=== PATIENT | female | born 1940 | race African-American/Black ===

== ENCOUNTER 2016-06-05 11:20 | Inpatient (IN) | payer OTHER, MEDICARE ==
[2016-06-05 11:35] VITALS: BMI 31.8
[2016-06-05] MEDS ORDERED: ALBUTEROL SO4 2.5/IPRATROPIUM 0.5 INH SOL 3 ML VIAL.NEB. NEB ONE (11:44)
[2016-06-05] MEDS ORDERED: methylPREDNISolone NA SUCC 125 MG/2 ML VIAL IVPB ONE (11:47)
[2016-06-05] MEDS: ALBUTEROL SO4 2.5/IPRATROPIUM 0.5 INH SOL 3 ML VIAL.NEB. NEB SCH ×5 (11:50→23:16)
[2016-06-05] MEDS ORDERED: methylPREDNISolone NA SUCC 125 MG/2 ML VIAL ONE (11:51)
[2016-06-05 12:29] LABS: INR 1.19 (0.82-1.09); PROTHROMBIN TIME (PATIENT) 13.1 SEC (9.98-11.88)
[2016-06-05 12:38] LABS: BASOPHIL 0.4 % (0-2.0); EOSINOPHIL 2.5 % (0-4.5); MCH 24.6 pg (25.7-33.7); MCHC 31.1 g/dl (32.0-36.0); MEAN PLT VOLUME 12.5 fl (7.5-11.1); RDW 17.9 % (11.6-15.6); WHITE BLOOD COUNT 7.5 K/mm3 (4.0-10.0)
[2016-06-05 13:30] LABS: ALBUMIN 2.3 g/dl (3.4-5.0); BILIRUBIN,TOTAL 0.4 mg/dL (0.2-1.0); CREATININE 3.5 mg/dL (0.55-1.02); TOT PROT 8.9 g/dl (6.4-8.2)
[2016-06-05 13:33] LABS: TROPONIN I 0.06 ng/ml (0.00-0.05)
[2016-06-05] MEDS ORDERED: LEVOFLOXACIN 500 MG IVPB 100 ML IVPB ONE (14:04)
[2016-06-05 14:30] LABS: PLATELET COMMENT2 NO CLOTTING DETECTED; PLATELET COMMENT3 FEW LARGE PLTS; PLATELET COUNT 79 K/MM3 (134-434); PLATELET ESTIMATE SLT DECREASED (NORMAL)
--- NOTE | 2016-06-05 14:31 | PDOC ---
History of Present Illness - General Chief Complaint: Shortness of Breath Stated Complaint: ASTHMA Time Seen by Provider: 06/05/16 11:34 History Source: Patient Exam Limitations: No Limitations - History of Present Illness Initial Comments: 06/05/16 12:32 75-year-old female presents with wheezing, cough and shortness of breath worsening since awakening this morning. Patient states had used her nebulizer machine with no improvement so decided come to the ER with her granddaughter. Patient denies chest pain, fever, chills, palpitations, weakness, nausea, recent change in medications, or recent illness. Timing/Duration: reports: constant, getting worse Severity: reports: moderate Possible Cause: Yes: occasional episodes Modifying Factors: improves with: coughing Associated Symptoms: reports: cough, shortness of breath, wheezing Past History - Past Medical History Allergies/Adverse Reactions: Allergies Allergy/AdvReac Type Severity Reaction Status Date / Time egg Allergy Severe LIP Verified 06/05/16 11:28 SWELLING Penicillins Allergy Severe Rash Verified 06/05/16 11:28 FLU SHOT Allergy Uncoded 06/05/16 11:28 Home Medications: Ambulatory Orders Clonidine HCl 0.1 mg PO BID 06/05/16 Meclizine HCl 25 mg PO BID 06/05/16 Nifedipine [Nifedipine ER] 30 mg PO DAILY 06/05/16 Anemia: No Asthma: Yes Cancer: No Cardiac Disorders: Yes (? 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 [place] SAYS NO EVID) CVA: No COPD: No CHF: Yes (ENCE AFTER STUDIES.) Dementia: No Diabetes: No GI Disorders: No Disorders: No HTN: Yes Hypercholesterolemia: No Liver Disease: No Seizures: No Thyroid Disease: No - Surgical History Abdominal Surgery: No Appendectomy: No Cardiac Surgery: No Cholecystectomy: No Lung Surgery: No Neurologic Surgery: No Orthopedic Surgery: No - Psycho/Social/Smoking Cessation Hx Suicidal Ideation: No Smoking History: Former smoker Have you smoked in the past 12 months: No If you are a former smoker, when did you quit?: 35 YEARS AGO Information on smoking cessation initiated: No Hx Alcohol Use: No Drug/Substance Use Hx: No Substance Use Type: None Hx Substance Use Treatment: No Patient Lives Alone: No Respiratory Specific PMHX - Complaint Specific PMHX Bronchitis: Yes Review of Systems - Review of Systems Able to Perform ROS?: Yes Constitutional: No: Symptoms Reported HEENTM: No: Symptoms Reported Respiratory: Yes: Cough, Shortness of Breath, Wheezing Cardiac (ROS): No: Symptoms Reported ABD/GI: No: Symptoms Reported : No: Symptoms Reported Musculoskeletal: No: Symptoms Reported Integumentary: No: Symptoms Reported Neurological: No: Symptoms reported Hematologic/Lymphatic: No: Symptoms Reported *Physical Exam - Vital Signs Last Vital Signs Temp Pulse Resp BP Pulse Ox 98 F 100 H 24 188/82 100 06/05/16 11:28 06/05/16 13:29 06/05/16 13:29 06/05/16 13:29 06/05/16 13:29 - Physical Exam General Appearance: Yes: Nourished, Appropriately Dressed, Mild Distress HEENT: positive: TMs Normal, Pharynx Normal. negative: Pale Conjunctivae Neck: positive: Supple Respiratory/Chest: positive: Respiratory Distress, Accessory Muscle Use ( intercostal), Crackles (inspiratory crackles bilateral). negative: Rapid RR, Decreased Breath Sounds Cardiovascular: positive: Regular Rhythm, Tachycardia. negative: Murmur Gastrointestinal/Abdominal: positive: Soft. negative: Tenderness Extremity: positive: Normal Capillary Refill, Pedal Edema (2+ nonpitting) Integumentary: positive: Normal Color, Dry, Warm Neurologic: positive: Normal Mood/Affect, Motor Strength 5/5 (amvbulatory with assistance) Heart Score/ECG Review - History History: Slightly suspicious - Electrocardiogram EKG: Normal - Age Age: >/= 65 - Risk Factors Risk Factors Heart Score: Yes Hx Hypercholesterolemia, Yes Hx Hypertension Based on the list above the patient has:: 1-2 risk factors - Troponin Troponin: </= normal limit - Score Heart Score - Total: 3 - ECG Intrepretation Rhythm: Regular Rhythm (Rate 98. Normal sinus rhythm. No acute findings.) ED Treatment Course - LABORATORY CBC & Chemistry Diagram: 06/06/16 05:55 06/06/16 05:55 - ADDITIONAL ORDERS Additional order review: Laboratory Results 06/05/16 06/05/16 06/05/16 13:40 12:30 11:40 INR 1.19 H Sodium 143 Potassium 4.9 Chloride 113 H Carbon Dioxide 21 Anion Gap 9 BUN 43 H Creatinine 3.5 H D Creat Clearance w eGFR 12.80 Random Glucose 112 H D Lactic Acid 1.853 Calcium 8.0 L Total Bilirubin 0.4 AST 22 D ALT 11 L Alkaline Phosphatase 62 D Creatine Kinase 185 CK-MB (CK-2) 3.619 H Troponin I 0.06 H B-Natriuretic Peptide 9420.37 H Total Protein 8.9 H D Albumin 2.3 L D 06/05/16 12:30 RBC 4.60 MCV 79.0 L MCHC 31.1 L RDW 17.9 H MPV 12.5 H Neutrophils % 64.0 Lymphocytes % 25.9 Monocytes % 7.2 Eosinophils % 2.5 Basophils % 0.4 - RADIOLOGY Radiology Studies Ordered: Category Date Time Status CHEST X-RAY PORTABLE* [RAD] Stat Radiology 06/05/16 11:47 Completed - Medications Given in the ED: ED Medications Discontinued Medications Generic Name Dose Route Start Last Admin Trade Name Freq PRN Reason Stop Dose Admin Albuterol/Ipratropium 1 amp 06/05/16 12:00 06/05/16 12:35 Duoneb - NEB 06/05/16 12:46 1 amp Q15M JOANNE Administration Levofloxacin 500 mg/ 100 mls @ 100 mls/hr 06/05/16 13:25 06/05/16 14:21 Miscellaneous IVPB 06/05/16 14:24 100 mls/hr ONCE ONE Administration Protocol Methylprednisolone Sodium Succinate 125 mg 06/05/16 11:47 06/05/16 12:00 Solu-Medrol - IVPB 06/05/16 11:48 125 mg ONCE ONE Administration Medical Decision Making - Critical Care Time Total Critical Care Time (minutes): 35 Critical Care Statement: The care of this patient involved high complexity decision making to prevent further life threatening deterioration of the patient 's condition and/or to evalute & treat vital organ system(s) failure or risk of failure. - Medical Decision Making 06/05/16 12:35 Patient history of asthma AR and cardiac history presents with wheezing cough and shortness of breath since this morning. Patient arrives initially hypoxic at 88 with a heart rate of 120 from triage. Patient was placed on monitor in the room and was noted to be satting in the high 80s with a heart rate in the low 100s. Given [id number] DuoNeb while IV access was established. EKG ordered stat. Additional labs include BNP, chest x-ray, cardiac profile, and Solu-Medrol 06/05/16 14:37 Laboratory Tests 06/05/16 06/05/16 06/05/16 11:40 12:30 12:30 WBC 7.5 Hgb 11.3 Hct 36.4 Neutrophils % 64.0 INR 1.19 H Sodium 143 Potassium 4.9 Chloride 113 H Carbon Dioxide 21 Anion Gap 9 BUN 43 H Creatinine 3.5 H D Creat Clearance w eGFR 12.80 Random Glucose 112 H D Lactic Acid Calcium 8.0 L Total Bilirubin 0.4 AST 22 D ALT 11 L Alkaline Phosphatase 62 D Creatine Kinase 185 CK-MB (CK-2) 3.619 H Troponin I 0.06 H B-Natriuretic Peptide 9420.37 H Total Protein 8.9 H D Albumin 2.3 L D 06/05/16 13:40 WBC Hgb Hct Neutrophils % INR Sodium Potassium Chloride Carbon Dioxide Anion Gap BUN Creatinine Creat Clearance w eGFR Random Glucose Lactic Acid 1.853 Calcium Total Bilirubin AST ALT Alkaline Phosphatase Creatine Kinase CK-MB (CK-2) Troponin I B-Natriuretic Peptide Total Protein Albumin 06/05/16 14:00 Chest x-ray shows patchy infiltrates versus atelectasis. Patient concerning for pneumonia versus CHF. Patient ordered for 40 mg of Lasix and Levaquin IV. Will contact patient's PCP Dr. Walters for admission. Selected Entries 06/05/16 13:29 Pulse Rate [ 100 H Right Radial] Respiratory 24 Rate Blood Pressure 188/82 [Left Arm] O2 Sat by Pulse 100 Oximetry (%) Oxygen Flow 2 Rate 06/05/16 16:[address] Walters. Patient will be admitted to the hospitalist under telemetry consultation. cardiology chronic manager will consult since patient does not have a landscape drafter. Patient is currently afebrile asymptomatic and comfortable. Selected Entries 06/05/16 15:30 Pulse Rate [ 99 H Right Radial] Blood Pressure 182/72 [Left Arm] O2 Sat by Pulse 98 Oximetry (%) *DC/Admit/Observation/Transfer Diagnosis at time of Disposition: CHF (congestive heart failure), Pneumonia, Elevated troponin - Discharge Dispostion Admit: Yes
[2016-06-05] MEDS ORDERED: FUROSEMIDE 40 MG/4 ML INJECTABLE VIAL IVPUSH ONE (14:37)
[2016-06-05] MEDS ORDERED: FUROSEMIDE 40 MG/4 ML INJECTABLE VIAL ONE (15:30)
--- NOTE | 2016-06-05 16:09 | HP ---
CHIEF COMPLAINT: chest discomfort, shortness of breath PCP: Romeo HISTORY OF PRESENT ILLNESS: This is a 75 year old female with a past medical history of HTN, ?KS, HLD, asthma who presented to the ED with a 2 day history of chest discomfort associated with SOB. Pt reports cough is minimal and nonproductive. Denies any palpitations. Denies abdominal pain, N/V/D. Pt used her nebulizer today without relief of symptoms. ER course was notable for: (1) given solumedrol 125, duoneb, lasix (2) trop 0.06 (3) BNP 9420.37 (4) BUN/Cr 43/3.5 Recent Travel: pt denies PAST MEDICAL HISTORY: HTN ?KS-pt reports she was told she had an KS in 2012 in [place], but never had any follow up and when she came to [place], her doctor told her she didn't have one HLD asthma PAST SURGICAL HISTORY: bilateral cataracts Social History: Smoking: quit 40 years, 20 pack year history Alcohol: occ Drugs: pt denies Allergies egg Allergy (Severe, Verified 06/05/16 11:28) LIP SWELLING Penicillins Allergy (Severe, Verified 06/05/16 11:28) Rash FLU SHOT Allergy (Uncoded 06/05/16 11:28) HOME MEDICATIONS: 3 Medication Instructions Recorded Clonidine HCl 0.1 mg PO BID 06/05/16 Meclizine HCl 25 mg PO BID 06/05/16 Nifedipine [Nifedipine ER] 30 mg PO DAILY 06/05/16 REVIEW OF SYSTEMS CONSTITUTIONAL: Absent: fever, chills, diaphoresis, generalized weakness, malaise, loss of appetite, weight change HEENT: Absent: rhinorrhea, nasal congestion, throat pain, throat swelling, difficulty swallowing, mouth swelling, ear pain, eye pain, visual changes CARDIOVASCULAR: chest discomfort Absent: syncope, palpitations, irregular heart rate, lightheadedness, peripheral edema RESPIRATORY: cough, shortness of breath Absent: dyspnea with exertion, orthopnea, wheezing, stridor, hemoptysis GASTROINTESTINAL: Absent: abdominal pain, abdominal distension, nausea, vomiting, diarrhea, constipation, melena, hematochezia GENITOURINARY: Absent: dysuria, frequency, urgency, hesitancy, hematuria, flank pain, genital pain MUSCULOSKELETAL: Absent: myalgia, arthralgia, joint swelling, back pain, neck pain SKIN: Absent: rash, itching, pallor HEMATOLOGIC/IMMUNOLOGIC: Absent: easy bleeding, easy bruising, lymphadenopathy, frequent infections ENDOCRINE: Absent: unexplained weight gain, unexplained weight loss, heat intolerance, cold intolerance NEUROLOGIC: Absent: headache, focal weakness or paresthesias, dizziness, unsteady gait, seizure, mental status changes, bladder or bowel incontinence PSYCHIATRIC: Absent: anxiety, depression, suicidal or homicidal ideation, hallucinations. PHYSICAL EXAMINATION Vital Signs - 24 hr 3 06/05/16 06/05/16 06/05/16 11:28 11:40 12:20 Temperature 98 F Pulse Rate 93 H Pulse Rate [ 98 H Right Radial] Respiratory 22 16 Rate Blood Pressure 201/88 Blood Pressure 177/107 [Left Arm] O2 Sat by Pulse 88 L 96 100 Oximetry (%) 3 06/05/16 06/05/16 13:29 15:30 Temperature Pulse Rate Pulse Rate [ 100 H 99 H Right Radial] Respiratory 24 26 H Rate Blood Pressure Blood Pressure 188/82 182/72 [Left Arm] O2 Sat by Pulse 100 98 Oximetry (%) GENERAL: Awake, alert, and fully oriented, in no acute distress. HEAD: Normal with no signs of trauma. EYES: Pupils equal, round and reactive to light, extraocular movements intact, sclera anicteric, conjunctiva clear. No lid lag. EARS, NOSE, THROAT: Ears normal, nares patent, oropharynx clear without exudates. Moist mucous membranes. NECK: Normal range of motion, supple without lymphadenopathy, JVD, or masses. LUNGS: No wheezes, no rhonchi. + crackles, 1/3-1/2 way up. No accessory muscle use. HEART: Regular rate and rhythm, normal S1 and S2 without murmur, rub or gallop. ABDOMEN: Soft, nontender, not distended, normoactive bowel sounds, no guarding, no rebound, no masses. No hepatomegaly or splenomegaly. MUSCULOSKELETAL: Normal range of motion at all joints. No bony deformities or tenderness. No CVA tenderness. UPPER EXTREMITIES: 2+ pulses, warm, well-perfused. No cyanosis. No clubbing. Cap refill <2 seconds. No peripheral edema. LOWER EXTREMITIES: 2+ pulses, warm, well-perfused. No calf tenderness. No peripheral edema. NEUROLOGICAL: Cranial nerves II-XII intact. Normal speech. Normal gait. PSYCHIATRIC: Cooperative. Good eye contact. Appropriate mood and affect. SKIN: Warm, dry, normal turgor, no rashes or lesions noted. Laboratory Results - last 24 hr 3 06/05/16 06/05/16 06/05/16 06/05/16 11:40 12:30 12:30 13:40 WBC 7.5 RBC 4.60 Hgb 11.3 Hct 36.4 MCV 79.0 L MCHC 31.1 L RDW 17.9 H Plt Count 79 L MPV 12.5 H Neutrophils % 64.0 Lymphocytes % 25.9 Monocytes % 7.2 Eosinophils % 2.5 Basophils % 0.4 Differential Comment Slide scanned Platelet Estimate Slt decreased Platelet Comment No clotting detected INR 1.19 H Sodium 143 Potassium 4.9 Chloride 113 H Carbon Dioxide 21 Anion Gap 9 BUN 43 H Creatinine 3.5 H D Creat Clearance w eGFR 12.80 Random Glucose 112 H D Lactic Acid 1.853 Calcium 8.0 L Total Bilirubin 0.4 AST 22 D ALT 11 L Alkaline Phosphatase 62 D Creatine Kinase 185 CK-MB (CK-2) 3.619 H Troponin I 0.06 H B-Natriuretic Peptide 9420.37 H Total Protein 8.9 H D Albumin 2.3 L D ECG: NSR, rate 98, QTC 444, STand T abnormality, (flipped T leads 3, aVF, V4-V6) Chest xray: Impression: Diffuse bilateral airspace changes compatible with infiltrate and congestion. Large heart. Sclerotic knob ASSESSMENT/PLAN: 75yF with PMH HTN, HLD, ?KS, asthma presented with chest discomfort and SOB. She is being admitted for CHF exacerbation and pneumonia. Pneumonia, Community acquired / Asthma - cont levaquin, will renal dose for CrCl 15, 500mg QOD - duoneb QID - oxygen 2L PRN. - solumedrol 40mg Q6H, taper as tolerated CHF - received lasix IVP in ED, but pt in acute renal failure, will hold off on further diuresis - echocardiogram ordered - cardiology consult. Elevated troponin - trend x 2 more - cardiology consult - defer beta mu due to active wheezing on arrival - will give ASA 324mg and start daily Acute kidney injury with chronic CKD - baseline creatinine 2.4-2.8, now 3.5 - hold further IV lasix - renal consult - monitor BMP HTN - cont home meds, titrate up if BP consistently elevated DVT PPX - heparin 5000u SC TID FEN - defer IVF for now, tolerating po - repeat labs in AM - low sodium diet Dispo: pt currently requires inpatient care for management of her emergent conditions. Visit type - Emergency Visit Emergency Visit: Yes ED Registration Date: 06/05/16 Care time: The patient presented to the Emergency Department on the above date and was hospitalized for further evaluation of their emergent condition. - New Patient This patient is new to me today: Yes Date on this admission: 06/05/16 - Critical Care Critical Care patient: No
[2016-06-05] MEDS ORDERED: ASPIRIN 81 MG CHEWABLE TABLETS PO ONE (18:36)
--- NOTE | 2016-06-05 19:14 | CON.CARD ---
Consult Consult Specialty:: Cardiology for Osmin - History of Present Illness History of Present Illness: 75-year-old female presents with wheezing, cough and shortness of breath worsening since awakening this morning. Patient states had used her nebulizer machine with no improvement so decided come to the ER with her granddaughter. Patient denies chest pain, fever, chills, palpitations, weakness, nausea, recent change in medications, or recent illness. Timing/Duration: reports: constant, getting worse - History Source History Provided By: Patient, Medical Record - Past Medical History Cardio/Vascular: Yes: HTN Pulmonary: Yes: COPD ...: No - Alcohol/Substance Use Hx Alcohol Use: No - Smoking History Smoking history: Former smoker Have you smoked in the past 12 months: No If you are a former smoker, when did you quit?: 35 YEARS AGO Home Medications - Allergies Allergies/Adverse Reactions: Allergies Allergy/AdvReac Type Severity Reaction Status Date / Time egg Allergy Severe LIP Verified 06/05/16 11:28 SWELLING Penicillins Allergy Severe Rash Verified 06/05/16 11:28 FLU SHOT Allergy Uncoded 06/05/16 11:28 - Home Medications Home Medications: Ambulatory Orders Clonidine HCl 0.1 mg PO BID 06/05/16 Meclizine HCl 25 mg PO BID 06/05/16 Nifedipine [Nifedipine ER] 30 mg PO DAILY 06/05/16 Review of Systems - Review of Systems Constitutional: reports: No Symptoms Eyes: reports: No Symptoms HENT: reports: No Symptoms Neck: reports: No Symptoms Cardiovascular: reports: No Symptoms Respiratory: reports: SOB, SOB on Exertion Gastrointestinal: reports: No Symptoms Genitourinary: reports: No Symptoms Breasts: reports: No Symptoms Reported Musculoskeletal: reports: No Symptoms Integumentary: reports: No Symptoms Neurological: reports: No Symptoms Endocrine: reports: No Symptoms Hematology/Lymphatic: reports: No Symptoms Psychiatric: reports: No Symptoms Vital Signs: Vital Signs Temperature 98.1 F 06/05/16 18:29 Pulse Rate 100 H 06/05/16 18:29 Respiratory Rate 18 06/05/16 18:29 Blood Pressure 160/78 06/05/16 18:29 O2 Sat by Pulse Oximetry (%) 95 06/05/16 18:29 Constitutional: Yes: Well Nourished, No Distress, Calm Eyes: Yes: WNL, Conjunctiva Clear, EOM Intact HENT: Yes: WNL, Atraumatic, Normocephalic Neck: Yes: WNL, Supple, Trachea Midline Respiratory: Yes: WNL, Regular, CTA Bilaterally Gastrointestinal: Yes: WNL, Normal Bowel Sounds Renal/: Yes: WNL Cardiovascular: Yes: WNL, Regular Rate and Rhythm Musculoskeletal: Yes: WNL Extremities: Yes: WNL Integumentary: Yes: WNL Neurological: Yes: WNL, Alert, Oriented ...Motor Strength: WNL Psychiatric: Yes: WNL, Alert, Oriented - Other Data Labs, Other Data: INR, PTT INR 1.19 (0.82-1.09) H 06/05/16 11:40 Laboratory Tests 06/05/16 06/05/16 06/05/16 11:40 12:30 12:30 WBC 7.5 RBC 4.60 Hgb 11.3 Hct 36.4 MCV 79.0 L MCHC 31.1 L RDW 17.9 H Plt Count 79 L MPV 12.5 H Neutrophils % 64.0 Lymphocytes % 25.9 Monocytes % 7.2 Eosinophils % 2.5 Basophils % 0.4 Differential Comment Slide scanned Platelet Estimate Slt decreased Platelet Comment No clotting detected INR 1.19 H Sodium 143 Potassium 4.9 Chloride 113 H Carbon Dioxide 21 Anion Gap 9 BUN 43 H Creatinine 3.5 H D Creat Clearance w eGFR 12.80 Random Glucose 112 H D Lactic Acid Calcium 8.0 L Total Bilirubin 0.4 AST 22 D ALT 11 L Alkaline Phosphatase 62 D Creatine Kinase 185 CK-MB (CK-2) 3.619 H Troponin I 0.06 H B-Natriuretic Peptide 9420.37 H Total Protein 8.9 H D Albumin 2.3 L D 06/05/16 13:40 WBC RBC Hgb Hct MCV MCHC RDW Plt Count MPV Neutrophils % Lymphocytes % Monocytes % Eosinophils % Basophils % Differential Comment Platelet Estimate Platelet Comment INR Sodium Potassium Chloride Carbon Dioxide Anion Gap BUN Creatinine Creat Clearance w eGFR Random Glucose Lactic Acid 1.853 Calcium Total Bilirubin AST ALT Alkaline Phosphatase Creatine Kinase CK-MB (CK-2) Troponin I B-Natriuretic Peptide Total Protein Albumin Imaging - Results Chest X-ray: Image Reviewed (chf) EKG: Image Reviewed (sr rep abn) Problem List - Problems (1) CHF (congestive heart failure) Code(s): I50.9 - HEART FAILURE, UNSPECIFIED (2) Elevated troponin Code(s): R79.89 - OTHER SPECIFIED ABNORMAL FINDINGS OF BLOOD CHEMISTRY (3) Pneumonia Code(s): J18.9 - PNEUMONIA, UNSPECIFIED ORGANISM Assessment/Plan copd chf cri plan echo iv lasix asa keep ldl below [address] when stable
[2016-06-05 19:43] LABS: TROPONIN I 0.07 ng/ml (0.00-0.05)
--- NOTE | 2016-06-05 21:36 | CONSULT ---
Consult - text type - Consultation Consultation Note: Renal Consult for SHAYY on CKD This is a 75 year old woman with PMhx of CKD Stage 4, Hypertension (>40 years), Asthma, Osteoarthritis, Former Smoker who presented with 2 day history of chest discomfort and SOB and admitted with PNA vs. CHF with BUN/Cr of 43/3.5. Pt states that her sob had been progressively worsening over the past few days. Feels better now after admission. S/p IV steroids and Lasix on admission. No fever or chills. No ABd pain/N/V/D. No flank pain. No dysuria or dark urine. No hematuria. No NSIAD use. No recent contrast exposure. PMhx: as above Allergies: PCN Social Hx: Former smoker ROS: as per HPI Home Meds: Home Medications Medication Instructions Recorded Clonidine HCl 0.1 mg PO BID 06/05/16 Meclizine HCl 25 mg PO BID 06/05/16 Nifedipine [Nifedipine ER] 30 mg PO DAILY 06/05/16 Atenolol 50mg BID. Vital Signs Temperature 98.1 F 06/05/16 18:29 Pulse Rate 100 H 06/05/16 18:29 Respiratory Rate 18 06/05/16 18:29 Blood Pressure 160/78 06/05/16 18:29 O2 Sat by Pulse Oximetry (%) 95 06/05/16 18:29 Intake & Output 06/02/16 06/03/16 06/04/16 06/05/16 23:59 23:59 23:59 23:59 Weight 180 lb Gen: NAD, awake and alert HEENT: NC/AT, MMM, No JVD, Neck Supple CVS: RRR, No M/R Lungs : + rales at b/l lung bases Abd: soft NT/ND Ext: 1+ edema in B/L LE, no cyanosis or clubbing Neuro: No focal defects CBC, BMP 06/05/16 12:30 06/05/16 12:30 Laboratory Tests 06/05/16 12:30 Calcium 8.0 L Creatine Kinase 185 CK-MB (CK-2) 3.619 H B-Natriuretic Peptide 9420.37 H Total Protein 8.9 H D Albumin 2.3 L D Current Medications Albuterol/Ipratropium (Duoneb -) 1 amp NEB QIDR JOANNE Aspirin (Asa -) 81 mg PO DAILY JOANNE Atenolol (Tenormin -) 50 mg PO DAILY JOANNE Clonidine (Catapres -) 0.1 mg PO BID JOANNE Furosemide (Lasix Injection -) 40 mg IVPUSH BID@0600,1400 JOANNE Heparin Sodium (Porcine) (Heparin -) 5,000 unit SQ TID JOANNE Levofloxacin (Levaquin 500 Mg Premixed Ivpb -) 100 mls @ 100 mls/hr IVPB Q2D JOANNE Methylprednisolone Sodium Succinate (Solu-Medrol -) 40 mg IVPB Q6H-IV JOANNE Nifedipine (Procardia Xl -) 30 mg PO DAILY JOANNE A/P 75 year old woman with PMhx of CKD Stage 4, Hypertension (>40 years), Asthma, Osteoarthritis, Former Smoker who presented with 2 day history of chest discomfort and SOB and admitted with PNA vs. CHF with BUN/Cr of 43/3.5. #SHAYY on CKD vs. Progressive CKD Cr was 2.8 last year, no other labs since that time Given possible CHF and volume overload it is possible she can have Cardio-renal syndrome Check FeNa, FeUrea, UPCR, Renal US Continue IV lasix 80mg IV BID Trend BUN/Cr, daily weights Dose all meds for Cr Cl less then 15 No hyperkalmiea, uremia, metabolic acidosis to warrant HD at this time #CHF vs. PNA vs. COPD/SOB Continue IV lasix BID Continue IV steroids Abx as needed as per primary (no WBC, Fever) Check blood and urine cultures (legionella) Cardiology Eval check ECHO Trend daily weights #Hypertension Continue Clondine, Procardia, Atenolol (can hold BB if pt has overt wheezing) Goal BP < 140/90 #Thrombocytopenia ? etiology Check LDH/Haptologin Trend plts not at risk for spontaneous bleeding consider heme eval if it persists
[2016-06-05] MEDS: cloNIDine HCL 0.1 MG TABLET PO SCH (21:56)
[2016-06-05] MEDS: methylPREDNISolone NA SUCC 40 MG/1 ML VIAL IVPB SCH (21:56)
[2016-06-05] MEDS: HEPARIN NA (PORCINE) 5,000 UNITS/ML 1ML VIAL SQ SCH (21:56)
[2016-06-06 02:25] LABS: TROPONIN I 0.07 ng/ml (0.00-0.05)
[2016-06-06] MEDS: methylPREDNISolone NA SUCC 40 MG/1 ML VIAL IVPB SCH ×4 (03:35→22:26)
[2016-06-06] MEDS: FUROSEMIDE 40 MG/4 ML INJECTABLE VIAL IVPUSH SCH ×2 (06:26→14:16)
[2016-06-06] MEDS: HEPARIN NA (PORCINE) 5,000 UNITS/ML 1ML VIAL SQ SCH (06:26)
[2016-06-06] MEDS: ALBUTEROL SO4 2.5/IPRATROPIUM 0.5 INH SOL 3 ML VIAL.NEB. NEB SCH ×4 (06:36→23:53)
[2016-06-06 06:59] LABS: BASOPHIL 0.1 % (0-2.0); MCH 24.8 pg (25.7-33.7); MCHC 31.4 g/dl (32.0-36.0); MEAN CELL VOLUME 78.9 fl (80-96); MEAN PLT VOLUME 15.1 fl (7.5-11.1); NEUTROPHILS 89.4 % (42.8-82.8); PLATELET COUNT 89 K/MM3 (134-434); RDW 17.8 % (11.6-15.6); WHITE BLOOD COUNT 8.3 K/mm3 (4.0-10.0)
[2016-06-06 07:23] LABS: CALCIUM 7.9 mg/dL (8.5-10.1); CREATININE 3.9 mg/dL (0.55-1.02); MAGNESIUM 1.9 mg/dL (1.8-2.4); TOT PROT 7.6 g/dl (6.4-8.2)
[2016-06-06 07:25] LABS: BILIRUBIN,TOTAL 0.3 mg/dL (0.2-1.0); PHOSPHOROUS 4.3 mg/dL (2.5-4.9)
[2016-06-06] MEDS ORDERED: PT OWN MED DRAWER 7, Y5N ONE (08:29)
--- NOTE | 2016-06-06 09:10 | PN ---
Progress Note, Physician History of Present Illness: 75-year-old female presents with wheezing, cough and shortness of breath worsening since awakening this morning. Patient states had used her nebulizer machine with no improvement so decided come to the ER with her granddaughter. Patient denies chest pain, fever, chills, palpitations, weakness, nausea, recent change in medications, or recent illness. Timing/Duration: reports: constant, getting worse - Current Medication List Current Medications: Active Medications Albuterol/Ipratropium (Duoneb -) 1 amp NEB QIDR [facility] Last Admin: 06/06/16 06:36 Dose: Not Given Aspirin (Asa -) 81 mg PO DAILY [facility] Atenolol (Tenormin -) 50 mg PO DAILY [facility] Clonidine (Catapres -) 0.1 mg PO BID [facility] Last Admin: 06/05/16 21:56 Dose: 0.1 mg Furosemide (Lasix Injection -) 40 mg IVPUSH BID@0600,1400 [facility] Last Admin: 06/06/16 06:26 Dose: 40 mg Heparin Sodium (Porcine) (Heparin -) 5,000 unit SQ TID [facility] Last Admin: 06/06/16 06:26 Dose: 5,000 unit Levofloxacin (Levaquin 500 Mg Premixed Ivpb -) 100 mls @ 100 mls/hr IVPB Q2D [facility] Insulin Aspart (Novolog Vial Sliding Scale -) 1 vial SQ ACHS [facility] PRN Reason: Protocol Methylprednisolone Sodium Succinate (Solu-Medrol -) 40 mg IVPB Q6H-IV [facility] Last Admin: 06/06/16 03:35 Dose: 40 mg Nifedipine (Procardia Xl -) 30 mg PO DAILY [facility] - Objective Vital Signs: Vital Signs Temperature 98.1 F 06/06/16 06:00 Pulse Rate 83 06/06/16 06:00 Respiratory Rate 18 06/06/16 06:00 Blood Pressure 160/70 06/06/16 06:00 O2 Sat by Pulse Oximetry (%) 91 L 06/05/16 22:00 Eyes: Yes: WNL, Conjunctiva Clear, EOM Intact HENT: Yes: WNL, Atraumatic, Normocephalic Neck: Yes: WNL, Supple, Trachea Midline Cardiovascular: Yes: WNL, Regular Rate and Rhythm Respiratory: Yes: Wheezes Gastrointestinal: Yes: WNL, Normal Bowel Sounds Genitourinary: Yes: WNL Musculoskeletal: Yes: WNL Extremities: Yes: WNL Edema: No Integumentary: Yes: WNL Neurological: Yes: WNL, Alert, Oriented ...Motor Strength: WNL Psychiatric: Yes: WNL Labs: CBC, BMP 06/06/16 05:55 06/06/16 05:55 INR, PTT INR 1.19 (0.82-1.09) H 06/05/16 11:40 Problem List - Problems (1) CHF (congestive heart failure) Code(s): I50.9 - HEART FAILURE, UNSPECIFIED (2) Elevated troponin Code(s): R79.89 - OTHER SPECIFIED ABNORMAL FINDINGS OF BLOOD CHEMISTRY (3) Pneumonia Code(s): J18.9 - PNEUMONIA, UNSPECIFIED ORGANISM Assessment/Plan copd chf cri plan echo iv lasix asa keep ldl below [address] when stable
[2016-06-06] MEDS: cloNIDine HCL 0.1 MG TABLET PO SCH ×2 (09:24→22:26)
[2016-06-06] MEDS: ASPIRIN 81 MG CHEWABLE TABLETS PO SCH (09:25)
[2016-06-06] MEDS: ATENOLOL 50 MG TABLET (FP) PO SCH (09:25)
--- NOTE | 2016-06-06 09:38 | PN ---
Physical Exam: SUBJECTIVE: Patient seen and examined. She denies any chest pain or shortness of breath. Denies any recent hospitalization. Was last here at [facility] 1 year ago, but not been admitted to another facility since. She states her breathing has improved on the 2 liters of continuous nasal cannula. OBJECTIVE: Vital Signs Period Temp Pulse Resp BP Sys/Hill Pulse Ox Last 24 Hr 98.1 F-98.3 F 79-101 18-18 160-172/70-90 91-98 GENERAL: Awake, alert, and fully oriented, in no acute distress. HEAD: Normal with no signs of trauma. EYES: Pupils equal, round and reactive to light, extraocular movements intact, sclera anicteric, conjunctiva clear. No lid lag. EARS, NOSE, THROAT: Ears normal, nares patent, oropharynx clear without exudates. Moist mucous membranes. NECK: Normal range of motion, supple without lymphadenopathy, JVD, or masses. LUNGS: No wheezes, no rhonchi. diminished breath sounds bilaterally HEART: Regular rate and rhythm, normal S1 and S2 without murmur, rub or gallop. ABDOMEN: Soft, nontender, not distended, normoactive bowel sounds, no guarding, no rebound, no masses. No hepatomegaly or splenomegaly. MUSCULOSKELETAL: Normal range of motion at all joints. No bony deformities or tenderness. No CVA tenderness. UPPER EXTREMITIES: 2+ pulses, warm, well-perfused. No cyanosis. No clubbing. Cap refill <2 seconds. No peripheral edema. LOWER EXTREMITIES: 2+ pulses, warm, well-perfused. No calf tenderness. No peripheral edema. NEUROLOGICAL: Normal speech. Normal gait. PSYCHIATRIC: Appropriate mood and affect. SKIN: Warm, dry, normal turgor, no rashes or lesions noted. Laboratory Results - last 24 hr 06/05/16 06/06/16 06/06/16 18:45 00:10 05:55 WBC 8.3 RBC 3.93 Hgb 9.7 L D Hct 31.0 L MCV 78.9 L MCHC 31.4 L RDW 17.8 H Plt Count 89 L MPV 15.1 H Neutrophils % 89.4 H D Lymphocytes % 8.5 D Monocytes % 2.0 L Eosinophils % 0.0 D Basophils % 0.1 Sodium Potassium Chloride Carbon Dioxide Anion Gap BUN Creatinine Creat Clearance w eGFR Random Glucose Uric Acid Calcium Phosphorus Magnesium Total Bilirubin AST ALT Alkaline Phosphatase LD Total Creatine Kinase 162 145 Troponin I 0.07 H 0.07 H Total Protein Albumin 06/06/16 05:55 WBC RBC Hgb Hct MCV MCHC RDW Plt Count MPV Neutrophils % Lymphocytes % Monocytes % Eosinophils % Basophils % Sodium 141 Potassium 5.7 H Chloride 111 H Carbon Dioxide 22 Anion Gap 8 BUN 57 H D Creatinine 3.9 H Creat Clearance w eGFR 11.30 Random Glucose 162 H D Uric Acid 9.0 H Calcium 7.9 L Phosphorus 4.3 Magnesium 1.9 Total Bilirubin 0.3 D AST 13 L D ALT 9 L Alkaline Phosphatase 51 LD Total 224 Creatine Kinase Troponin I Total Protein 7.6 Albumin 2.0 L Active Medications Generic Name Dose Route Start Last Admin Trade Name Patriceq PRN Reason Stop Dose Admin Albuterol/Ipratropium 1 amp 06/05/16 18:00 06/06/16 06:36 Duoneb - NEB Not Given QIDR JOANNE Aspirin 81 mg 06/06/16 10:00 06/06/16 09:25 Asa - PO 81 mg DAILY [facility] Administration Atenolol 50 mg 06/06/16 10:00 06/06/16 09:25 Tenormin - PO 50 mg DAILY [facility] Administration Clonidine 0.1 mg 06/05/16 22:00 06/06/16 09:24 Catapres - PO 0.1 mg BID [facility] Administration Furosemide 40 mg 06/06/16 06:00 06/06/16 06:26 Lasix Injection - IVPUSH 40 mg BID@0600,1400 [facility] Administration Heparin Sodium (Porcine) 5,000 unit 06/05/16 22:00 06/06/16 06:26 Heparin - SQ 5,000 unit TID [facility] Administration Levofloxacin 100 mls @ 100 mls/hr 06/07/16 10:00 Levaquin 500 Mg Premixed Ivpb - IVPB Q2D [facility] Insulin Aspart 1 vial 06/06/16 11:00 Novolog Vial Sliding Scale - SQ ACHS [facility] Protocol Methylprednisolone Sodium Succinate 40 mg 06/05/16 21:00 06/06/16 09:26 Solu-Medrol - IVPB 40 mg Q6H-IV [facility] Administration Nifedipine 30 mg 06/06/16 10:00 06/06/16 09:25 Procardia Xl - PO 30 mg DAILY [facility] Administration ASSESSMENT/PLAN: Patient is a 75 year old female with a significant past medical history of hypertension, possible RI in the past, hyperlipidemia and asthma. She presented to the ED on 06/05/2016 with chest discomfort and shortness of breath x 2 days. In ER, she was given Solumedrol 125mg, duonebs and Lasix. Her troponin on admission was 0.06, BNP 9420 and BUN/Creatinine 43/3.5 Imaging: Chest Xray 06/05/2016 - diffuse bilateral airspace changes compatible with infiltrates and congestion, large heart, sclerotic knob. air sampling and monitoring shows NSR [address] wave abnormality Renal ultrasound 06/06/2016 - both kidneys are small/atrophic & ecogenic consistent with chronic medical renal disease. EKG 06/06/[address] & T wave abnormality, consider inferior/anterolateral ischemia Cardiology: Chest Pain associated with shortness of breath/CHF Assessment/Plan: On Lasix 40mg BID Echo ordered Cardiology following Troponins > 0.06, 0.07, 0.07 On 2 liters of Nasal cannula continuous Started on ASA 81mg Hypertension - chronic/remains elevated Assessment/Plan: Hypertensive with some improvement but still elevated On Clondine 0.1mg BID, Procardia 30mg BID, Atenolol 50mg daily Monitor BPs, titrate cardiac meds Pulmonary: Pneumonia/Asthma/?COPD Assessment/Plan: Chest Xray 06/05/2016 - diffuse bilateral airspace changes compatible with infiltrates and congestion, large heart, sclerotic knob. On renal dosing of Levaquin 500mg IV qod, On duonebs, 2 liters of nasal cannula (does not have home 02) On Solumedrol 40mg q6 - will taper as tolerated Endocrine: Assessment/Plan: Monitor for hyperglycemia while on steroids, added sliding scale Hematology: Thrombocytopenia Assessment/Plan: Platelets 89, on last admission platelets 140s-150s Patient on meclizine BID home dose which may cause thrombocytopenia hold med, trend platelets If worsening thrombocytopenia, will consult hematology : Acute on chronic CKD Assessment/Plan: On IV lasix, renal following Ultrasound of Kidneys Renal ultrasound 06/06/2016 - both kidneys are small/atrophic & ecogenic consistent with chronic medical renal disease. F.E.N. Fluids: deferred, tolerating PO Electrolytes: hyperkalemia: given kayexalate by renal x 1 dose Nutrition: low sodium Prophylaxis: GI: Protonix 40mg daily DVT: SCDs, no AC secondary to thrombocytopenia Disposition: Requires inpatient hospitalization. Full Code. Visit type - Emergency Visit Emergency Visit: Yes ED Registration Date: 06/05/16 Care time: The patient presented to the Emergency Department on the above date and was hospitalized for further evaluation of their emergent condition. - New Patient This patient is new to me today: Yes Date on this admission: 06/06/16 - Critical Care Critical Care patient: No - Discharge Referral Referred to [facility] Med P.C.: No
[2016-06-06] MEDS ORDERED: SODIUM POLYSTYRENE SULFONATE 15 GM/60 ML BOTTLE PO ONE (10:00)
[2016-06-06] MEDS ORDERED: NIFEdipine E.R. 30 MG TABLET (FP) PO SCH (10:00)
[2016-06-06] MEDS ORDERED: NIFEDIPINE 30 MG PO SCH (10:00)
[2016-06-06] MEDS: INSULIN SLIDING SCALE (NOVOLOG) 1 VIAL SQ SCH ×3 (11:46→22:32)
--- NOTE | 2016-06-06 16:28 | PN ---
Progress Note (short form) - Note Progress Note: Renal Follow up for SHAYY vs. Progressive CKD Pt seen and examined at the bedside reports sob is improved good urine output no chest pain, fever or chills No N/V Vital Signs Temperature 97.9 F 06/06/16 13:46 Pulse Rate 83 06/06/16 13:46 Respiratory Rate 22 06/06/16 13:46 Blood Pressure 174/76 06/06/16 13:46 O2 Sat by Pulse Oximetry (%) 98 06/06/16 09:41 Intake & Output 06/03/16 06/04/16 06/05/16 06/06/16 23:59 23:59 23:59 23:59 Intake Total 60 680 Balance 60 680 Weight 180 lb Gen: NAD, awake and alert HEENT: NC/AT, MMM, No JVD, Neck Supple CVS: RRR, No M/R Lungs : + rales Abd: soft NT/ND Ext: 1+ edema in B/L LE, no cyanosis or clubbing Neuro: No focal defects \ CBC, BMP 06/06/16 05:55 06/06/16 05:55 Current Medications Albuterol/Ipratropium (Duoneb -) 1 amp NEB QIDR [facility] Last Admin: 06/06/16 11:40 Dose: Not Given Aspirin (Asa -) 81 mg PO DAILY [facility] Last Admin: 06/06/16 09:25 Dose: 81 mg Atenolol (Tenormin -) 50 mg PO DAILY [facility] Last Admin: 06/06/16 09:25 Dose: 50 mg Clonidine (Catapres -) 0.1 mg PO BID [facility] Last Admin: 06/06/16 09:24 Dose: 0.1 mg Furosemide (Lasix Injection -) 40 mg IVPUSH BID@0600,1400 [facility] Last Admin: 06/06/16 14:16 Dose: 40 mg Levofloxacin (Levaquin 500 Mg Premixed Ivpb -) 100 mls @ 100 mls/hr IVPB Q2D [facility] Insulin Aspart (Novolog Vial Sliding Scale -) 1 vial SQ ACHS [facility] PRN Reason: Protocol Last Admin: 06/06/16 11:46 Dose: Not Given Methylprednisolone Sodium Succinate (Solu-Medrol -) 40 mg IVPB Q6H-IV [facility] Last Admin: 06/06/16 14:16 Dose: 40 mg Nifedipine (Procardia Xl -) 30 mg PO DAILY [facility] Last Admin: 06/06/16 09:25 Dose: 30 mg A/P 75 year old woman with PMhx of CKD Stage 4, Hypertension (>40 years), Asthma, Osteoarthritis, Former Smoker who presented with 2 day history of chest discomfort and SOB and admitted with PNA vs. CHF with BUN/Cr of 43/3.5. #SHAYY on CKD vs. Progressive CKD BUN/Cr up trending Continue IV lasix for now as pt continues to have chest congestion, however if renal function worse tomorrow would hold Lasix Urine studies pending Renal US showed small kidneys consistent with CKD no acute indication for [employer] at this time Dose all meds for Cr cl less then 15 #Hyperkalemia Gave kayexalate 15g PO this morning diet changed to renal diet #CHF vs. PNA vs. COPD/SOB Continue IV lasix BID Continue IV steroids Check blood and urine cultures (legionella) Cardiology Eval check ECHO Trend daily weights #Hypertension Continue Clondine, Procardia, Atenolol (can hold BB if pt has overt wheezing) Increase Procardia XL To BID Goal BP < 140/90 #Thrombocytopenia ? etiology LDH/Haptologin - normal Trend plts not at risk for spontaneous bleeding consider heme eval if it persists Thank you Will follow Raymundo Snyder DO
[2016-06-06] MEDS: PANTOPRAZOLE 40 MG TABLET (FP) PO SCH (18:39)
--- NOTE | 2016-06-06 19:27 | EKG ---
Test Reason : Blood Pressure : / mmHG Vent. Rate : 098 BPM Atrial Rate : 098 BPM P-R Int : 134 ms QRS Dur : 088 ms QT Int : 348 ms P-R-T Axes : 000 184 -24 degrees QTc Int : 444 ms POOR DATA QUALITY, INTERPRETATION MAY BE ADVERSELY AFFECTED NORMAL SINUS RHYTHM LIMB LEAD REVERSAL SUSPECT ARM LEAD REVERSAL, INTERPRETATION ASSUMES NO REVERSAL ABNORMAL ECG NO PREVIOUS ECGS AVAILABLE Confirmed by CARLOS STILL, ЕЛЕНА (2016) on 06/06/2016 7:26:52 PM Referred By: Confirmed By:ЕЛЕНА GONZALEZ MD
[2016-06-06] MEDS: NIFEdipine E.R. 30 MG TABLET (FP) PO SCH (22:26)
[2016-06-06] MEDS ORDERED: INSULIN (NOVOLOG) ASPART 100 UNITS/ML 10ML VIAL ONE (22:35)
[2016-06-07] MEDS: methylPREDNISolone NA SUCC 40 MG/1 ML VIAL IVPB SCH ×4 (02:26→21:02)
[2016-06-07] MEDS: ALBUTEROL SO4 2.5/IPRATROPIUM 0.5 INH SOL 3 ML VIAL.NEB. NEB SCH ×3 (06:05→18:09)
[2016-06-07] MEDS: INSULIN SLIDING SCALE (NOVOLOG) 1 VIAL SQ SCH ×4 (06:53→21:03)
[2016-06-07 07:54] LABS: BASOPHIL 0.3 % (0-2.0); MCHC 31.7 g/dl (32.0-36.0); MEAN CELL VOLUME 78.9 fl (80-96); MEAN PLT VOLUME 13.3 fl (7.5-11.1); NEUTROPHILS 88.5 % (42.8-82.8); PLATELET COUNT 105 K/MM3 (134-434); RDW 17.6 % (11.6-15.6); WHITE BLOOD COUNT 10.1 K/mm3 (4.0-10.0)
[2016-06-07 08:17] LABS: ALBUMIN 1.9 g/dl (3.4-5.0); CALCIUM 7.7 mg/dL (8.5-10.1)
[2016-06-07 08:19] LABS: BILIRUBIN,TOTAL 0.2 mg/dL (0.2-1.0); TOT PROT 7.2 g/dl (6.4-8.2)
[2016-06-07] MEDS: ASPIRIN 81 MG CHEWABLE TABLETS PO SCH (09:54)
[2016-06-07] MEDS: ATENOLOL 50 MG TABLET (FP) PO SCH (09:54)
[2016-06-07] MEDS: LEVOFLOXACIN 500 MG IVPB 100 ML IVPB SCH (09:54)
[2016-06-07] MEDS: cloNIDine HCL 0.1 MG TABLET PO SCH ×2 (09:54→21:02)
[2016-06-07] MEDS: PANTOPRAZOLE 40 MG TABLET (FP) PO SCH (09:54)
[2016-06-07] MEDS: NIFEdipine E.R. 30 MG TABLET (FP) PO SCH ×2 (09:54→21:03)
--- NOTE | 2016-06-07 10:15 | PN ---
Progress Note, Physician History of Present Illness: 75-year-old female presents with wheezing, cough and shortness of breath worsening since awakening this morning. Patient states had used her nebulizer machine with no improvement so decided come to the ER with her granddaughter. Patient denies chest pain, fever, chills, palpitations, weakness, nausea, recent change in medications, or recent illness. Timing/Duration: reports: constant, getting worse - Current Medication List Current Medications: Active Medications Albuterol/Ipratropium (Duoneb -) 1 amp NEB QIDR [facility] Last Admin: 06/07/16 06:05 Dose: 1 amp Aspirin (Asa -) 81 mg PO DAILY [facility] Last Admin: 06/07/16 09:54 Dose: 81 mg Atenolol (Tenormin -) 50 mg PO DAILY [facility] Last Admin: 06/07/16 09:54 Dose: 50 mg Clonidine (Catapres -) 0.1 mg PO BID [facility] Last Admin: 06/07/16 09:54 Dose: 0.1 mg Furosemide (Lasix Injection -) 40 mg IVPUSH BID@0600,1400 [facility] Last Admin: 06/06/16 14:16 Dose: 40 mg Levofloxacin (Levaquin 500 Mg Premixed Ivpb -) 100 mls @ 100 mls/hr IVPB Q2D [facility] Last Admin: 06/07/16 09:54 Dose: 100 mls/hr Insulin Aspart (Novolog Vial Sliding Scale -) 1 vial SQ ACHS [facility] PRN Reason: Protocol Last Admin: 06/07/16 06:53 Dose: 2 units Methylprednisolone Sodium Succinate (Solu-Medrol -) 40 mg IVPB Q6H-IV [facility] Last Admin: 06/07/16 09:54 Dose: 40 mg Nifedipine (Procardia Xl -) 30 mg PO BID [facility] Last Admin: 06/07/16 09:54 Dose: 30 mg Pantoprazole Sodium (Protonix -) 40 mg PO DAILY [facility] Last Admin: 06/07/16 09:54 Dose: 40 mg - Objective Vital Signs: Vital Signs Temperature 97.3 F L 06/07/16 06:00 Pulse Rate 74 06/07/16 06:00 Respiratory Rate 22 06/07/16 06:00 Blood Pressure 141/65 06/07/16 06:00 O2 Sat by Pulse Oximetry (%) 98 03/05/17 22:00 Eyes: Yes: WNL, Conjunctiva Clear, EOM Intact HENT: Yes: WNL, Atraumatic, Normocephalic Neck: Yes: WNL, Supple, Trachea Midline Cardiovascular: Yes: WNL, Regular Rate and Rhythm Respiratory: Yes: WNL, Regular, CTA Bilaterally Gastrointestinal: Yes: WNL, Normal Bowel Sounds Genitourinary: Yes: WNL Musculoskeletal: Yes: WNL Extremities: Yes: WNL Edema: No Integumentary: Yes: WNL Neurological: Yes: WNL, Alert, Oriented ...Motor Strength: WNL Psychiatric: Yes: WNL Labs: CBC, BMP 06/07/16 05:42 06/07/16 05:42 INR, PTT INR 1.19 (0.82-1.09) H 06/05/16 11:40 Problem List - Problems (1) CHF (congestive heart failure) Code(s): I50.9 - HEART FAILURE, UNSPECIFIED (2) Elevated troponin Code(s): R79.89 - OTHER SPECIFIED ABNORMAL FINDINGS OF BLOOD CHEMISTRY (3) Pneumonia Code(s): J18.9 - PNEUMONIA, UNSPECIFIED ORGANISM Assessment/Plan copd chf cri plan echo iv lasix asa keep ldl below [address] when stable
[2016-06-07] MEDS ORDERED: INSULIN (NOVOLOG) ASPART 100 UNITS/ML 10ML VIAL ONE ×2 (12:28→21:38)
--- NOTE | 2016-06-07 14:55 | PN ---
Progress Note (short form) - Note Progress Note: Renal Follow up for SHAYY vs. Progressive CKD Pt seen and examined at the bedside reports that sob is improved but not at baseline + cough no chest pain good urine output with lasix (not quantified because pt is incontinent) did not get AM lasix today Vital Signs Temperature 98.2 F 06/07/16 10:00 Pulse Rate 76 06/07/16 10:00 Respiratory Rate 22 06/07/16 10:00 Blood Pressure 137/75 06/07/16 10:00 O2 Sat by Pulse Oximetry (%) 98 06/06/16 22:00 Intake & Output 06/04/16 06/05/16 06/06/16 06/07/16 23:59 23:59 23:59 23:59 Intake Total 60 890 Balance 60 890 Weight 180 lb Gen: NAD, awake and alert HEENT: NC/AT, MMM, No JVD, Neck Supple CVS: RRR, No M/R Lungs : + rales Abd: soft NT/ND Ext: 1+ edema in B/L LE, no cyanosis or clubbing Neuro: No focal defects CBC, BMP 06/07/16 05:42 06/07/16 05:42 Current Medications Albuterol/Ipratropium (Duoneb -) 1 amp NEB QIDR [facility] Last Admin: 06/07/16 11:15 Dose: Not Given Aspirin (Asa -) 81 mg PO DAILY [facility] Last Admin: 06/07/16 09:54 Dose: 81 mg Atenolol (Tenormin -) 50 mg PO DAILY [facility] Last Admin: 06/07/16 09:54 Dose: 50 mg Clonidine (Catapres -) 0.1 mg PO BID [facility] Last Admin: 06/07/16 09:54 Dose: 0.1 mg Furosemide (Lasix Injection -) 40 mg IVPUSH BID@0600,1400 [facility] Levofloxacin (Levaquin 500 Mg Premixed Ivpb -) 100 mls @ 100 mls/hr IVPB Q2D [facility] Last Admin: 06/07/16 09:54 Dose: 100 mls/hr Insulin Aspart (Novolog Vial Sliding Scale -) 1 vial SQ ACHS [facility] PRN Reason: Protocol Last Admin: 06/07/16 12:12 Dose: 2 units Methylprednisolone Sodium Succinate (Solu-Medrol -) 40 mg IVPB Q6H-IV [facility] Last Admin: 06/07/16 09:54 Dose: 40 mg Nifedipine (Procardia Xl -) 30 mg PO BID [facility] Last Admin: 06/07/16 09:54 Dose: 30 mg Pantoprazole Sodium (Protonix -) 40 mg PO DAILY [facility] Last Admin: 06/07/16 09:54 Dose: 40 mg A/P 75 year old woman with PMhx of CKD Stage 4, Hypertension (>40 years), Asthma, Osteoarthritis, Former Smoker who presented with 2 day history of chest discomfort and SOB and admitted with PNA vs. CHF with BUN/Cr of 43/3.5. #SHAYY on CKD vs. Progressive CKD Renal function worsening since admission but without significant change in the last 24 hours pt is non-oliguric by history Urine studies are still pending, for straight cath today Continue IV lasix despite high BUN Cr as pt continues to have rales spoke to pt about possibility of dialysis given worsening renal function pt understands but would like to avoid if possible #Hyperkalemia K is 5.3 Low k diet on IV lasix #CHF vs. PNA vs. COPD/SOB Continue IV lasix BID Continue IV steroids Check blood and urine cultures (legionella) Cardiology Eval Check CT of the Chest w/o contrast to better evaulate if fluid vs infiltrate #Hypertension Continue Clondine, Procardia, Atenolol ( Increased Procardia XL To BID Goal BP < 140/90 #Thrombocytopenia ? etiology LDH/Haptologin - normal Trend plts #Anemia Hgb downtrending Check Stool occult blood Check iron studies may need CRUZ if iron stores are replete Raymundo Snyder DO
[2016-06-07 15:40] LABS: URINE APPEARANCE SLCLOUDY; URINE BILIRUBIN NEGATIVE (NEGATIVE); URINE BLOOD NEGATIVE (NEGATIVE); URINE COLOR YELLOW; URINE GLUCOSE (UA) NEGATIVE (NEGATIVE); URINE KETONE NEGATIVE (NEGATIVE); URINE LEUK ESTERASE NEGATIVE (NEGATIVE); URINE NITRITE NEGATIVE (NEGATIVE); URINE PROTEIN 2+ (NEGATIVE); URINE UROBILINOGEN NEGATIVE E.U./dl (0.2-1.0)
[2016-06-07 15:52] LABS: URINE HYALINE CAST 2 /lpf; URINE RBC <1 /hpf (0-3); URINE WBC 3 /hpf (3-5)
[2016-06-07] MEDS: FUROSEMIDE 40 MG/4 ML INJECTABLE VIAL IVPUSH SCH (15:54)
[2016-06-07 15:57] LABS: URINE TRICHOMONAS SEEN
--- NOTE | 2016-06-07 16:58 | PN ---
Physical Exam: SUBJECTIVE: Patient seen and examined. She reports improvement on her shortness of breath. States she feels better compared to yesterday. Willing to participate in physical therapy and use incentive spirometer. OBJECTIVE: Vital Signs Period Temp Pulse Resp BP Sys/Hill Pulse Ox Last 24 Hr 97.3 F-98.2 F 63-92 18-22 137-176/65-79 92-98 GENERAL: Awake, alert, and fully oriented, in no acute distress. HEAD: Normal with no signs of trauma. EYES: Pupils equal, round and reactive to light, extraocular movements intact, sclera anicteric, conjunctiva clear. No lid lag. EARS, NOSE, THROAT: Ears normal, nares patent, oropharynx clear without exudates. Moist mucous membranes. NECK: Normal range of motion, supple without lymphadenopathy, JVD, or masses. LUNGS: No wheezes, no rhonchi. diminished breath sounds bilaterally - on 2 liters NC HEART: Regular rate and rhythm, normal S1 and S2 without murmur, rub or gallop. ABDOMEN: Soft, nontender, not distended, normoactive bowel sounds, no guarding, no rebound, no masses. No hepatomegaly or splenomegaly. MUSCULOSKELETAL: Normal range of motion at all joints. No bony deformities or tenderness. No CVA tenderness. UPPER EXTREMITIES: 2+ pulses, warm, well-perfused. No cyanosis. No clubbing. Cap refill <2 seconds. No peripheral edema. LOWER EXTREMITIES: 2+ pulses, warm, well-perfused. No calf tenderness. No peripheral edema. NEUROLOGICAL: Normal speech. Normal gait. PSYCHIATRIC: Appropriate mood and affect. SKIN: Warm, dry, normal turgor, no rashes or lesions noted. Laboratory Results - last 24 hr 06/06/16 06/06/16 06/07/16 17:04 22:31 05:33 WBC RBC Hgb Hct MCV MCHC RDW Plt Count MPV Neutrophils % Lymphocytes % Monocytes % Eosinophils % Basophils % Sodium Potassium Chloride Carbon Dioxide Anion Gap BUN Creatinine Creat Clearance w eGFR POC Glucometer 197 171 152 Random Glucose Calcium Phosphorus Magnesium Total Bilirubin AST ALT Alkaline Phosphatase Total Protein Albumin Urine Color Urine Appearance Urine pH Ur Specific [place] Urine Protein Urine Glucose (UA) Urine Ketones Urine Blood Urine Nitrite Urine Bilirubin Urine Urobilinogen Ur Leukocyte Esterase Urine RBC Urine WBC Amorphous Urates Hyaline Casts Urine Trichomonas U Random Total Protein Urine Creatinine 06/07/16 06/07/16 06/07/16 05:42 05:42 12:11 WBC 10.1 H RBC 3.80 Hgb 9.5 L Hct 30.0 L MCV 78.9 L MCHC 31.7 L RDW 17.6 H Plt Count 105 L MPV 13.3 H D Neutrophils % 88.5 H Lymphocytes % 8.5 Monocytes % 2.7 L Eosinophils % 0.0 Basophils % 0.3 Sodium 141 Potassium 5.3 H Chloride 108 H Carbon Dioxide 24 Anion Gap 9 BUN 65 H Creatinine 4.0 H Creat Clearance w eGFR 10.98 POC Glucometer 160 Random Glucose 141 H Calcium 7.7 L Phosphorus 5.0 H Magnesium 2.0 Total Bilirubin 0.2 D AST 10 L D ALT 7 L D Alkaline Phosphatase 44 L Total Protein 7.2 Albumin 1.9 L Urine Color Urine Appearance Urine pH Ur Specific [place] Urine Protein Urine Glucose (UA) Urine Ketones Urine Blood Urine Nitrite Urine Bilirubin Urine Urobilinogen Ur Leukocyte Esterase Urine RBC Urine WBC Amorphous Urates Hyaline Casts Urine Trichomonas U Random Total Protein Urine Creatinine 06/07/16 06/07/16 06/07/16 14:45 14:45 14:45 WBC RBC Hgb Hct MCV MCHC RDW Plt Count MPV Neutrophils % Lymphocytes % Monocytes % Eosinophils % Basophils % Sodium Potassium Chloride Carbon Dioxide Anion Gap BUN Creatinine Creat Clearance w eGFR POC Glucometer Random Glucose Calcium Phosphorus Magnesium Total Bilirubin AST ALT Alkaline Phosphatase Total Protein Albumin Urine Color Yellow Urine Appearance Slcloudy Urine pH 5.0 Ur Specific [place] 1.016 Urine Protein 2+ H Urine Glucose (UA) Negative Urine Ketones Negative Urine Blood Negative Urine Nitrite Negative Urine Bilirubin Negative Urine Urobilinogen Negative Ur Leukocyte Esterase Negative Urine RBC <1 Urine WBC 3 Amorphous Urates Few Hyaline Casts 2 Urine Trichomonas Seen U Random Total Protein 249 H Urine Creatinine Cancelled 94.0 Active Medications Generic Name Dose Route Start Last Admin Trade Name Freq PRN Reason Stop Dose Admin Albuterol/Ipratropium 1 amp 06/05/16 18:00 06/07/16 11:15 Duoneb - NEB Not Given QIDR JOANNE Aspirin 81 mg 06/06/16 10:00 06/07/16 09:54 Asa - PO 81 mg DAILY JOANNE Administration Atenolol 50 mg 06/06/16 10:00 06/07/16 09:54 Tenormin - PO 50 mg DAILY JOANNE Administration Clonidine 0.1 mg 06/05/16 22:00 06/07/16 09:54 Catapres - PO 0.1 mg BID JOANNE Administration Furosemide 40 mg 06/07/16 16:00 06/07/16 15:54 Lasix Injection - IVPUSH 40 mg BID@0600,1400 JOANNE Administration Levofloxacin 100 mls @ 100 mls/hr 06/07/16 10:00 06/07/16 09:54 Levaquin 500 Mg Premixed Ivpb - IVPB 100 mls/hr Q2D JOANNE Administration Insulin Aspart 1 vial 06/06/16 11:00 06/07/16 12:12 Novolog Vial Sliding Scale - SQ 2 units ACHS JOANNE Administration Protocol Methylprednisolone Sodium Succinate 40 mg 06/05/16 21:00 06/07/16 15:54 Solu-Medrol - IVPB 40 mg Q6H-IV JOANNE Administration Nifedipine 30 mg 06/06/16 22:00 06/07/16 09:54 Procardia Xl - PO 30 mg BID JOANNE Administration Pantoprazole Sodium 40 mg 06/06/16 18:15 06/07/16 09:54 Protonix - PO 40 mg DAILY JOANNE Administration ASSESSMENT/PLAN: Patient is a 75 year old female with a significant past medical history of hypertension, possible IA in the past, hyperlipidemia and asthma. She presented to the ED on 06/05/2016 with chest discomfort and shortness of breath x 2 days. In ER, she was given Solumedrol 125mg, duonebs and Lasix. Her troponin on admission was 0.06, BNP 9420 and BUN/Creatinine 43/3.5 Imaging: Chest Xray 06/05/2016 - diffuse bilateral airspace changes compatible with infiltrates and congestion, large heart, sclerotic knob. residential monitor shows NSR [address] wave abnormality Renal ultrasound 06/06/2016 - both kidneys are small/atrophic & ecogenic consistent with chronic medical renal disease. EKG 06/06/[address] & T wave abnormality, consider inferior/anterolateral ischemia Cardiology: Chest Pain associated with shortness of breath/CHF Assessment/Plan: On Lasix 40mg BID Echo 06/07/2016 shows midl conc left vent hypertrophy, trace aortic regurg, trace MR, LA: mod dilated, trace tricuspid regurg. Cardiology following Troponins > 0.06, 0.07, 0.07 - likely due to demand ischemia? On 2 liters of Nasal cannula continuous - will obtain a pre and post/pt not oxygen dependent at home Started on ASA 81mg Hypertension - chronic/improving BP with up titration of meds Assessment/Plan: Hypertensive with some improvement. On Procardia XL 30mg BID, Atenolol 50mg daily, Clonidine 0.1mg BID Monitor BPs Pulmonary: Pneumonia/Asthma/?COPD Assessment/Plan: Chest Xray 06/05/2016 - diffuse bilateral airspace changes compatible with infiltrates and congestion, large heart, sclerotic knob. On renal dosing of Levaquin 500mg IV qod, On duonebs, 2 liters of nasal cannula (does not have home 02) On Solumedrol 40mg q6 - will taper as tolerated CT/Chest ordered to r/o infiltrates v. CHF Endocrine: Assessment/Plan: Monitor for hyperglycemia while on steroids, added sliding scale Hematology: Thrombocytopenia Assessment/Plan: Platelets 79> 105, on last admission platelets 140s-150s Patient on meclizine BID home dose which may cause thrombocytopenia hold med, trend platelets If worsening thrombocytopenia, will consult hematology Anemia - acute Assessment/Plan: Hmg/Hct down trending Stool occult ordered CBC in a.m. : Acute on chronic CKD Assessment/Plan: On IV lasix, renal following Renal ultrasound 06/06/2016 - both kidneys are small/atrophic & ecogenic consistent with chronic medical renal disease. Possibility of dialysis given worsening renal function as per renal. F.E.N. Fluids: deferred, tolerating PO Electrolytes: hyperkalemia: given kayexalate by renal, yesterday with slight improvement, no ECG changes, monitor Nutrition: low sodium Prophylaxis: GI: Protonix 40mg daily DVT: SCDs, no AC secondary to thrombocytopenia Disposition: Requires inpatient hospitalization. Full Code. Visit type - Emergency Visit Emergency Visit: Yes ED Registration Date: 06/05/16 Care time: The patient presented to the Emergency Department on the above date and was hospitalized for further evaluation of their emergent condition. - New Patient This patient is new to me today: No - Critical Care Critical Care patient: No - Discharge Referral Referred to [facility] Med P.C.: No
[2016-06-08] MEDS: methylPREDNISolone NA SUCC 40 MG/1 ML VIAL IVPB SCH ×4 (02:15→22:01)
[2016-06-08] MEDS: FUROSEMIDE 40 MG/4 ML INJECTABLE VIAL IVPUSH SCH (05:47)
[2016-06-08] MEDS: INSULIN SLIDING SCALE (NOVOLOG) 1 VIAL SQ SCH ×4 (06:02→22:10)
[2016-06-08] MEDS: ALBUTEROL SO4 2.5/IPRATROPIUM 0.5 INH SOL 3 ML VIAL.NEB. NEB SCH ×4 (06:08→17:30)
[2016-06-08 07:40] LABS: BASOPHIL 0.1 % (0-2.0); MCH 24.9 pg (25.7-33.7); MCHC 31.5 g/dl (32.0-36.0); MEAN CELL VOLUME 78.8 fl (80-96); MEAN PLT VOLUME 11.9 fl (7.5-11.1); NEUTROPHILS 88.1 % (42.8-82.8); PLATELET COUNT 120 K/MM3 (134-434); RDW 18.3 % (11.6-15.6); WHITE BLOOD COUNT 8.1 K/mm3 (4.0-10.0)
[2016-06-08 08:23] LABS: CALCIUM 7.7 mg/dL (8.5-10.1); CREATININE 4.6 mg/dL (0.55-1.02); FERRITIN 113.249 ng/ml (6.9-282.5); PHOSPHOROUS 5.3 mg/dL (2.5-4.9)
--- NOTE | 2016-06-08 08:41 | PN ---
Physical Exam: SUBJECTIVE: Patient seen and examined. She says she feels better, tolerating room air. Denies chest pain, shortness of breath. Denies any other discomfort. OBJECTIVE: Vital Signs Period Temp Pulse Resp BP Sys/Hill Pulse Ox Last 24 Hr 97.7 F-98.3 F 63-82 18-22 137-168/64-82 92-97 GENERAL: The patient is awake, alert, and fully oriented, in no acute distress. HEAD: Normal with no signs of trauma. EYES: PERRL, extraocular movements intact, sclera anicteric, conjunctiva clear. No ptosis. ENT: moist mucous membranes. NECK: Trachea midline, full range of motion, supple. LUNGS: anterior lungs clear/posterior lungs diminished/no wheezing, no accessory muscle use. HEART: medical i d sales: NSR ABDOMEN: Soft, nontender, nondistended, normoactive bowel sounds, no guarding, no rebound, no hepatosplenomegaly, no masses. EXTREMITIES: no edema. NEUROLOGICAL: Normal speech PSYCH: Normal mood, normal affect. SKIN: Warm, dry, normal turgor, no rashes or lesions noted Laboratory Results - last 24 hr 06/07/16 06/07/16 06/07/16 12:11 14:45 14:45 WBC RBC Hgb Hct MCV MCHC RDW Plt Count MPV Neutrophils % Lymphocytes % Monocytes % Eosinophils % Basophils % Sodium Potassium Chloride Carbon Dioxide Anion Gap BUN Creatinine POC Glucometer 160 Random Glucose Calcium Phosphorus Magnesium Ferritin Urine Color Yellow Urine Appearance Slcloudy Urine pH 5.0 Ur Specific [place] 1.016 Urine Protein 2+ H Urine Glucose (UA) Negative Urine Ketones Negative Urine Blood Negative Urine Nitrite Negative Urine Bilirubin Negative Urine Urobilinogen Negative Ur Leukocyte Esterase Negative Urine RBC <1 Urine WBC 3 Amorphous Urates Few Hyaline Casts 2 Urine Trichomonas Seen U Random Total Protein Urine Creatinine Cancelled 06/07/16 06/07/16 06/07/16 14:45 17:10 21:02 WBC RBC Hgb Hct MCV MCHC RDW Plt Count MPV Neutrophils % Lymphocytes % Monocytes % Eosinophils % Basophils % Sodium Potassium Chloride Carbon Dioxide Anion Gap BUN Creatinine POC Glucometer 222 187 Random Glucose Calcium Phosphorus Magnesium Ferritin Urine Color Urine Appearance Urine pH Ur Specific [place] Urine Protein Urine Glucose (UA) Urine Ketones Urine Blood Urine Nitrite Urine Bilirubin Urine Urobilinogen Ur Leukocyte Esterase Urine RBC Urine WBC Amorphous Urates Hyaline Casts Urine Trichomonas U Random Total Protein 249 H Urine Creatinine 94.0 06/08/16 06/08/16 06/08/16 04:58 05:35 05:35 WBC 8.1 RBC 3.94 Hgb 9.8 L Hct 31.1 L MCV 78.8 L MCHC 31.5 L RDW 18.3 H Plt Count 120 L MPV 11.9 H D Neutrophils % 88.1 H Lymphocytes % 9.7 Monocytes % 2.1 L Eosinophils % 0.0 Basophils % 0.1 Sodium 142 Potassium 5.2 H Chloride 110 H Carbon Dioxide 23 Anion Gap 9 BUN 82 H D Creatinine 4.6 H POC Glucometer 147 Random Glucose 147 H Calcium 7.7 L Phosphorus 5.3 H Magnesium 2.0 Ferritin 113.249 Urine Color Urine Appearance Urine pH Ur Specific [place] Urine Protein Urine Glucose (UA) Urine Ketones Urine Blood Urine Nitrite Urine Bilirubin Urine Urobilinogen Ur Leukocyte Esterase Urine RBC Urine WBC Amorphous Urates Hyaline Casts Urine Trichomonas U Random Total Protein Urine Creatinine Active Medications Generic Name Dose Route Start Last Admin Trade Name Patriceq PRN Reason Stop Dose Admin Albuterol/Ipratropium 1 amp 06/05/16 18:00 06/08/16 06:08 Duoneb - NEB 1 amp QIDR JOANNE Administration Aspirin 81 mg 06/06/16 10:00 06/07/16 09:54 Asa - PO 81 mg DAILY JOANNE Administration Atenolol 50 mg 06/06/16 10:00 06/07/16 09:54 Tenormin - PO 50 mg DAILY JOANNE Administration Clonidine 0.1 mg 06/05/16 22:00 06/07/16 21:02 Catapres - PO 0.1 mg BID JOANNE Administration Furosemide 40 mg 06/07/16 16:00 06/08/16 05:47 Lasix Injection - IVPUSH 40 mg BID@0600,1400 JOANNE Administration Levofloxacin 100 mls @ 100 mls/hr 06/07/16 10:00 06/07/16 09:54 Levaquin 500 Mg Premixed Ivpb - IVPB 100 mls/hr Q2D JOANNE Administration Insulin Aspart 1 vial 06/06/16 11:00 06/08/16 06:02 Novolog Vial Sliding Scale - SQ Not Given ACHS [facility] Protocol Methylprednisolone Sodium Succinate 40 mg 06/05/16 21:00 06/08/16 02:15 Solu-Medrol - IVPB 40 mg Q6H-IV JOANNE Administration Nifedipine 30 mg 06/06/16 22:00 06/07/16 21:03 Procardia Xl - PO 30 mg BID JOANNE Administration Pantoprazole Sodium 40 mg 06/06/16 18:15 06/07/16 09:54 Protonix - PO 40 mg DAILY JOANNE Administration ASSESSMENT/PLAN: Patient is a 75 year old female with a significant past medical history of hypertension, possible VT in the past, hyperlipidemia and asthma. She presented to the ED on 06/05/2016 with chest discomfort and shortness of breath x 2 days. In ER, she was given Solumedrol 125mg, duonebs and Lasix. Her troponin on admission was 0.06, BNP 9420 and BUN/Creatinine 43/3.5 Imaging: Chest Xray 06/05/2016 - diffuse bilateral airspace changes compatible with infiltrates and congestion, large heart, sclerotic knob. medical i d sales shows NSR [address] wave abnormality Renal ultrasound 06/06/2016 - both kidneys are small/atrophic & ecogenic consistent with chronic medical renal disease. EKG 06/06/[address] & T wave abnormality, consider inferior/anterolateral ischemia Echo 06/07/2016 shows midl conc left vent hypertrophy, trace aortic regurg, trace MR, LA: mod dilated, trace tricuspid regurg. Chest CT 06/08/2016 - Bilateral interstitial and airspace opacities consistent with PNA - cannot rule out mild vs venous congestion Cardiology: Chest Pain - resolved Assessment/Plan: Troponins > 0.06, 0.07, 0.07 - likely due to demand ischemia Started on ASA 81mg Chest Pain has resolved, shortness of breath improving with Lasix Tolerating room air today CHF Assessment/Plan: On Lasix dosing as per renal oxygen as needed Echo reviewed Hypertension - chronic/improving BP improving with up titration of meds Assessment/Plan: On Procardia XL 30mg BID, Atenolol 50mg daily, Clonidine 0.1mg BID Monitor BPs Pulmonary: Pneumonia/Asthma/COPD Assessment/Plan: Chest Xray 06/05/2016 - diffuse bilateral airspace changes compatible with infiltrates and congestion, large heart, sclerotic knob. On renal dosing of Levaquin 500mg IV qod, On duonebs, 2 liters of nasal cannula (does not have home 02) On Solumedrol 40mg q6 - will taper as tolerated CT/Chest ordered to r/o infiltrates v. CHF - CT 06/08/16 consistent with PNA Endocrine: Assessment/Plan: Monitor for hyperglycemia while on steroids, added sliding scale monitor BGMs Hematology: Thrombocytopenia - improving Assessment/Plan: Platelets 79> 120, on last admission platelets 140s-150s Patient on meclizine BID home dose which may cause thrombocytopenia hold med, trend platelets Anemia - acute Assessment/Plan: Hmg/Hct down trending Stool occult ordered CBC in a.m. : Acute on chronic CKD Assessment/Plan: Lasix on hold, BUN/Creat worsening Renal ultrasound 06/06/2016 - both kidneys are small/atrophic & ecogenic consistent with chronic medical renal disease. Possibility of dialysis given worsening renal function as per renal. F.E.N. Fluids: deferred, tolerating PO Electrolytes: hyperkalemia: monitor Nutrition: low sodium Prophylaxis: GI: Protonix 40mg daily DVT: SCDs, no AC secondary to thrombocytopenia Disposition: Requires inpatient hospitalization. Full Code. Visit type - Emergency Visit Emergency Visit: Yes ED Registration Date: 06/05/16 Care time: The patient presented to the Emergency Department on the above date and was hospitalized for further evaluation of their emergent condition. - New Patient This patient is new to me today: No - Critical Care Critical Care patient: No - Discharge Referral Referred to [facility] Med P.C.: No
[2016-06-08] MEDS: ASPIRIN 81 MG CHEWABLE TABLETS PO SCH (09:10)
[2016-06-08] MEDS: ATENOLOL 50 MG TABLET (FP) PO SCH (09:10)
[2016-06-08] MEDS: PANTOPRAZOLE 40 MG TABLET (FP) PO SCH (09:10)
[2016-06-08] MEDS: cloNIDine HCL 0.1 MG TABLET PO SCH ×2 (09:11→22:01)
[2016-06-08] MEDS: NIFEdipine E.R. 30 MG TABLET (FP) PO SCH ×2 (09:11→22:01)
--- NOTE | 2016-06-08 09:57 | PN ---
Progress Note, Physician Chief Complaint: comfortable TELE: NSR, 7 beats NSVT - Current Medication List Current Medications: Active Medications Albuterol/Ipratropium (Duoneb -) 1 amp NEB QIDR [facility] Last Admin: 06/08/16 06:08 Dose: 1 amp Aspirin (Asa -) 81 mg PO DAILY [facility] Last Admin: 06/08/16 09:10 Dose: 81 mg Atenolol (Tenormin -) 50 mg PO DAILY [facility] Last Admin: 06/08/16 09:10 Dose: 50 mg Clonidine (Catapres -) 0.1 mg PO BID [facility] Last Admin: 06/08/16 09:11 Dose: 0.1 mg Furosemide (Lasix Injection -) 40 mg IVPUSH BID@0600,1400 [facility] Last Admin: 06/08/16 05:47 Dose: 40 mg Levofloxacin (Levaquin 500 Mg Premixed Ivpb -) 100 mls @ 100 mls/hr IVPB Q2D [facility] Last Admin: 06/07/16 09:54 Dose: 100 mls/hr Insulin Aspart (Novolog Vial Sliding Scale -) 1 vial SQ ACHS [facility] PRN Reason: Protocol Last Admin: 06/08/16 06:02 Dose: Not Given Methylprednisolone Sodium Succinate (Solu-Medrol -) 40 mg IVPB Q6H-IV [facility] Last Admin: 06/08/16 09:11 Dose: 40 mg Nifedipine (Procardia Xl -) 30 mg PO BID [facility] Last Admin: 06/08/16 09:11 Dose: 30 mg Pantoprazole Sodium (Protonix -) 40 mg PO DAILY [facility] Last Admin: 06/08/16 09:10 Dose: 40 mg - Objective Vital Signs: Vital Signs Temperature 98.3 F 06/08/16 06:00 Pulse Rate 77 06/08/16 06:00 Respiratory Rate 18 06/08/16 06:00 Blood Pressure 151/82 06/08/16 06:00 O2 Sat by Pulse Oximetry (%) 97 06/07/16 22:00 Constitutional: Yes: No Distress, Calm Eyes: Yes: Conjunctiva Clear Cardiovascular: Yes: Regular Rate and Rhythm Respiratory: Yes: Other (rales right base) Gastrointestinal: Yes: Soft Edema: No Neurological: Yes: Alert, Oriented Labs: CBC, BMP 06/08/16 05:35 06/08/16 05:35 INR, PTT INR 1.19 (0.82-1.09) H 06/05/16 11:40 Laboratory Tests 06/05/16 06/08/16 06/08/16 12:30 05:35 05:35 WBC 8.1 Hgb 9.8 L Hct 31.1 L Plt Count 120 L Potassium 5.2 H BUN 82 H D Creatinine 3.5 H D 4.6 H Magnesium 2.0 - ....Imaging EKG: Image Reviewed Assessment/Plan IMP: Bilateral PNA CKD Chronic diastolic CHF REC: Continue Abx as per PMD Maintain K+ >4, Mg2+>2 Would taper Lasix to daily dosing. Stress MIBI prior to discharge.
[2016-06-08] MEDS ORDERED: FUROSEMIDE 40 MG/4 ML INJECTABLE VIAL IVPB SCH (10:15)
--- NOTE | 2016-06-08 17:39 | PN ---
Progress Note (short form) - Note Progress Note: Renal Follow up for SHAYY vs. Progressive CKD Pt seen and examined at the bedside sob is much improved no chest pain no fever or chills good urine output Vital Signs Temperature 97.2 F L 06/08/16 14:58 Pulse Rate 75 06/08/16 14:58 Respiratory Rate 24 06/08/16 14:58 Blood Pressure 136/61 06/08/16 14:58 O2 Sat by Pulse Oximetry (%) 96 06/08/16 11:00 Intake & Output 06/05/16 06/06/16 06/07/16 06/08/16 23:59 23:59 23:59 23:59 Intake Total 60 890 140 790 Balance 60 890 140 790 Weight 180 lb Gen: NAD, awake and alert HEENT: NC/AT, MMM, No JVD, Neck Supple CVS: RRR, No M/R Lungs : + rales Abd: soft NT/ND Ext: 1+ edema in B/L LE, no cyanosis or clubbing Neuro: No focal defects CBC, BMP 06/08/16 05:35 06/08/16 05:35 Current Medications Albuterol/Ipratropium (Duoneb -) 1 amp NEB QIDR [facility] Last Admin: 06/08/16 11:15 Dose: 1 amp Aspirin (Asa -) 81 mg PO DAILY [facility] Last Admin: 06/08/16 09:10 Dose: 81 mg Atenolol (Tenormin -) 50 mg PO DAILY [facility] Last Admin: 06/08/16 09:10 Dose: 50 mg Clonidine (Catapres -) 0.1 mg PO BID [facility] Last Admin: 06/08/16 09:11 Dose: 0.1 mg Levofloxacin (Levaquin 500 Mg Premixed Ivpb -) 100 mls @ 100 mls/hr IVPB Q2D [facility] Last Admin: 06/07/16 09:54 Dose: 100 mls/hr Insulin Aspart (Novolog Vial Sliding Scale -) 1 vial SQ ACHS [facility] PRN Reason: Protocol Last Admin: 06/08/16 17:18 Dose: 2 units Methylprednisolone Sodium Succinate (Solu-Medrol -) 40 mg IVPB Q6H-IV [facility] Last Admin: 06/08/16 14:04 Dose: 40 mg Nifedipine (Procardia Xl -) 30 mg PO BID [facility] Last Admin: 06/08/16 09:11 Dose: 30 mg Pantoprazole Sodium (Protonix -) 40 mg PO DAILY [facility] Last Admin: 06/08/16 09:10 Dose: 40 mg A/P 75 year old woman with PMhx of CKD Stage 4, Hypertension (>40 years), Asthma, Osteoarthritis, Former Smoker who presented with 2 day history of chest discomfort and SOB and admitted with PNA vs. CHF with BUN/Cr of 43/3.5. #SHAYY on CKD vs. Progressive CKD Renal function worsening in setting of IV diuresis CT of chest is more consistent with PNA hold further diuretics if BUN/Cr still up trending will benifit from IVF hydration #Hyperkalemia K is stable Low k diet #CHF vs. PNA vs. COPD/SOB holding diuretics Continue IV steroids Check blood and urine cultures (legionella) continue abx as per primary #Hypertension Continue Clondine, Procardia, Atenolol Increased Procardia XL To BID Goal BP < 140/90 Raymundo Snyder DO
[2016-06-09] MEDS: methylPREDNISolone NA SUCC 40 MG/1 ML VIAL IVPB SCH ×4 (02:27→21:07)
[2016-06-09] MEDS: ALBUTEROL SO4 2.5/IPRATROPIUM 0.5 INH SOL 3 ML VIAL.NEB. NEB SCH ×4 (06:35→17:41)
[2016-06-09] MEDS: INSULIN SLIDING SCALE (NOVOLOG) 1 VIAL SQ SCH ×4 (08:00→21:08)
--- NOTE | 2016-06-09 08:05 | PN ---
Physical Exam: SUBJECTIVE: Patient seen and examined OBJECTIVE: Vital Signs Period Temp Pulse Resp BP Sys/Hill Pulse Ox Last 24 Hr 97.2 F-97.9 F 62-79 18-24 136-155/61-77 95-96 GENERAL: The patient is awake, alert, and fully oriented, in no acute distress. HEAD: Normal with no signs of trauma. LUNGS: Bibasilar crackles 1/[address] up HEART: Regular rate and rhythm, S1, S2 without murmur, rub or gallop. ABDOMEN: Soft, nontender, nondistended, normoactive bowel sounds, no guarding, no rebound EXTREMITIES: 2+ pulses, warm, well-perfused, no edema. NEUROLOGICAL: Cranial nerves II through XII grossly intact. Normal speech, gait not observed. Laboratory Results - last 24 hr 06/06/16 06/08/16 06/08/16 05:55 05:35 12:06 Haptoglobin 233 H Sodium 142 Potassium 5.2 H Chloride 110 H Carbon Dioxide 23 Anion Gap 9 BUN 82 H D Creatinine 4.6 H POC Glucometer 166 Random Glucose 147 H Calcium 7.7 L Phosphorus 5.3 H Magnesium 2.0 Ferritin 113.249 06/08/16 06/08/16 16:52 22:07 Haptoglobin Sodium Potassium Chloride Carbon Dioxide Anion Gap BUN Creatinine POC Glucometer 194 271 Random Glucose Calcium Phosphorus Magnesium Ferritin Active Medications Generic Name Dose Route Start Last Admin Trade Name Freq PRN Reason Stop Dose Admin Albuterol/Ipratropium 1 amp 06/05/16 18:00 06/09/16 06:35 Duoneb - NEB 1 amp QIDR JOANNE Administration Aspirin 81 mg 06/06/16 10:00 06/08/16 09:10 Asa - PO 81 mg DAILY JOANNE Administration Atenolol 50 mg 06/06/16 10:00 06/08/16 09:10 Tenormin - PO 50 mg DAILY JOANNE Administration Clonidine 0.1 mg 06/05/16 22:00 06/08/16 22:01 Catapres - PO 0.1 mg BID JOANNE Administration Levofloxacin 100 mls @ 100 mls/hr 06/07/16 10:00 06/07/16 09:54 Levaquin 500 Mg Premixed Ivpb - IVPB 100 mls/hr Q2D JOANNE Administration Insulin Aspart 1 vial 06/06/16 11:00 06/08/16 22:10 Novolog Vial Sliding Scale - SQ 6 units ACHS JOANNE Administration Protocol Methylprednisolone Sodium Succinate 40 mg 06/05/16 21:00 06/09/16 02:27 Solu-Medrol - IVPB 40 mg Q6H-IV JOANNE Administration Nifedipine 30 mg 06/06/16 22:00 06/08/16 22:01 Procardia Xl - PO 30 mg BID JOANNE Administration Pantoprazole Sodium 40 mg 06/06/16 18:15 06/08/16 09:10 Protonix - PO 40 mg DAILY JOANNE Administration Imaging 06/05 CXR: infiltrate and congestion 06/06 renal: chronic medical disease 06/07 CT chest: pneumonia; mild pulmonary venous congestion 06/07 Echo: mild concentric LVH, LV normal; RV normal; BLAE; trace MR, TR, AI ASSESSMENT/PLAN 75 year-old woman with PMH of HTN, HLD, CAD s/p RI (2012), diastolic heart failure, asthma/COPD, and CKD Stage IV. Admitted for CAP, asthma/COPD exacerbation, diastolic heart failure exacerbation, and SHAYY. Hospital course complicated by worsening renal function. Community acquired pneumonia --06/07 CT chest showed pneumonia --afebrile, no leukocytosis --continue levofloxacin QOD (dose #2 today) COPD/asthma exacerbation --start taper solu medrol --duonebs SHAYY on CKD --diuretics d/c'd --Cr continues to rise, 3.5 on admission-->4.7 today --started IV fluids CAD s/p RI --continue atenolol, ASA --stress MIBI prior to discharge Acute on chronic diastolic heart failure --CXR and CT chest both consistent with signs of pulmonary congestion --has been diuresed, hold lasix Hypertension --continue atenolol, clonidine, nifedipine Hyperlipidemia --on no meds Hyperphosphatemia F/E/N Fluids: NS @ 100mL/hr Electrolytes: replete as indicated Nutrition: renal diet DVT prophylaxis: restart lovenox, oob, ambulation Dispo: continues to require inpatient care. Visit type - Emergency Visit Emergency Visit: Yes ED Registration Date: 06/05/16 Care time: The patient presented to the Emergency Department on the above date and was hospitalized for further evaluation of their emergent condition. - New Patient This patient is new to me today: Yes Date on this admission: 06/09/16 - Critical Care Critical Care patient: No
[2016-06-09] MEDS ORDERED: SODIUM CHLORIDE 1,000 ML IV SCH ×2 (08:30→10:45)
--- NOTE | 2016-06-09 08:53 | PN ---
Progress Note, Physician Chief Complaint: feeling better TELE: NSR , NSST NSVT on 06/08 self limited - Current Medication List Current Medications: Active Medications Albuterol/Ipratropium (Duoneb -) 1 amp NEB QIDR [facility] Last Admin: 06/09/16 06:35 Dose: 1 amp Aspirin (Asa -) 81 mg PO DAILY [facility] Last Admin: 06/08/16 09:10 Dose: 81 mg Atenolol (Tenormin -) 50 mg PO DAILY [facility] Last Admin: 06/08/16 09:10 Dose: 50 mg Clonidine (Catapres -) 0.1 mg PO BID [facility] Last Admin: 06/08/16 22:01 Dose: 0.1 mg Levofloxacin (Levaquin 500 Mg Premixed Ivpb -) 100 mls @ 100 mls/hr IVPB Q2D [facility] Last Admin: 06/07/16 09:54 Dose: 100 mls/hr Sodium Chloride (Normal Saline -) 1,000 mls @ 50 mls/hr IV ASDIR [facility] Stop: 06/10/16 08:27 Insulin Aspart (Novolog Vial Sliding Scale -) 1 vial SQ ACHS [facility] PRN Reason: Protocol Last Admin: 06/08/16 22:10 Dose: 6 units Methylprednisolone Sodium Succinate (Solu-Medrol -) 40 mg IVPB Q6H-IV [facility] Last Admin: 06/09/16 02:27 Dose: 40 mg Nifedipine (Procardia Xl -) 30 mg PO BID [facility] Last Admin: 06/08/16 22:01 Dose: 30 mg Pantoprazole Sodium (Protonix -) 40 mg PO DAILY [facility] Last Admin: 06/08/16 09:10 Dose: 40 mg - Objective Vital Signs: Vital Signs Temperature 97.9 F 06/09/16 06:00 Pulse Rate 62 06/09/16 06:00 Respiratory Rate 18 06/09/16 06:00 Blood Pressure 144/69 06/09/16 06:00 O2 Sat by Pulse Oximetry (%) 95 06/08/16 21:00 Constitutional: Yes: Calm Respiratory: Yes: Other (decreased breath sounds at bases, otherwise clear. No wheezing) Edema: No Neurological: Yes: Alert Labs: INR, PTT INR 1.19 (0.82-1.09) H 06/05/16 11:40 Laboratory Tests 06/09/16 06/09/16 05:35 05:35 WBC Pending Hgb Pending Hct Pending BUN Pending Creatinine Pending - ....Imaging EKG: Image Reviewed Assessment/Plan IMP: Bilateral PNA CKD Chronic diastolic CHF NSVT REC: Continue Abx as per PMD Maintain K+ >4, Mg2+>2 Off Lasix (increased BUN, creat) For stress MIBI in AM
[2016-06-09] MEDS: ASPIRIN 81 MG CHEWABLE TABLETS PO SCH (09:04)
[2016-06-09] MEDS: cloNIDine HCL 0.1 MG TABLET PO SCH ×2 (09:04→21:07)
[2016-06-09] MEDS: ATENOLOL 50 MG TABLET (FP) PO SCH (09:04)
[2016-06-09] MEDS: NIFEdipine E.R. 30 MG TABLET (FP) PO SCH ×2 (09:05→21:10)
[2016-06-09] MEDS: PANTOPRAZOLE 40 MG TABLET (FP) PO SCH (09:05)
[2016-06-09] MEDS: LEVOFLOXACIN 500 MG IVPB 100 ML IVPB SCH (09:05)
[2016-06-09 09:10] LABS: BASOPHIL 0.1 % (0-2.0); MCH 24.6 pg (25.7-33.7); MCHC 31.1 g/dl (32.0-36.0); MEAN CELL VOLUME 79.1 fl (80-96); MEAN PLT VOLUME 11.8 fl (7.5-11.1); NEUTROPHILS 88.1 % (42.8-82.8); PLATELET COUNT 148 K/MM3 (134-434); RDW 17.9 % (11.6-15.6); WHITE BLOOD COUNT 7.9 K/mm3 (4.0-10.0)
[2016-06-09 09:37] LABS: ALBUMIN 1.8 g/dl (3.4-5.0); BILIRUBIN,TOTAL 0.2 mg/dL (0.2-1.0); CALCIUM 7.8 mg/dL (8.5-10.1); CREATININE 4.7 mg/dL (0.55-1.02); MAGNESIUM 2.1 mg/dL (1.8-2.4); PHOSPHOROUS 5.7 mg/dL (2.5-4.9); TOT PROT 6.8 g/dl (6.4-8.2)
--- NOTE | 2016-06-09 14:12 | PN ---
Progress Note (short form) - Note Progress Note: Renal Follow up for SHAYY vs. Progressive CKD Pt seen and examined at the bedside feels well sob improved no chest pain, abd pain, N/V/D Vital Signs Temperature 97.4 F L 06/09/16 10:00 Pulse Rate 72 06/09/16 10:00 Respiratory Rate 18 06/09/16 10:00 Blood Pressure 141/67 06/09/16 10:00 O2 Sat by Pulse Oximetry (%) 93 L 06/09/16 09:25 Gen: NAD, awake and alert HEENT: NC/AT, MMM, No JVD, Neck Supple CVS: RRR, No M/R Lungs : + rales Abd: soft NT/ND Ext: 1+ edema in B/L LE, no cyanosis or clubbing Neuro: No focal defects CBC, BMP 06/09/16 05:35 06/09/16 05:35 Current Medications Albuterol/Ipratropium (Duoneb -) 1 amp NEB QIDR [facility] Last Admin: 06/09/16 11:04 Dose: 1 amp Aspirin (Asa -) 81 mg PO DAILY [facility] Last Admin: 06/09/16 09:04 Dose: 81 mg Atenolol (Tenormin -) 50 mg PO DAILY [facility] Last Admin: 06/09/16 09:04 Dose: 50 mg Clonidine (Catapres -) 0.1 mg PO BID [facility] Last Admin: 06/09/16 09:04 Dose: 0.1 mg Levofloxacin (Levaquin 500 Mg Premixed Ivpb -) 100 mls @ 100 mls/hr IVPB Q2D [facility] Last Admin: 06/09/16 09:05 Dose: 100 mls/hr Sodium Chloride (Normal Saline -) 1,000 mls @ 50 mls/hr IV ASDIR [facility] Stop: 06/10/16 08:27 Last Admin: 06/09/16 08:40 Dose: Not Given Sodium Chloride (Normal Saline -) 1,000 mls @ 100 mls/hr IV ASDIR [facility] Stop: 06/10/16 10:44 Last Admin: 06/09/16 10:50 Dose: 100 mls/hr Insulin Aspart (Novolog Vial Sliding Scale -) 1 vial SQ ACHS [facility] PRN Reason: Protocol Last Admin: 06/09/16 12:40 Dose: 6 units Methylprednisolone Sodium Succinate (Solu-Medrol -) 40 mg IVPB Q6H-IV [facility] Last Admin: 06/09/16 09:06 Dose: 40 mg Nifedipine (Procardia Xl -) 30 mg PO BID [facility] Last Admin: 06/09/16 09:05 Dose: 30 mg Pantoprazole Sodium (Protonix -) 40 mg PO DAILY [facility] Last Admin: 06/09/16 09:05 Dose: 40 mg A/P 75 year old woman with PMhx of CKD Stage 4, Hypertension (>40 years), Asthma, Osteoarthritis, Former Smoker who presented with 2 day history of chest discomfort and SOB and admitted with PNA vs. CHF with BUN/Cr of 43/3.5. #SHAYY on CKD vs. Progressive CKD BUN/cr up trending secondary to over diuresis will start isotonic saline at 100cc per hour for 24 hours and monitor kidney function no indication for [employer] at this time #CHF vs. PNA vs. COPD/SOB holding diuretics Continue IV steroids and Abx follow up cultures urine legionella negative continue abx as per primary #Hypertension Continue Clondine, Procardia, Atenolol Increased Procardia XL To BID Goal BP < 140/90 no ARA or ARB at this time Raymundo Snyder DO
[2016-06-09] MEDS ORDERED: ENOXAPARIN NA (PORCINE) 40 MG/0.4 ML DISP.SYRIN SQ SCH (14:30)
[2016-06-09] MEDS ORDERED: INSULIN (NOVOLOG) ASPART 100 UNITS/ML 10ML VIAL ONE (21:05)
[2016-06-09] MEDS: HEPARIN NA (PORCINE) 5,000 UNITS/ML 1ML VIAL SQ SCH (21:07)
[2016-06-10] MEDS: methylPREDNISolone NA SUCC 40 MG/1 ML VIAL IVPB SCH ×3 (03:26→15:44)
[2016-06-10] MEDS: ALBUTEROL SO4 2.5/IPRATROPIUM 0.5 INH SOL 3 ML VIAL.NEB. NEB SCH ×4 (06:01→19:39)
[2016-06-10] MEDS: INSULIN SLIDING SCALE (NOVOLOG) 1 VIAL SQ SCH ×4 (06:12→21:14)
[2016-06-10 07:38] LABS: MCH 24.7 pg (25.7-33.7); MCHC 31.4 g/dl (32.0-36.0); MEAN CELL VOLUME 78.7 fl (80-96); MEAN PLT VOLUME 11.4 fl (7.5-11.1); PLATELET COUNT 184 K/MM3 (134-434); RDW 17.9 % (11.6-15.6); WHITE BLOOD COUNT 7.6 K/mm3 (4.0-10.0)
[2016-06-10 08:06] LABS: SERUM IRON 30 ug/dL (27-139); TOTAL IRON BINDING CAPACITY 163 ug/dL (250-450); UIBC 133 ug/dL (118-369)
[2016-06-10 08:07] LABS: CALCIUM 7.6 mg/dL (8.5-10.1)
[2016-06-10 08:11] LABS: CREATININE 4.5 mg/dL (0.55-1.02); MAGNESIUM 1.9 mg/dL (1.8-2.4); PHOSPHOROUS 4.6 mg/dL (2.5-4.9)
--- NOTE | 2016-06-10 09:31 | PN ---
Progress Note (short form) - Note Progress Note: Seen and examined. Feeling better. TELE: No further V-ectopy Chest: no active wheezing K: 5.7 today REC: Resting stress images today. Correct K+ prior to stress portion which we will plan for tomorrow if lytes normalized.
[2016-06-10] MEDS ORDERED: SODIUM POLYSTYRENE SULFONATE 15 GM/60 ML BOTTLE PO ONE ×2 (10:00)
[2016-06-10] MEDS ORDERED: DIPYRIDAMOLE STRESS TEST 46.6 MG in DEXTROSE 5%-WATER - 37.28 ML IVPB ONE (10:00)
[2016-06-10] MEDS: NIFEdipine E.R. 30 MG TABLET (FP) PO SCH ×2 (11:07→21:13)
[2016-06-10] MEDS: HEPARIN NA (PORCINE) 5,000 UNITS/ML 1ML VIAL SQ SCH ×2 (11:07→21:13)
[2016-06-10] MEDS: ATENOLOL 50 MG TABLET (FP) PO SCH (11:07)
[2016-06-10] MEDS: PANTOPRAZOLE 40 MG TABLET (FP) PO SCH (11:07)
[2016-06-10 11:08] LABS: PLATELET ESTIMATE ADEQUATE (NORMAL)
[2016-06-10] MEDS: ASPIRIN 81 MG CHEWABLE TABLETS PO SCH (11:08)
[2016-06-10] MEDS: cloNIDine HCL 0.1 MG TABLET PO SCH ×2 (11:19→21:13)
[2016-06-10] MEDS ORDERED: INSULIN (NOVOLOG) ASPART 100 UNITS/ML 10ML VIAL ONE ×2 (11:36→21:03)
--- NOTE | 2016-06-10 11:41 | PN ---
Progress Note (short form) - Note Progress Note: Renal Follow up for SHAYY vs. Progressive CKD Pt seen and examined at the bedside awake and alert sitting in chair stress canceled because of high K no sob or chest pain no swelling on IVF Vital Signs Temperature 97.5 F L 06/10/16 11:14 Pulse Rate 57 L 06/10/16 11:14 Respiratory Rate 19 06/10/16 11:14 Blood Pressure 133/65 06/10/16 11:14 O2 Sat by Pulse Oximetry (%) 95 06/09/16 21:00 Intake & Output 06/07/16 06/08/16 06/09/16 06/10/16 23:59 23:59 23:59 23:59 Intake Total 140 1040 2030 1120 Balance 140 1040 2030 1120 Gen: NAD, awake and alert HEENT: NC/AT, MMM, No JVD, Neck Supple CVS: RRR, No M/R Lungs : + rales Abd: soft NT/ND Ext: 1+ edema in B/L LE, no cyanosis or clubbing Neuro: No focal defects CBC, BMP 06/10/16 06:40 06/10/16 06:40 Laboratory Tests 06/10/16 06:40 Calcium 7.6 L Phosphorus 4.6 Magnesium 1.9 Current Medications Albuterol/Ipratropium (Duoneb -) 1 amp NEB QIDR [facility] Last Admin: 06/10/16 06:01 Dose: Not Given Aspirin (Asa -) 81 mg PO DAILY [facility] Last Admin: 06/10/16 11:08 Dose: 81 mg Atenolol (Tenormin -) 50 mg PO DAILY [facility] Last Admin: 06/10/16 11:07 Dose: 50 mg Clonidine (Catapres -) 0.1 mg PO BID [facility] Last Admin: 06/10/16 11:19 Dose: 0.1 mg Heparin Sodium (Porcine) (Heparin -) 5,000 unit SQ BID [facility] Last Admin: 06/10/16 11:07 Dose: 5,000 unit Levofloxacin (Levaquin 500 Mg Premixed Ivpb -) 100 mls @ 100 mls/hr IVPB Q2D [facility] Last Admin: 06/09/16 09:05 Dose: 100 mls/hr Insulin Aspart (Novolog Vial Sliding Scale -) 1 vial SQ ACHS [facility] PRN Reason: Protocol Last Admin: 06/10/16 11:36 Dose: 2 units Methylprednisolone Sodium Succinate (Solu-Medrol -) 40 mg IVPB Q6H-IV [facility]AN[facility] Last Admin: 06/10/16 11:03 Dose: 40 mg Nifedipine (Procardia Xl -) 30 mg PO BID [facility] Last Admin: 06/10/16 11:07 Dose: 30 mg Pantoprazole Sodium (Protonix -) 40 mg PO DAILY [facility] Last Admin: 06/10/16 11:07 Dose: 40 mg A/P 75 year old woman with PMhx of CKD Stage 4, Hypertension (>40 years), Asthma, Osteoarthritis, Former Smoker who presented with 2 day history of chest discomfort and SOB and admitted with PNA vs. CHF with BUN/Cr of 43/3.5. #SHAYY on CKD vs. Progressive CKD Cr improved slightly with IVF BUN remains elevated most likely as a result of steroids continue IVF for now #Hyperkalemia from SHAYY on CKD and decreased K excretion Kayexlalate 30g PO x 1 today Repeat K this evening #CHF vs. PNA vs. COPD/SOB Continue IV levaquin as per primary on IV steroids, taper as per pulmonary #Hypertension Continue Clondine, Procardia, Atenolol Increased Procardia XL To BID Goal BP < 140/90 no ARA or ARB at this time Raymundo Snyder DO
--- NOTE | 2016-06-10 17:54 | PN ---
Physical Exam: SUBJECTIVE: Patient seen and examined. OBJECTIVE: Vital Signs Period Temp Pulse Resp BP Sys/Hill Pulse Ox Last 24 Hr 97.2 F-98.0 F 57-77 18-20 133-167/65-82 94-95 GENERAL: The patient is awake, alert, and fully oriented, in no acute distress. HEAD: Normal with no signs of trauma. LUNGS: Bibasilar crackles 1/[address] HEART: Regular rate and rhythm, S1, S2 without murmur, rub or gallop. ABDOMEN: Soft, nontender, nondistended, normoactive bowel sounds, no guarding, no rebound EXTREMITIES: 2+ pulses, warm, well-perfused, no edema. NEUROLOGICAL: Cranial nerves II through XII grossly intact. Normal speech, gait not observed. Laboratory Results - last 24 hr 06/08/16 06/09/16 06/09/16 05:35 10:55 16:54 WBC RBC Hgb Hct MCV MCHC RDW Plt Count MPV Neutrophils % Lymphocytes % Monocytes % Nucleated RBCs Differential Comment Platelet Estimate Sodium Potassium Chloride Carbon Dioxide Anion Gap BUN Creatinine POC Glucometer 268 165 Random Glucose Calcium Phosphorus Magnesium Iron 30 TIBC 163 L Iron Saturation 18 06/09/16 06/10/16 06/10/16 20:23 05:20 06:40 WBC 7.6 RBC 4.27 Hgb 10.6 L Hct 33.6 MCV 78.7 L MCHC 31.4 L RDW 17.9 H Plt Count 184 D MPV 11.4 H Neutrophils % 76.0 Lymphocytes % 22.0 D Monocytes % 2.0 L Nucleated RBCs 2 H Differential Comment Manual diff done Platelet Estimate Adequate Sodium Potassium Chloride Carbon Dioxide Anion Gap BUN Creatinine POC Glucometer 179 137 Random Glucose Calcium Phosphorus Magnesium Iron TIBC Iron Saturation 06/10/16 06/10/16 06/10/16 06:40 11:26 16:42 WBC RBC Hgb Hct MCV MCHC RDW Plt Count MPV Neutrophils % Lymphocytes % Monocytes % Nucleated RBCs Differential Comment Platelet Estimate Sodium 141 Potassium 5.7 H Chloride 108 H Carbon Dioxide 21 Anion Gap 12 BUN 104 H Creatinine 4.5 H POC Glucometer 170 274 Random Glucose 152 H Calcium 7.6 L Phosphorus 4.6 Magnesium 1.9 Iron TIBC Iron Saturation Active Medications Generic Name Dose Route Start Last Admin Trade Name Freq PRN Reason Stop Dose Admin Albuterol/Ipratropium 1 amp 06/05/16 18:00 06/10/16 11:25 Duoneb - NEB 1 amp QIDR JOANNE Administration Aspirin 81 mg 06/06/16 10:00 06/10/16 11:08 Asa - PO 81 mg DAILY JOANNE Administration Atenolol 50 mg 06/06/16 10:00 06/10/16 11:07 Tenormin - PO 50 mg DAILY JOANNE Administration Clonidine 0.1 mg 06/05/16 22:00 06/10/16 11:19 Catapres - PO 0.1 mg BID JOANNE Administration Heparin Sodium (Porcine) 5,000 unit 06/09/16 22:00 06/10/16 11:07 Heparin - SQ 5,000 unit BID JOANNE Administration Levofloxacin 100 mls @ 100 mls/hr 06/07/16 10:00 06/09/16 09:05 Levaquin 500 Mg Premixed Ivpb - IVPB 100 mls/hr Q2D JOANNE Administration Insulin Aspart 1 vial 06/06/16 11:00 06/10/16 16:44 Novolog Vial Sliding Scale - SQ 6 units ACHS JOANNE Administration Protocol Methylprednisolone Sodium Succinate 40 mg 06/05/16 21:00 06/10/16 15:44 Solu-Medrol - IVPB 40 mg Q6H-IV JOANNE Administration Nifedipine 30 mg 06/06/16 22:00 06/10/16 11:07 Procardia Xl - PO 30 mg BID JOANNE Administration Pantoprazole Sodium 40 mg 06/06/16 18:15 06/10/16 11:07 Protonix - PO 40 mg DAILY JOANNE Administration ASSESSMENT/PLAN: Imaging 06/05 CXR: infiltrate and congestion 06/06 renal: chronic medical disease 06/07 CT chest: pneumonia; mild pulmonary venous congestion 06/07 Echo: mild concentric LVH, LV normal; RV normal; BLAE; trace MR, TR, AI ASSESSMENT/PLAN 75 year-old woman with PMH of HTN, HLD, CAD s/p [place] (2012), diastolic heart failure, asthma/COPD, and CKD Stage IV. Admitted for CAP, asthma/COPD exacerbation, diastolic heart failure exacerbation, and SHAYY. Hospital course complicated by worsening renal function. Community acquired pneumonia --06/07 CT chest showed pneumonia --afebrile, no leukocytosis --continue levofloxacin QOD (dose #2 yesterday) COPD/asthma exacerbation --taper solu medrol --duonebs SHAYY on CKD --diuretics d/c'd --Cr 3.5 on admission-->peak 4.7 on 06/09-->4.5 today --continue IV fluids CAD s/p [place] --continue atenolol, ASA --stress MIBI postponed today due to high K, reschedule tomorrow Acute on chronic diastolic heart failure --CXR and CT chest both consistent with signs of pulmonary congestion --has been diuresed, hold lasix Hypertension --continue atenolol, clonidine, nifedipine Hyperlipidemia --on no meds Hyperphosphatemia F/E/N Fluids: NS @ 100mL/hr Electrolytes: replete as indicated Nutrition: renal diet DVT prophylaxis: subq heparin, oob, ambulation Dispo: continues to require inpatient care. Visit type - Emergency Visit Emergency Visit: Yes ED Registration Date: 06/05/16 Care time: The patient presented to the Emergency Department on the above date and was hospitalized for further evaluation of their emergent condition. - New Patient This patient is new to me today: No - Critical Care Critical Care patient: No
[2016-06-10 18:29] LABS: CALCIUM 7.7 mg/dL (8.5-10.1); CREATININE 4.5 mg/dL (0.55-1.02)
[2016-06-10] MEDS ORDERED: IPRATROPIUM BR 0.02% 0.5 MG/2.5 ML VIAL.NEB. NEB ONE (18:31)
[2016-06-10] MEDS ORDERED: ALBUTEROL SO4 0.083% IH SOL 2.5 MG/3 ML VIAL.NEB. NEB ONE (18:32)
[2016-06-10] MEDS: SODIUM CHLORIDE 1,000 ML IV SCH (21:25)
[2016-06-10] MEDS ORDERED: ALBUTEROL SO4 2.5/IPRATROPIUM 0.5 INH SOL 3 ML VIAL.NEB. NEB ONE (22:04)
[2016-06-11] MEDS: methylPREDNISolone NA SUCC 40 MG/1 ML VIAL IVPB SCH ×3 (03:23→18:09)
[2016-06-11] MEDS: INSULIN SLIDING SCALE (NOVOLOG) 1 VIAL SQ SCH ×5 (06:12→22:25)
[2016-06-11 08:32] LABS: EOSINOPHIL 0.1 % (0-4.5); MCH 24.7 pg (25.7-33.7); MCHC 31.5 g/dl (32.0-36.0); MEAN CELL VOLUME 78.3 fl (80-96); MEAN PLT VOLUME 11.1 fl (7.5-11.1); NEUTROPHILS 87.3 % (42.8-82.8); PLATELET COUNT 212 K/MM3 (134-434); RDW 17.8 % (11.6-15.6); WHITE BLOOD COUNT 8.4 K/mm3 (4.0-10.0)
--- NOTE | 2016-06-11 08:52 | PN ---
Progress Note, Physician Chief Complaint: K+ improved - Current Medication List Current Medications: Active Medications Aspirin (Asa -) 81 mg PO DAILY [facility] Last Admin: 06/10/16 11:08 Dose: 81 mg Atenolol (Tenormin -) 50 mg PO DAILY [facility] Last Admin: 06/10/16 11:07 Dose: 50 mg Clonidine (Catapres -) 0.1 mg PO BID [facility] Last Admin: 06/10/16 21:13 Dose: 0.1 mg Heparin Sodium (Porcine) (Heparin -) 5,000 unit SQ BID [facility] Last Admin: 06/10/16 21:13 Dose: 5,000 unit Levofloxacin (Levaquin 500 Mg Premixed Ivpb -) 100 mls @ 100 mls/hr IVPB Q2D [facility] Last Admin: 06/09/16 09:05 Dose: 100 mls/hr Sodium Chloride (Normal Saline -) 1,000 mls @ 83 mls/hr IV ASDIR [facility] Last Admin: 06/10/16 21:25 Dose: 83 mls/hr Insulin Aspart (Novolog Vial Sliding Scale -) 1 vial SQ ACHS [facility] PRN Reason: Protocol Last Admin: 06/11/16 07:11 Dose: Not Given Methylprednisolone Sodium Succinate (Solu-Medrol -) 40 mg IVPB Q8H-IV [facility] Last Admin: 06/11/16 03:23 Dose: 40 mg Nifedipine (Procardia Xl -) 30 mg PO BID [facility] Last Admin: 06/10/16 21:13 Dose: 30 mg Pantoprazole Sodium (Protonix -) 40 mg PO DAILY [facility] Last Admin: 06/10/16 11:07 Dose: 40 mg - Objective Vital Signs: Vital Signs Temperature 97.7 F 06/11/16 06:00 Pulse Rate 72 06/11/16 06:00 Respiratory Rate 20 06/11/16 06:00 Blood Pressure 133/82 06/11/16 06:00 O2 Sat by Pulse Oximetry (%) 95 06/10/16 20:23 Constitutional: Yes: No Distress Cardiovascular: Yes: Regular Rate and Rhythm Respiratory: Yes: Wheezes Gastrointestinal: Yes: Soft Edema: No Neurological: Yes: Alert, Oriented Labs: CBC, BMP 06/11/16 06:20 INR, PTT INR 1.19 (0.82-1.09) H 06/05/16 11:40 - ....Imaging EKG: Image Reviewed (TELE: NSR, NSST changes, no further NSVT) Assessment/Plan PNA Acute on chronic diastolic CHF, resolved CKD Hyperkalemia REC: Was to have Part 2 of stress MIBI but now wheezing on exam, contraindication to persantine. Would continue to optimize pulmonary status and complete stress when wheezing completely resolved. Will review resting perfusion.
[2016-06-11 09:08] LABS: CALCIUM 7.6 mg/dL (8.5-10.1)
[2016-06-11 09:14] LABS: ALBUMIN 1.6 g/dl (3.4-5.0); BILIRUBIN,TOTAL 0.3 mg/dL (0.2-1.0); CREATININE 4.2 mg/dL (0.55-1.02); MAGNESIUM 1.9 mg/dL (1.8-2.4); PHOSPHOROUS 5.1 mg/dL (2.5-4.9)
[2016-06-11] MEDS: LEVOFLOXACIN 500 MG IVPB 100 ML IVPB SCH (10:22)
[2016-06-11] MEDS: HEPARIN NA (PORCINE) 5,000 UNITS/ML 1ML VIAL SQ SCH ×2 (10:23→22:23)
[2016-06-11] MEDS: NIFEdipine E.R. 30 MG TABLET (FP) PO SCH ×2 (10:24→22:23)
[2016-06-11] MEDS: ASPIRIN 81 MG CHEWABLE TABLETS PO SCH (10:24)
[2016-06-11] MEDS: ATENOLOL 50 MG TABLET (FP) PO SCH (10:24)
[2016-06-11] MEDS: PANTOPRAZOLE 40 MG TABLET (FP) PO SCH (10:24)
[2016-06-11] MEDS: cloNIDine HCL 0.1 MG TABLET PO SCH ×2 (10:24→22:23)
[2016-06-11] MEDS ORDERED: INSULIN (NOVOLOG) ASPART 100 UNITS/ML 10ML VIAL ONE (12:29)
--- NOTE | 2016-06-11 14:15 | PN ---
Progress Note (short form) - Note Progress Note: Renal Follow up for SHAYY vs. Progressive CKD Pt seen and examined at the bedside no acute complaints denies any sob, cough, chest pain, fever, chills, N/V/D 2nd part of stress test held because of wheeze Vital Signs Temperature 97.7 F 06/11/16 10:00 Pulse Rate 73 06/11/16 10:00 Respiratory Rate 20 06/11/16 10:00 Blood Pressure 159/91 06/11/16 10:00 O2 Sat by Pulse Oximetry (%) 95 06/11/16 09:00 Intake & Output 06/08/16 06/09/16 06/10/16 06/11/16 23:59 23:59 23:59 23:59 Intake Total 1040 2029 1850 1283 Balance 1040 2029 1850 1283 Weight 212 lb 4 oz Gen: NAD, awake and alert HEENT: NC/AT, MMM, No JVD, Neck Supple CVS: RRR, No M/R Lungs : + rales Abd: soft NT/ND Ext: no edema in LE Neuro: No focal defects CBC, BMP 06/11/16 06:20 06/11/16 06:20 Current Medications Aspirin (Asa -) 81 mg PO DAILY [facility] Last Admin: 06/11/16 10:24 Dose: 81 mg Atenolol (Tenormin -) 50 mg PO DAILY [facility] Last Admin: 06/11/16 10:24 Dose: 50 mg Clonidine (Catapres -) 0.1 mg PO BID [facility] Last Admin: 06/11/16 10:24 Dose: 0.1 mg Heparin Sodium (Porcine) (Heparin -) 5,000 unit SQ BID [facility] Last Admin: 06/11/16 10:23 Dose: 5,000 unit Levofloxacin (Levaquin 500 Mg Premixed Ivpb -) 100 mls @ 100 mls/hr IVPB Q2D [facility] Last Admin: 06/11/16 10:22 Dose: 100 mls/hr Sodium Chloride (Normal Saline -) 1,000 mls @ 83 mls/hr IV ASDIR [facility] Last Admin: 06/10/16 21:25 Dose: 83 mls/hr Insulin Aspart (Novolog Vial Sliding Scale -) 1 vial SQ ACHS [facility] PRN Reason: Protocol Last Admin: 06/11/16 12:54 Dose: 4 units Methylprednisolone Sodium Succinate (Solu-Medrol -) 40 mg IVPB Q8H-IV [facility] Last Admin: 06/11/16 10:16 Dose: 40 mg Nifedipine (Procardia Xl -) 30 mg PO BID [facility] Last Admin: 06/11/16 10:24 Dose: 30 mg Pantoprazole Sodium (Protonix -) 40 mg PO DAILY [facility] Last Admin: 06/11/16 10:24 Dose: 40 mg A/P 75 year old woman with PMhx of CKD Stage 4, Hypertension (>40 years), Asthma, Osteoarthritis, Former Smoker who presented with 2 day history of chest discomfort and SOB and admitted with PNA vs. CHF with BUN/Cr of 43/3.5. #SHAYY on CKD vs. Progressive CKD renal function with worsening as inpatient related to over diuresis Cr improving with IVF (no signs of volume overload) -> continue current fluids for now BUN elevated secondary to steroids, no evidence of uremia Despite acute worsening of renal function and now mild improvement pt does have significant CKD and may need dialysis in the near future dose all med for Cr Cl less hen 15 #Hyperkalemia imporved today s/p kayexalate #CHF vs. PNA vs. COPD/SOB holding diuretics (no cliical signs fo volume overload) Continue IV levaquin as per primary on IV steroids, taper as per pulmonary #Hypertension Continue Clondine, Procardia, Atenolol Increased Procardia XL To BID Goal BP < 140/90 no ARA or ARB at this time Raymundo Snyder DO
--- NOTE | 2016-06-11 19:34 | PN ---
Physical Exam: SUBJECTIVE: Patient seen and examined OBJECTIVE: Vital Signs Period Temp Pulse Resp BP Sys/Hill Pulse Ox Last 24 Hr 97.3 F-97.8 F 60-85 16-20 108-172/55-91 95-95 GENERAL: The patient is awake, alert, and fully oriented, in no acute distress. HEAD: Normal with no signs of trauma. LUNGS: Bibasilar crackles 1/[address] up HEART: Regular rate and rhythm, S1, S2 without murmur, rub or gallop. ABDOMEN: Soft, nontender, nondistended, normoactive bowel sounds, no guarding, no rebound EXTREMITIES: 2+ pulses, warm, well-perfused, no edema. NEUROLOGICAL: Cranial nerves II through XII grossly intact. Normal speech, gait not observed. Laboratory Results - last 24 hr 06/10/16 06/11/16 06/11/16 21:09 05:38 06:20 WBC 8.4 RBC 4.46 Hgb 11.0 Hct 35.0 MCV 78.3 L MCHC 31.5 L RDW 17.8 H Plt Count 212 MPV 11.1 Neutrophils % 87.3 H Lymphocytes % 8.1 D Monocytes % 4.5 D Eosinophils % 0.1 D Basophils % 0.0 Sodium Potassium Chloride Carbon Dioxide Anion Gap BUN Creatinine Creat Clearance w eGFR POC Glucometer 218 158 Random Glucose Calcium Phosphorus Magnesium Total Bilirubin AST ALT Alkaline Phosphatase Total Protein Albumin 06/11/16 06/11/16 06/11/16 06:20 12:10 17:09 WBC RBC Hgb Hct MCV MCHC RDW Plt Count MPV Neutrophils % Lymphocytes % Monocytes % Eosinophils % Basophils % Sodium 143 Potassium 4.3 Chloride 110 H Carbon Dioxide 21 Anion Gap 12 BUN 105 H* Creatinine 4.2 H Creat Clearance w eGFR 10.37 POC Glucometer 205 158 Random Glucose 178 H Calcium 7.6 L Phosphorus 5.1 H Magnesium 1.9 Total Bilirubin 0.3 D AST 13 L ALT 19 D Alkaline Phosphatase 36 L Total Protein 6.0 L Albumin 1.6 L Active Medications Generic Name Dose Route Start Last Admin Trade Name Freq PRN Reason Stop Dose Admin Aspirin 81 mg 06/06/16 10:00 06/11/16 10:24 Asa - PO 81 mg DAILY JOANNE Administration Atenolol 50 mg 06/06/16 10:00 06/11/16 10:24 Tenormin - PO 50 mg DAILY JOANNE Administration Clonidine 0.1 mg 06/05/16 22:00 06/11/16 10:24 Catapres - PO 0.1 mg BID JOANNE Administration Heparin Sodium (Porcine) 5,000 unit 06/09/16 22:00 06/11/16 10:23 Heparin - SQ 5,000 unit BID JOANNE Administration Sodium Chloride 1,000 mls @ 83 mls/hr 06/10/16 20:30 06/10/16 21:25 Normal Saline - IV 83 mls/hr ASDIR JOANNE Administration Insulin Aspart 1 vial 06/06/16 11:00 06/11/16 18:04 Novolog Vial Sliding Scale - SQ 2 units ACHS JOANNE Administration Protocol Levofloxacin 500 mg 06/13/16 06:00 Levaquin - PO Q2D@0600 JOANNE Methylprednisolone Sodium Succinate 40 mg 06/11/16 02:00 06/11/16 18:09 Solu-Medrol - IVPB 40 mg Q8H-IV JOANNE Administration Nifedipine 30 mg 06/06/16 22:00 06/11/16 10:24 Procardia Xl - PO 30 mg BID JOANNE Administration Pantoprazole Sodium 40 mg 06/06/16 18:15 06/11/16 10:24 Protonix - PO 40 mg DAILY JOANNE Administration Imaging 06/05 CXR: infiltrate and congestion 06/06 renal: chronic medical disease 06/07 CT chest: pneumonia; mild pulmonary venous congestion 06/07 Echo: mild concentric LVH, LV normal; RV normal; BLAE; trace MR, TR, AI ASSESSMENT/PLAN 75 year-old woman with PMH of HTN, HLD, CAD s/p CT (2012), diastolic heart failure, asthma/COPD, and CKD Stage IV. Admitted for CAP, asthma/COPD exacerbation, diastolic heart failure exacerbation, and SHAYY. Hospital course complicated by worsening renal function. Community acquired pneumonia --afebrile, no leukocytosis --switch to PO levofloxacin QOD (dose #3 today) COPD/asthma exacerbation --tapering solu medrol --duonebs SHAYY on CKD --Cr 3.5 on admission-->peak 4.7 on 06/09-->4.2 today --Cr is improving with IV fluids but CXR shows continued congestive changes and wheezing/rales on exam today Acute on chronic diastolic heart failure --diuresis on hold due to SHAYY but wheezing on exam and CXR shows persistent congestive changes --will discuss HD with renal CAD s/p CT --continue atenolol, ASA --stress MIBI postponed today due to respiratory status Hypertension --continue atenolol, clonidine, nifedipine Hyperlipidemia --on no meds Hyperphosphatemia Hyperkalemia --resolved after kayexelate F/E/N Fluids: NS @ 83mL/hr Electrolytes: replete as indicated Nutrition: renal diet DVT prophylaxis: subq heparin, oob, ambulation Dispo: continues to require inpatient care. Visit type - Emergency Visit Emergency Visit: Yes ED Registration Date: 06/05/16 Care time: The patient presented to the Emergency Department on the above date and was hospitalized for further evaluation of their emergent condition. - New Patient This patient is new to me today: No - Critical Care Critical Care patient: No
[2016-06-11] MEDS: SODIUM CHLORIDE 1,000 ML IV SCH (22:32)
[2016-06-12] MEDS: methylPREDNISolone NA SUCC 40 MG/1 ML VIAL IVPB SCH ×3 (01:32→17:09)
[2016-06-12] MEDS: INSULIN SLIDING SCALE (NOVOLOG) 1 VIAL SQ SCH ×4 (06:54→21:42)
[2016-06-12 09:08] LABS: MCH 24.4 pg (25.7-33.7); MEAN CELL VOLUME 78.9 fl (80-96); MEAN PLT VOLUME 10.7 fl (7.5-11.1); PLATELET COUNT 260 K/MM3 (134-434)
--- NOTE | 2016-06-12 09:33 | PN ---
Progress Note, Physician Chief Complaint: seems comfortable TELE: NSR. Rare PVCs. Short self limited run Paroxysmal atach - Current Medication List Current Medications: Active Medications Aspirin (Asa -) 81 mg PO DAILY [facility] Last Admin: 06/11/16 10:24 Dose: 81 mg Atenolol (Tenormin -) 50 mg PO DAILY [facility] Last Admin: 06/11/16 10:24 Dose: 50 mg Clonidine (Catapres -) 0.1 mg PO BID [facility] Last Admin: 06/11/16 22:23 Dose: 0.1 mg Heparin Sodium (Porcine) (Heparin -) 5,000 unit SQ BID [facility] Last Admin: 06/11/16 22:23 Dose: 5,000 unit Sodium Chloride (Normal Saline -) 1,000 mls @ 83 mls/hr IV ASDIR [facility] Last Admin: 06/11/16 22:32 Dose: Not Given Insulin Aspart (Novolog Vial Sliding Scale -) 1 vial SQ ACHS [facility] PRN Reason: Protocol Last Admin: 06/12/16 06:54 Dose: 2 units Levofloxacin (Levaquin -) 500 mg PO Q2D@0600 [facility] Methylprednisolone Sodium Succinate (Solu-Medrol -) 40 mg IVPB Q8H-IV [facility] Last Admin: 06/12/16 01:32 Dose: 40 mg Nifedipine (Procardia Xl -) 30 mg PO BID [facility] Last Admin: 06/11/16 22:23 Dose: 30 mg Pantoprazole Sodium (Protonix -) 40 mg PO DAILY [facility] Last Admin: 06/11/16 10:24 Dose: 40 mg - Objective Vital Signs: Vital Signs Temperature 98.0 F 06/12/16 06:00 Pulse Rate 57 L 06/12/16 06:00 Respiratory Rate 18 06/12/16 06:00 Blood Pressure 150/65 06/12/16 06:00 O2 Sat by Pulse Oximetry (%) 95 06/11/16 22:00 Constitutional: Yes: No Distress Cardiovascular: Yes: Regular Rate and Rhythm Respiratory: Yes: Other (less wheezy today) Gastrointestinal: Yes: Soft Edema: No Neurological: Yes: Alert, Oriented Labs: INR, PTT INR 1.19 (0.82-1.09) H 06/05/16 11:40 Laboratory Tests 06/12/16 06/12/16 06:00 06:00 WBC Pending RBC Pending Hgb Pending Plt Count Pending Sodium Pending Potassium Pending Creatinine Pending - ....Imaging EKG: Image Reviewed Assessment/Plan PNA Chronic diastolic CHF NSVT CKD REC: To complete Part 2 of Persantine MIBI when no longer wheezing. Stress portion has been held for hyperkalemia and Tuesday due to increased wheezing. Can hopefully complete test Tuesday. Continue Atenolol. Lasix stopped due to worsened renal fxn.
[2016-06-12] MEDS: ASPIRIN 81 MG CHEWABLE TABLETS PO SCH (09:34)
[2016-06-12] MEDS: cloNIDine HCL 0.1 MG TABLET PO SCH ×2 (09:34→21:43)
[2016-06-12] MEDS: PANTOPRAZOLE 40 MG TABLET (FP) PO SCH (09:34)
[2016-06-12] MEDS: NIFEdipine E.R. 30 MG TABLET (FP) PO SCH ×2 (09:34→21:43)
[2016-06-12] MEDS: ATENOLOL 50 MG TABLET (FP) PO SCH (09:34)
[2016-06-12] MEDS: HEPARIN NA (PORCINE) 5,000 UNITS/ML 1ML VIAL SQ SCH ×2 (09:35→21:43)
[2016-06-12 09:39] LABS: ALBUMIN 1.7 g/dl (3.4-5.0); BILIRUBIN,TOTAL 0.2 mg/dL (0.2-1.0); CALCIUM 7.7 mg/dL (8.5-10.1); CREATININE 3.8 mg/dL (0.55-1.02); MAGNESIUM 1.9 mg/dL (1.8-2.4); PHOSPHOROUS 4.9 mg/dL (2.5-4.9); TOT PROT 6.2 g/dl (6.4-8.2)
[2016-06-12 13:11] LABS: ANISOCYTOSIS 1+; HYPOCHROMIA 1+; PLATELET COMMENT2 NO CLOTTING DETECTED; PLATELET COMMENT3 FEW LARGE PLTS; PLATELET ESTIMATE ADEQUATE (NORMAL)
--- NOTE | 2016-06-12 13:18 | PN ---
Progress Note, Physician Chief Complaint: Patient is a 75 y/o female with advanced Chronic Kidney disease, with superimposed MARIFER, hemodynamic In bed. seems to be feeling well. No chest pain/ No SOB, No urinary complaints Has h/o HTN, O/A, CHF, COPD. On Steroids. Maintains good urine output. - Current Medication List Current Medications: Active Medications Aspirin (Asa -) 81 mg PO DAILY [facility] Last Admin: 06/12/16 09:34 Dose: 81 mg Atenolol (Tenormin -) 50 mg PO DAILY [facility] Last Admin: 06/12/16 09:34 Dose: 50 mg Clonidine (Catapres -) 0.1 mg PO BID [facility] Last Admin: 06/12/16 09:34 Dose: 0.1 mg Heparin Sodium (Porcine) (Heparin -) 5,000 unit SQ BID [facility] Last Admin: 06/12/16 09:35 Dose: 5,000 unit Sodium Chloride (Normal Saline -) 1,000 mls @ 83 mls/hr IV ASDIR [facility] Last Admin: 06/11/16 22:32 Dose: Not Given Insulin Aspart (Novolog Vial Sliding Scale -) 1 vial SQ ACHS [facility] PRN Reason: Protocol Last Admin: 06/12/16 13:04 Dose: 6 units Levofloxacin (Levaquin -) 500 mg PO Q2D@0600 [facility] Methylprednisolone Sodium Succinate (Solu-Medrol -) 40 mg IVPB Q8H-IV [facility] Last Admin: 06/12/16 09:35 Dose: 40 mg Nifedipine (Procardia Xl -) 30 mg PO BID [facility] Last Admin: 06/12/16 09:34 Dose: 30 mg Pantoprazole Sodium (Protonix -) 40 mg PO DAILY [facility] Last Admin: 06/12/16 09:34 Dose: 40 mg - Objective Vital Signs: Vital Signs Temperature 98.1 F 06/12/16 10:00 Pulse Rate 57 L 06/12/16 10:00 Respiratory Rate 18 06/12/16 10:00 Blood Pressure 124/57 06/12/16 10:00 O2 Sat by Pulse Oximetry (%) 95 06/12/16 09:00 Constitutional: Yes: No Distress, Calm Eyes: Yes: Other (Reduced visusal acuity) HENT: Yes: Normocephalic Neck: Yes: Trachea Midline Cardiovascular: Yes: Regular Rate and Rhythm, S1, S2 Respiratory: Yes: Diminished, Poor Air Entry Gastrointestinal: Yes: Normal Bowel Sounds, Soft, Abdomen, Obese Edema: Yes Edema: LLE: Trace, RLE: Trace Neurological: Yes: Alert, Oriented Psychiatric: Yes: Alert, Oriented Labs: CBC, BMP 06/12/16 06:00 06/12/16 06:00 INR, PTT INR 1.19 (0.82-1.09) H 06/05/16 11:40 Problem List - Problems (1) CHF (congestive heart failure) Code(s): I50.9 - HEART FAILURE, UNSPECIFIED (2) CKD stage 4 secondary to hypertension Code(s): I12.9 - HYPERTENSIVE CHRONIC KIDNEY DISEASE W STG 1-4/UNSP CHR KDNY N18.4 - CHRONIC KIDNEY DISEASE, STAGE 4 (SEVERE) (3) SHAYY (acute kidney injury) Code(s): N17.9 - ACUTE KIDNEY FAILURE, UNSPECIFIED Assessment/Plan 75 y/o female with SHAYY, superimposed on Stage 4 CKD. Maintains good urine output. The SHAYY seems to be multifactorial, but a significant component of Steroid dependent azotemia is likely. No specific intervention at this point, but the patient will most likely be in need of KEY RINGER in the future. Thank you. Paula Muñoz MD
--- NOTE | 2016-06-12 18:19 | PN ---
Physical Exam: SUBJECTIVE: Patient seen and examined at bedside. Ate rice at dinner and "it went down the wrong way." She coughed up the rice and felt better after receiving a duoneb treatment. Now wheezing. OBJECTIVE: Vital Signs Period Temp Pulse Resp BP Sys/Hill Pulse Ox Last 24 Hr 97.6 F-98.8 F 53-66 18-20 124-172/57-80 95-95 GENERAL: The patient is awake, alert, and fully oriented, in no acute distress. HEAD: Normal with no signs of trauma. LUNGS: Wheezing in all lung silverman. No accessory muscle use. Speaking in complete sentences. HEART: Regular rate and rhythm, S1, S2 without murmur, rub or gallop. ABDOMEN: Soft, nontender, nondistended, normoactive bowel sounds, no guarding, no rebound EXTREMITIES: 2+ pulses, warm, well-perfused, no edema. NEUROLOGICAL: Cranial nerves II through XII grossly intact. Normal speech, gait not observed. Laboratory Results - last 24 hr 06/11/16 06/12/16 06/12/16 22:24 06:00 06:00 WBC 9.0 RBC 4.80 Hgb 11.7 Hct 37.9 MCV 78.9 L MCHC 31.0 L RDW 18.0 H Plt Count 260 D MPV 10.7 Neutrophils % 90.0 H Lymphocytes % 6.0 L D Monocytes % 2.0 L Reactive Lymphocytes 2 Platelet Estimate Adequate Platelet Comment No clotting detected Hypochromic-Microcytic 1+ Anisocytosis 1+ Sodium 144 Potassium 4.4 Chloride 112 H Carbon Dioxide 21 Anion Gap 11 BUN 105 H* Creatinine 3.8 H Creat Clearance w eGFR 11.64 POC Glucometer 212 Random Glucose 150 H Calcium 7.7 L Phosphorus 4.9 Magnesium 1.9 Total Bilirubin 0.2 D AST 7 L D ALT 18 Alkaline Phosphatase 38 L Total Protein 6.2 L Albumin 1.7 L 06/12/16 06/12/16 06/12/16 06:37 11:50 16:44 WBC RBC Hgb Hct MCV MCHC RDW Plt Count MPV Neutrophils % Lymphocytes % Monocytes % Reactive Lymphocytes Platelet Estimate Platelet Comment Hypochromic-Microcytic Anisocytosis Sodium Potassium Chloride Carbon Dioxide Anion Gap BUN Creatinine Creat Clearance w eGFR POC Glucometer 161 237 257 Random Glucose Calcium Phosphorus Magnesium Total Bilirubin AST ALT Alkaline Phosphatase Total Protein Albumin Active Medications Generic Name Dose Route Start Last Admin Trade Name Patriceq PRN Reason Stop Dose Admin Aspirin 81 mg 06/06/16 10:00 06/12/16 09:34 Asa - PO 81 mg DAILY JOANNE Administration Atenolol 50 mg 06/06/16 10:00 06/12/16 09:34 Tenormin - PO 50 mg DAILY JOANNE Administration Clonidine 0.1 mg 06/05/16 22:00 06/12/16 09:34 Catapres - PO 0.1 mg BID JOANNE Administration Heparin Sodium (Porcine) 5,000 unit 06/09/16 22:00 06/12/16 09:35 Heparin - SQ 5,000 unit BID JOANNE Administration Sodium Chloride 1,000 mls @ 83 mls/hr 06/10/16 20:30 06/11/16 22:32 Normal Saline - IV Not Given ASDIR [facility] Insulin Aspart 1 vial 06/06/16 11:00 06/12/16 17:10 Novolog Vial Sliding Scale - SQ 6 units ACHS JOANNE Administration Protocol Levofloxacin 500 mg 06/13/16 06:00 Levaquin - PO Q2D@0600 [facility] Methylprednisolone Sodium Succinate 40 mg 06/11/16 02:00 06/12/16 17:09 Solu-Medrol - IVPB 40 mg Q8H-IV JOANNE Administration Nifedipine 30 mg 06/06/16 22:00 06/12/16 09:34 Procardia Xl - PO 30 mg BID JOANNE Administration Pantoprazole Sodium 40 mg 06/06/16 18:15 06/12/16 09:34 Protonix - PO 40 mg DAILY JOANNE Administration ASSESSMENT/PLAN: Imaging 06/05 CXR: infiltrate and congestion 06/06 renal: chronic medical disease 06/07 CT chest: pneumonia; mild pulmonary venous congestion 06/07 Echo: mild concentric LVH, LV normal; RV normal; BLAE; trace MR, TR, AI ASSESSMENT/PLAN 75 year-old woman with PMH of HTN, HLD, CAD s/p [place] (2012), diastolic heart failure, asthma/COPD, and CKD Stage IV. Admitted for CAP, asthma/COPD exacerbation, diastolic heart failure exacerbation, and SHAYY. Hospital course complicated by worsening renal function. Aspiration event --choked on rice at dinner; cleared the rice and felt better after duoneb --stat CXR Community acquired pneumonia --afebrile, no leukocytosis --switch to PO levofloxacin QOD (dose #3 yesterday) COPD/asthma exacerbation --tapering solu medrol --duonebs SHAYY on CKD --Cr 3.5 on admission-->peak 4.7 on 06/09-->3.8 today --continue gentle IV fluids Acute on chronic diastolic heart failure --diuresis on hold due to SHAYY CAD s/p [place] --continue atenolol, ASA --stress MIBI postponed due to respiratory status, hopefully Tuesday Hypertension --continue atenolol, clonidine, nifedipine Hyperlipidemia --on no meds F/E/N Fluids: NS @ 83mL/hr Electrolytes: replete as indicated Nutrition: renal diet DVT prophylaxis: subq heparin, oob, ambulation Dispo: continues to require inpatient care. Visit type - Emergency Visit Emergency Visit: Yes ED Registration Date: 06/05/16 Care time: The patient presented to the Emergency Department on the above date and was hospitalized for further evaluation of their emergent condition. - New Patient This patient is new to me today: No - Critical Care Critical Care patient: No
[2016-06-12] MEDS: ALBUTEROL SO4 2.5/IPRATROPIUM 0.5 INH SOL 3 ML VIAL.NEB. NEB PRN (18:35)
[2016-06-12] MEDS ORDERED: INSULIN (NOVOLOG) ASPART 100 UNITS/ML 10ML VIAL ONE (21:33)
[2016-06-12] MEDS: SODIUM CHLORIDE 1,000 ML IV SCH (21:45)
[2016-06-13] MEDS: LEVOFLOXACIN 250 MG TABLET (FP) PO SCH (05:49)
[2016-06-13] MEDS: methylPREDNISolone NA SUCC 40 MG/1 ML VIAL IVPB SCH ×2 (05:49→17:39)
[2016-06-13] MEDS ORDERED: INSULIN (NOVOLOG) ASPART 100 UNITS/ML 10ML VIAL ONE ×3 (06:13→21:54)
[2016-06-13] MEDS: INSULIN SLIDING SCALE (NOVOLOG) 1 VIAL SQ SCH ×4 (06:15→21:57)
[2016-06-13 07:52] LABS: MCH 24.6 pg (25.7-33.7); MCHC 31.1 g/dl (32.0-36.0); MEAN PLT VOLUME 10.6 fl (7.5-11.1); PLATELET COUNT 256 K/MM3 (134-434); RDW 18.2 % (11.6-15.6)
[2016-06-13 08:25] LABS: ALBUMIN 1.5 g/dl (3.4-5.0); CALCIUM 7.9 mg/dL (8.5-10.1)
[2016-06-13 08:29] LABS: BILIRUBIN,TOTAL 0.3 mg/dL (0.2-1.0); CREATININE 3.6 mg/dL (0.55-1.02); TOT PROT 5.3 g/dl (6.4-8.2)
--- NOTE | 2016-06-13 09:10 | PN ---
Physical Exam: SUBJECTIVE: Patient seen and examined OBJECTIVE: Vital Signs Period Temp Pulse Resp BP Sys/Hill Pulse Ox Last 24 Hr 97 F-98.8 F 57-73 18-20 124-175/57-82 95-95 GENERAL: The patient is awake, alert, and fully oriented, in no acute distress. HEAD: Normal with no signs of trauma. LUNGS: Expiratory wheezing. No accessory muscle use. Speaking in complete sentences. HEART: Regular rate and rhythm, S1, S2 without murmur, rub or gallop. ABDOMEN: Soft, nontender, nondistended, normoactive bowel sounds, no guarding, no rebound EXTREMITIES: 2+ pulses, warm, well-perfused, no edema. NEUROLOGICAL: Cranial nerves II through XII grossly intact. Normal speech, gait not observed. Laboratory Results - last 24 hr 06/12/16 06/12/16 06/12/16 06:00 06:00 11:50 WBC 9.0 RBC 4.80 Hgb 11.7 Hct 37.9 MCV 78.9 L MCHC 31.0 L RDW 18.0 H Plt Count 260 D MPV 10.7 Neutrophils % 90.0 H Lymphocytes % 6.0 L D Monocytes % 2.0 L Reactive Lymphocytes 2 Platelet Estimate Adequate Platelet Comment No clotting detected Hypochromic-Microcytic 1+ Anisocytosis 1+ Sodium 144 Potassium 4.4 Chloride 112 H Carbon Dioxide 21 Anion Gap 11 BUN 105 H* Creatinine 3.8 H Creat Clearance w eGFR 11.64 POC Glucometer 237 Random Glucose 150 H Calcium 7.7 L Phosphorus 4.9 Magnesium 1.9 Total Bilirubin 0.2 D AST 7 L D ALT 18 Alkaline Phosphatase 38 L Total Protein 6.2 L Albumin 1.7 L 06/12/16 06/12/16 06/13/16 16:44 21:20 05:48 WBC RBC Hgb Hct MCV MCHC RDW Plt Count MPV Neutrophils % Lymphocytes % Monocytes % Reactive Lymphocytes Platelet Estimate Platelet Comment Hypochromic-Microcytic Anisocytosis Sodium Potassium Chloride Carbon Dioxide Anion Gap BUN Creatinine Creat Clearance w eGFR POC Glucometer 257 171 160 Random Glucose Calcium Phosphorus Magnesium Total Bilirubin AST ALT Alkaline Phosphatase Total Protein Albumin 06/13/16 06/13/16 06:30 06:30 WBC 11.0 H RBC 4.57 Hgb 11.2 Hct 36.1 MCV 79.0 L MCHC 31.1 L RDW 18.2 H Plt Count 256 MPV 10.6 Neutrophils % Y Lymphocytes % Y Monocytes % Reactive Lymphocytes Platelet Estimate Platelet Comment Hypochromic-Microcytic Anisocytosis Sodium 145 Potassium 4.6 Chloride 114 H Carbon Dioxide 20 L Anion Gap 11 BUN 104 H Creatinine 3.6 H Creat Clearance w eGFR 12.39 POC Glucometer Random Glucose 154 H Calcium 7.9 L Phosphorus Magnesium Total Bilirubin 0.3 D AST 9 L D ALT 13 D Alkaline Phosphatase 35 L Total Protein 5.3 L Albumin 1.5 L Active Medications Generic Name Dose Route Start Last Admin Trade Name Freq PRN Reason Stop Dose Admin Albuterol/Ipratropium 1 amp 06/12/16 18:18 06/12/16 18:35 Duoneb - NEB 1 amp Q6H PRN Administration SHORTNESS OF BREATH Aspirin 81 mg 06/06/16 10:00 06/12/16 09:34 Asa - PO 81 mg DAILY JOANNE Administration Atenolol 50 mg 06/06/16 10:00 06/12/16 09:34 Tenormin - PO 50 mg DAILY JOANNE Administration Clonidine 0.1 mg 06/05/16 22:00 06/12/16 21:43 Catapres - PO 0.1 mg BID JOANNE Administration Heparin Sodium (Porcine) 5,000 unit 06/09/16 22:00 06/12/16 21:43 Heparin - SQ 5,000 unit BID JOANNE Administration Sodium Chloride 1,000 mls @ 83 mls/hr 06/10/16 20:30 06/12/16 21:45 Normal Saline - IV 83 mls/hr ASDIR JOANNE Administration Insulin Aspart 1 vial 06/06/16 11:00 06/13/16 06:15 Novolog Vial Sliding Scale - SQ 2 units ACHS JOANNE Administration Protocol Levofloxacin 500 mg 06/13/16 06:00 06/13/16 05:49 Levaquin - PO 500 mg Q2D@0600 JOANNE Administration Methylprednisolone Sodium Succinate 40 mg 06/13/16 06:00 06/13/16 05:49 Solu-Medrol - IVPB 40 mg Q12H JOANNE Administration Nifedipine 30 mg 06/06/16 22:00 06/12/16 21:43 Procardia Xl - PO 30 mg BID JOANNE Administration Pantoprazole Sodium 40 mg 06/06/16 18:15 06/12/16 09:34 Protonix - PO 40 mg DAILY JOANNE Administration ASSESSMENT/PLAN: Imaging 06/05 CXR: infiltrate and congestion 06/06 renal: chronic medical disease 06/07 CT chest: pneumonia; mild pulmonary venous congestion 06/07 Echo: mild concentric LVH, LV normal; RV normal; BLAE; trace MR, TR, AI ASSESSMENT/PLAN 75 year-old woman with PMH of HTN, HLD, CAD s/p [place] (2012), diastolic heart failure, asthma/COPD, and CKD Stage IV. Admitted for CAP, asthma/COPD exacerbation, diastolic heart failure exacerbation, and SHAYY. Hospital course complicated by worsening renal function. Aspiration event --choked on rice at dinner last night; mild bump in WBC; CXR without significant change --no antibiotics for now Community acquired pneumonia --afebrile, no leukocytosis --PO levofloxacin QOD (dose #3 today) COPD/asthma exacerbation --tapering solu medrol --duonebs SHAYY on CKD --Cr was 2.4 on 05/26/15 --Cr 3.5 on this admission, peaked on 06/09 @ 4.7 --today Cr 3.6 --continue gentle IV fluids New onset paroxysmal afib --started on heparin drip --rate well-controlled, continue atenolol Acute on chronic diastolic heart failure --hold diuresis CAD s/p [place] --continue atenolol, ASA --stress MIBI postponed several times (high K, wheezing, now new onset PAF) Hypertension --continue atenolol, clonidine, nifedipine Hyperlipidemia --on no meds Hyperphosphatemia Hyperkalemia --resolved after kayexelate F/E/N Fluids: NS @ 75mL/hr Electrolytes: replete as indicated Nutrition: renal diet DVT prophylaxis: on heparin drip; oob, ambulation Dispo: continues to require inpatient care. Visit type - Emergency Visit Emergency Visit: Yes ED Registration Date: 06/05/16 Care time: The patient presented to the Emergency Department on the above date and was hospitalized for further evaluation of their emergent condition. - New Patient This patient is new to me today: No - Critical Care Critical Care patient: No
--- NOTE | 2016-06-13 10:04 | PN ---
Progress Note, Physician Chief Complaint: no new complaints, appears comfortable History of Present Illness: TELE: Reviewed. NSR. Short self limited run PSVT. Short self limited run PAF. - Current Medication List Current Medications: Active Medications Albuterol/Ipratropium (Duoneb -) 1 amp NEB Q6H PRN PRN Reason: SHORTNESS OF BREATH Last Admin: 06/12/16 18:35 Dose: 1 amp Aspirin (Asa -) 81 mg PO DAILY [facility] Last Admin: 06/12/16 09:34 Dose: 81 mg Atenolol (Tenormin -) 50 mg PO DAILY [facility] Last Admin: 06/12/16 09:34 Dose: 50 mg Clonidine (Catapres -) 0.1 mg PO BID [facility] Last Admin: 06/12/16 21:43 Dose: 0.1 mg Heparin Sodium (Porcine) (Heparin -) 5,000 unit SQ BID [facility] Last Admin: 06/12/16 21:43 Dose: 5,000 unit Sodium Chloride (Normal Saline -) 1,000 mls @ 83 mls/hr IV ASDIR [facility] Last Admin: 06/12/16 21:45 Dose: 83 mls/hr Insulin Aspart (Novolog Vial Sliding Scale -) 1 vial SQ ACHS [facility] PRN Reason: Protocol Last Admin: 06/13/16 06:15 Dose: 2 units Levofloxacin (Levaquin -) 500 mg PO Q2D@0600 [facility] Last Admin: 06/13/16 05:49 Dose: 500 mg Methylprednisolone Sodium Succinate (Solu-Medrol -) 40 mg IVPB Q12H [facility] Last Admin: 06/13/16 05:49 Dose: 40 mg Nifedipine (Procardia Xl -) 30 mg PO BID [facility] Last Admin: 06/12/16 21:43 Dose: 30 mg Pantoprazole Sodium (Protonix -) 40 mg PO DAILY [facility] Last Admin: 06/12/16 09:34 Dose: 40 mg - Objective Vital Signs: Vital Signs Temperature 97 F L 06/13/16 06:00 Pulse Rate 61 06/13/16 06:00 Respiratory Rate 19 06/13/16 06:00 Blood Pressure 142/65 06/13/16 06:00 O2 Sat by Pulse Oximetry (%) 95 06/12/16 20:38 Constitutional: Yes: No Distress Eyes: Yes: Conjunctiva Clear Cardiovascular: Yes: Regular Rate and Rhythm Respiratory: Yes: Other (still with scattered expiratory wheezing.) Gastrointestinal: Yes: Soft Edema: Yes Edema: LLE: 1+, RLE: 1+ Neurological: Yes: Alert, Oriented Labs: CBC, BMP 06/13/16 06:30 06/13/16 06:30 INR, PTT INR 1.19 (0.82-1.09) H 06/05/16 11:40 - ....Imaging EKG: Image Reviewed Assessment/Plan Assessment/Plan PNA Chronic diastolic CHF NSVT PAF CKD REC: To complete Part 2 of Persantine MIBI. Stress portion has been held for hyperkalemia and Tuesday due to increased wheezing. Can hopefully complete test Tuesday, but continues to have mild expiratory wheezing. Lasix was stopped due to improved volume status and worsened renal fxn. Now with short run of self limited PAF. CHADS2 Vasc score indicates that full AC would be recommended if no contraindications.
[2016-06-13] MEDS: ASPIRIN 81 MG CHEWABLE TABLETS PO SCH (10:06)
[2016-06-13] MEDS: NIFEdipine E.R. 30 MG TABLET (FP) PO SCH ×2 (10:06→21:57)
[2016-06-13] MEDS: HEPARIN NA (PORCINE) 5,000 UNITS/ML 1ML VIAL SQ SCH (10:06)
[2016-06-13] MEDS: ATENOLOL 50 MG TABLET (FP) PO SCH (10:06)
[2016-06-13] MEDS: cloNIDine HCL 0.1 MG TABLET PO SCH ×2 (10:06→21:57)
[2016-06-13] MEDS: PANTOPRAZOLE 40 MG TABLET (FP) PO SCH (10:06)
[2016-06-13] MEDS ORDERED: HEPARIN NA (PORCINE) 5,000 UNITS/ML 1ML VIAL IVPUSH PRN ×2 (10:47)
--- NOTE | 2016-06-13 11:56 | PN ---
Progress Note, Physician Chief Complaint: Patient is a 75 y/o female with advanced Chronic Kidney disease, with superimposed SHAYY, hemodynamic In bed. seems to be feeling well. No chest pain/ No SOB, No urinary complaints Has h/o HTN, O/A, CHF, COPD. On Steroids. Maintains good urine output. - Current Medication List Current Medications: Active Medications Albuterol/Ipratropium (Duoneb -) 1 amp NEB Q6H PRN PRN Reason: SHORTNESS OF BREATH Last Admin: 06/12/16 18:35 Dose: 1 amp Atenolol (Tenormin -) 50 mg PO DAILY [facility] Last Admin: 06/13/16 10:06 Dose: 50 mg Clonidine (Catapres -) 0.1 mg PO BID [facility] Last Admin: 06/13/16 10:06 Dose: 0.1 mg Heparin Sodium (Porcine) (Heparin -) 1,000 unit IVPUSH PRN PRN PRN Reason: Heparin Heparin Sodium (Porcine) (Heparin -) 5,000 unit IVPUSH PRN PRN PRN Reason: Heparin Sodium Chloride (Normal Saline -) 1,000 mls @ 83 mls/hr IV ASDIR [facility] Last Admin: 06/12/16 21:45 Dose: 83 mls/hr Heparin Sodium (Porcine) 25, (000 unit/ Sodium Chloride) 500 mls @ 20 mls/hr IV TITR JOANNE; 1,000 UNIT/HR PRN Reason: Protocol Insulin Aspart (Novolog Vial Sliding Scale -) 1 vial SQ ACHS JOANNE PRN Reason: Protocol Last Admin: 06/13/16 06:15 Dose: 2 units Levofloxacin (Levaquin -) 500 mg PO Q2D@0600 [facility] Last Admin: 06/13/16 05:49 Dose: 500 mg Methylprednisolone Sodium Succinate (Solu-Medrol -) 40 mg IVPB Q12H [facility] Last Admin: 06/13/16 05:49 Dose: 40 mg Nifedipine (Procardia Xl -) 30 mg PO BID [facility] Last Admin: 06/13/16 10:06 Dose: 30 mg Pantoprazole Sodium (Protonix -) 40 mg PO DAILY [facility] Last Admin: 06/13/16 10:06 Dose: 40 mg - Objective Vital Signs: Vital Signs Temperature 98.1 F 06/13/16 10:00 Pulse Rate 55 L 06/13/16 10:00 Respiratory Rate 18 06/13/16 10:00 Blood Pressure 153/72 06/13/16 10:00 O2 Sat by Pulse Oximetry (%) 95 06/13/16 09:00 Constitutional: Yes: Well Nourished, No Distress, Calm Eyes: Yes: Conjunctiva Clear HENT: Yes: Normocephalic Neck: Yes: Supple, Trachea Midline Cardiovascular: Yes: S1, S2 Respiratory: Yes: CTA Bilaterally Gastrointestinal: Yes: Normal Bowel Sounds, Soft Labs: CBC, BMP 06/13/16 06:30 06/13/16 06:30 INR, PTT INR 1.19 (0.82-1.09) H 06/05/16 11:40 Problem List - Problems (1) CHF (congestive heart failure) Code(s): I50.9 - HEART FAILURE, UNSPECIFIED (2) CKD stage 4 secondary to hypertension Code(s): I12.9 - HYPERTENSIVE CHRONIC KIDNEY DISEASE W STG 1-4/UNSP CHR KDNY N18.4 - CHRONIC KIDNEY DISEASE, STAGE 4 (SEVERE) (3) SHAYY (acute kidney injury) Code(s): N17.9 - ACUTE KIDNEY FAILURE, UNSPECIFIED Assessment/Plan 75 y/o female with SHAYY, superimposed on Stage 4 CKD. Maintains good urine output. The SHAYY seems to be multifactorial, but a significant component of Steroid dependent azotemia is likely. The patient will most likely be in need of SUPERVISORY INVESTIGATIVE SPECIALIST in the future. Will monitor the patient with you. Thank you. Paula Muñoz MD
[2016-06-13] MEDS: HEPARIN - 25,000 UNIT in SODIUM CHLORIDE 495 ML IV SCH (12:10)
--- NOTE | 2016-06-13 15:02 | CONSULT ---
Consult Consult Specialty:: infectious diseases Reason for Consultation:: aspiration r/o asp pneumonia - History of Present Illness History of Present Illness: initial history on admission was as follows 75 year old female with a past medical history of HTN, ?NM, HLD, asthma who presented to the ED with history of chest discomfort associated with SOB. Pt reports cough is minimal and nonproductive. Denies any palpitations. Denies abdominal pain, N/V/D. Pt used her nebulizer today without relief of symptoms. patient was evaluated by cardiology and renal and has been being treated for the same yesterday patient mentioned to the team that while having food she probably aspirated,but questioning further she says that she really doesnt know she was coughing after that patient was evaluated and imaging studies were done currently patient feels alright - History Source History Provided By: Patient Limitations to Obtaining History: No Limitations - Past Medical History Cardio/Vascular: Yes: HTN Pulmonary: Yes: COPD ...: No - Alcohol/Substance Use Hx Alcohol Use: No - Smoking History Smoking history: Former smoker Have you smoked in the past 12 months: No If you are a former smoker, when did you quit?: 35 YEARS AGO Home Medications - Allergies Allergies/Adverse Reactions: Allergies Allergy/AdvReac Type Severity Reaction Status Date / Time egg Allergy Severe LIP Verified 06/05/16 11:28 SWELLING Penicillins Allergy Severe Rash Verified 06/05/16 11:28 FLU SHOT Allergy Uncoded 06/05/16 11:28 - Home Medications Home Medications: Ambulatory Orders Clonidine HCl 0.1 mg PO BID 06/05/16 Meclizine HCl 25 mg PO BID 06/05/16 Nifedipine [Nifedipine ER] 30 mg PO DAILY 06/05/16 Review of Systems - Review of Systems Constitutional: reports: No Symptoms Eyes: reports: No Symptoms HENT: reports: No Symptoms Neck: reports: No Symptoms Cardiovascular: reports: Shortness of Breath Respiratory: reports: SOB, SOB on Exertion Gastrointestinal: reports: No Symptoms Musculoskeletal: reports: No Symptoms Integumentary: reports: No Symptoms Neurological: reports: No Symptoms Endocrine: reports: No Symptoms Hematology/Lymphatic: reports: No Symptoms Psychiatric: reports: No Symptoms Physical Exam Vital Signs: Vital Signs Temperature 98.8 F 06/13/16 14:00 Pulse Rate 58 L 06/13/16 14:00 Respiratory Rate 18 06/13/16 14:00 Blood Pressure 141/60 03/12/17 14:00 O2 Sat by Pulse Oximetry (%) 95 06/13/16 09:00 Constitutional: Yes: No Distress, Obese Eyes: Yes: Conjunctiva Clear HENT: Yes: Atraumatic Neck: Yes: Supple Cardiovascular: Yes: Regular Rate and Rhythm Respiratory: Yes: Regular, On Nasal O2, Wheezes Gastrointestinal: Yes: Normal Bowel Sounds, Soft Musculoskeletal: Yes: WNL Extremities: Yes: WNL Labs: CBC, BMP 06/13/16 06:30 06/13/16 06:30 Imaging - Results Chest X-ray: Report Reviewed, Image Reviewed Assessment/Plan - Problems (1) CHF (congestive heart failure) Code(s): I50.9 - HEART FAILURE, UNSPECIFIED (2) CKD stage 4 secondary to hypertension Code(s): I12.9 - HYPERTENSIVE CHRONIC KIDNEY DISEASE W STG 1-4/UNSP CHR KDNY N18.4 - CHRONIC KIDNEY DISEASE, STAGE 4 (SEVERE) (3) SHAYY (acute kidney injury) Code(s): N17.9 - ACUTE KIDNEY FAILURE, UNSPECIFIED r/o asp pna plan i am going to wait will not start anything at this moment
[2016-06-13] MEDS: SODIUM CHLORIDE 1,000 ML IV SCH ×2 (17:38→18:46)
[2016-06-14] MEDS: HEPARIN - 25,000 UNIT in SODIUM CHLORIDE 495 ML IV SCH ×3 (01:20→21:15)
[2016-06-14] MEDS: SODIUM CHLORIDE 1,000 ML IV SCH (05:24)
[2016-06-14] MEDS: methylPREDNISolone NA SUCC 40 MG/1 ML VIAL IVPB SCH ×2 (05:24→17:45)
[2016-06-14] MEDS: INSULIN SLIDING SCALE (NOVOLOG) 1 VIAL SQ SCH ×4 (06:05→21:26)
[2016-06-14 09:08] LABS: MCH 24.5 pg (25.7-33.7); MCHC 30.8 g/dl (32.0-36.0); MEAN CELL VOLUME 79.6 fl (80-96); MEAN PLT VOLUME 11.4 fl (7.5-11.1); PLATELET COUNT 266 K/MM3 (134-434); RDW 18.4 % (11.6-15.6); WHITE BLOOD COUNT 11.4 K/mm3 (4.0-10.0)
[2016-06-14 09:16] LABS: ALBUMIN 1.6 g/dl (3.4-5.0); BILIRUBIN,TOTAL 0.2 mg/dL (0.2-1.0); CALCIUM 7.6 mg/dL (8.5-10.1); CREATININE 3.5 mg/dL (0.55-1.02); TOT PROT 5.5 g/dl (6.4-8.2)
[2016-06-14] MEDS: NIFEdipine E.R. 30 MG TABLET (FP) PO SCH ×2 (09:34→21:12)
[2016-06-14] MEDS: cloNIDine HCL 0.1 MG TABLET PO SCH ×2 (09:34→21:12)
[2016-06-14] MEDS: PANTOPRAZOLE 40 MG TABLET (FP) PO SCH (09:35)
[2016-06-14] MEDS: ATENOLOL 50 MG TABLET (FP) PO SCH (09:36)
[2016-06-14] MEDS ORDERED: DIPYRIDAMOLE 50 MG/10 ML VIAL IVPB ONE (11:00)
--- NOTE | 2016-06-14 11:02 | PN ---
Progress Note, Physician History of Present Illness: seen and examined today in nad. no overnight events. no new complaints. - Current Medication List Current Medications: Active Medications Albuterol/Ipratropium (Duoneb -) 1 amp NEB Q6H PRN PRN Reason: SHORTNESS OF BREATH Last Admin: 06/12/16 18:35 Dose: 1 amp Atenolol (Tenormin -) 50 mg PO DAILY [facility] Last Admin: 06/14/16 09:36 Dose: Not Given Clonidine (Catapres -) 0.1 mg PO BID [facility] Last Admin: 06/14/16 09:34 Dose: Not Given Heparin Sodium (Porcine) (Heparin -) 1,000 unit IVPUSH PRN PRN PRN Reason: Heparin Heparin Sodium (Porcine) (Heparin -) 5,000 unit IVPUSH PRN PRN PRN Reason: Heparin Heparin Sodium (Porcine) 25, (000 unit/ Sodium Chloride) 500 mls @ 20 mls/hr IV TITR JOANNE; 1,000 UNIT/HR PRN Reason: Protocol Last Admin: 06/14/16 09:35 Dose: 14 mls/hr Sodium Chloride (Normal Saline -) 1,000 mls @ 75 mls/hr IV ASDIR [facility] Last Admin: 06/14/16 05:24 Dose: 75 mls/hr Insulin Aspart (Novolog Vial Sliding Scale -) 1 vial SQ ACHS JOANNE PRN Reason: Protocol Last Admin: 06/14/16 06:05 Dose: Not Given Levofloxacin (Levaquin -) 500 mg PO Q2D@0600 [facility] Last Admin: 06/13/16 05:49 Dose: 500 mg Methylprednisolone Sodium Succinate (Solu-Medrol -) 40 mg IVPB Q12H [facility] Last Admin: 06/14/16 05:24 Dose: 40 mg Nifedipine (Procardia Xl -) 30 mg PO BID [facility] Last Admin: 06/14/16 09:34 Dose: Not Given Pantoprazole Sodium (Protonix -) 40 mg PO DAILY [facility] Last Admin: 06/14/16 09:35 Dose: Not Given - Objective Vital Signs: Vital Signs Temperature 97.6 F 06/14/16 09:02 Pulse Rate 55 L 06/14/16 09:02 Respiratory Rate 22 06/14/16 09:02 Blood Pressure 164/64 06/14/16 09:02 O2 Sat by Pulse Oximetry (%) 95 06/13/16 21:00 Constitutional: Yes: Well Nourished, No Distress, Calm Eyes: Yes: WNL, Conjunctiva Clear, EOM Intact, PERRL HENT: Yes: WNL, Atraumatic, Normocephalic Neck: Yes: WNL, Supple, Trachea Midline Cardiovascular: Yes: Regular Rate and Rhythm, S1, S2. No: Bradycardia, Tachycardia, Pulse Irregular, Bruit, JVD, Gallop, Murmur, Rub, S3, S4, Varicosities Respiratory: Yes: Regular, Wheezes. No: Rales, Rhonchi, SOB Gastrointestinal: Yes: WNL, Normal Bowel Sounds, Soft. No: Distention, Tenderness Musculoskeletal: Yes: WNL Extremities: Yes: WNL Edema: Yes Edema: LLE: Trace, RLE: Trace Peripheral Pulses WNL: Yes Peripheral Pulses: Left Doralis Pedis: 2+, Right Dorsalis Pedis: 2+ Integumentary: Yes: WNL Neurological: Yes: Alert, Oriented Psychiatric: Yes: Alert, Oriented Labs: CBC, BMP 06/14/16 07:30 06/14/16 07:30 INR, PTT INR 1.19 (0.82-1.09) H 06/05/16 11:40 - ....Imaging Chest X-ray: Report Reviewed, Image Reviewed EKG: Report Reviewed, Image Reviewed Other: Report Reviewed, Image Reviewed (tele-sinus bradycardia, pvcs) Assessment/Plan PNA Chronic diastolic CHF NSVT PAF CKD REC: Plan is to attempt to complete pharmacologic stress portion of nuclear stress test today pt is overall euvolemic and Lasix has been held due to developing intravascular depletion Pt was noted to have a short run of Pafib and thus full AC was recommended, she is currently on heparin gtt and will need to be transitioned to oral AC before discharge Cont current Atenolol dose, tolerating sinus bradycardia with no further episodes of pafib recorded
[2016-06-14] MEDS ORDERED: DIPYRIDAMOLE STRESS TEST 50 MG in DEXTROSE 5%-WATER - 40 ML IVPB ONE (12:35)
--- NOTE | 2016-06-14 13:39 | PN ---
Progress Note, Physician History of Present Illness: pateint doing well no complaints - Current Medication List Current Medications: Active Medications Albuterol/Ipratropium (Duoneb -) 1 amp NEB Q6H PRN PRN Reason: SHORTNESS OF BREATH Last Admin: 06/12/16 18:35 Dose: 1 amp Atenolol (Tenormin -) 50 mg PO DAILY [facility] Last Admin: 06/14/16 09:36 Dose: Not Given Clonidine (Catapres -) 0.1 mg PO BID [facility] Last Admin: 06/14/16 09:34 Dose: Not Given Heparin Sodium (Porcine) (Heparin -) 1,000 unit IVPUSH PRN PRN PRN Reason: Heparin Heparin Sodium (Porcine) (Heparin -) 5,000 unit IVPUSH PRN PRN PRN Reason: Heparin Heparin Sodium (Porcine) 25, (000 unit/ Sodium Chloride) 500 mls @ 20 mls/hr IV TITR JOANNE; 1,000 UNIT/HR PRN Reason: Protocol Last Admin: 06/14/16 09:35 Dose: 14 mls/hr Sodium Chloride (Normal Saline -) 1,000 mls @ 75 mls/hr IV ASDIR [facility] Last Admin: 06/14/16 05:24 Dose: 75 mls/hr Insulin Aspart (Novolog Vial Sliding Scale -) 1 vial SQ ACHS [facility] PRN Reason: Protocol Last Admin: 06/14/16 12:27 Dose: Not Given Levofloxacin (Levaquin -) 500 mg PO Q2D@0600 [facility] Last Admin: 06/13/16 05:49 Dose: 500 mg Methylprednisolone Sodium Succinate (Solu-Medrol -) 40 mg IVPB Q12H [facility] Last Admin: 06/14/16 05:24 Dose: 40 mg Nifedipine (Procardia Xl -) 30 mg PO BID [facility] Last Admin: 06/14/16 09:34 Dose: Not Given Pantoprazole Sodium (Protonix -) 40 mg PO DAILY [facility] Last Admin: 06/14/16 09:35 Dose: Not Given - Objective Vital Signs: Vital Signs Temperature 97.6 F 06/14/16 09:02 Pulse Rate 54 L 06/14/16 10:45 Respiratory Rate 22 06/14/16 09:02 Blood Pressure 164/64 06/14/16 09:02 O2 Sat by Pulse Oximetry (%) 90 L 06/14/16 10:45 Constitutional: Yes: No Distress, Calm Cardiovascular: Yes: Regular Rate and Rhythm Respiratory: Yes: Regular, Poor Air Entry Gastrointestinal: Yes: Normal Bowel Sounds, Soft Musculoskeletal: Yes: WNL Extremities: Yes: WNL Neurological: Yes: Alert, Oriented Psychiatric: Yes: Alert Labs: CBC, BMP 06/14/16 07:30 06/14/16 07:30 INR, PTT INR 1.19 (0.82-1.09) H 06/05/16 11:40 Assessment/Plan - Problems (1) CHF (congestive heart failure) Code(s): I50.9 - HEART FAILURE, UNSPECIFIED (2) CKD stage 4 secondary to hypertension Code(s): I12.9 - HYPERTENSIVE CHRONIC KIDNEY DISEASE W STG 1-4/UNSP CHR KDNY N18.4 - CHRONIC KIDNEY DISEASE, STAGE 4 (SEVERE) (3) SHAYY (acute kidney injury) Code(s): N17.9 - ACUTE KIDNEY FAILURE, UNSPECIFIED r/o asp pna plan continue current mgmt continue resp support
[2016-06-14] MEDS ORDERED: BISACODYL 10 MG SUPP.RECT RC ONE (13:43)
--- NOTE | 2016-06-14 15:32 | PN ---
Physical Exam: SUBJECTIVE: Patient seen and examined. Her granddaughter was at the bedside. patient states she feels well, denies shortness of breath. Denies chest pain. OBJECTIVE: Vital Signs Period Temp Pulse Resp BP Sys/Hill Pulse Ox Last 24 Hr 97.5 F-97.8 F 52-62 18-24 139-171/64-77 90-95 GENERAL: The patient is awake, alert, and fully oriented, in no acute distress. HEAD: Normal with no signs of trauma. EYES: PERRL, extraocular movements intact, sclera anicteric, conjunctiva clear. No ptosis. ENT: moist mucous membranes. NECK: Trachea midline, full range of motion, supple. LUNGS: anterior lungs and posterior lungs with wheezing, stopped IVF ABDOMEN: Soft, nontender, nondistended, normoactive bowel sounds, no guarding, no rebound, no hepatosplenomegaly, no masses. EXTREMITIES: bilateral lower ext with +1 pitting edema NEUROLOGICAL: Normal speech PSYCH: Normal mood, normal affect. SKIN: Warm, dry, normal turgor, no rashes or lesions noted Laboratory Results - last 24 hr 06/13/16 06/14/16 06/14/16 16:20 00:01 07:30 WBC RBC Hgb Hct MCV MCHC RDW Plt Count MPV Neutrophils % Lymphocytes % PTT (Actin FS) 89.1 H 89.5 H 88.0 H Sodium Potassium Chloride Carbon Dioxide Anion Gap BUN Creatinine Creat Clearance w eGFR Random Glucose Calcium Total Bilirubin AST ALT Alkaline Phosphatase Total Protein Albumin 06/14/16 06/14/16 07:30 07:30 WBC 11.4 H RBC 4.75 Hgb 11.6 Hct 37.8 MCV 79.6 L MCHC 30.8 L RDW 18.4 H Plt Count 266 MPV 11.4 H Neutrophils % Y Lymphocytes % Y PTT (Actin FS) Sodium 146 H Potassium 5.0 Chloride 117 H Carbon Dioxide 22 Anion Gap 7 L BUN 97 H Creatinine 3.5 H Creat Clearance w eGFR 12.80 Random Glucose 135 H Calcium 7.6 L Total Bilirubin 0.2 D AST 8 L ALT 16 D Alkaline Phosphatase 37 L Total Protein 5.5 L Albumin 1.6 L Active Medications Generic Name Dose Route Start Last Admin Trade Name Freq PRN Reason Stop Dose Admin Albuterol/Ipratropium 1 amp 06/12/16 18:18 06/12/16 18:35 Duoneb - NEB 1 amp Q6H PRN Administration SHORTNESS OF BREATH Atenolol 50 mg 06/06/16 10:00 06/14/16 09:36 Tenormin - PO Not Given DAILY JOANNE Clonidine 0.1 mg 06/05/16 22:00 06/14/16 09:34 Catapres - PO Not Given BID JOANNE Heparin Sodium (Porcine) 1,000 unit 06/13/16 10:47 Heparin - IVPUSH PRN PRN Heparin Heparin Sodium (Porcine) 5,000 unit 06/13/16 10:47 Heparin - IVPUSH PRN PRN Heparin Heparin Sodium (Porcine) 25, 500 mls @ 20 mls/hr 06/13/16 11:00 06/14/16 09:35 000 unit/ Sodium Chloride IV 14 mls/hr TITR JOANNE Administration Protocol 1,000 UNIT/HR Insulin Aspart 1 vial 06/06/16 11:00 06/14/16 12:27 Novolog Vial Sliding Scale - SQ Not Given ACHS [facility] Protocol Levofloxacin 500 mg 06/13/16 06:00 06/13/16 05:49 Levaquin - PO 500 mg Q2D@0600 JOANNE Administration Methylprednisolone Sodium Succinate 40 mg 06/13/16 06:00 06/14/16 05:24 Solu-Medrol - IVPB 40 mg Q12H JOANNE Administration Nifedipine 30 mg 06/06/16 22:00 06/14/16 09:34 Procardia Xl - PO Not Given BID JOANNE Pantoprazole Sodium 40 mg 06/06/16 18:15 06/14/16 09:35 Protonix - PO Not Given DAILY [facility] ASSESSMENT/PLAN: Patient is a 75 year old female with a significant past medical history of hypertension, possible GA in the past, hyperlipidemia and asthma. She presented to the ED on 06/05/2016 with chest discomfort and shortness of breath x 2 days. In ER, she was given Solumedrol 125mg, duonebs and Lasix. Her troponin on admission was 0.06, BNP 9420 and BUN/Creatinine 43/3.5 Imaging: Chest Xray 06/05/2016 - diffuse bilateral airspace changes compatible with infiltrates and congestion, large heart, sclerotic knob. front desk monitor shows NSR [address] wave abnormality Renal ultrasound 06/06/2016 - both kidneys are small/atrophic & ecogenic consistent with chronic medical renal disease. EKG 06/06/[address] & T wave abnormality, consider inferior/anterolateral ischemia Echo 06/07/2016 shows midl conc left vent hypertrophy, trace aortic regurg, trace MR, LA: mod dilated, trace tricuspid regurg. Chest CT 06/08/2016 - Bilateral interstitial and airspace opacities consistent with PNA - cannot rule out mild vs venous congestion Cardiology: Chest Pain - resolved Assessment/Plan: Troponins > 0.06, 0.07, 0.07 Started on ASA 81mg Chest Pain has resolved, shortness of breath improving CHF Assessment/Plan: On Lasix dosing as per renal oxygen as needed Echo reviewed Hypertension - chronic/improving BP improving with up titration of meds Assessment/Plan: On Procardia XL 30mg BID, Atenolol 50mg daily, Clonidine 0.1mg BID Monitor BPs New onset paroxysmal atrial fib. Assessment/Plan: On heparin drip rate well-controlled, continue atenolol Pulmonary: Pneumonia/Asthma/COPD Assessment/Plan: Chest Xray 06/05/2016 - diffuse bilateral airspace changes compatible with infiltrates and congestion, large heart, sclerotic knob. On renal dosing of Levaquin 500mg IV qod, On duonebs, 2 liters of nasal cannula (does not have home 02) On Solumedrol taper CT/Chest ordered to r/o infiltrates v. CHF - CT 06/08/16 consistent with PNA Endocrine: Assessment/Plan: Monitor for hyperglycemia while on steroids, added sliding scale monitor BGMs Hematology: Thrombocytopenia - resolved Assessment/Plan: Platelets 79> 266 Patient on meclizine BID home dose which may cause thrombocytopenia Anemia - resolved Assessment/Plan: CBC in a.m. : Acute on chronic CKD Assessment/Plan: Cr was 2.4 on 05/26/2015, Cr 3.5 on this admission, today creat is 3.5 Was on gentle hydration, but due to wheezing and bilateral LE +1 pitting edema, will hold IVF for now Renal ultrasound 06/06/2016 - both kidneys are small/atrophic & ecogenic consistent with chronic medical renal disease. Possibility of dialysis given worsening renal function as per renal. F.E.N. Fluids: tolerating PO Electrolytes:bmp in a.m. Nutrition: low sodium Prophylaxis: GI: Protonix 40mg daily DVT: SCDs heparin drip Visit type - Emergency Visit Emergency Visit: Yes ED Registration Date: 06/05/16 Care time: The patient presented to the Emergency Department on the above date and was hospitalized for further evaluation of their emergent condition. - New Patient This patient is new to me today: Yes Date on this admission: 07/23/16 - Critical Care Critical Care patient: No - Discharge Referral Referred to [facility] No
--- NOTE | 2016-06-14 15:55 | PN ---
Physical Exam: SUBJECTIVE: Patient seen and examined OBJECTIVE: Vital Signs Period Temp Pulse Resp BP Sys/Hill Pulse Ox Last 24 Hr 97.5 F-97.8 F 52-62 18-24 139-171/64-77 90-95 GENERAL: The patient is awake, alert, and fully oriented, in no acute distress. HEAD: Normal with no signs of trauma. EYES: PERRL, extraocular movements intact, sclera anicteric, conjunctiva clear. No ptosis. ENT: Ears normal, nares patent, oropharynx clear without exudates, moist mucous membranes. NECK: Trachea midline, full range of motion, supple. LUNGS: Breath sounds equal, clear to auscultation bilaterally, no wheezes, no crackles, no accessory muscle use. HEART: Regular rate and rhythm, S1, S2 without murmur, rub or gallop. ABDOMEN: Soft, nontender, nondistended, normoactive bowel sounds, no guarding, no rebound, no hepatosplenomegaly, no masses. EXTREMITIES: 2+ pulses, warm, well-perfused, no edema. NEUROLOGICAL: Cranial nerves II through XII grossly intact. Normal speech, gait not observed. PSYCH: Normal mood, normal affect. SKIN: Warm, dry, normal turgor, no rashes or lesions noted Laboratory Results - last 24 hr 06/13/16 06/14/16 06/14/16 16:20 00:01 07:30 WBC RBC Hgb Hct MCV MCHC RDW Plt Count MPV Neutrophils % Lymphocytes % PTT (Actin FS) 89.1 H 89.5 H 88.0 H Sodium Potassium Chloride Carbon Dioxide Anion Gap BUN Creatinine Creat Clearance w eGFR Random Glucose Calcium Total Bilirubin AST ALT Alkaline Phosphatase Total Protein Albumin 06/14/16 06/14/16 07:30 07:30 WBC 11.4 H RBC 4.75 Hgb 11.6 Hct 37.8 MCV 79.6 L MCHC 30.8 L RDW 18.4 H Plt Count 266 MPV 11.4 H Neutrophils % Y Lymphocytes % Y PTT (Actin FS) Sodium 146 H Potassium 5.0 Chloride 117 H Carbon Dioxide 22 Anion Gap 7 L BUN 97 H Creatinine 3.5 H Creat Clearance w eGFR 12.80 Random Glucose 135 H Calcium 7.6 L Total Bilirubin 0.2 D AST 8 L ALT 16 D Alkaline Phosphatase 37 L Total Protein 5.5 L Albumin 1.6 L Active Medications Generic Name Dose Route Start Last Admin Trade Name Patriceq PRN Reason Stop Dose Admin Albuterol/Ipratropium 1 amp 06/12/16 18:18 06/12/16 18:35 Duoneb - NEB 1 amp Q6H PRN Administration SHORTNESS OF BREATH Atenolol 50 mg 06/06/16 10:00 06/14/16 09:36 Tenormin - PO Not Given DAILY JOANNE Clonidine 0.1 mg 06/05/16 22:00 06/14/16 09:34 Catapres - PO Not Given BID JOANNE Heparin Sodium (Porcine) 1,000 unit 06/13/16 10:47 Heparin - IVPUSH PRN PRN Heparin Heparin Sodium (Porcine) 5,000 unit 06/13/16 10:47 Heparin - IVPUSH PRN PRN Heparin Heparin Sodium (Porcine) 25, 500 mls @ 20 mls/hr 06/13/16 11:00 06/14/16 09:35 000 unit/ Sodium Chloride IV 14 mls/hr TITR JOANNE Administration Protocol 1,000 UNIT/HR Insulin Aspart 1 vial 06/06/16 11:00 06/14/16 12:27 Novolog Vial Sliding Scale - SQ Not Given ACHS [facility] Protocol Levofloxacin 500 mg 06/13/16 06:00 06/13/16 05:49 Levaquin - PO 500 mg Q2D@0600 JOANNE Administration Methylprednisolone Sodium Succinate 40 mg 06/13/16 06:00 06/14/16 05:24 Solu-Medrol - IVPB 40 mg Q12H JOANNE Administration Nifedipine 30 mg 06/06/16 22:00 06/14/16 09:34 Procardia Xl - PO Not Given BID JOANNE Pantoprazole Sodium 40 mg 06/06/16 18:15 06/14/16 09:35 Protonix - PO Not Given DAILY [facility] ASSESSMENT/PLAN:
--- NOTE | 2016-06-14 16:50 | PN ---
Progress Note (short form) - Note Progress Note: Renal Follow up for SHAYY vs. Progressive CKD Pt seen and examined at the bedside s/p stress test has some mild sob at this time no abd pain,n/v/d Vital Signs Temperature 97.6 F 06/14/16 14:30 Pulse Rate 62 06/14/16 14:30 Respiratory Rate 24 06/14/16 14:30 Blood Pressure 171/71 06/14/16 14:30 O2 Sat by Pulse Oximetry (%) 90 L 06/14/16 10:45 Gen: NAD, awake and alert HEENT: NC/AT, MMM, No JVD, Neck Supple CVS: RRR, No M/R Lungs : + rales Abd: soft NT/ND Ext: no edema in LE Neuro: No focal defects Vital Signs Temperature 97.6 F 06/14/16 14:30 Pulse Rate 62 06/14/16 14:30 Respiratory Rate 24 06/14/16 14:30 Blood Pressure 171/71 06/14/16 14:30 O2 Sat by Pulse Oximetry (%) 90 L 06/14/16 10:45 Intake & Output 06/11/16 06/12/16 06/13/16 06/14/16 22:59 22:59 23:59 23:59 Intake Total 883 Balance 883 Weight 224 lb 2 oz Current Medications Albuterol/Ipratropium (Duoneb -) 1 amp NEB Q6H PRN PRN Reason: SHORTNESS OF BREATH Last Admin: 06/12/16 18:35 Dose: 1 amp Atenolol (Tenormin -) 50 mg PO DAILY [facility] Last Admin: 06/14/16 09:36 Dose: Not Given Clonidine (Catapres -) 0.1 mg PO BID [facility] Last Admin: 06/14/16 09:34 Dose: Not Given Heparin Sodium (Porcine) (Heparin -) 1,000 unit IVPUSH PRN PRN PRN Reason: Heparin Heparin Sodium (Porcine) (Heparin -) 5,000 unit IVPUSH PRN PRN PRN Reason: Heparin Heparin Sodium (Porcine) 25, (000 unit/ Sodium Chloride) 500 mls @ 20 mls/hr IV TITR JOANNE; 1,000 UNIT/HR PRN Reason: Protocol Last Admin: 06/14/16 09:35 Dose: 14 mls/hr Insulin Aspart (Novolog Vial Sliding Scale -) 1 vial SQ ACHS [facility] PRN Reason: Protocol Last Admin: 06/14/16 12:27 Dose: Not Given Levofloxacin (Levaquin -) 500 mg PO Q2D@0600 [facility] Last Admin: 06/13/16 05:49 Dose: 500 mg Methylprednisolone Sodium Succinate (Solu-Medrol -) 40 mg IVPB Q12H [facility] Last Admin: 06/14/16 05:24 Dose: 40 mg Nifedipine (Procardia Xl -) 30 mg PO BID [facility] Last Admin: 06/14/16 09:34 Dose: Not Given Pantoprazole Sodium (Protonix -) 40 mg PO DAILY [facility] Last Admin: 06/14/16 09:35 Dose: Not Given A/P 75 year old woman with PMhx of CKD Stage 4, Hypertension (>40 years), Asthma, Osteoarthritis, Former Smoker who presented with 2 day history of chest discomfort and SOB and admitted with PNA vs. CHF with BUN/Cr of 43/3.5. #SHAYY on CKD vs. Progressive CKD renal function improved pt appears evolemic at this time no further IVF #PNA on IV levaquin #New Afib on A/c with heparin cardiology following #Hypertension Continue Clondine, Procardia, Atenolol, procardia Goal BP < 140/90 no ARA or ARB at this time Raymundo Snyder DO
[2016-06-14] MEDS ORDERED: PT OWN MED DRAWER 7, Y5N ONE ×2 (17:47→21:14)
[2016-06-14 19:11] LABS: METAMYELOCYTE 1 % (0-2); PLATELET ESTIMATE ADEQUATE (NORMAL)
[2016-06-14] MEDS: ALBUTEROL SO4 2.5/IPRATROPIUM 0.5 INH SOL 3 ML VIAL.NEB. NEB PRN (21:43)
[2016-06-15] MEDS: methylPREDNISolone NA SUCC 40 MG/1 ML VIAL IVPB SCH ×2 (06:11→17:27)
[2016-06-15] MEDS: LEVOFLOXACIN 250 MG TABLET (FP) PO SCH (06:11)
[2016-06-15] MEDS: INSULIN SLIDING SCALE (NOVOLOG) 1 VIAL SQ SCH ×5 (06:18→23:46)
[2016-06-15 07:41] LABS: MCH 24.8 pg (25.7-33.7); MCHC 31.3 g/dl (32.0-36.0); MEAN CELL VOLUME 79.2 fl (80-96); MEAN PLT VOLUME 10.3 fl (7.5-11.1); PLATELET COUNT 228 K/MM3 (134-434); RDW 18.4 % (11.6-15.6); WHITE BLOOD COUNT 9.3 K/mm3 (4.0-10.0)
[2016-06-15 09:13] LABS: ALBUMIN 1.7 g/dl (3.4-5.0); BILIRUBIN,TOTAL 0.3 mg/dL (0.2-1.0); CALCIUM 7.8 mg/dL (8.5-10.1); CREATININE 3.5 mg/dL (0.55-1.02); TOT PROT 5.5 g/dl (6.4-8.2)
[2016-06-15] MEDS ORDERED: SODIUM POLYSTYRENE SULFONATE 15 GM/60 ML BOTTLE PO ONE (09:25)
[2016-06-15] MEDS: NIFEdipine E.R. 30 MG TABLET (FP) PO SCH ×2 (09:26→23:46)
[2016-06-15] MEDS: ATENOLOL 50 MG TABLET (FP) PO SCH (09:26)
[2016-06-15] MEDS: cloNIDine HCL 0.1 MG TABLET PO SCH ×2 (09:26→23:46)
[2016-06-15] MEDS: PANTOPRAZOLE 40 MG TABLET (FP) PO SCH (09:26)
--- NOTE | 2016-06-15 09:59 | PN ---
Progress Note (short form) - Note Progress Note: Renal Follow up for SHAYY vs. Progressive CKD Pt seen and examined at the bedside no acute complaints denies any acute sob no chest pain able to ambulate with walker tolerating diet Vital Signs Temperature 98 F 06/15/16 06:00 Pulse Rate 48 L 06/15/16 06:00 Respiratory Rate 18 06/15/16 06:00 Blood Pressure 160/84 06/15/16 06:00 O2 Sat by Pulse Oximetry (%) 93 L 06/14/16 22:00 Intake & Output 06/12/16 06/13/16 06/14/16 06/15/16 22:59 23:59 23:59 23:59 Intake Total 1703 204 Balance 1703 204 Weight 224 lb 2 oz 220 lb 6.4 oz Gen: NAD, awake and alert CVS: RRR, No M/R Lungs : + rales lower lung silverman Abd: soft NT/ND Ext: trace edema in LE Neuro: No focal defects CBC, BMP 06/15/16 06:50 06/15/16 06:50 Current Medications Albuterol/Ipratropium (Duoneb -) 1 amp NEB Q6H PRN PRN Reason: SHORTNESS OF BREATH Last Admin: 06/14/16 21:43 Dose: 1 amp Atenolol (Tenormin -) 50 mg PO DAILY [facility] Last Admin: 06/15/16 09:26 Dose: 50 mg Clonidine (Catapres -) 0.1 mg PO BID JOANNE Last Admin: 06/15/16 09:26 Dose: 0.1 mg Heparin Sodium (Porcine) (Heparin -) 1,000 unit IVPUSH PRN PRN PRN Reason: Heparin Heparin Sodium (Porcine) (Heparin -) 5,000 unit IVPUSH PRN PRN PRN Reason: Heparin Heparin Sodium (Porcine) 25, (000 unit/ Sodium Chloride) 500 mls @ 20 mls/hr IV TITR JOANNE; 1,000 UNIT/HR PRN Reason: Protocol Last Titration: 06/15/16 09:26 Dose: 650 unit/hr Insulin Aspart (Novolog Vial Sliding Scale -) 1 vial SQ ACHS JOANNE PRN Reason: Protocol Last Admin: 06/15/16 06:18 Dose: Not Given Levofloxacin (Levaquin -) 500 mg PO Q2D@0600 [facility] Last Admin: 06/15/16 06:11 Dose: 500 mg Methylprednisolone Sodium Succinate (Solu-Medrol -) 40 mg IVPB Q12H [facility] Last Admin: 06/15/16 06:11 Dose: 40 mg Nifedipine (Procardia Xl -) 30 mg PO BID [facility] Last Admin: 06/15/16 09:26 Dose: 30 mg Pantoprazole Sodium (Protonix -) 40 mg PO DAILY [facility] Last Admin: 06/15/16 09:26 Dose: 40 mg A/P 75 year old woman with PMhx of CKD Stage 4, Hypertension (>40 years), Asthma, Osteoarthritis, Former Smoker who presented with 2 day history of chest discomfort and SOB and admitted with PNA vs. CHF with BUN/Cr of 43/3.5. #SHAYY on CKD vs. Progressive CKD renal function improved to levels at presentation volume status acceptable #Metabolic Acodosis start sodium bicarb 650mg Daily #Hyperkalemia Renal diet Kayexalate PO #PNA on IV levaquin #New Afib on A/c with heparin cardiology following #Hypertension Continue Clondine, Procardia, Atenolol, procardia Goal BP < 140/90 no ARA or ARB at this time Raymundo Snyder DO
[2016-06-15] MEDS: SODIUM BICARBONATE 650 MG TABLET PO SCH (10:22)
--- NOTE | 2016-06-15 13:20 | PN ---
Physical Exam: SUBJECTIVE: Patient seen and examined. She is tolerating room air, states she feels well. Asking to go home as she feels strong enough. Agreeing to have PT evaluate her prior to d/c OBJECTIVE: Vital Signs Period Temp Pulse Resp BP Sys/Hill Pulse Ox Last 24 Hr 97.1 F-98 F 48-73 18-24 157-172/65-89 93-96 GENERAL: The patient is awake, alert, and fully oriented, in no acute distress. HEAD: Normal with no signs of trauma. EYES: PERRL, extraocular movements intact, sclera anicteric, conjunctiva clear. No ptosis. ENT: moist mucous membranes. NECK: Trachea midline, full range of motion, supple. LUNGS: anterior lungs and posterior lungs with less wheezing, tolerating room air. ABDOMEN: Soft, nontender, nondistended, normoactive bowel sounds, no guarding, no rebound, no hepatosplenomegaly, no masses. EXTREMITIES: bilateral lower ext with +1 pitting edema - improving from yesterday NEUROLOGICAL: Normal speech PSYCH: Normal mood, normal affect. SKIN: Warm, dry, normal turgor, no rashes or lesions noted Laboratory Results - last 24 hr 06/13/16 06/13/16 06/14/16 16:42 21:34 05:13 WBC RBC Hgb Hct MCV MCHC RDW Plt Count MPV Neutrophils % Lymphocytes % Monocytes % Band Neutrophils Metamyelocytes Reactive Lymphocytes Platelet Estimate RBC Morphology PTT (Actin FS) Sodium Potassium Chloride Carbon Dioxide Anion Gap BUN Creatinine Creat Clearance w eGFR POC Glucometer 328 179 128 Random Glucose Calcium Total Bilirubin AST ALT Alkaline Phosphatase Total Protein Albumin 06/14/16 06/14/16 06/14/16 07:30 12:26 15:00 WBC RBC Hgb Hct MCV MCHC RDW Plt Count MPV Neutrophils % 81.0 Lymphocytes % 6.0 L Monocytes % 6.0 D Band Neutrophils 5.0 D Metamyelocytes 1 Reactive Lymphocytes 1 Platelet Estimate Adequate RBC Morphology Appears normal PTT (Actin FS) 59.4 H D Sodium Potassium Chloride Carbon Dioxide Anion Gap BUN Creatinine Creat Clearance w eGFR POC Glucometer 118 Random Glucose Calcium Total Bilirubin AST ALT Alkaline Phosphatase Total Protein Albumin 06/14/16 06/14/16 06/15/16 17:42 21:25 06:17 WBC RBC Hgb Hct MCV MCHC RDW Plt Count MPV Neutrophils % Lymphocytes % Monocytes % Band Neutrophils Metamyelocytes Reactive Lymphocytes Platelet Estimate RBC Morphology PTT (Actin FS) Sodium Potassium Chloride Carbon Dioxide Anion Gap BUN Creatinine Creat Clearance w eGFR POC Glucometer 125 135 119 Random Glucose Calcium Total Bilirubin AST ALT Alkaline Phosphatase Total Protein Albumin 06/15/16 06/15/16 06/15/16 06:50 06:50 06:50 WBC 9.3 RBC 4.69 Hgb 11.6 Hct 37.2 MCV 79.2 L MCHC 31.3 L RDW 18.4 H Plt Count 228 MPV 10.3 Neutrophils % Y Lymphocytes % Y Monocytes % Band Neutrophils Metamyelocytes Reactive Lymphocytes Platelet Estimate RBC Morphology PTT (Actin FS) 84.2 H D Sodium 148 H Potassium 5.5 H Chloride 117 H Carbon Dioxide 20 L Anion Gap 11 BUN 90 H Creatinine 3.5 H Creat Clearance w eGFR 12.80 POC Glucometer Random Glucose 132 H Calcium 7.8 L Total Bilirubin 0.3 D AST 8 L ALT 14 Alkaline Phosphatase 32 L Total Protein 5.5 L Albumin 1.7 L 06/15/16 12:17 WBC RBC Hgb Hct MCV MCHC RDW Plt Count MPV Neutrophils % Lymphocytes % Monocytes % Band Neutrophils Metamyelocytes Reactive Lymphocytes Platelet Estimate RBC Morphology PTT (Actin FS) Sodium Potassium Chloride Carbon Dioxide Anion Gap BUN Creatinine Creat Clearance w eGFR POC Glucometer 176 Random Glucose Calcium Total Bilirubin AST ALT Alkaline Phosphatase Total Protein Albumin Active Medications Generic Name Dose Route Start Last Admin Trade Name Freq PRN Reason Stop Dose Admin Albuterol/Ipratropium 1 amp 06/12/16 18:18 06/14/16 21:43 Duoneb - NEB 1 amp Q6H PRN Administration SHORTNESS OF BREATH Atenolol 50 mg 06/06/16 10:00 06/15/16 09:26 Tenormin - PO 50 mg DAILY JOANNE Administration Clonidine 0.1 mg 06/05/16 22:00 06/15/16 09:26 Catapres - PO 0.1 mg BID JOANNE Administration Heparin Sodium (Porcine) 1,000 unit 06/13/16 10:47 Heparin - IVPUSH PRN PRN Heparin Heparin Sodium (Porcine) 5,000 unit 06/13/16 10:47 Heparin - IVPUSH PRN PRN Heparin Heparin Sodium (Porcine) 25, 500 mls @ 20 mls/hr 06/13/16 11:00 06/15/16 09:26 000 unit/ Sodium Chloride IV 650 unit/hr TITR JOANNE Titration Protocol 1,000 UNIT/HR Insulin Aspart 1 vial 06/06/16 11:00 06/15/16 12:17 Novolog Vial Sliding Scale - SQ 2 units ACHS JOANNE Administration Protocol Levofloxacin 500 mg 06/13/16 06:00 06/15/16 06:11 Levaquin - PO 500 mg Q2D@0600 JOANNE Administration Methylprednisolone Sodium Succinate 40 mg 06/13/16 06:00 06/15/16 06:11 Solu-Medrol - IVPB 40 mg Q12H JOANNE Administration Nifedipine 30 mg 06/06/16 22:00 06/15/16 09:26 Procardia Xl - PO 30 mg BID JOANNE Administration Pantoprazole Sodium 40 mg 06/06/16 18:15 06/15/16 09:26 Protonix - PO 40 mg DAILY JOANNE Administration Sodium Bicarbonate 650 mg 06/15/16 10:00 06/15/16 10:22 Sodium Bicarbonate - PO 650 mg DAILY JOANNE Administration ASSESSMENT/PLAN: Patient is a 75 year old female with a significant past medical history of hypertension, possible SD in the past, hyperlipidemia and asthma. She presented to the ED on 06/05/2016 with chest discomfort and shortness of breath x 2 days. In ER, she was given Solumedrol 125mg, duonebs and Lasix. Her troponin on admission was 0.06, BNP 9420 and BUN/Creatinine 43/3.5 Imaging: Chest Xray 06/05/2016 - diffuse bilateral airspace changes compatible with infiltrates and congestion, large heart, sclerotic knob. telemetry monitor shows NSR [address] wave abnormality Renal ultrasound 06/06/2016 - both kidneys are small/atrophic & ecogenic consistent with chronic medical renal disease. EKG 06/06/[address] & T wave abnormality, consider inferior/anterolateral ischemia Echo 06/07/2016 shows midl conc left vent hypertrophy, trace aortic regurg, trace MR, LA: mod dilated, trace tricuspid regurg. Chest CT 06/08/2016 - Bilateral interstitial and airspace opacities consistent with PNA - cannot rule out mild vs venous congestion Cardiology: Chest Pain - resolved chest Pain has resolved, shortness of breath improving CHF Assessment/Plan: On Lasix dosing as per renal tolerating room air Hypertension - chronic/improving BP improving with up titration of meds Assessment/Plan: On Procardia XL 30mg BID, Atenolol 50mg daily, Clonidine 0.1mg BID Monitor BPs New onset paroxysmal atrial fib. Assessment/Plan: On heparin drip - awaiting cardiology recommendations to start on oral AC prior to d/c Pulmonary: Pneumonia/Asthma/COPD Assessment/Plan: On duonebs, 2 liters of nasal cannula (does not have home 02) On Solumedrol taper - will convert to PO on discharge PO levofloxacin QOD (dose #4 today - will need 3 more doses) Endocrine: Assessment/Plan: Monitor for hyperglycemia while on steroids, added sliding scale monitor BGMs Hematology: Thrombocytopenia - resolved Patient on meclizine BID home dose which may cause thrombocytopenia - do not resume on d/c : Acute on chronic CKD Assessment/Plan: Cr was 2.4 on 05/26/2015, Cr 3.5 on this admission, today creat is 3.5 Renal ultrasound 06/06/2016 - both kidneys are small/atrophic & ecogenic consistent with chronic medical renal disease. Possibility of dialysis given worsening renal function as per renal - will need close outpatient follow up F.E.N. Fluids: tolerating PO Electrolytes: mild hyperkalemia @5.5, will give Kayexlate x 1 and monitor labs in a.m. Nutrition: low sodium Prophylaxis: GI: Protonix 40mg daily DVT: SCDs heparin drip disposition: Anticipate discharge tomorrow pending cardiology/renal clearance. Full code. Visit type - Emergency Visit Emergency Visit: Yes ED Registration Date: 06/05/16 Care time: The patient presented to the Emergency Department on the above date and was hospitalized for further evaluation of their emergent condition. - New Patient This patient is new to me today: No - Critical Care Critical Care patient: No - Discharge Referral Referred to [facility] Med P.C.: No
[2016-06-15 13:32] LABS: PLATELET ESTIMATE ADEQUATE (NORMAL)
[2016-06-15] MEDS: HEPARIN - 25,000 UNIT in SODIUM CHLORIDE 495 ML IV SCH (13:35)
[2016-06-16] MEDS ORDERED: cloNIDine HCL 0.1 MG TABLET PO ONE (03:57)
[2016-06-16] MEDS: methylPREDNISolone NA SUCC 40 MG/1 ML VIAL IVPB SCH (05:52)
[2016-06-16] MEDS ORDERED: INSULIN (NOVOLOG) ASPART 100 UNITS/ML 10ML VIAL ONE (06:21)
[2016-06-16] MEDS: INSULIN SLIDING SCALE (NOVOLOG) 1 VIAL SQ SCH ×2 (06:24→12:05)
[2016-06-16 07:55] LABS: MCH 24.7 pg (25.7-33.7); MCHC 31.3 g/dl (32.0-36.0); MEAN CELL VOLUME 79.1 fl (80-96); MEAN PLT VOLUME 11.5 fl (7.5-11.1); PLATELET COUNT 228 K/MM3 (134-434); RDW 18.3 % (11.6-15.6); WHITE BLOOD COUNT 10.6 K/mm3 (4.0-10.0)
[2016-06-16 08:24] LABS: ALBUMIN 1.6 g/dl (3.4-5.0); CALCIUM 7.9 mg/dL (8.5-10.1); MAGNESIUM 2.3 mg/dL (1.8-2.4)
[2016-06-16 08:28] LABS: BILIRUBIN,TOTAL 0.5 mg/dL (0.2-1.0); CREATININE 3.5 mg/dL (0.55-1.02); PHOSPHOROUS 5.7 mg/dL (2.5-4.9); TOT PROT 5.2 g/dl (6.4-8.2)
[2016-06-16] MEDS: cloNIDine HCL 0.1 MG TABLET PO SCH (09:18)
[2016-06-16] MEDS: PANTOPRAZOLE 40 MG TABLET (FP) PO SCH (09:19)
[2016-06-16] MEDS: SODIUM BICARBONATE 650 MG TABLET PO SCH (09:19)
[2016-06-16] MEDS: NIFEdipine E.R. 30 MG TABLET (FP) PO SCH (09:19)
[2016-06-16] MEDS: ATENOLOL 50 MG TABLET (FP) PO SCH (09:19)
--- NOTE | 2016-06-16 09:25 | PN ---
Progress Note, Physician Chief Complaint: stress MIBI w/ no ischemia Feels well, no new complaints TELE: Sinus magda w/ NSST changes and more irregular narrow complex tachycardia c/w PAF - Current Medication List Current Medications: Active Medications Albuterol/Ipratropium (Duoneb -) 1 amp NEB Q6H PRN PRN Reason: SHORTNESS OF BREATH Last Admin: 06/14/16 21:43 Dose: 1 amp Atenolol (Tenormin -) 50 mg PO DAILY [facility] Last Admin: 06/16/16 09:19 Dose: 50 mg Clonidine (Catapres -) 0.1 mg PO BID [facility] Last Admin: 06/16/16 09:18 Dose: Not Given Heparin Sodium (Porcine) (Heparin -) 1,000 unit IVPUSH PRN PRN PRN Reason: Heparin Heparin Sodium (Porcine) (Heparin -) 5,000 unit IVPUSH PRN PRN PRN Reason: Heparin Heparin Sodium (Porcine) 25, (000 unit/ Sodium Chloride) 500 mls @ 20 mls/hr IV TITR JOANNE; 1,000 UNIT/HR PRN Reason: Protocol Last Admin: 06/15/16 13:35 Dose: 13 mls/hr Insulin Aspart (Novolog Vial Sliding Scale -) 1 vial SQ ACHS [facility] PRN Reason: Protocol Last Admin: 06/16/16 06:24 Dose: Not Given Levofloxacin (Levaquin -) 500 mg PO Q2D@0600 [facility] Last Admin: 06/15/16 06:11 Dose: 500 mg Methylprednisolone Sodium Succinate (Solu-Medrol -) 40 mg IVPB Q12H [facility] Last Admin: 06/16/16 05:52 Dose: 40 mg Nifedipine (Procardia Xl -) 30 mg PO BID [facility] Last Admin: 06/16/16 09:19 Dose: 30 mg Pantoprazole Sodium (Protonix -) 40 mg PO DAILY [facility] Last Admin: 06/16/16 09:19 Dose: 40 mg Sodium Bicarbonate (Sodium Bicarbonate -) 650 mg PO DAILY [facility] Last Admin: 06/16/16 09:19 Dose: 650 mg - Objective Vital Signs: Vital Signs Temperature 97.6 F 06/16/16 05:52 Pulse Rate 64 06/16/16 05:52 Respiratory Rate 18 06/16/16 05:52 Blood Pressure 159/67 06/16/16 05:52 O2 Sat by Pulse Oximetry (%) 96 03/14/17 21:00 Constitutional: Yes: No Distress Cardiovascular: Yes: Regular Rate and Rhythm Respiratory: Yes: Other (scattered expirtory wheezing) Gastrointestinal: Yes: Soft Edema: Yes Edema: LLE: 1+, RLE: 1+ Neurological: Yes: Alert Labs: CBC, BMP 06/16/16 06:15 06/16/16 06:15 INR, PTT INR 1.19 (0.82-1.09) H 06/05/16 11:40 Laboratory Tests 06/15/16 06/16/16 06/16/16 15:44 06:15 06:15 WBC 10.6 H Hgb 11.2 Plt Count 228 PTT (Actin FS) 62.4 H Sodium Potassium BUN Creatinine Phosphorus Magnesium Stool Occult Blood Negative 06/16/16 06:15 WBC Hgb Plt Count PTT (Actin FS) Sodium 152 H Potassium 5.1 BUN 99 H Creatinine 3.5 H Phosphorus 5.7 H Magnesium 2.3 D Stool Occult Blood - ....Imaging EKG: Image Reviewed Assessment/Plan PNA Chronic diastolic CHF NSVT PAF CKD REC: Stress MIBI with no ischemia pt is overall euvolemic and Lasix has been held due to developing intravascular depletion Pt was noted to have a short run of Pafib and thus full AC was recommended, she is currently on heparin gtt and will need to be transitioned to oral AC before discharge: can start Eliquis Cont current Atenolol dose, tolerating sinus bradycardia with no further episodes of pafib recorded
[2016-06-16 09:36] LABS: PLATELET ESTIMATE ADEQUATE (NORMAL)
[2016-06-16] MEDS ORDERED: APIXABAN 5 MG TABLET PO SCH (10:00)
--- NOTE | 2016-06-16 12:07 | PN ---
Progress Note (short form) - Note Progress Note: Renal Follow up for SHAYY vs. Progressive CKD Pt seen and examined at the bedside no acute complaints denies any sob can ambulate short distances no chest pain, abd pain, N/V/D tolerating oral diet Vital Signs Temperature 98.1 F 06/16/16 10:00 Pulse Rate 57 L 06/16/16 10:00 Respiratory Rate 18 06/16/16 10:00 Blood Pressure 145/77 06/16/16 10:00 O2 Sat by Pulse Oximetry (%) 96 06/15/16 21:00 Gen: NAD, awake and alert CVS: RRR, No M/R Lungs : + rales lower lung silverman Abd: soft NT/ND Ext: trace edema in LE Neuro: No focal defects CBC, BMP 06/16/16 06:15 06/16/16 06:15 Current Medications Albuterol/Ipratropium (Duoneb -) 1 amp NEB Q6H PRN PRN Reason: SHORTNESS OF BREATH Last Admin: 06/14/16 21:43 Dose: 1 amp Apixaban (Eliquis -) 5 mg PO BID [facility] Last Admin: 06/16/16 10:51 Dose: 5 mg Atenolol (Tenormin -) 50 mg PO DAILY [facility] Last Admin: 06/16/16 09:19 Dose: 50 mg Clonidine (Catapres -) 0.1 mg PO BID [facility] Last Admin: 06/16/16 09:18 Dose: Not Given Insulin Aspart (Novolog Vial Sliding Scale -) 1 vial SQ ACHS JOANNE PRN Reason: Protocol Last Admin: 06/16/16 06:24 Dose: Not Given Levofloxacin (Levaquin -) 500 mg PO Q2D@0600 [facility] Last Admin: 06/15/16 06:11 Dose: 500 mg Methylprednisolone Sodium Succinate (Solu-Medrol -) 40 mg IVPB Q12H [facility] Last Admin: 06/16/16 05:52 Dose: 40 mg Nifedipine (Procardia Xl -) 30 mg PO BID [facility] Last Admin: 06/16/16 09:19 Dose: 30 mg Pantoprazole Sodium (Protonix -) 40 mg PO DAILY [facility] Last Admin: 06/16/16 09:19 Dose: 40 mg Sodium Bicarbonate (Sodium Bicarbonate -) 650 mg PO DAILY [facility] Last Admin: 06/16/16 09:19 Dose: 650 mg A/P 75 year old woman with PMhx of CKD Stage 4, Hypertension (>40 years), Asthma, Osteoarthritis, Former Smoker who presented with 2 day history of chest discomfort and SOB and admitted with PNA vs. CHF with BUN/Cr of 43/3.5. #SHAYY on CKD vs. Progressive CKD renal function improved and stable s/p IVF off diuretics at the present time and would not start as pt is hypernatremic will likely need to be on some form of maintenance diuretics but can be started as outpatient Dose all meds for Cr Cl less then 20 will need dialysis planning for the further although she does not need dialysis at this time #Metabolic Acodosis Continue sodium bicarb 650mg Daily #Hyperkalemia Renal diet if K continues to run high may need potassium binding resin #PNA on PO Levaquin #New Afib to start oral A/C as per cardiology #Hypertension Continue Clondine, Procardia, Atenolol Goal BP < 140/90 no ARA or ARB at this time Raymundo Snyder DO
--- NOTE | 2016-06-16 12:33 | PN ---
Progress Note, Physician History of Present Illness: pateint doing well no complaints walking with walker - Current Medication List Current Medications: Active Medications Albuterol/Ipratropium (Duoneb -) 1 amp NEB Q6H PRN PRN Reason: SHORTNESS OF BREATH Last Admin: 06/14/16 21:43 Dose: 1 amp Apixaban (Eliquis -) 5 mg PO BID [facility] Last Admin: 06/16/16 10:51 Dose: 5 mg Atenolol (Tenormin -) 50 mg PO DAILY [facility] Last Admin: 06/16/16 09:19 Dose: 50 mg Clonidine (Catapres -) 0.1 mg PO BID [facility] Last Admin: 06/16/16 09:18 Dose: Not Given Insulin Aspart (Novolog Vial Sliding Scale -) 1 vial SQ ACHS [facility] PRN Reason: Protocol Last Admin: 06/16/16 12:05 Dose: 6 units Levofloxacin (Levaquin -) 500 mg PO Q2D@0600 [facility] Last Admin: 06/15/16 06:11 Dose: 500 mg Methylprednisolone Sodium Succinate (Solu-Medrol -) 40 mg IVPB Q12H [facility] Last Admin: 06/16/16 05:52 Dose: 40 mg Nifedipine (Procardia Xl -) 30 mg PO BID [facility] Last Admin: 06/16/16 09:19 Dose: 30 mg Pantoprazole Sodium (Protonix -) 40 mg PO DAILY [facility] Last Admin: 06/16/16 09:19 Dose: 40 mg Sodium Bicarbonate (Sodium Bicarbonate -) 650 mg PO DAILY [facility] Last Admin: 06/16/16 09:19 Dose: 650 mg - Objective Vital Signs: Vital Signs Temperature 98.1 F 06/16/16 10:00 Pulse Rate 57 L 06/16/16 10:00 Respiratory Rate 18 06/16/16 10:00 Blood Pressure 145/77 06/16/16 10:00 O2 Sat by Pulse Oximetry (%) 96 06/15/16 21:00 Constitutional: Yes: No Distress, Calm Cardiovascular: Yes: Regular Rate and Rhythm Respiratory: Yes: Regular, Poor Air Entry Gastrointestinal: Yes: Normal Bowel Sounds, Soft Musculoskeletal: Yes: WNL Extremities: Yes: WNL Neurological: Yes: Alert, Oriented Psychiatric: Yes: Alert Labs: CBC, BMP 06/16/16 06:15 06/16/16 06:15 INR, PTT INR 1.19 (0.82-1.09) H 06/05/16 11:40 Assessment/Plan - Problems (1) CHF (congestive heart failure) Code(s): I50.9 - HEART FAILURE, UNSPECIFIED (2) CKD stage 4 secondary to hypertension Code(s): I12.9 - HYPERTENSIVE CHRONIC KIDNEY DISEASE W STG 1-4/UNSP CHR KDNY N18.4 - CHRONIC KIDNEY DISEASE, STAGE 4 (SEVERE) (3) SHAYY (acute kidney injury) Code(s): N17.9 - ACUTE KIDNEY FAILURE, UNSPECIFIED r/o asp pna plan continue current mgmt continue resp support
--- NOTE | 2016-06-16 13:47 | DS ---
Physical Exam: SUBJECTIVE: Patient seen and examined. States she feels better. Spoke to patient about short term rehab as she is weaker than when admitted. She is in agreement. Was hypertensive overnight. Spoke to her about increasing her fluid intake for dehydration. OBJECTIVE: GENERAL: The patient is awake, alert, and fully oriented, in no acute distress. HEAD: Normal with no signs of trauma. EYES: PERRL, extraocular movements intact, sclera anicteric, conjunctiva clear. No ptosis. ENT: moist mucous membranes. NECK: Trachea midline, full range of motion, supple. LUNGS: anterior lungs and posterior lungs with less wheezing, tolerating room air. ABDOMEN: Soft, nontender, nondistended, normoactive bowel sounds, no guarding, no rebound, no hepatosplenomegaly, no masses. EXTREMITIES: bilateral lower ext with +1 pitting edema NEUROLOGICAL: Normal speech PSYCH: Normal mood, normal affect. SKIN: Warm, dry, normal turgor, no rashes or lesions noted Vital Signs Period Temp Pulse Resp BP Sys/Hill Pulse Ox Last 24 Hr 97.6 F-98.4 F 52-80 18-18 145-188/67-94 87-96 PHYSICAL EXAM LABS Laboratory Results - last 24 hr 06/15/16 06/15/16 06/15/16 15:44 17:21 23:44 WBC RBC Hgb Hct MCV MCHC RDW Plt Count MPV Neutrophils % Lymphocytes % Monocytes % Differential Comment Platelet Estimate PTT (Actin FS) Sodium Potassium Chloride Carbon Dioxide Anion Gap BUN Creatinine Creat Clearance w eGFR POC Glucometer 156 209 Random Glucose Calcium Phosphorus Magnesium Total Bilirubin AST ALT Alkaline Phosphatase Total Protein Albumin Stool Occult Blood Negative 06/16/16 06/16/16 06/16/16 05:50 06:15 06:15 WBC 10.6 H RBC 4.53 Hgb 11.2 Hct 35.8 MCV 79.1 L MCHC 31.3 L RDW 18.3 H Plt Count 228 MPV 11.5 H D Neutrophils % 84.0 H Lymphocytes % 9.0 D Monocytes % 7.0 D Differential Comment Manual diff done Platelet Estimate Adequate PTT (Actin FS) 62.4 H Sodium Potassium Chloride Carbon Dioxide Anion Gap BUN Creatinine Creat Clearance w eGFR POC Glucometer 102 Random Glucose Calcium Phosphorus Magnesium Total Bilirubin AST ALT Alkaline Phosphatase Total Protein Albumin Stool Occult Blood 06/16/16 06/16/16 06/16/16 06:15 06:30 12:03 WBC RBC Hgb Hct MCV MCHC RDW Plt Count MPV Neutrophils % Lymphocytes % Monocytes % Differential Comment Platelet Estimate PTT (Actin FS) Sodium 152 H Potassium 5.1 Chloride 119 H Carbon Dioxide 23 Anion Gap 10 BUN 99 H Creatinine 3.5 H Creat Clearance w eGFR 12.80 POC Glucometer 279 Random Glucose 113 H Calcium 7.9 L Phosphorus 5.7 H Magnesium 2.3 D Total Bilirubin 0.5 D AST 11 L D ALT 13 Alkaline Phosphatase 31 L Total Protein 5.2 L Albumin 1.6 L Stool Occult Blood Negative HOSPITAL COURSE: Date of Admission:06/05/16 Date of Discharge: 06/16/16 Patient is a 75 year old female with a significant past medical history of hypertension, possible AL in the past, hyperlipidemia and asthma. She presented to the ED on 06/05/2016 with chest discomfort and shortness of breath x 2 days. In ER, she was given Solumedrol 125mg, duonebs and Lasix. Her troponin on admission was 0.06, BNP 9420 and BUN/Creatinine 43/3.5 Imaging: Chest Xray 06/05/2016 - diffuse bilateral airspace changes compatible with infiltrates and congestion, large heart, sclerotic knob. night monitor shows NSR [address] wave abnormality Renal ultrasound 06/06/2016 - both kidneys are small/atrophic & ecogenic consistent with chronic medical renal disease. EKG 06/06/[address] & T wave abnormality, consider inferior/anterolateral ischemia Echo 06/07/2016 shows midl conc left vent hypertrophy, trace aortic regurg, trace MR, LA: mod dilated, trace tricuspid regurg. Chest CT 06/08/2016 - Bilateral interstitial and airspace opacities consistent with PNA - cannot rule out mild vs venous congestion Cardiology: Chest Pain - resolved chest Pain has resolved, shortness of breath improving CHF Assessment/Plan: desats on room air while ambulating, discharge with oxygen therapy between 2-3 liters Hypertension - chronic BP improving with up titration of meds Assessment/Plan: On Procardia XL 30mg BID, Atenolol 50mg daily, Clonidine 0.1mg BID Hypertensive overnight, given one extra dose of Clonidine Cardiology following New onset paroxysmal atrial fib. Assessment/Plan: D/c on Eliquis 5mg Pulmonary: Pneumonia/Asthma/COPD Assessment/Plan: 2-3 liters of nasal cannula on discharge Levaquin 500mg started on 06/13/2016 every other day, continue until 7 doses complete Endocrine: Assessment/Plan: Monitor for hyperglycemia while on steroids, added sliding scale monitor BGMs Hematology: Thrombocytopenia - resolved : Acute on chronic CKD Assessment/Plan: Cr was 2.4 on 05/26/2015, Cr 3.5 on this admission, today creat is 3.5 Possibility of dialysis given worsening renal function as per renal - will need close outpatient follow up F.E.N. Fluids: tolerating PO Electrolytes: hyperna likely secondary to dehydration, increase PO intake Nutrition: low sodium disposition: Discharge to short term rehab. Full code. Minutes to complete discharge: 60 Discharge Summary Reason For Visit: PNEUMONIA ELEVATED TROPONIN CHF Current Active Problems SHAYY (acute kidney injury) (Acute) CHF (congestive heart failure) (Acute) CKD stage 4 secondary to hypertension (Acute) Elevated troponin (Acute) Pneumonia (Acute) Condition: Fair - Instructions Diet, Activity, Other Instructions: Please increase free fluid intake QID as tolerated to avoid dehydration. Take Prednisone taper as follows Prednisone 40mg tonight 06/16/2016 Prednisone 40mg BID ON 06/17/2016 Prednisone 30mg BID ON 06/18/2016 Prednisone 20mg BID ON 06/19/2016 Prednisone 10mg BID ON 06/20/2016 Prednisone 5 mg BID ON 06/21/2016 Prednisone 5 mg daily ON 06/22/2016 Then stop prednisone Levaquin 500mg every other day Started on 06/13/2016 Last dose given on 06/15/2016 Please follow BUN/Creatinine and recommend labs to monitor kidney function. She may need dialysis in the future. Disposition: [facility] - Home Medications Comprehensive Discharge Medication List: Ambulatory Orders Clonidine HCl 0.1 mg PO BID 06/05/16 Albuterol 2.5/Ipratropium 0.5 [Duoneb -] 1 amp NEB Q6H PRN #0 amp 06/16/16 Apixaban [Eliquis -] 5 mg PO BID tablet 06/16/16 Atenolol [Tenormin -] 50 mg PO DAILY tablet 06/16/16 Clonidine HCl [Catapres -] 0.1 mg PO BID tablet 06/16/16 Levofloxacin [Levaquin -] 500 mg PO Q2D@0600 tablet 06/16/16 Nifedipine ER [Procardia XL -] 30 mg PO BID 06/16/16 Pantoprazole Sodium [Protonix -] 40 mg PO DAILY 06/16/16 Prednisone See Taper PO DAILY #30 tablet 06/16/16 Sodium Bicarbonate - 650 mg PO DAILY tablet 06/16/16 This patient is new to me today: No Emergency Visit: Yes ED Registration Date: 06/05/16 Care time: The patient presented to the Emergency Department on the above date and was hospitalized for further evaluation of their emergent condition. Critical Care patient: No - Discharge Referral Referred to [facility] Med P.C.: No
[2016-06-16 15:23] VITALS: BP 150/96; PULSE 68; TEMP 97.4
== END 2016-06-16 15:34 | DRG 291 ==
LOC: JER 11:20 → JERBED 16:22 → UNDOADMIN 16:26 → JERBED 16:26 → J4S 18:29
PROVIDERS: ADMIT Internal Medicine; ATTEND Nurse Practitioner Family
PROC: 3E033GC Introduction of Other Therapeutic Substance into Peripheral Vein, Percutaneous Approach (ICD-10-PCS; principal; 2016-06-05)
DX: I13.0 Hypertensive heart and chronic kidney disease with heart failure and stage 1 through stage 4 chronic kidney disease, or unspecified chronic kidney disease (principal); J18.9 Pneumonia, unspecified organism; I50.33 Acute on chronic diastolic (congestive) heart failure; N18.4 Chronic kidney disease, stage 4 (severe); N17.9 Acute kidney failure, unspecified; I47.1 Supraventricular tachycardia; E87.2 Acidosis; Z87.891 Personal history of nicotine dependence; E78.5 Hyperlipidemia, unspecified; J44.9 Chronic obstructive pulmonary disease, unspecified; J45.909 Unspecified asthma, uncomplicated; D69.6 Thrombocytopenia, unspecified; M19.90 Unspecified osteoarthritis, unspecified site; D64.9 Anemia, unspecified; E87.5 Hyperkalemia; E83.39 Other disorders of phosphorus metabolism; I48.0 Paroxysmal atrial fibrillation; R73.9 Hyperglycemia, unspecified
CPT/HCPCS: 36415; 71010-TC; 71020-TC; 71250-TC; 76775-TC; 78452-TC; 80048; 80053; 81003; 81015; 82272; 82550; 82553; 82570; 82728; 83010; 83540; 83550; 83605; 83615; 83735; 83880; 84100; 84156; 84484; 84550; 85025; 85610; 85730; 87040; 87899; 93005; 93010; 93017; 93306-TC; 94010; 94640; 94761; 97116-GP; 97161-GP; 99285-25; A9502; J1245; J1644

== ENCOUNTER 2016-06-20 19:40 | Inpatient (IN) | payer OTHER, MEDICARE ==
[2016-06-20] MEDS ORDERED: MAGNESIUM SULF 50% (8.12 MEQ/2 ML-1 GM VIAL) ONE ×2 (19:52→20:04)
[2016-06-20] MEDS ORDERED: methylPREDNISolone NA SUCC 125 MG/2 ML VIAL ONE ×2 (19:53→20:03)
[2016-06-20] MEDS ORDERED: MAGNESIUM SULF 50% (8.12 MEQ/2 ML-1 GM VIAL) IVPB ONE (19:55)
[2016-06-20] MEDS ORDERED: methylPREDNISolone NA SUCC 125 MG/2 ML VIAL IVPB ONE (19:55)
[2016-06-20] MEDS ORDERED: ALBUTEROL SO4 2.5/IPRATROPIUM 0.5 INH SOL 3 ML VIAL.NEB. NEB ONE (19:55)
[2016-06-20] MEDS ORDERED: ASPIRIN 81 MG CHEWABLE TABLETS PO ONE (19:56)
[2016-06-20] MEDS ORDERED: ASPIRIN 325 MG TABLET ONE (19:57)
[2016-06-20] MEDS ORDERED: VANCOMYCIN 1,000 MG in DEXTROSE 5%-WATER - 250 ML IVPB ONE (19:58)
[2016-06-20] MEDS ORDERED: LEVOFLOXACIN 750 MG IVPB 150 ML IVPB ONE (19:58)
[2016-06-20] MEDS ORDERED: AZTREONAM 1 GM in DEXTROSE 5%-WATER - 50 ML IVPB ONE (20:04)
--- NOTE | 2016-06-20 20:06 | PDOC ---
History of Present Illness <Keegan Meek - Last Filed: 06/20/16 22:35> - History of Present Illness Initial Comments: 06/20/16 20:14 Patient is a 75 year old female HTN, HLD, asthma, COPD, recent admission for pneumonia (d/c 06/16) and admitted to [facility] [place] for short term rehab, who is presenting to the ED for shortness of breath, respiratory distress, and low O2Sat. According to EMS, the patients normal O2Sat is in the high 90s, but it has been fluctuating between 62-92% in the NH. She was given two combivents in the field. The patient was started on 500mg of levaquin on 06/13/2016, every other day for 7 doses. The patient has never been intubated. Denies fever, chills, or chest pain. <Miranda Mobley - Last Filed: 06/21/16 01:53> - General Chief Complaint: Shortness of Breath Stated Complaint: SOB Past History - Past Medical History Anemia: No Asthma: Yes Cancer: No Cardiac Disorders: Yes (? 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 [place] SAYS NO EVID) CVA: No COPD: No CHF: Yes (ENCE AFTER STUDIES.) Dementia: No Diabetes: No GI Disorders: No Disorders: No HTN: Yes Hypercholesterolemia: Yes Liver Disease: No Seizures: No Thyroid Disease: No - Surgical History Abdominal Surgery: No Appendectomy: No Cardiac Surgery: No Cholecystectomy: No Lung Surgery: No Neurologic Surgery: No Orthopedic Surgery: No - Psycho/Social/Smoking Cessation Hx Suicidal Ideation: No Smoking History: Former smoker Have you smoked in the past 12 months: No If you are a former smoker, when did you quit?: 35 YEARS AGO Hx Alcohol Use: No Drug/Substance Use Hx: No Substance Use Type: None Hx Substance Use Treatment: No <Keegan Meek - Last Filed: 06/20/16 22:35> <Miranda Mobley - Last Filed: 06/21/16 01:53> - Past Medical History Allergies/Adverse Reactions: Allergies Allergy/AdvReac Type Severity Reaction Status Date / Time egg Allergy Severe LIP Verified 06/20/16 19:49 SWELLING Penicillins Allergy Severe Rash Verified 06/20/16 19:49 FLU SHOT Allergy Uncoded 06/20/16 19:49 Home Medications: Ambulatory Orders Albuterol 2.5/Ipratropium 0.5 [Duoneb -] 1 amp NEB Q6H PRN #0 amp 06/16/16 Apixaban [Eliquis -] 5 mg PO BID tablet 06/16/16 Atenolol [Tenormin -] 50 mg PO DAILY tablet 06/16/16 Clonidine HCl [Catapres -] 0.1 mg PO BID tablet 06/16/16 Levofloxacin [Levaquin -] 500 mg PO Q2D@0600 tablet 06/16/16 Nifedipine ER [Procardia XL -] 30 mg PO BID 06/16/16 Prednisone See Taper PO DAILY #30 tablet 06/16/16 Sodium Bicarbonate - 650 mg PO DAILY tablet 06/16/16 Omeprazole 20 mg PO DAILY 06/20/16 Review of Systems - Review of Systems Comments:: 06/20/16 20:14 GENERAL/CONSTITUTIONAL: No fever or chills. No weakness. HEAD, EYES, EARS, NOSE AND THROAT: No change in vision. No ear pain or discharge. No sore throat. CARDIOVASCULAR: No chest pain. RESPIRATORY: Shortness of breath, respiratory distress. No cough, wheezing, or hemoptysis. GASTROINTESTINAL: No nausea, vomiting, diarrhea or constipation. GENITOURINARY: No dysuria, frequency, or change in urination. MUSCULOSKELETAL: No joint or muscle swelling or pain. No neck or back pain. SKIN: No rash NEUROLOGIC: No headache, vertigo, loss of consciousness, or change in strength/ sensation. <Miranda Mobley - Last Filed: 06/21/16 01:53> *Physical Exam - Vital Signs Last Vital Signs Temp Pulse Resp BP Pulse Ox 98.5 F 75 32 H 145/68 82 L 06/20/16 19:49 06/20/16 19:49 06/20/16 19:49 06/20/16 19:49 06/20/16 19:49 - Physical Exam Comments: 06/20/16 20:15 GENERAL: Anxious, uncomfortable, AAOx3, in moderate respiratory distress HEAD: No signs of trauma EYES: PERRLA, EOMI, sclera anicteric, conjunctiva clear ENT: Auricles normal inspection, hearing grossly normal, nares patent, oropharynx clear without exudates. Moist mucosa NECK: Normal ROM, supple, no lymphadenopathy, JVD, or masses LUNGS: Moving air but tight. Severe prolonged expiratory wheezing with mild rhonchi. Abdominal retractions and accessory muscle use. No rales. No fluid. HEART: Regular rate and rhythm, normal S1 and S2, no murmurs, rubs or gallops ABDOMEN: Soft, nontender, normoactive bowel sounds. No guarding, no rebound. No masses EXTREMITIES: Normal range of motion, no edema. No clubbing or cyanosis. No cords, erythema, or tenderness NEUROLOGICAL: Cranial nerves II through XII grossly intact. Normal speech, normal gait SKIN: Warm, Dry, normal turgor, no rashes or lesions noted. ENDOCRINE: No increased thirst. No abnormal weight change. HEMATOLOGIC/LYMPHATIC: No anemia, easy bleeding, or history of blood clots. ALLERGIC/IMMUNOLOGIC: No hives or skin allergy. <Miranda Mobley - Last Filed: 06/21/16 01:53> Heart Score/ECG Review #1 06/21/16 01:51 Normal sinus rhythm at 68 bpm Normal axis LVH Nonspecific T-wave abnormality with T wave inversion at V4-6 II,III, F Unchanged ECG from 06/06/16 <Miranda Mobley - Last Filed: 06/21/16 01:53> ED Treatment Course - LABORATORY CBC & Chemistry Diagram: 06/20/16 20:00 06/20/16 20:00 <Keegan Meek - Last Filed: 06/20/16 22:35> - LABORATORY CBC & Chemistry Diagram: 06/20/16 20:00 06/20/16 20:00 - RADIOLOGY Radiograph Interpretation: 06/21/16 01:52 Manager Supplier: ([email or web address]) Report Date: 06/21/2016 00:09:00 Report Status: Preliminary Begin of Report Content Referring Physician: Keegan Meek Patient Name: Marely Rodney THIS IS A PRELIMINARYREPORT FROM IMAGING PROFESSOR OF PUBLIC ADMINISTRATION EXAM: CT abdomen and pelvis without contrast IMAGES: [id number] INDICATION: Elevated lipase and lactate DATE OF SERVICE: 2016-06-21 00:09:55.0 COMPARISON: none FINDINGS: Severe bilateral interstitial pulmonary fibrosis is noted. Superimposed pneumonia cannot be excluded.. The visualized cardiac chambers are normal size and configuration. There is bilateral renal scarring without stones or hydronephrosis. There is gallbladder sludge without inflammation or biliary duct dilation. Normal unenhanced liver, pancreas, spleen, adrenal glands . The stomach and abdominal small and large bowel are normal. There is no aortic aneurysm. There is no significant retroperitoneal lymphadenopathy. The pelvic small and large bowel are normal. The appendix is normal. The uterus is enlarged lobulated and contains multiple fibroids. No obvious adnexal masses. Urinary bladder is unremarkable. There is no pelvic free fluid. No discrete pelvic lymphadenopathy is identified. IMPRESSION: Severe interstitial fibrosis. Superimposed pneumonia cannot be excluded. Gallbladder sludge without inflammation. Enlarged fibroid uterus. Bilateral renal scarring. THIS DOCUMENT HAS BEEN ELECTRONICALLY SIGNED Azeem Jaquez MD 06/21/2016 00:32 JOSE Motta. Please call Imaging Packaging Machine Operator [phone] ([phone]) with questions. End of Report Content - Medications Given in the ED: ED Medications Discontinued Medications Generic Name Dose Route Start Last Admin Trade Name Gricelda PRN Reason Stop Dose Admin Albuterol/Ipratropium 1 amp 06/20/16 19:55 06/20/16 20:05 Duoneb - NEB 06/20/16 19:56 1 amp ONCE ONE Administration Magnesium Sulfate 2 gm 06/20/16 19:55 06/20/16 20:05 Magnesium Sulfate IVPB 06/20/16 19:56 2 gm ONCE ONE Administration Methylprednisolone Sodium Succinate 125 mg 06/20/16 19:55 06/20/16 20:05 Solu-Medrol - IVPB 06/20/16 19:56 125 mg ONCE ONE Administration <Miranda Mobley - Last Filed: 06/21/16 01:53> Medical Decision Making - Medical Decision Making 06/20/16 20:06 This is a 75yo F with COPD history and recent admission for pneumonia taking levaquin who presents with respiratory distress. She is brought immediately to the ED and Bipap initiated after noting SpO2 84%. She improved with the in- line nebulized Bipap and feels much more comfortable at this time. Will send cultures, evaluate for sepsis and treat empirically for HCAP; will give ASA for cardioprotection; magnesium 2g, solumedrol, duonebs; will admit to telemetry. Her presentation is more suggestive of acute COPD exacerbation in the setting of HCAP. I have low suspicion for PE, particularly given no peripheral edema. 06/20/16 21:10 There is a leukocytosis; she is doing well on the Bipap and her SpO2 is wnl; ABG shows acidosis 7.28 and CO2 43.5, making this potentially not suggestive of respiratory issue or compensated at this time; however, her Bicarb is low. There is a lactic acidosis as well. The EKG is unchanged from previous on file and shows no acute process. She will be started on nitroglycerine drip and given stat SL nitro. She is endorsed to Dr. Camacho for telemetry admission. 06/20/16 21:19 BNP significantly elevated and troponin is negative. 06/20/16 22:13 I have discussed the case with Dr. Camacho who agrees with plan and suggests the patient would be well suited for ICU overnight. Will endorse to the ICU SUPERVISOR [employer]. 06/20/16 22:17 06/20/16 22:29 Lipase is very elevated; will obtain CT abdomen/pelvis; she has no abdominal pain at this time. ICU asking for amylase. 06/20/16 22:35 [place] 22. Will recheck the ABG in appropriate amount of time; she is comfortable and clinically doing much better. <Keegan Meek - Last Filed: 06/20/16 22:35> *DC/Admit/Observation/Transfer - Discharge Dispostion Admit: Yes Decision to Admit order Date/Time: 06/20/16 22:17 - Attestations Physician Attestion: 06/20/16 22:17 I, Dr. Keegan Meek MD, attest that this document has been prepared under my direction and personally reviewed by me in its entirety. I further attest, that it accurately reflects all work, treatment, procedures and medical decision -making performed by me. <Keegan Meek - Last Filed: 06/20/16 22:35> - Attestations Scribe Attestion: 06/20/16 20:18 Documentation prepared by Miranda Mobley, acting as phlebotomist medical lab assistant for Keegan Meek MD. <Miranda Mobley - Last Filed: 06/21/16 01:53> Diagnosis at time of Disposition: Respiratory distress, Acute pulmonary edema, SIRS (systemic inflammatory response syndrome), Lactic acid acidosis, COPD exacerbation, HCAP (healthcare- associated pneumonia) CHF exacerbation Qualifiers: Congestive heart failure type: unspecified congestive heart failure type Qualified Code(s): I50.9 - Heart failure, unspecified - Discharge Dispostion Condition at time of disposition: Critical
[2016-06-20 20:07] LABS: MCH 24.7 pg (25.7-33.7); MCHC 31.2 g/dl (32.0-36.0); MEAN CELL VOLUME 79.2 fl (80-96); RDW 18.9 % (11.6-15.6)
[2016-06-20] MEDS ORDERED: LINEZOLID 600 MG PREMIX BAG 600 MG in PREMIX 300 IVPB SCH (20:15)
[2016-06-20 20:35] LABS: BILIRUBIN,TOTAL 0.3 mg/dL (0.2-1.0); CALCIUM 7.6 mg/dL (8.5-10.1); CREATININE 3.6 mg/dL (0.55-1.02); MAGNESIUM 2.2 mg/dL (1.8-2.4); PHOSPHOROUS 3.5 mg/dL (2.5-4.9); TOT PROT 6.2 g/dl (6.4-8.2)
[2016-06-20 20:36] LABS: TROPONIN I 0.05 ng/ml (0.00-0.05)
[2016-06-20 20:40] LABS: ARTERIAL BLD GAS O2 SATURATION 97.6 % (90-98.9); ARTERIAL BLOOD GAS HCO3 19.9 meq/L (22-26); ARTERIAL BLOOD GAS pH 7.28 (7.35-7.45)
[2016-06-20 20:41] LABS: ALLENS TEST POSITIVE; ART PUNCT SITE RIGHT RADIAL; LPM/O2% 80; MECH. VENT. yes bipap; PT. ON O2? y; TYPE OF O2 bipap; VENT RATE 12; VT/PRESS 14
[2016-06-20] MEDS ORDERED: NITROGLYCERIN SUBLINGUAL 1/150 0.4 MG TAB SL ONE (20:48)
[2016-06-20 20:57] LABS: URINE APPEARANCE CLOUDY; URINE BILIRUBIN NEGATIVE (NEGATIVE); URINE COLOR YELLOW; URINE GLUCOSE (UA) 2+ (NEGATIVE); URINE KETONE NEGATIVE (NEGATIVE); URINE NITRITE NEGATIVE (NEGATIVE); URINE UROBILINOGEN NEGATIVE E.U./dl (0.2-1.0)
[2016-06-20 20:59] LABS: MEAN PLT VOLUME 12.7 fl (7.5-11.1); PLATELET COMMENT2 NO CLUMPING NOTED; PLATELET COMMENT3 NO CLOTTING DETECTED; PLATELET COUNT 111 K/MM3 (134-434); PLATELET ESTIMATE SLT DECREASED (NORMAL)
[2016-06-20] MEDS ORDERED: NITROGLYCERIN 50 MG/10 ML VIAL IVPB SCH (21:00)
[2016-06-20 21:07] LABS: URINE BLOOD 1+ (NEGATIVE); URINE LEUK ESTERASE 3+ (NEGATIVE); URINE PROTEIN 3+ (NEGATIVE)
[2016-06-20 21:11] LABS: URINE BACTERIA MODERATE /hpf (NONE SEEN); URINE MUCUS FEW; URINE RBC 38 /hpf (0-3); URINE WBC 47 /hpf (3-5)
[2016-06-20] MEDS ORDERED: ALBUTEROL SO4 0.083% IH SOL 2.5 MG/3 ML VIAL.NEB. NEB ONE (22:20)
--- NOTE | 2016-06-20 22:35 | CONSULT ---
Consult Consult Specialty:: Pulm/CC - History of Present Illness Chief Complaint: SOB History of Present Illness: Pt is a 75yr old woman with PMHx of COPD/Asthma, HTN, HLD, questionable hx of NC and CKD (Cr 2.5 -->3.5 since 2016), left eye glaucoma and rt eye cataract. She was admitted 06/05-06/16 for pneumonia and was discharged to [facility]. Pt presents now to the ER ith CC of SOB/respiratory distress and hypoxia. In ER found to have /WBC 16, BUN/Cr 91/3.6, K 5.4, lactic acid 2.47, BNP 99085, lipase 828 and +UA, platelets 111 (from 228 on 06/16). Chest xray with bilateral effusions and likely consolidations R>L (my read). Pt started on bipap and given lasix (per verbal report, not in MAR) with some improvement abg 7.28/43/ 107/19.9 on fio2 80%. Pt initially assessed in the ER and again in the ICU. Pt continues to deny chest pain/n/v/dysuria and endorses improvement of breathing. Pt received in the ICU on nitro drip and bipap with fio2 45%, o2 sat 94%. 0130 -- Case discussed with Dr. Snyder, will give 80mg IV lasix and put in gibbs for accurate I/Os. - History Source History Provided By: Patient, Medical Record Limitations to Obtaining History: No Limitations - Past Medical History Cardio/Vascular: Yes: HTN Pulmonary: Yes: COPD - Alcohol/Substance Use Hx Alcohol Use: No - Smoking History Smoking history: Former smoker Have you smoked in the past 12 months: No If you are a former smoker, when did you quit?: 35 YEARS AGO Home Medications - Allergies Allergies/Adverse Reactions: Allergies Allergy/AdvReac Type Severity Reaction Status Date / Time egg Allergy Severe LIP Verified 06/20/16 19:49 SWELLING Penicillins Allergy Severe Rash Verified 06/20/16 19:49 FLU SHOT Allergy Uncoded 06/20/16 19:49 - Home Medications Home Medications: Ambulatory Orders Albuterol 2.5/Ipratropium 0.5 [Duoneb -] 1 amp NEB Q6H PRN #0 amp 06/16/16 Apixaban [Eliquis -] 5 mg PO BID tablet 06/16/16 Atenolol [Tenormin -] 50 mg PO DAILY tablet 06/16/16 Clonidine HCl [Catapres -] 0.1 mg PO BID tablet 06/16/16 Levofloxacin [Levaquin -] 500 mg PO Q2D@0600 tablet 06/16/16 Nifedipine ER [Procardia XL -] 30 mg PO BID 06/16/16 Prednisone See Taper PO DAILY #30 tablet 06/16/16 Sodium Bicarbonate - 650 mg PO DAILY tablet 06/16/16 Omeprazole 20 mg PO DAILY 06/20/16 Review of Systems - Review of Systems Eyes: reports: Other (hx of glaucoma and cataracts per pt) Cardiovascular: reports: Shortness of Breath. denies: Chest Pain Gastrointestinal: reports: Constipation. denies: Abdominal Pain, Diarrhea Genitourinary: denies: Dysuria Neurological: denies: Headache Physical Exam Vital Signs: Vital Signs Period Temp Pulse Resp BP Sys/Hill Pulse Ox Last 24 Hr 98.5 F 62-75 21-32 145-169/60-74 82-100 Intake & Output 06/18/16 06/19/16 06/20/16 06/21/16 23:59 23:59 23:59 23:59 Weight 222 lb Constitutional: Yes: Well Nourished, Mild Distress Eyes: Yes: Other (bilateral mydriasis, rt pupil uneven) HENT: Yes: Atraumatic Neck: Yes: WNL Cardiovascular: Yes: S1, S2 Respiratory: Yes: Diminished, On BiPap, Rales (fine from 3/4 down), Rhonchi, SOB , Tachypnea, Wheezes (faint expiratory) Gastrointestinal: Yes: Normal Bowel Sounds, Soft, Abdomen, Obese. No: Tenderness ...Rectal Exam: Yes: Deferred Renal/: Yes: Other (pt endorses making urine, denies dysuria) Musculoskeletal: Yes: WNL Edema: Yes Edema: LLE: 2+, RLE: 2+ Peripheral Pulses WNL: Yes (+1 bilateral pedal pulses) Integumentary: Yes: Venous Stasis Changes Neurological: Yes: WNL, Alert, Oriented, Cran Nerves II-XII Intact (grossly intact). No: Confusion, Facial Droop, Unresponsive, Weakness Psychiatric: Yes: WNL Labs: Abnormal Lab Results 06/20/16 06/20/16 06/20/16 20:00 20:00 20:00 WBC 16.0 H D MCV 79.2 L MCHC 31.2 L RDW 18.9 H Plt Count 111 L D MPV 12.7 H D Neutrophils % 95.0 H Lymphocytes % 1.0 L D Monocytes % 3.0 L Nucleated RBCs 1 H ABG pH ABG pO2 at Pt Temp ABG HCO3 ABG O2 Content ABG Base Excess Potassium 5.4 H Chloride 111 H BUN 91 H Creatinine 3.6 H Random Glucose 293 H D Lactic Acid 2.470 H* Calcium 7.6 L Alkaline Phosphatase 44 L D B-Natriuretic Peptide 03203.50 H Total Protein 6.2 L Albumin 2.0 L D Total Amylase Lipase 828 H Urine Protein Urine Glucose (UA) Urine Blood Ur Leukocyte Esterase 06/20/16 06/20/16 06/20/16 20:37 20:37 22:30 WBC MCV MCHC RDW Plt Count MPV Neutrophils % Lymphocytes % Monocytes % Nucleated RBCs ABG pH 7.28 L ABG pO2 at Pt Temp 107.0 H ABG HCO3 19.9 L ABG O2 Content 14.7 L ABG Base Excess -6.0 L Potassium Chloride BUN Creatinine Random Glucose Lactic Acid Calcium Alkaline Phosphatase B-Natriuretic Peptide Total Protein Albumin Total Amylase 162 H Lipase Urine Protein 3+ H Urine Glucose (UA) 2+ H Urine Blood 1+ H Ur Leukocyte Esterase 3+ H 06/20/16 22:40 WBC MCV MCHC RDW Plt Count MPV Neutrophils % Lymphocytes % Monocytes % Nucleated RBCs ABG pH ABG pO2 at Pt Temp ABG HCO3 ABG O2 Content ABG Base Excess Potassium Chloride BUN Creatinine Random Glucose Lactic Acid 2.188 H* Calcium Alkaline Phosphatase B-Natriuretic Peptide Total Protein Albumin Total Amylase Lipase Urine Protein Urine Glucose (UA) Urine Blood Ur Leukocyte Esterase Imaging - Results Chest X-ray: Report Reviewed, Image Reviewed Assessment/Plan Pt is a 75yr old woman with PMHx of COPD/Asthma, HTN, HLD, questionable hx of NC and CKD (Cr 2.5 -->3.5 since 2016), left eye glaucoma and rt eye cataract. Now in the ICU for acute on chronic renal insufficiency, CHF exacerbation, urosepsis and likely hcap with baseline copd, concern for pancreatitis. Pulm: Bilateral pulm edema R>L hx of copd -o2 support as needed, pt on bipap and endorses improved breathing -Nebulizers standing and prn -IV steroids, taper as able -repeat chest xray and abg in am ID: Lactic acidosis, wbc 10.6 -->16, +UA, likely hcap -f/u cultures -Consult -Pt given Levaquin/Aztreonam/Zyvox in ER, will d/c for now as pt with thorough coverage. Pt with penicillin allergy -Will give 1 time dose of Vanc for mrsa coverage, f/u trough and redose prn -Trend lactic acid Renal: Acute on chronic renal insufficiency -Case discussed with Dr. Snyder -Ana Laura prn -Strict I/Os -Monitor electrolytes GI: Elevated Lipase/Amylase -Denies stomach pain -f/u Ab/Pel CT -Repeat ab/pel -f/u lipid panel Cardiac: -Consult -f/u enzymes (EKG not clear despite multiple attempts by staff, pt denies chest pain, second troponin pending) -BP control -f/u lipid panel -Will start statin -Monitor coags/platelets Neuro -Pain management Endo: Elevated glucose relative to earlier stay in setting of steroids -BGM -Glycemic control -f/u A1c Ophthalmology: pt endorses rt eye hx of glaucoma and left cataract but without listed medication for glaucoma -Bilateral mydriasis with uneven pupils. Neuro exam grossly unremarkable, A& Ox3. Head CT ordered as precaution -Consider consult Prophylactic -DVT -Continue home PPI
[2016-06-20] MEDS ORDERED: NITROGLYCERIN 25MG/D5W 250ML 250 ML IVPB ONE (23:09)
[2016-06-21] MEDS ORDERED: ALBUTEROL SO4 0.083% IH SOL 2.5 MG/3 ML VIAL.NEB. NEB PRN (01:00)
[2016-06-21] MEDS ORDERED: FUROSEMIDE 40 MG/4 ML INJECTABLE VIAL ONE (01:31)
[2016-06-21] MEDS ORDERED: VANCOMYCIN 1 GRAM (PRE-DOCKED) 250 ML IVPB ONE (01:35)
[2016-06-21] MEDS ORDERED: ATORVASTATIN CA 80 MG TABLET (FP) PO ONE (01:35)
[2016-06-21 01:37] VITALS: BMI 38.0
[2016-06-21] MEDS ORDERED: FUROSEMIDE 40 MG/4 ML INJECTABLE VIAL IVPUSH ONE (01:37)
[2016-06-21] MEDS: methylPREDNISolone NA SUCC 40 MG/1 ML VIAL IVPB SCH ×4 (02:38→21:19)
[2016-06-21 04:02] LABS: ALBUMIN 1.9 g/dl (3.4-5.0); BILIRUBIN,TOTAL 0.3 mg/dL (0.2-1.0); CALCIUM 7.6 mg/dL (8.5-10.1); CREATININE 3.5 mg/dL (0.55-1.02); MAGNESIUM 2.7 mg/dL (1.8-2.4); PHOSPHOROUS 3.8 mg/dL (2.5-4.9); TOT PROT 5.7 g/dl (6.4-8.2)
[2016-06-21 04:05] LABS: TROPONIN I 0.06 ng/ml (0.00-0.05)
[2016-06-21] MEDS ORDERED: INSULIN REGULAR HUMAN 100 UNITS/ML *VIAL IVPUSH ONE (04:13)
[2016-06-21] MEDS ORDERED: SODIUM POLYSTYRENE SULFONATE 15 GM/60 ML BOTTLE PO ONE (04:16)
[2016-06-21 04:37] LABS: INR 1.49 (0.82-1.09); PROTHROMBIN TIME (PATIENT) 16.5 SEC (9.98-11.88)
[2016-06-21 04:40] LABS: ACTIVATED PTT 30.1 SECONDS (26.9-34.4)
[2016-06-21] MEDS: ALBUTEROL SO4 2.5/IPRATROPIUM 0.5 INH SOL 3 ML VIAL.NEB. NEB SCH ×4 (06:44→23:39)
[2016-06-21] MEDS: INSULIN SLIDING SCALE (NOVOLOG) 1 VIAL SQ SCH ×3 (06:45→17:53)
[2016-06-21 07:23] LABS: ALLENS TEST POSITIVE; ARTERIAL BLD GAS O2 SATURATION 90.9 % (90-98.9); ARTERIAL BLOOD GAS BASE EXCESS -4.1 meq/l (-2-2); ARTERIAL BLOOD GAS HCO3 20.3 meq/L (22-26); ARTERIAL BLOOD GAS PO2 60.9 mmHg (70-100); ARTERIAL BLOOD GAS pH 7.36 (7.35-7.45)
[2016-06-21 07:24] LABS: ART PUNCT SITE RIGHT RADIAL; LPM/O2% 45%; MECH. VENT. BIPAP; PT. ON O2? YES; TYPE OF O2 BIPAP; VENT RATE 12; VT/PRESS 14/6
--- NOTE | 2016-06-21 08:57 | HP ---
Admitting History and Physical - Admission History of Present Illness: 75yr old woman with PMHx of COPD/Asthma, HTN, HLD, questionable hx of PR and CKD (Cr 2.5 -->3.5 since 2016), left eye glaucoma and rt eye cataract. She was admitted 06/05-06/16 for pneumonia and was discharged to [facility]. Pt presents now to the ER ith CC of SOB/respiratory distress and hypoxia. In ER found to have /WBC 16, BUN/Cr 91/3.6, K 5.4, lactic acid 2.47, BNP 15266, lipase 828 and +UA, platelets 111 (from 228 on 06/16). Chest xray with bilateral effusions and likely consolidations R>L (my read). Pt started on bipap and given lasix (per verbal report, not in MAR) with some improvement abg 7.28/43/107/19.9 on fio2 80 %. Pt initially assessed in the ER and again in the ICU. Pt continues to deny chest pain/n/v/dysuria and endorses improvement of breathing. Pt in the ICU on nitro drip and bipap with fio2 45%, o2 sat 94%. - Past Medical History Cardiovascular: Yes: AFIB (PAF), HTN, Hyperlipdemia Pulmonary: Yes: COPD, Pneumonia Renal/: Yes: Renal Failure, Renal Inusuff ...: No - Smoking History Smoking history: Former smoker Have you smoked in the past 12 months: No If you are a former smoker, when did you quit?: 35 YEARS AGO - Alcohol/Substance Use Hx Alcohol Use: No Home Medications - Allergies Allergies/Adverse Reactions: Allergies Allergy/AdvReac Type Severity Reaction Status Date / Time egg Allergy Severe LIP Verified 06/20/16 19:49 SWELLING Penicillins Allergy Severe Rash Verified 06/20/16 19:49 FLU SHOT Allergy Uncoded 06/20/16 19:49 - Home Medications Home Medications: Ambulatory Orders Albuterol 2.5/Ipratropium 0.5 [Duoneb -] 1 amp NEB Q6H PRN #0 amp 06/16/16 Apixaban [Eliquis -] 5 mg PO BID tablet 06/16/16 Atenolol [Tenormin -] 50 mg PO DAILY tablet 06/16/16 Clonidine HCl [Catapres -] 0.1 mg PO BID tablet 06/16/16 Levofloxacin [Levaquin -] 500 mg PO Q2D@0600 tablet 06/16/16 Nifedipine ER [Procardia XL -] 30 mg PO BID 06/16/16 Prednisone See Taper PO DAILY #30 tablet 06/16/16 Sodium Bicarbonate - 650 mg PO DAILY tablet 06/16/16 Omeprazole 20 mg PO DAILY 06/20/16 Review of Systems - Review of Systems Cardiovascular: denies: Chest Pain Respiratory: reports: Cough, SOB Gastrointestinal: denies: Abdominal Pain Genitourinary: reports: No Symptoms Physical Examination Vital Signs: Vital Signs Temperature 96 F L 06/21/16 06:21 Pulse Rate 63 06/21/16 08:00 Respiratory Rate 23 06/21/16 08:00 Blood Pressure 180/97 06/21/16 08:00 O2 Sat by Pulse Oximetry (%) 98 06/21/16 06:43 Neck: Yes: Supple Cardiovascular: Yes: S1, S2 Respiratory: Yes: On BiPap, Rhonchi Gastrointestinal: Yes: Normal Bowel Sounds, Soft. No: Tenderness Edema: No Neurological: Yes: Alert Labs: CBC, BMP 06/21/16 02:00 Imaging - Results X-ray: Report Reviewed Problem List - Problems (1) COPD exacerbation Assessment/Plan: IV STEROIDS NEBS PULM Code(s): J44.1 - CHRONIC OBSTRUCTIVE PULMONARY DISEASE W (ACUTE) EXACERBATION (2) CHF exacerbation Assessment/Plan: LASIX CARDIO FOLLOW CE Code(s): I50.9 - HEART FAILURE, UNSPECIFIED Qualifiers: Congestive heart failure type: unspecified congestive heart failure type Qualified Code(s): I50.9 - Heart failure, unspecified (3) Pneumonia Assessment/Plan: IV ABX ID CONSULT Code(s): J18.9 - PNEUMONIA, UNSPECIFIED ORGANISM (4) CKD stage 4 secondary to hypertension Assessment/Plan: CHRONIC MONITOR RENAL Code(s): I12.9 - HYPERTENSIVE CHRONIC KIDNEY DISEASE W STG 1-4/UNSP CHR KDNY N18.4 - CHRONIC KIDNEY DISEASE, STAGE 4 (SEVERE) (5) Lactic acid acidosis Assessment/Plan: ON ABX CULTURES Code(s): E87.2 - ACIDOSIS (6) Elevated troponin Code(s): R79.89 - OTHER SPECIFIED ABNORMAL FINDINGS OF BLOOD CHEMISTRY (7) Sepsis Assessment/Plan: AWAIT CULTURES ABX Code(s): A41.9 - SEPSIS, UNSPECIFIED ORGANISM (8) HTN (hypertension) Assessment/Plan: ELEVATED RESUME CLONIDINE/PROCARDIA AND TENORMIN Code(s): I10 - ESSENTIAL (PRIMARY) HYPERTENSION
[2016-06-21] MEDS ORDERED: PT OWN MED DRAWER 7, Y5N ONE ×2 (09:25→21:10)
[2016-06-21] MEDS: ATENOLOL 50 MG TABLET (FP) PO SCH (09:27)
[2016-06-21] MEDS: NIFEdipine E.R. 30 MG TABLET (FP) PO SCH ×2 (09:27→21:19)
[2016-06-21] MEDS: cloNIDine HCL 0.1 MG TABLET PO SCH ×2 (09:27→21:19)
--- NOTE | 2016-06-21 10:19 | PN ---
Progress Note, Physician History of Present Illness: Pt re-admitted for worsening sob/hypoxia. admitted to icu, on bipap overnight. Pt. seen and examined today in nad. states she was at home when her sob returned while sitting at rest. denies any pnd, orthopnea, or LE edema. states that she was urinating "a lot" at home. no chest pain or palpitations. - Current Medication List Current Medications: Active Medications Albuterol Sulfate (Ventolin 0.083% Nebulizer Soln -) 1 amp NEB Q1H PRN PRN Reason: SHORT OF BREATH/WHEEZING Albuterol/Ipratropium (Duoneb -) 1 amp NEB QIDR [facility] Last Admin: 06/21/16 06:44 Dose: 1 amp Atenolol (Tenormin -) 50 mg PO DAILY [facility] Last Admin: 06/21/16 09:27 Dose: 50 mg Atorvastatin Calcium (Lipitor -) 80 mg PO HS [facility] Clonidine (Catapres -) 0.1 mg PO BID [facility] Last Admin: 06/21/16 09:27 Dose: 0.1 mg Insulin Aspart (Novolog Vial Sliding Scale -) 1 vial SQ TIDAC [facility] PRN Reason: Protocol Last Admin: 06/21/16 06:45 Dose: 4 units Methylprednisolone Sodium Succinate (Solu-Medrol -) 40 mg IVPB Q6H-IV [facility] Last Admin: 06/21/16 09:27 Dose: 40 mg Nifedipine (Procardia Xl -) 30 mg PO BID [facility] Last Admin: 06/21/16 09:27 Dose: 30 mg Nitroglycerin (Tridil Injection -) 10 mcg IVPB TITR [facility] Last Admin: 06/20/16 23:41 Dose: 10 mcg - Objective Vital Signs: Vital Signs Temperature 97.4 F L 06/21/16 10:00 Pulse Rate 62 06/21/16 10:15 Respiratory Rate 19 06/21/16 10:00 Blood Pressure 195/79 06/21/16 10:00 O2 Sat by Pulse Oximetry (%) 94 L 06/21/16 10:15 Constitutional: Yes: No Distress, Calm Eyes: Yes: Conjunctiva Clear, EOM Intact, PERRL HENT: Yes: Atraumatic, Normocephalic Neck: Yes: Supple, Trachea Midline Cardiovascular: Yes: Regular Rate and Rhythm, Murmur, S1, S2. No: Bradycardia, Tachycardia, Pulse Irregular, Bruit, JVD, Gallop, Rub, S3, S4, Varicosities Respiratory: Yes: Regular, On BiPap, Rhonchi, Other (crackles). No: Rales Gastrointestinal: Yes: Normal Bowel Sounds, Soft. No: Distention, Tenderness Extremities: Yes: WNL Edema: No Peripheral Pulses WNL: Yes Peripheral Pulses: Left Doralis Pedis: 2+, Right Dorsalis Pedis: 2+ Integumentary: Yes: WNL Neurological: Yes: Alert, Oriented Psychiatric: Yes: Alert, Oriented Labs: CBC, BMP 06/21/16 02:00 INR, PTT INR 1.49 (0.82-1.09) H 06/21/16 02:00 Fibrinogen 473.0 mg/dL (238-498) 06/21/16 02:00 - ....Imaging Chest X-ray: Report Reviewed, Image Reviewed EKG: Report Reviewed, Image Reviewed Other: Report Reviewed, Image Reviewed (tele-nsr, pafib on prior admission) Assessment/Plan Readmitted with SOB and hypoxia Does not appear significantly volume overloaded on exam Reports urinating a lot at home despite not being on a diuretic Concern for Interstitial lung disease with possible superimposed mild pulm edema secondary to uncontrolled HTN however does not appear to be systemically volume overloaded Recent admission treated for below conditions PNA Chronic diastolic CHF NSVT PAF CKD REC: Would not aggressively diurese as clinically not significantly volume overloaded and will likely lead to intravascular depletion and rising bun/creat HTN control Pulmonary evaluation Stress MIBI recent admission showed no ischemia and normal EF Echo 06/2016 showed normal LV systolic function, no pericardial effusion, no sig valvular abnl, unable to calculate RVSP Paroxysmal afib recently dx, was started on eliquis, hold eliquis for now for possible HD catheter insertion, start heparin gtt and plan to resume eliquis if not procedures done Cont current Atenolol dose, tolerated sinus bradycardia with no further episodes of pafib recorded on last admission
--- NOTE | 2016-06-21 10:38 | CONSULT ---
Consult - text type - Consultation Consultation Note: Renal Consult for SHAYY on CKD This is a 75 year old woman with PMhx of CKD Stage 4, Hypertension (>40 years), Asthma, Osteoarthritis, Former Smoker who presented from [facility] with 1 day history of sob. Pt states that she had sob while at rest. Denies any [place], LE swelling, orthopnea, PND. Pt denies eating high salt meals, NSAID use. Was not on diuretics on discharge from prior admission. Reports good urine output. No flank pain, abd pain, chest pain, N/V/D. No overt uremic symptoms. Pt is currently in the ICU on BIPAP. PMhx: as above Allergies: PCN Social Hx: Former smoker ROS: as per HPI Home Meds: Home Medications Medication Instructions Recorded Albuterol 2.5/Ipratropium 0.5 1 amp NEB Q6H PRN #0 amp 06/16/16 [Duoneb -] Apixaban [Eliquis -] 5 mg PO BID tablet 06/16/16 Atenolol [Tenormin -] 50 mg PO DAILY tablet 06/16/16 Clonidine HCl [Catapres -] 0.1 mg PO BID tablet 06/16/16 Levofloxacin [Levaquin -] 500 mg PO Q2D@0600 tablet 06/16/16 Nifedipine ER [Procardia XL -] 30 mg PO BID 06/16/16 Prednisone See Taper PO DAILY #30 tablet 06/16/16 Sodium Bicarbonate - 650 mg PO DAILY tablet 06/16/16 Omeprazole 20 mg PO DAILY 06/20/16 Vital Signs Temperature 97.4 F L 06/21/16 10:00 Pulse Rate 62 06/21/16 10:15 Respiratory Rate 19 06/21/16 10:00 Blood Pressure 195/79 06/21/16 10:00 O2 Sat by Pulse Oximetry (%) 94 L 06/21/16 10:15 Gen: NAD, awake and alert HEENT: NC/AT, MMM, No JVD, Neck Supple CVS: RRR, No M/R Lungs : + diffuse crackles b/l lugn silverman Abd: soft NT/ND Ext: trace to 1+ edema in B/L LE, no cyanosis or clubbing Neuro: No focal defects CBC, BMP 06/20/16 20:00 06/21/16 02:00 Laboratory Tests 06/21/16 06/21/16 02:00 02:00 Lactic Acid 2.831 H* Calcium 7.6 L Phosphorus 3.8 Troponin I 0.06 H Albumin 1.9 L Total LDL Cholesterol 68 Current Medications Albuterol Sulfate (Ventolin 0.083% Nebulizer Soln -) 1 amp NEB Q1H PRN PRN Reason: SHORT OF BREATH/WHEEZING Albuterol/Ipratropium (Duoneb -) 1 amp NEB QIDR [facility] Last Admin: 06/21/16 06:44 Dose: 1 amp Atenolol (Tenormin -) 50 mg PO DAILY [facility] Last Admin: 06/21/16 09:27 Dose: 50 mg Atorvastatin Calcium (Lipitor -) 80 mg PO HS [facility] Clonidine (Catapres -) 0.1 mg PO BID [facility] Last Admin: 06/21/16 09:27 Dose: 0.1 mg Insulin Aspart (Novolog Vial Sliding Scale -) 1 vial SQ TIDAC [facility] PRN Reason: Protocol Last Admin: 06/21/16 06:45 Dose: 4 units Methylprednisolone Sodium Succinate (Solu-Medrol -) 40 mg IVPB Q6H-IV [facility] Last Admin: 06/21/16 09:27 Dose: 40 mg Nifedipine (Procardia Xl -) 30 mg PO BID [facility] Last Admin: 06/21/16 09:27 Dose: 30 mg Nitroglycerin (Tridil Injection -) 10 mcg IVPB TITR [facility] Last Admin: 06/20/16 23:41 Dose: 10 mcg A/P 75 year old woman with PMhx of CKD Stage 4, Hypertension (>40 years), Asthma, Osteoarthritis, Former Smoker who presented from [facility] with 1 day history of sob. #CKD Stage 4/5 with subnephrotic proteinuria Renal function stable from discharge last admission pt reports good urine output No overt uremic symptoms, acidosis, hyperkalemia that would warrant emergent dialysis continue to monitor renal function BUN elevated due to renal failure + steroids Dose all meds for Cr Cl less then 15 if renal function worsens or if volume management becomes difficult to control may warrant dialysis this admission #SOB secondary to interstitial lung disease vs. PNA vs. CHF vs. Sarcoidosis CT showed interstitial lung disease s/p IV lasix yesterday Continue BIPAP as tolerated IV steroids Pulmonary and cardiology follow up Empiric Abx as per ICU Will check ACEi level to r/o sarcodosis Consider Rheum Eval #Hypertension ON Nitro gtt Titrate down as tolerated Continue Nifedpine 30mg BID (can increase dose if needed), Clonidine 0.1mg BID, Atenolol (monitor HR) Goal BP < 140/90 #Lactic acidosis continue to trend keep MAP > 65 O2 as needed PH is normal, no indication for bicarbonate Thank you will follow Raymundo Snyder DO
[2016-06-21] MEDS ORDERED: HEMOQUE TEST 1 EACH EACH ONE (12:24)
--- NOTE | 2016-06-21 12:24 | PN ---
Teaching Attending Note Name of Resident: Gino Stubbs ATTENDING PHYSICIAN STATEMENT I saw and evaluated the patient. I reviewed the resident's note and discussed the case with the resident. I agree with the resident's findings and plan as documented. SUBJECTIVE: Pt seen and examined in the ICU. Remains on BiPAP, states breathing slightly improved. No fevers or chills. +nonproductive cough. OBJECTIVE: Last Vital Signs Temp Pulse Resp BP Pulse Ox 97.9 F 60 20 146/56 94 L 06/21/16 11:00 06/21/16 11:00 06/21/16 11:00 06/21/16 11:00 06/21/16 10:15 Intake & Output 06/18/16 06/19/16 06/20/16 06/21/16 23:59 23:59 23:59 23:59 Intake Total 392 Output Total 700 Balance -308 Weight 222 lb 214 lb 9.6 oz Gen: tachypneic on BiPAP Heart: RRR Lung: bibasilar rales Abd: soft, nontender Ext: no edema CBC, BMP 06/20/16 20:00 06/21/16 02:00 ABG Results ABG pH 7.36 (7.35-7.45) 06/21/16 07:20 ABG pCO2 at Pt Temp 36.9 mmHg (35-45) 06/21/16 07:20 ABG pO2 at Pt Temp 60.9 mmHg (70-100) L D 06/21/16 07:20 ABG HCO3 20.3 meq/L (22-26) L 06/21/16 07:20 ABG O2 Sat (Measured) 90.9 % (90-98.9) 06/21/16 07:20 ABG O2 Content 13.8 % vol (15-22) L 06/21/16 07:20 ABG Base Excess -4.1 meq/l (-2-2) L 06/21/16 07:20 Active Medications Albuterol Sulfate (Ventolin 0.083% Nebulizer Soln -) 1 amp NEB Q1H PRN PRN Reason: SHORT OF BREATH/WHEEZING Albuterol/Ipratropium (Duoneb -) 1 amp NEB QIDR [facility] Last Admin: 06/21/16 11:02 Dose: 1 amp Atenolol (Tenormin -) 50 mg PO DAILY [facility] Last Admin: 06/21/16 09:27 Dose: 50 mg Atorvastatin Calcium (Lipitor -) 80 mg PO HS [facility] Clonidine (Catapres -) 0.1 mg PO BID [facility] Last Admin: 06/21/16 09:27 Dose: 0.1 mg Insulin Aspart (Novolog Vial Sliding Scale -) 1 vial SQ TIDAC [facility] PRN Reason: Protocol Last Admin: 06/21/16 06:45 Dose: 4 units Methylprednisolone Sodium Succinate (Solu-Medrol -) 40 mg IVPB Q6H-IV [facility] Last Admin: 06/21/16 09:27 Dose: 40 mg Nifedipine (Procardia Xl -) 30 mg PO BID [facility] Last Admin: 06/21/16 09:27 Dose: 30 mg Nitroglycerin (Tridil Injection -) 10 mcg IVPB TITR [facility] Last Admin: 06/20/16 23:41 Dose: 10 mcg ASSESSMENT AND PLAN: Acute Hypoxic Respiratory Failure Suspect Exacerbation of underlying Interstitial Lung Disease Lactic Acidosis likely from respiratory effort r/o Pneumonia r/o CHF HTN - send MOLLY, ARA level, ANCA, rheumatoid factor, anti-dsDNA, anti-CCP, ESR, CRP - increase medrol to 80mg q6h after above sent - inhaled bronchodilators - O2 to keep SpO2 >90% - taper off nitro gtt - BiPAP to assist in work of breathing - can monitor off antibiotics - monitor fever curve, WBC trend - when more stable will need dedicated CT chest noncontrast and may need biopsy - DVT/GI prophylaxis - monitor in ICU CCT 36'
[2016-06-21] MEDS ORDERED: HEPARIN NA (PORCINE) 5,000 UNITS/ML 1ML VIAL IVPUSH PRN ×2 (13:48)
--- NOTE | 2016-06-21 14:16 | PN ---
Progress Note (short form) - Note Progress Note: ID consult 75 year old female pmh htn, ckd admitted 06/05 to 06/26 for pneumonia/chf discharged to [place] on levaquin (started in hospital on 06/05) and steroid taper returns with worsening SOB and hypoxia cxray diffuse airspace changes required bipap overnight now comfortable on nasal [place]ulla former [employer] denies history of TB or positive PPD pet cats lived in [place] for five years no fevers or chills, no hemoptysis no nausea or vomiting no ETOH no steroids former smoker- stopped 50 years ago lives with her son has been trying to lose weight left TKR at [facility] last year 06/2015- RA pulse ox was 92 to 95% pen allergy bilateral infiltrates acute hypoxic respiratory failure ckd pen allergy now with worsening infiltrates worsening hypoxia leukocytosis- ?steroids thrombocytopenia (new) agree with w/u for vasculitis, pulmonary/renal syndrome add quant gold hiv testing (patient consents) histoplasma urinary antigen crypt antigen sputum culture fungal sputum culture would benefit from bronchoscopy/biopsy vancomycin based on levels azactam adjusted for renal failure treat for possible HCAP for now Problem List - Problems (1) Bilateral pulmonary infiltrates on CXR Code(s): R91.8 - OTHER NONSPECIFIC ABNORMAL FINDING OF LUNG FIELD (2) Acute respiratory failure with hypoxia Code(s): J96.01 - ACUTE RESPIRATORY FAILURE WITH HYPOXIA (3) CKD stage 4 secondary to hypertension Code(s): I12.9 - HYPERTENSIVE CHRONIC KIDNEY DISEASE W STG 1-4/UNSP CHR KDNY N18.4 - CHRONIC KIDNEY DISEASE, STAGE 4 (SEVERE) (4) Penicillin allergy Code(s): Z88.0 - ALLERGY STATUS TO PENICILLIN
[2016-06-21] MEDS: HEPARIN INFUSION - 500 ML IVPB SCH (14:39)
[2016-06-21 15:20] LABS: URINE CREATININE 25.3 mg/dL
--- NOTE | 2016-06-21 15:45 | PN ---
Physical Exam: SUBJECTIVE: Patient seen and examined OBJECTIVE: Vital Signs Period Temp Pulse Resp BP Sys/Hill Pulse Ox Last 24 Hr 96 F-97.9 F 52-72 18-28 140-197/56-97 86-100 GENERAL: The patient is awake, alert, and fully oriented, in no acute distress. HEAD: Normal with no signs of trauma. EYES: PERRL, extraocular movements intact, sclera anicteric, conjunctiva clear. No ptosis. ENT: Ears normal, nares patent, oropharynx clear without exudates, moist mucous membranes. NECK: Trachea midline, full range of motion, supple. LUNGS: Breath sounds equal, clear to auscultation bilaterally, no wheezes, no crackles, no accessory muscle use. HEART: Regular rate and rhythm, S1, S2 without murmur, rub or gallop. ABDOMEN: Soft, nontender, nondistended, normoactive bowel sounds, no guarding, no rebound, no hepatosplenomegaly, no masses. EXTREMITIES: 2+ pulses, warm, well-perfused, no edema. NEUROLOGICAL: Cranial nerves II through XII grossly intact. Normal speech, gait not observed. PSYCH: Normal mood, normal affect. SKIN: Warm, dry, normal turgor, no rashes or lesions noted Laboratory Results - last 24 hr 06/20/16 06/20/16 06/21/16 22:30 22:40 02:00 INR 1.49 H PTT (Actin FS) 30.1 D Fibrinogen 473.0 Puncture Site ABG pH ABG pCO2 at Pt Temp ABG pO2 at Pt Temp ABG HCO3 ABG O2 Sat (Measured) ABG O2 Content ABG Base Excess Sree Test O2 Delivery Device Oxygen Flow Rate Vent Mode Vent Rate Mechanical Rate PEEP Pressure Support Vent Sodium Potassium Chloride Carbon Dioxide Anion Gap BUN Creatinine Creat Clearance w eGFR POC Glucometer Random Glucose Hemoglobin A1c % Lactic Acid 2.188 H* Calcium Phosphorus Magnesium Total Bilirubin AST ALT Alkaline Phosphatase Creatine Kinase Troponin I Total Protein Albumin Triglycerides Cholesterol Total LDL Cholesterol HDL Cholesterol Total Amylase 162 H Lipase U Random Total Protein Ur Random Sodium Ur Random Potassium Ur Random Chloride Ur Random Urea Nitrogn Urine Creatinine Random Vancomycin 06/21/16 06/21/16 06/21/16 02:00 02:00 02:00 INR PTT (Actin FS) Fibrinogen Puncture Site ABG pH ABG pCO2 at Pt Temp ABG pO2 at Pt Temp ABG HCO3 ABG O2 Sat (Measured) ABG O2 Content ABG Base Excess Sree Test O2 Delivery Device Oxygen Flow Rate Vent Mode Vent Rate Mechanical Rate PEEP Pressure Support Vent Sodium 142 Potassium 5.5 H Chloride 110 H Carbon Dioxide 23 Anion Gap 9 BUN 91 H Creatinine 3.5 H Creat Clearance w eGFR 12.80 POC Glucometer Random Glucose 311 H* Hemoglobin A1c % Lactic Acid 2.831 H* Calcium 7.6 L Phosphorus 3.8 Magnesium 2.7 H D Total Bilirubin 0.3 AST 18 ALT 18 Alkaline Phosphatase 43 L Creatine Kinase 54 Cancelled Troponin I 0.06 H Cancelled Total Protein 5.7 L Albumin 1.9 L Triglycerides 84 Cholesterol 189 Total LDL Cholesterol 68 HDL Cholesterol 80 H Total Amylase Lipase U Random Total Protein Ur Random Sodium Ur Random Potassium Ur Random Chloride Ur Random Urea Nitrogn Urine Creatinine Random Vancomycin 06/21/16 06/21/16 06/21/16 02:00 02:00 03:14 INR PTT (Actin FS) Fibrinogen Puncture Site ABG pH ABG pCO2 at Pt Temp ABG pO2 at Pt Temp ABG HCO3 ABG O2 Sat (Measured) ABG O2 Content ABG Base Excess Sree Test O2 Delivery Device Oxygen Flow Rate Vent Mode Vent Rate Mechanical Rate PEEP Pressure Support Vent Sodium Potassium Chloride Carbon Dioxide Anion Gap BUN Creatinine Creat Clearance w eGFR POC Glucometer [phone] Random Glucose Hemoglobin A1c % 6.7 H Lactic Acid Calcium Phosphorus Magnesium Total Bilirubin AST ALT Alkaline Phosphatase Creatine Kinase Troponin I Total Protein Albumin Triglycerides Cancelled Cholesterol Cancelled Total LDL Cholesterol Cancelled HDL Cholesterol Cancelled Total Amylase Lipase U Random Total Protein Ur Random Sodium Ur Random Potassium Ur Random Chloride Ur Random Urea Nitrogn Urine Creatinine Random Vancomycin 06/21/16 06/21/16 06/21/16 05:00 05:00 05:15 INR PTT (Actin FS) Fibrinogen Puncture Site ABG pH ABG pCO2 at Pt Temp ABG pO2 at Pt Temp ABG HCO3 ABG O2 Sat (Measured) ABG O2 Content ABG Base Excess Sree Test O2 Delivery Device Oxygen Flow Rate Vent Mode Vent Rate Mechanical Rate PEEP Pressure Support Vent Sodium Potassium Chloride Carbon Dioxide Anion Gap BUN Creatinine Creat Clearance w eGFR POC Glucometer [phone] Random Glucose Hemoglobin A1c % Lactic Acid Calcium Phosphorus Magnesium Total Bilirubin AST ALT Alkaline Phosphatase Creatine Kinase Troponin I Total Protein Albumin Triglycerides Cholesterol Total LDL Cholesterol HDL Cholesterol Total Amylase Lipase 589 H U Random Total Protein Ur Random Sodium Ur Random Potassium Ur Random Chloride Ur Random Urea Nitrogn Urine Creatinine Random Vancomycin 17.115 06/21/16 06/21/16 06/21/16 07:20 12:00 12:00 INR PTT (Actin FS) Fibrinogen Puncture Site Right radial ABG pH 7.36 ABG pCO2 at Pt Temp 36.9 ABG pO2 at Pt Temp 60.9 L D ABG HCO3 20.3 L ABG O2 Sat (Measured) 90.9 ABG O2 Content 13.8 L ABG Base Excess -4.1 L Sree Test Positive O2 Delivery Device Bipap Oxygen Flow Rate 45% Vent Mode S/t Vent Rate 12 Mechanical Rate Bipap PEEP 0.0 Pressure Support Vent 14/6 Sodium Potassium Chloride Carbon Dioxide Anion Gap BUN Creatinine Creat Clearance w eGFR POC Glucometer Random Glucose Hemoglobin A1c % Lactic Acid Calcium Phosphorus Magnesium Total Bilirubin AST ALT Alkaline Phosphatase Creatine Kinase Troponin I Total Protein Albumin Triglycerides Cholesterol Total LDL Cholesterol HDL Cholesterol Total Amylase Lipase U Random Total Protein 144 H Ur Random Sodium Cancelled 96 Ur Random Potassium 21.4 Ur Random Chloride 112 Ur Random Urea Nitrogn 400 Urine Creatinine 25.3 Random Vancomycin 06/21/16 06/21/16 06/21/16 12:00 12:00 12:27 INR PTT (Actin FS) Fibrinogen Puncture Site ABG pH ABG pCO2 at Pt Temp ABG pO2 at Pt Temp ABG HCO3 ABG O2 Sat (Measured) ABG O2 Content ABG Base Excess Sree Test O2 Delivery Device Oxygen Flow Rate Vent Mode Vent Rate Mechanical Rate PEEP Pressure Support Vent Sodium Potassium Chloride Carbon Dioxide Anion Gap BUN Creatinine Creat Clearance w eGFR POC Glucometer [phone] Random Glucose Hemoglobin A1c % Lactic Acid Calcium Phosphorus Magnesium Total Bilirubin AST ALT Alkaline Phosphatase Creatine Kinase Troponin I Total Protein Albumin Triglycerides Cholesterol Total LDL Cholesterol HDL Cholesterol Total Amylase Lipase U Random Total Protein Cancelled Ur Random Sodium Ur Random Potassium Ur Random Chloride Ur Random Urea Nitrogn Urine Creatinine Cancelled Random Vancomycin Active Medications Generic Name Dose Route Start Last Admin Trade Name Freq PRN Reason Stop Dose Admin Albuterol Sulfate 1 amp 06/21/16 01:00 Ventolin 0.083% Nebulizer Soln - NEB Q1H PRN SHORT OF BREATH/WHEEZING Albuterol/Ipratropium 1 amp 06/21/16 06:00 06/21/16 11:02 Duoneb - NEB 1 amp QIDR JOANNE Administration Atenolol 50 mg 06/21/16 10:00 06/21/16 09:27 Tenormin - PO 50 mg DAILY JOANNE Administration Atorvastatin Calcium 80 mg 06/21/16 22:00 Lipitor - PO HS JOANNE Clonidine 0.1 mg 06/21/16 10:00 06/21/16 09:27 Catapres - PO 0.1 mg BID JOANNE Administration Heparin Sodium (Porcine) 1,000 unit 06/21/16 13:48 Heparin - IVPUSH PRN PRN Heparin Heparin Sodium (Porcine) 5,000 unit 06/21/16 13:48 Heparin - IVPUSH PRN PRN Heparin Heparin Sodium/Dextrose 500 mls @ 20 mls/hr 06/21/16 14:00 06/21/16 14:39 Heparin Infusion - IVPB 20 mls/hr TITR JOANNE Administration Protocol 1,000 UNITS/HR Aztreonam 1 gm/ Dextrose 50 mls @ 100 mls/hr 06/21/16 14:30 IVPB BID [facility] Protocol Insulin Aspart 1 vial 06/21/16 07:00 06/21/16 12:43 Novolog Vial Sliding Scale - SQ 2 units TIDAC [facility] Administration Protocol Methylprednisolone Sodium Succinate 80 mg 06/21/16 13:45 06/21/16 14:48 Solu-Medrol - IVPB 80 mg Q6H-IV [facility] Administration Nifedipine 30 mg 06/21/16 10:00 06/21/16 09:27 Procardia Xl - PO 30 mg BID [facility] Administration ASSESSMENT/PLAN:
--- NOTE | 2016-06-21 15:46 | CONSULT ---
Consultation: REQUESTING PROVIDER: CONSULT REQUEST: We have been asked to medically evaluate this patient for ( specify). HISTORY OF PRESENT ILLNESS: Pt is a 75yr old woman with PMHx of COPD/Asthma, HTN , HLD, and CKD , left eye glaucoma and rt eye cataract. She was admitted 06/05- for pneumonia and was discharged to [facility] on 2-3 L oxygen, steroid and levoflox. Pt came back to ED with a complaint of SOB and unable to maintain saturation. In ED patient recieved levaquin, linezolid, aztreonam. In ICU patient recieved vanco Patient was started on bipap in ed. 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 Tuberculois and HIv patients Patient has also lived in [place] and [place] REVIEW OF SYSTEMS: CONSTITUTIONAL: Absent: fever, chills, diaphoresis, generalized weakness, malaise, HEENT: Absent: rhinorrhea, nasal congestion, throat pain, throat swelling, CARDIOVASCULAR: Absent: chest pain, syncope, palpitations, irregular heart rate, lightheadedness , peripheral edema RESPIRATORY: Absent: cough, shortness of breath,, wheezing, stridor, hemoptysis GASTROINTESTINAL: Absent: abdominal pain, abdominal distension, nausea, vomiting, diarrhea, constipation GENITOURINARY: Absent: dysuria, frequency, urgency, hesitancy, hematuria, flank pain, genital pain SKIN: Absent: rash, itching, pallor HEMATOLOGIC/IMMUNOLOGIC: Absent: easy bleeding, easy bruising, PSYCHIATRIC: Absent: anxiety, depression, PHYSICAL EXAMINATION Vital Signs - 24 hr 06/20/16 06/20/16 06/21/16 22:25 23:06 00:10 Temperature Pulse Rate Pulse Rate [ 66 62 Apical] Respiratory 27 H 28 H Rate Blood Pressure Blood Pressure 164/67 162/74 [Left Arm] O2 Sat by Pulse 99 98 Oximetry (%) 06/21/16 06/21/16 06/21/16 00:15 01:05 02:16 Temperature 96.7 F L Pulse Rate 72 58 L 52 L Pulse Rate [ Apical] Respiratory 27 H 20 18 Rate Blood Pressure 184/72 162/74 143/70 Blood Pressure [Left Arm] O2 Sat by Pulse 100 Oximetry (%) 06/21/16 06/21/16 06/21/16 02:35 04:00 06:21 Temperature 96 F L Pulse Rate 63 63 Pulse Rate [ Apical] Respiratory 22 25 H Rate Blood Pressure 172/75 161/80 Blood Pressure [Left Arm] O2 Sat by Pulse 98 Oximetry (%) 06/21/16 06/21/16 06/21/16 06:43 08:00 09:00 Temperature Pulse Rate 63 Pulse Rate [ Apical] Respiratory 23 Rate Blood Pressure 180/97 Blood Pressure [Left Arm] O2 Sat by Pulse 98 94 L 94 L Oximetry (%) 06/21/16 06/21/16 06/21/16 09:01 10:00 10:15 Temperature 97.4 F L Pulse Rate 63 59 L 62 Pulse Rate [ Apical] Respiratory 20 19 Rate Blood Pressure 197/79 195/79 Blood Pressure [Left Arm] O2 Sat by Pulse 94 L Oximetry (%) 06/21/16 06/21/16 06/21/16 11:00 12:00 12:46 Temperature 97.9 F Pulse Rate 60 56 L Pulse Rate [ Apical] Respiratory 20 19 Rate Blood Pressure 146/56 140/59 Blood Pressure [Left Arm] O2 Sat by Pulse 86 L Oximetry (%) 06/21/16 14:00 Temperature 97.8 F Pulse Rate 60 Pulse Rate [ Apical] Respiratory 26 H Rate Blood Pressure 149/69 Blood Pressure [Left Arm] O2 Sat by Pulse Oximetry (%) GENERAL: Awake, alert, and fully oriented, in no acute distress. HEAD: Normal with no signs of trauma. EYES: , extraocular movements intact, sclera anicteric, conjunctiva clear. No lid lag. EARS, NOSE, THROAT: Ears normal, nares patent, oropharynx clear without exudates. Moist mucous membranes. NECK: Normal range of motion, supple without lymphadenopathy, LUNGS: Breath sounds equal, clear to auscultation bilaterally. No wheezes, and mild crackles in b/l basal area.. No accessory muscle use. HEART:s1s2 normal, regular ABDOMEN: Soft, nontender, not distended, normoactive bowel sounds, no guarding, no rebound, no masses. UPPER EXTREMITIES: 2+ pulses, warm, well-perfused. No cyanosis. No clubbing. LOWER EXTREMITIES: 2+ pulses, warm, well-perfused. No calf tenderness. peripheral edema 1+ NEUROLOGICAL: Cranial nerves II-XII intact. Normal speech. gait not observed PSYCHIATRIC: Cooperative. Good eye contact. Appropriate mood and affect. SKIN: Warm, dry, normal turgor, Laboratory Results - last 24 hr 06/20/16 06/20/16 06/21/16 22:30 22:40 02:00 INR 1.49 H PTT (Actin FS) 30.1 D Fibrinogen 473.0 Puncture Site ABG pH ABG pCO2 at Pt Temp ABG pO2 at Pt Temp ABG HCO3 ABG O2 Sat (Measured) ABG O2 Content ABG Base Excess Sree Test O2 Delivery Device Oxygen Flow Rate Vent Mode Vent Rate Mechanical Rate PEEP Pressure Support Vent Sodium Potassium Chloride Carbon Dioxide Anion Gap BUN Creatinine Creat Clearance w eGFR POC Glucometer Random Glucose Hemoglobin A1c % Lactic Acid 2.188 H* Calcium Phosphorus Magnesium Total Bilirubin AST ALT Alkaline Phosphatase Creatine Kinase Troponin I Total Protein Albumin Triglycerides Cholesterol Total LDL Cholesterol HDL Cholesterol Total Amylase 162 H Lipase U Random Total Protein Ur Random Sodium Ur Random Potassium Ur Random Chloride Ur Random Urea Nitrogn Urine Creatinine Random Vancomycin 06/21/16 06/21/16 06/21/16 02:00 02:00 02:00 INR PTT (Actin FS) Fibrinogen Puncture Site ABG pH ABG pCO2 at Pt Temp ABG pO2 at Pt Temp ABG HCO3 ABG O2 Sat (Measured) ABG O2 Content ABG Base Excess Sree Test O2 Delivery Device Oxygen Flow Rate Vent Mode Vent Rate Mechanical Rate PEEP Pressure Support Vent Sodium 142 Potassium 5.5 H Chloride 110 H Carbon Dioxide 23 Anion Gap 9 BUN 91 H Creatinine 3.5 H Creat Clearance w eGFR 12.80 POC Glucometer Random Glucose 311 H* Hemoglobin A1c % Lactic Acid 2.831 H* Calcium 7.6 L Phosphorus 3.8 Magnesium 2.7 H D Total Bilirubin 0.3 AST 18 ALT 18 Alkaline Phosphatase 43 L Creatine Kinase 54 Cancelled Troponin I 0.06 H Cancelled Total Protein 5.7 L Albumin 1.9 L Triglycerides 84 Cholesterol 189 Total LDL Cholesterol 68 HDL Cholesterol 80 H Total Amylase Lipase U Random Total Protein Ur Random Sodium Ur Random Potassium Ur Random Chloride Ur Random Urea Nitrogn Urine Creatinine Random Vancomycin 06/21/16 06/21/16 06/21/16 02:00 02:00 03:14 INR PTT (Actin FS) Fibrinogen Puncture Site ABG pH ABG pCO2 at Pt Temp ABG pO2 at Pt Temp ABG HCO3 ABG O2 Sat (Measured) ABG O2 Content ABG Base Excess Sree Test O2 Delivery Device Oxygen Flow Rate Vent Mode Vent Rate Mechanical Rate PEEP Pressure Support Vent Sodium Potassium Chloride Carbon Dioxide Anion Gap BUN Creatinine Creat Clearance w eGFR POC Glucometer [phone] Random Glucose Hemoglobin A1c % 6.7 H Lactic Acid Calcium Phosphorus Magnesium Total Bilirubin AST ALT Alkaline Phosphatase Creatine Kinase Troponin I Total Protein Albumin Triglycerides Cancelled Cholesterol Cancelled Total LDL Cholesterol Cancelled HDL Cholesterol Cancelled Total Amylase Lipase U Random Total Protein Ur Random Sodium Ur Random Potassium Ur Random Chloride Ur Random Urea Nitrogn Urine Creatinine Random Vancomycin 06/21/16 06/21/16 06/21/16 05:00 05:00 05:15 INR PTT (Actin FS) Fibrinogen Puncture Site ABG pH ABG pCO2 at Pt Temp ABG pO2 at Pt Temp ABG HCO3 ABG O2 Sat (Measured) ABG O2 Content ABG Base Excess Sree Test O2 Delivery Device Oxygen Flow Rate Vent Mode Vent Rate Mechanical Rate PEEP Pressure Support Vent Sodium Potassium Chloride Carbon Dioxide Anion Gap BUN Creatinine Creat Clearance w eGFR POC Glucometer [phone] Random Glucose Hemoglobin A1c % Lactic Acid Calcium Phosphorus Magnesium Total Bilirubin AST ALT Alkaline Phosphatase Creatine Kinase Troponin I Total Protein Albumin Triglycerides Cholesterol Total LDL Cholesterol HDL Cholesterol Total Amylase Lipase 589 H U Random Total Protein Ur Random Sodium Ur Random Potassium Ur Random Chloride Ur Random Urea Nitrogn Urine Creatinine Random Vancomycin 17.115 06/21/16 06/21/16 06/21/16 07:20 12:00 12:00 INR PTT (Actin FS) Fibrinogen Puncture Site Right radial ABG pH 7.36 ABG pCO2 at Pt Temp 36.9 ABG pO2 at Pt Temp 60.9 L D ABG HCO3 20.3 L ABG O2 Sat (Measured) 90.9 ABG O2 Content 13.8 L ABG Base Excess -4.1 L Sree Test Positive O2 Delivery Device Bipap Oxygen Flow Rate 45% Vent Mode S/t Vent Rate 12 Mechanical Rate Bipap PEEP 0.0 Pressure Support Vent 14/6 Sodium Potassium Chloride Carbon Dioxide Anion Gap BUN Creatinine Creat Clearance w eGFR POC Glucometer Random Glucose Hemoglobin A1c % Lactic Acid Calcium Phosphorus Magnesium Total Bilirubin AST ALT Alkaline Phosphatase Creatine Kinase Troponin I Total Protein Albumin Triglycerides Cholesterol Total LDL Cholesterol HDL Cholesterol Total Amylase Lipase U Random Total Protein 144 H Ur Random Sodium Cancelled 96 Ur Random Potassium 21.4 Ur Random Chloride 112 Ur Random Urea Nitrogn 400 Urine Creatinine 25.3 Random Vancomycin 06/21/16 06/21/16 06/21/16 12:00 12:00 12:27 INR PTT (Actin FS) Fibrinogen Puncture Site ABG pH ABG pCO2 at Pt Temp ABG pO2 at Pt Temp ABG HCO3 ABG O2 Sat (Measured) ABG O2 Content ABG Base Excess Sree Test O2 Delivery Device Oxygen Flow Rate Vent Mode Vent Rate Mechanical Rate PEEP Pressure Support Vent Sodium Potassium Chloride Carbon Dioxide Anion Gap BUN Creatinine Creat Clearance w eGFR POC Glucometer [phone] Random Glucose Hemoglobin A1c % Lactic Acid Calcium Phosphorus Magnesium Total Bilirubin AST ALT Alkaline Phosphatase Creatine Kinase Troponin I Total Protein Albumin Triglycerides Cholesterol Total LDL Cholesterol HDL Cholesterol Total Amylase Lipase U Random Total Protein Cancelled Ur Random Sodium Ur Random Potassium Ur Random Chloride Ur Random Urea Nitrogn Urine Creatinine Cancelled Random Vancomycin Active Medications Generic Name Dose Route Start Last Admin Trade Name Freq PRN Reason Stop Dose Admin Albuterol Sulfate 1 amp 06/21/16 01:00 Ventolin 0.083% Nebulizer Soln - NEB Q1H PRN SHORT OF BREATH/WHEEZING Albuterol/Ipratropium 1 amp 06/21/16 06:00 06/21/16 11:02 Duoneb - NEB 1 amp QIDR JOANNE Administration Atenolol 50 mg 06/21/16 10:00 06/21/16 09:27 Tenormin - PO 50 mg DAILY JOANNE Administration Atorvastatin Calcium 80 mg 06/21/16 22:00 Lipitor - PO HS JOANNE Clonidine 0.1 mg 06/21/16 10:00 06/21/16 09:27 Catapres - PO 0.1 mg BID JOANNE Administration Heparin Sodium (Porcine) 1,000 unit 06/21/16 13:48 Heparin - IVPUSH PRN PRN Heparin Heparin Sodium (Porcine) 5,000 unit 06/21/16 13:48 Heparin - IVPUSH PRN PRN Heparin Heparin Sodium/Dextrose 500 mls @ 20 mls/hr 06/21/16 14:00 06/21/16 14:39 Heparin Infusion - IVPB 20 mls/hr TITR JOANNE Administration Protocol 1,000 UNITS/HR Aztreonam 1 gm/ Dextrose 50 mls @ 100 mls/hr 06/21/16 14:30 IVPB BID JOANNE Protocol Insulin Aspart 1 vial 06/21/16 07:00 06/21/16 12:43 Novolog Vial Sliding Scale - SQ 2 units TIDAC [facility] Administration Protocol Methylprednisolone Sodium Succinate 80 mg 06/21/16 13:45 06/21/16 14:48 Solu-Medrol - IVPB 80 mg Q6H-IV JOANNE Administration Nifedipine 30 mg 06/21/16 10:00 06/21/16 09:27 Procardia Xl - PO 30 mg BID JOANNE Administration ABG Results ABG pH 7.36 (7.35-7.45) 06/21/16 07:20 ABG pCO2 at Pt Temp 36.9 mmHg (35-45) 06/21/16 07:20 ABG pO2 at Pt Temp 60.9 mmHg (70-100) L D 06/21/16 07:20 ABG HCO3 20.3 meq/L (22-26) L 06/21/16 07:20 ABG O2 Sat (Measured) 90.9 % (90-98.9) 06/21/16 07:20 ABG O2 Content 13.8 % vol (15-22) L 06/21/16 07:20 ABG Base Excess -4.1 meq/l (-2-2) L 06/21/16 07:20 ASSESSMENT/PLAN: Acute Hypoxic Respiratory Failure could be due to rapid progression of interstial lung ds. could be due to infective process, as in old admissions patient was maintaining a saturation on room air. ( could be HIV, TB, fungal) ordered phan, panca, canca, ds dna, anti ccp, rf, anti gbm ordered quantiferon gold, hiv, sputum culture, urine histoplasma, cryptococcal antigen mainatian spo2 over 90 on BIPAP increase solumedrol to 80mh q 6h BNP could be elevated from interstial lung ds stress test in last admission negative, EF 61 ECHO in last admission no RV dilatation. Lactic acidosis can be elevated from hypoxia lpatient less likely has chf, clinically patient doesn't appear to be in fluid overload. antibiotic as per ID. on duneb qidr HTN taper nitro drip start on home meds atenolol, nifedipine and clonidine. Lactic acidosis could be elevated from hypoxia. Paroxysmal afib recently diagnosed, was started on eliquis on discharge, will hold eliquis for now for possible HD catheter insertion, start heparin drip. follow stool for occult monitor aptt cardiology on case ckd cpuld be from renalpulmonary syndrome monitor cr and bun avoid nephrotoxic drugs subnephrotic proteinuria high blood glucose secondary to steroid monitor bgm on insulin sliding scale UTI urine wbc 47, LE 3+ on vanco and aztrenam follow uc fluid : orally allowed electrolyte: hyperkalemia, repeat in am nutrition; diabetic + renal diet dvt pro: on heparin drip Dispo: admit in icu. Visit type - Emergency Visit Emergency Visit: Yes ED Registration Date: 06/20/16 Care time: The patient presented to the Emergency Department on the above date and was hospitalized for further evaluation of their emergent condition. - New Patient This patient is new to me today: Yes Date on this admission: 06/21/16 - Critical Care Critical Care patient: Yes Total Critical Care Time (in minutes): 45 Critical Care Statement: The care of this patient involved high complexity decision making to prevent further life threatening deterioration of the patient 's condition and/or to evalute & treat vital organ system(s) failure or risk of failure.
[2016-06-21] MEDS: AZTREONAM 1 GM in DEXTROSE 5%-WATER - 50 ML IVPB SCH ×2 (16:52→22:31)
[2016-06-21 17:26] LABS: CALCIUM 7.9 mg/dL (8.5-10.1); CREATININE 3.4 mg/dL (0.55-1.02)
--- NOTE | 2016-06-21 18:00 | CONS ---
DATE OF CONSULTATION: DATE OF DICTATION: 06/21/2016 INFECTIOUS DISEASE CONSULTATION HISTORY OF PRESENT ILLNESS: This is a 75-year-old woman with a past medical history of COPD, hypertension, chronic kidney disease. 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 She was in the hospital recently from 06/05 to 06/15. At that time, she was felt to have pneumonia. She was treated with Levaquin, which she started on the . She was discharged on Levaquin as well. She was seen by cardiology for chest pain, which resolved. She had chronic hypertension, and she had gryod-[id number] kidney disease, creatinine was 2.4 in 2015, and on discharge was 3.5. She was re-admitted on from the alf with worsening shortness of breath and hypoxia. Patient required BiPAP overnight, currently she is awake and alert on nasal cannula. She denies any hemoptysis. She has had no fevers or chills. She notes that she had worsening of her shortness of breath yesterday which precipitated the emergency room visit. She reports having had left knee replacement 1 year ago without any complications at [facility]. She has no history of recent travel, although she did live in [place] for 5 years about 10 years ago. She currently lives with her son. 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 She denies any history of tuberculosis or positive PPD. She has never been HIV tested. ALLERGIES: She is allergic to PENICILLIN and EGGS; the EGGS she says give her a rash around her mouth, and PENICILLIN she is unclear of the allergy. She states she had pneumonia at age 21 and had a reaction to PENICILLIN at that time, which she reports as mild. MEDICATION: At the alf include Eliquis, atenolol, clonidine, nifedipine, omeprazole, sodium bicarbonate, levofloxacin, prednisone taper, and nebulizer treatment. FAMILY HISTORY: Noncontributory. 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 She had 4 children, 1 of whom is . Former cigarette smoker. She stopped smoking 50 years ago. REVIEW OF SYSTEMS: She has been trying to lose weight. She has had no fevers or chills. She has had no hemoptysis. She coughs occasionally with yellow sputum . She has had no nausea, vomiting, diarrhea, or dysuria. PHYSICAL EXAMINATION: Vital signs: Temperature 97.8, pulse 60, blood pressure 149/69, respiratory rate 26. She is saturating 88% on 5 L. HEENT: Normocephalic. Eyes are anicteric. She has no thrush. She has poor dentition on her lower teeth. Neck: Supple. She has no adenopathy. Lungs: Scattered rhonchi throughout. Heart: Regular rate and rhythm. Abdomen: Soft, nontender. Extremities: Without edema. She has multiple bruises on her arms, she states from IV attempts. LABORATORY: Her white count last night was 16,000, hemoglobin 11.8, platelets 111. Her ABG shows a pO2 of 16 on 45%. Her BUN and creatinine are 91 and 3.5 with glucose of 311, and her LFTs are normal. BNP was 15,000. Her urinalysis is noticeable for 3+ leukocyte esterase with 47 white cells and moderate bacteria, and her influenza screen in the emergency room was negative . Blood culture, urine cultures pending. She received vancomycin, Levaquin, and Azactam as well as linezolid overnight. X-ray of the chest shows bilateral interstitial airspace disease, and she had a CAT scan of her abdomen and pelvis, she was sent for an elevated lipase, that shows severe pulmonary fibrosis, rule out superimposed infiltrates, gallbladder sludge, renal scarring, enlarged uterus. IMPRESSION: In summary, this is a 75-year-old woman with bilateral infiltrates, acute hypoxic respiratory failure, CKD, now with worsening infiltrates and hypoxia, leukocytosis which may be secondary to steroids, thrombocytopenia, which appears new. I would agree with workup for vasculitis and pulmonary renal syndrome, as planned by the primary service. Would add a Quantiferon gold, HIV testing, patient has consented. A urinary histoplasma antigen and cryptococcal antigen, sputum cultures, fungal sputum cultures. She would benefit from a bronch core biopsy when stable. Will treat her at this tie with vancomycin based on levels and Azactam adjusted for renal failure. Overall prognosis is guarded. Case was discussed at length with the primary service. YADIEL HO M.D. ESTEFANIA/[id number]
--- NOTE | 2016-06-21 20:02 | CON.GI ---
Consult Consult Specialty:: GI Referred by:: Dr Camacho Reason for Consultation:: pancreatitis - History of Present Illness Chief Complaint: SOB History of Present Illness: 75 F with h/o HTN, HLD, COPD, sent from [place] with increased respiratory distress. Currently comfortable on BIPAP. I am called to evaluate increased pancreatic enzymes. She denies abdominal pain, N/V. - History Source History Provided By: Patient Limitations to Obtaining History: No Limitations - Past Medical History Cardio/Vascular: Yes: AFIB (PAF), HTN, Hyperlipdemia Pulmonary: Yes: COPD, Pneumonia Renal/: Yes: Renal Failure, Renal Inusuff ...: No - Alcohol/Substance Use Hx Alcohol Use: No - Smoking History Smoking history: Former smoker Have you smoked in the past 12 months: No If you are a former smoker, when did you quit?: 35 YEARS AGO Home Medications - Allergies Allergies/Adverse Reactions: Allergies Allergy/AdvReac Type Severity Reaction Status Date / Time egg Allergy Severe LIP Verified 06/20/16 19:49 SWELLING Penicillins Allergy Severe Rash Verified 06/20/16 19:49 FLU SHOT Allergy Uncoded 06/20/16 19:49 - Home Medications Home Medications: Ambulatory Orders Albuterol 2.5/Ipratropium 0.5 [Duoneb -] 1 amp NEB Q6H PRN #0 amp 06/16/16 Apixaban [Eliquis -] 5 mg PO BID tablet 06/16/16 Atenolol [Tenormin -] 50 mg PO DAILY tablet 06/16/16 Clonidine HCl [Catapres -] 0.1 mg PO BID tablet 06/16/16 Levofloxacin [Levaquin -] 500 mg PO Q2D@0600 tablet 06/16/16 Nifedipine ER [Procardia XL -] 30 mg PO BID 06/16/16 Prednisone See Taper PO DAILY #30 tablet 06/16/16 Sodium Bicarbonate - 650 mg PO DAILY tablet 06/16/16 Omeprazole 20 mg PO DAILY 06/20/16 Physical Exam-GI Vital Signs: Vital Signs Temperature 97.8 F 06/21/16 14:00 Pulse Rate 66 06/21/16 18:00 Respiratory Rate 24 06/21/16 18:00 Blood Pressure 158/68 06/21/16 18:00 O2 Sat by Pulse Oximetry (%) 96 06/21/16 16:27 Constitutional: Yes: Obese HENT: Yes: Normocephalic Cardiovascular: Yes: Regular Rate and Rhythm Respiratory: Yes: Diminished, On BiPap, SOB Gastrointestinal Inspection: Yes: WNL ...Auscultate: Yes: Normoactive Bowel Sounds ...Palpate: Yes: Soft. No: Tenderness Labs: CBC, BMP 06/21/16 16:00 INR, PTT INR 1.49 (0.82-1.09) H 06/21/16 02:00 Fibrinogen 473.0 mg/dL (238-498) 06/21/16 02:00 CBC, BMP 06/22/16 05:05 06/22/16 05:05 Hepatic Panel Total Bilirubin 0.4 mg/dL (0.2-1.0) D 06/22/16 05:05 AST 19 U/L (15-37) 06/22/16 05:05 ALT 15 U/L (12-78) 06/22/16 05:05 Alkaline Phosphatase 45 U/L (45-117) 06/22/16 05:05 Albumin 1.8 g/dl (3.4-5.0) L 06/22/16 05:05 Abnormal Lab Results 06/21/16 06/21/16 06/21/16 02:00 05:00 12:00 WBC Hgb MCV MCHC RDW Plt Count MPV Neutrophils % Lymphocytes % Monocytes % ESR PTT (Actin FS) Potassium Chloride BUN Creatinine Random Glucose Hemoglobin A1c % 6.7 H Calcium LD Total C-Reactive Protein Total Protein Albumin Lipase 589 H U Random Total Protein 144 H 06/21/16 06/21/16 06/22/16 16:00 21:00 05:05 WBC Hgb MCV MCHC RDW Plt Count MPV Neutrophils % Lymphocytes % Monocytes % ESR PTT (Actin FS) 53.2 H D Potassium 5.3 H Chloride 109 H BUN 84 H 90 H Creatinine 3.4 H 3.3 H Random Glucose 301 H* 277 H Hemoglobin A1c % Calcium 7.9 L 7.8 L LD Total 729 H D C-Reactive Protein Total Protein 5.9 L Albumin 1.8 L Lipase U Random Total Protein 06/22/16 06/22/16 06/22/16 05:05 05:05 05:05 WBC 16.0 H Hgb 10.4 L D MCV 78.7 L MCHC 31.4 L RDW 20.0 H Plt Count 97 L MPV 13.9 H Neutrophils % 95.5 H Lymphocytes % 1.4 L D Monocytes % 3.0 L ESR 55 H PTT (Actin FS) Potassium Chloride BUN Creatinine Random Glucose Hemoglobin A1c % Calcium LD Total C-Reactive Protein 8.5 H Total Protein Albumin Lipase U Random Total Protein 06/22/16 05:05 WBC Hgb MCV MCHC RDW Plt Count MPV Neutrophils % Lymphocytes % Monocytes % ESR PTT (Actin FS) 86.5 H D Potassium Chloride BUN Creatinine Random Glucose Hemoglobin A1c % Calcium LD Total C-Reactive Protein Total Protein Albumin Lipase U Random Total Protein Imaging - Results Cat Scan: Report Reviewed (gb sludge and stones) Assessment/Plan Mildly elevated lipase now trending down. Possibly passed gallstone/sludge with subclinical pancreatitis. As currently asymptomatic and labs normalizing, Would defer from further testing. Tolerating diet Start actigal 300 BID Trend enzymes
[2016-06-21] MEDS: ATORVASTATIN CA 80 MG TABLET (FP) PO SCH (21:19)
[2016-06-22] MEDS: methylPREDNISolone NA SUCC 40 MG/1 ML VIAL IVPB SCH ×4 (02:36→20:09)
[2016-06-22 06:17] LABS: BASOPHIL 0.1 % (0-2.0); MCH 24.7 pg (25.7-33.7); MCHC 31.4 g/dl (32.0-36.0); MEAN CELL VOLUME 78.7 fl (80-96); MEAN PLT VOLUME 13.9 fl (7.5-11.1); NEUTROPHILS 95.5 % (42.8-82.8); PLATELET COUNT 97 K/MM3 (134-434)
[2016-06-22] MEDS: ALBUTEROL SO4 2.5/IPRATROPIUM 0.5 INH SOL 3 ML VIAL.NEB. NEB SCH ×3 (06:30→17:50)
[2016-06-22] MEDS: INSULIN SLIDING SCALE (NOVOLOG) 1 VIAL SQ SCH ×3 (06:33→17:28)
[2016-06-22 06:44] LABS: ALBUMIN 1.8 g/dl (3.4-5.0); ANION GAP 9 (8-16); CALCIUM 7.8 mg/dL (8.5-10.1); CO2 23 mmol/L (21-32); CREATININE 3.3 mg/dL (0.55-1.02); GLUCOSE,RANDOM 277 mg/dL (74-106); MAGNESIUM 2.4 mg/dL (1.8-2.4); PHOSPHOROUS 4.1 mg/dL (2.5-4.9); SGOT/AST 19 U/L (15-37); SGPT/ALT 15 U/L (12-78)
[2016-06-22 06:45] LABS: ALK PHOS 45 U/L (45-117); BILIRUBIN,TOTAL 0.4 mg/dL (0.2-1.0); TOT PROT 5.9 g/dl (6.4-8.2)
[2016-06-22 06:48] LABS: C-REACTIVE PROTEIN 8.5 MG/DL (0.00-0.3)
[2016-06-22 09:15] LABS: HIV 1 & 2 AB NEGATIVE; HIV 1 AGp24 NEGATIVE
[2016-06-22 09:22] LABS: ARTERIAL BLD GAS O2 SATURATION 89.6 % (90-98.9); ARTERIAL BLOOD GAS BASE EXCESS -4.3 meq/l (-2-2); ARTERIAL BLOOD GAS HCO3 20.6 meq/L (22-26); ARTERIAL BLOOD GAS PO2 60.9 mmHg (70-100); ARTERIAL BLOOD GAS pH 7.34 (7.35-7.45)
[2016-06-22 09:23] LABS: ALLENS TEST POSITIVE; ART PUNCT SITE RIGHT RADIAL; LPM/O2% 90%; PT. ON O2? YES; TYPE OF O2 BI-PAP
[2016-06-22 09:24] LABS: VENT RATE 12; VT/PRESS 14/6
[2016-06-22] MEDS ORDERED: PT OWN MED DRAWER 7, Y5N ONE ×3 (09:41→21:58)
--- NOTE | 2016-06-22 09:48 | PN ---
Progress Note, Physician Chief Complaint: on BiPap TELE: NSR w NSST changes - Current Medication List Current Medications: Active Medications Albuterol Sulfate (Ventolin 0.083% Nebulizer Soln -) 1 amp NEB Q1H PRN PRN Reason: SHORT OF BREATH/WHEEZING Albuterol/Ipratropium (Duoneb -) 1 amp NEB QIDR JOANNE Last Admin: 06/22/16 06:30 Dose: 1 amp Atenolol (Tenormin -) 50 mg PO DAILY [facility] Last Admin: 06/21/16 09:27 Dose: 50 mg Atorvastatin Calcium (Lipitor -) 80 mg PO HS [facility] Last Admin: 06/21/16 21:19 Dose: 80 mg Clonidine (Catapres -) 0.1 mg PO BID [facility] Last Admin: 06/21/16 21:19 Dose: 0.1 mg Heparin Sodium (Porcine) (Heparin -) 1,000 unit IVPUSH PRN PRN PRN Reason: Heparin Heparin Sodium (Porcine) (Heparin -) 5,000 unit IVPUSH PRN PRN PRN Reason: Heparin Heparin Sodium/Dextrose (Heparin Infusion -) 500 mls @ 20 mls/hr IVPB TITR JOANNE ; 1,000 UNITS/HR PRN Reason: Protocol Last Titration: 06/22/16 07:35 Dose: 900 units/hr Aztreonam 1 gm/ Dextrose 50 mls @ 100 mls/hr IVPB BID JOANNE PRN Reason: Protocol Last Admin: 06/21/16 22:31 Dose: 100 mls/hr Insulin Aspart (Novolog Vial Sliding Scale -) 1 vial SQ TIDAC JOANNE PRN Reason: Protocol Last Admin: 06/22/16 06:33 Dose: 5 units Methylprednisolone Sodium Succinate (Solu-Medrol -) 80 mg IVPB Q6H-IV JOANNE Last Admin: 06/22/16 02:36 Dose: 80 mg Nifedipine (Procardia Xl -) 30 mg PO BID [facility] Last Admin: 06/21/16 21:19 Dose: 30 mg - Objective Vital Signs: Vital Signs Temperature 97.9 F 06/22/16 06:00 Pulse Rate 80 06/22/16 08:09 Respiratory Rate 28 H 06/22/16 08:09 Blood Pressure 181/63 06/22/16 08:09 O2 Sat by Pulse Oximetry (%) 95 06/22/16 08:00 Constitutional: Yes: No Distress Cardiovascular: Yes: Regular Rate and Rhythm Respiratory: Yes: Other (decreased breath sounds bases, no active wheezing) Gastrointestinal: Yes: Soft Edema: Yes Edema: LLE: 1+, RLE: 1+ Labs: CBC, BMP 06/22/16 05:05 06/22/16 05:05 INR, PTT INR 1.49 (0.82-1.09) H 06/21/16 02:00 Fibrinogen 473.0 mg/dL (238-498) 06/21/16 02:00 Laboratory Tests 06/22/16 06/22/16 06/22/16 05:05 05:05 05:05 WBC 16.0 H Hgb 10.4 L D Hct 33.3 Plt Count 97 L PTT (Actin FS) 86.5 H D ABG pH ABG pCO2 at Pt Temp ABG pO2 at Pt Temp Oxygen Flow Rate Sodium 141 Potassium 5.3 H BUN 90 H Creatinine 3.3 H 06/22/16 09:19 WBC Hgb Hct Plt Count PTT (Actin FS) ABG pH 7.34 L ABG pCO2 at Pt Temp 39.5 ABG pO2 at Pt Temp 60.9 L Oxygen Flow Rate 90% Sodium Potassium BUN Creatinine - ....Imaging EKG: Image Reviewed Assessment/Plan Assessment/Plan Readmitted with SOB and hypoxia Does not appear significantly volume overloaded on exam Interstitial lung disease Recent b/l PNA Chronic diastolic CHF NSVT PAF CKD REC: Would not aggressively diurese as clinically not significantly volume overloaded and will likely lead to intravascular depletion and rising bun/creat HTN control Stress MIBI recent admission showed no ischemia and normal EF Echo 06/2016 showed normal LV systolic function, no pericardial effusion, no sig valvular abnl, unable to calculate RVSP Paroxysmal afib recently dx, was started on eliquis, hold eliquis for now for possible HD catheter insertion Cont current Atenolol dose, tolerated sinus bradycardia with no further episodes of pafib recorded on last admission
[2016-06-22] MEDS: AZTREONAM 1 GM in DEXTROSE 5%-WATER - 50 ML IVPB SCH ×2 (09:51→22:02)
[2016-06-22] MEDS: NIFEdipine E.R. 30 MG TABLET (FP) PO SCH ×3 (09:55→22:03)
[2016-06-22] MEDS: ATENOLOL 50 MG TABLET (FP) PO SCH (09:55)
[2016-06-22] MEDS: cloNIDine HCL 0.1 MG TABLET PO SCH ×3 (09:55→22:01)
[2016-06-22] MEDS ORDERED: FUROSEMIDE 40 MG/4 ML INJECTABLE VIAL IVPUSH ONE (10:17)
--- NOTE | 2016-06-22 10:31 | PN ---
Progress Note (short form) - Note Progress Note: awake and alert on bipap denies chest pain/abd pain no cough today requiring more oxygen today cxray with worsening bilateral infiltrates Vital Signs Period Temp Pulse Resp BP Sys/Hill Pulse Ox Last 24 Hr 97.8 F-98.0 F 54-98 19-30 140-181/56-88 86-96 cor-rrr lungs decreased bs at bases abd soft,nt ext trace edema CBC, BMP 06/22/16 05:05 06/22/16 05:05 Laboratory Tests 06/20/16 06/21/16 06/22/16 20:00 21:00 05:05 ESR C-Reactive Protein B-Natriuretic Peptide 57341.50 H Random Vancomycin 11.349 HIV 1&2 Antibody Screen Negative HIV P24 Antigen Negative 06/22/16 06/22/16 05:05 05:05 ESR 55 H C-Reactive Protein 8.5 H B-Natriuretic Peptide Random Vancomycin HIV 1&2 Antibody Screen HIV P24 Antigen Microbiology 06/20/16 20:37 Urine - Urine Clean Catch Urine Culture - Final NO GROWTH OBTAINED 06/20/16 20:00 Blood - Peripheral Venous Blood Culture - Preliminary NO GROWTH OBTAINED AFTER 24 HOURS, INCUBATION TO CONTINUE FOR 4 DAYS. 06/20/16 19:50 Blood - Peripheral Venous Blood Culture - Preliminary NO GROWTH OBTAINED AFTER 24 HOURS, INCUBATION TO CONTINUE FOR 4 DAYS. 06/21/16 10:00 Nasopharyngeal Swab Influenza Types A,B Antigen (ADRIANE) - Final 06/21/16 10:00 Nasopharyngeal Swab - Final a/p acute respiratory failure bilateral pulmonary infiltrates HIV negative elevated inflammatory markers pen allergy ?volume overload- elevated bnp SHAYY/CKD suspect will need bronch/lung biopsy continue vanco/azactam finished long course of levaquin with no improvement f/u serologies f/u cultures send fungal serologies too over 45 minutes in the care of this critically ill ICU patient Problem List - Problems (1) Bilateral pulmonary infiltrates on CXR Code(s): R91.8 - OTHER NONSPECIFIC ABNORMAL FINDING OF LUNG FIELD (2) Acute respiratory failure with hypoxia Code(s): J96.01 - ACUTE RESPIRATORY FAILURE WITH HYPOXIA (3) CKD stage 4 secondary to hypertension Code(s): I12.9 - HYPERTENSIVE CHRONIC KIDNEY DISEASE W STG 1-4/UNSP CHR KDNY N18.4 - CHRONIC KIDNEY DISEASE, STAGE 4 (SEVERE) (4) Penicillin allergy Code(s): Z88.0 - ALLERGY STATUS TO PENICILLIN
[2016-06-22] MEDS ORDERED: VANCOMYCIN 1 GRAM (PRE-DOCKED) 1,000 MG/250 ML BAG IVPB ONE (10:43)
--- NOTE | 2016-06-22 11:15 | PN ---
Progress Note, Physician Chief Complaint: patient is bipap unable to eat became hypoxic and sob - Current Medication List Current Medications: Active Medications Albuterol Sulfate (Ventolin 0.083% Nebulizer Soln -) 1 amp NEB Q1H PRN PRN Reason: SHORT OF BREATH/WHEEZING Albuterol/Ipratropium (Duoneb -) 1 amp NEB QIDR JOANNE Last Admin: 06/22/16 06:30 Dose: 1 amp Atenolol (Tenormin -) 50 mg PO DAILY REPLACED BY [facility] Last Admin: 06/22/16 09:55 Dose: 50 mg Atorvastatin Calcium (Lipitor -) 80 mg PO HS REPLACED BY [facility] Last Admin: 06/21/16 21:19 Dose: 80 mg Clonidine (Catapres -) 0.1 mg PO BID REPL[facility]ED BY [facility] Last Admin: 06/22/16 09:55 Dose: 0.1 mg Heparin Sodium (Porcine) (Heparin -) 1,000 unit IVPUSH PRN PRN PRN Reason: Heparin Heparin Sodium (Porcine) (Heparin -) 5,000 unit IVPUSH PRN PRN PRN Reason: Heparin Heparin Sodium/Dextrose (Heparin Infusion -) 500 mls @ 20 mls/hr IVPB TITR JOANNE ; 1,000 UNITS/HR PRN Reason: Protocol Last Titration: 06/22/16 07:35 Dose: 900 units/hr Aztreonam 1 gm/ Dextrose 50 mls @ 100 mls/hr IVPB BID JOANNE PRN Reason: Protocol Last Admin: 06/22/16 09:51 Dose: 100 mls/hr Insulin Aspart (Novolog Vial Sliding Scale -) 1 vial SQ TIDAC JOANNE PRN Reason: Protocol Last Admin: 06/22/16 06:33 Dose: 5 units Methylprednisolone Sodium Succinate (Solu-Medrol -) 80 mg IVPB Q6H-IV JOANNE Last Admin: 06/22/16 09:51 Dose: 80 mg Nifedipine (Procardia Xl -) 30 mg PO BID REPLACED BY [facility] Last Admin: 06/22/16 09:55 Dose: 30 mg Vancomycin HCl (Vancomycin (Pre-Docked)) 1,000 mg IVPB ONCE ONE PRN Reason: Protocol Stop: 06/22/16 10:44 - Objective Vital Signs: Vital Signs Temperature 98.0 F 06/22/16 10:00 Pulse Rate 55 L 06/22/16 10:16 Respiratory Rate 21 06/22/16 10:00 Blood Pressure 158/88 06/22/16 10:00 O2 Sat by Pulse Oximetry (%) 93 L 06/22/16 10:16 Constitutional: Yes: Calm, Other (bipap) Cardiovascular: Yes: Regular Rate and Rhythm, S1, S2 Respiratory: Yes: Other (crackles) Gastrointestinal: Yes: Normal Bowel Sounds, Soft Neurological: Yes: Other (sleeping on bipap) Labs: CBC, BMP 06/22/16 05:05 06/22/16 05:05 INR, PTT INR 1.49 (0.82-1.09) H 06/21/16 02:00 Fibrinogen 473.0 mg/dL (238-498) 06/21/16 02:00 Problem List - Problems (1) Acute respiratory failure with hypoxia Assessment/Plan: icu monitoring rheum work up Code(s): J96.01 - ACUTE RESPIRATORY FAILURE WITH HYPOXIA (2) Bilateral pulmonary infiltrates on CXR Assessment/Plan: worseinig infiltrates rheum work up in porogress iv steroids bipap icu monitoring Code(s): R91.8 - OTHER NONSPECIFIC ABNORMAL FINDING OF LUNG FIELD (3) Afib Assessment/Plan: iv heparin Code(s): I48.91 - UNSPECIFIED ATRIAL FIBRILLATION (4) CKD (chronic kidney disease) Assessment/Plan: renal on board Code(s): N18.9 - CHRONIC KIDNEY DISEASE, UNSPECIFIED (5) HTN (hypertension) Assessment/Plan: nifedipine and atenolol Code(s): I10 - ESSENTIAL (PRIMARY) HYPERTENSION
--- NOTE | 2016-06-22 11:50 | PN ---
Progress Note (short form) - Note Progress Note: Renal Follow up for CKD Pt seen and examined in the ICU awake and alert on BIPAP 100% pt desaturates of bipap now denies any fever or chills Vital Signs Temperature 98.0 F 06/22/16 10:00 Pulse Rate 51 L 06/22/16 11:00 Respiratory Rate 20 06/22/16 11:00 Blood Pressure 133/60 06/22/16 11:00 O2 Sat by Pulse Oximetry (%) 94 L 06/22/16 11:35 Intake & Output 06/19/16 06/20/16 06/21/16 06/22/16 23:59 23:59 23:59 23:59 Intake Total 1053 240 Output Total 1350 Balance -297 240 Weight 222 lb 214 lb 9.6 oz 215 lb 8 oz Gen: NAD, awake and alert on BIPAP CVS: RRR, No M/R Lungs : + diffuse crackles b/l lung silverman Abd: soft NT/ND Ext: trace to 1+ edema in B/L LE, no cyanosis or clubbing CBC, BMP 06/22/16 05:05 06/22/16 05:05 Laboratory Tests 06/21/16 06/22/16 06/22/16 12:00 05:05 05:05 Calcium 7.8 L Phosphorus 4.1 Magnesium 2.4 Albumin 1.8 L U Random Total Protein 144 H Ur Random Sodium 96 Ur Random Potassium 21.4 Ur Random Chloride 112 Ur Random Urea Nitrogn 400 Urine Creatinine 25.3 Current Medications Albuterol Sulfate (Ventolin 0.083% Nebulizer Soln -) 1 amp NEB Q1H PRN PRN Reason: SHORT OF BREATH/WHEEZING Albuterol/Ipratropium (Duoneb -) 1 amp NEB QIDR JOANNE Last Admin: 06/22/16 06:30 Dose: 1 amp Atenolol (Tenormin -) 50 mg PO DAILY JOANNE Last Admin: 06/22/16 09:55 Dose: 50 mg Atorvastatin Calcium (Lipitor -) 80 mg PO HS JOANNE Last Admin: 06/21/16 21:19 Dose: 80 mg Clonidine (Catapres -) 0.1 mg PO BID JOANNE Last Admin: 06/22/16 09:55 Dose: 0.1 mg Heparin Sodium (Porcine) (Heparin -) 1,000 unit IVPUSH PRN PRN PRN Reason: Heparin Heparin Sodium (Porcine) (Heparin -) 5,000 unit IVPUSH PRN PRN PRN Reason: Heparin Heparin Sodium/Dextrose (Heparin Infusion -) 500 mls @ 20 mls/hr IVPB TITR JOANNE ; 1,000 UNITS/HR PRN Reason: Protocol Last Titration: 06/22/16 07:35 Dose: 900 units/hr Aztreonam 1 gm/ Dextrose 50 mls @ 100 mls/hr IVPB BID JOANNE PRN Reason: Protocol Last Admin: 06/22/16 09:51 Dose: 100 mls/hr Insulin Aspart (Novolog Vial Sliding Scale -) 1 vial SQ TIDAC JOANNE PRN Reason: Protocol Last Admin: 06/22/16 06:33 Dose: 5 units Methylprednisolone Sodium Succinate (Solu-Medrol -) 80 mg IVPB Q6H-IV JOANNE Last Admin: 06/22/16 09:51 Dose: 80 mg Nifedipine (Procardia Xl -) 30 mg PO BID JOANNE Last Admin: 06/22/16 09:55 Dose: 30 mg A/P 75 year old woman with PMhx of CKD Stage 4, Hypertension (>40 years), Asthma, Osteoarthritis, Former Smoker who presented from [facility] with 1 day history of sob. #CKD Stage 4/5 with proteinuria renal function is essentially unchanged, pt is non-oliguric UA showed 3+ Protein and UPCR this admission is 5.7 (was 2.4 last admission) Continue Soares for strict I and O Lasix for volume management, give 80mg IVP now and additional as needed to maintain oxygenation Etiology of progressive CKD unclear however given small atrophic kidneys hypertensive nephroclerosis is likely however cannot r/o other etiologies such as FSGS in woman with proteinuria Pulmonary Renal syndromes (i.e. anti-GBM, granulomatosis with polyangitis, lupus nephritis) are possible but less likely given gradual progression of renal failure. 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
--- NOTE | 2016-06-22 12:07 | PN ---
Physical Exam: SUBJECTIVE: Patient seen and examined, Patient awake and alert. on BIPAP, patibenton desaturates when triej to take her off from bipap for breakfast. Patient CXR has gotten worse than yesterday. Patient fio2 has been increased to 90%. Patient has been explained by attending regarding her condition and also been told that she needs an intubation. Patient has been explained regarding elective and emergent intubation. Patient wants to hold for intubation for now. Patient has also been told that if she starts feeling that she cant breath and tired let us know so that we will intubate her. A-a gradiet 530, pao2/fio2 67 cxr b/l opacity OBJECTIVE: Vital Signs Period Temp Pulse Resp BP Sys/Hill Pulse Ox Last 24 Hr 97.8 F-98.0 F 51-98 19-30 133-181/60-88 86-96 GENERAL: Awake, alert, and fully oriented, HEAD: Normal with no signs of trauma. NECK: Normal range of motion, supple without lymphadenopathy, LUNGS: Breath sounds equal, b/l diffuse rales. HEART:s1s2 normal, regular ABDOMEN: Soft, nontender, not distended, normoactive bowel sounds, no guarding, no rebound, no masses. UPPER EXTREMITIES: 2+ pulses, warm, well-perfused. No cyanosis. No clubbing. LOWER EXTREMITIES: 2+ pulses, warm, well-perfused. No calf tenderness. peripheral edema 1+ NEUROLOGICAL: Cranial nerves II-XII intact. Normal speech. gait not observed PSYCHIATRIC: Cooperative. Good eye contact. Appropriate mood and affect. SKIN: Warm, dry, normal turgor, Laboratory Results - last 24 hr 06/21/16 06/21/16 06/21/16 12:00 12:00 12:00 WBC RBC Hgb Hct MCV MCHC RDW Plt Count MPV Neutrophils % Lymphocytes % Monocytes % Eosinophils % Basophils % ESR PTT (Actin FS) Puncture Site ABG pH ABG pCO2 at Pt Temp ABG pO2 at Pt Temp ABG HCO3 ABG O2 Sat (Measured) ABG O2 Content ABG Base Excess Sree Test O2 Delivery Device Oxygen Flow Rate Vent Mode Vent Rate PEEP Pressure Support Vent Sodium Potassium Chloride Carbon Dioxide Anion Gap BUN Creatinine Creat Clearance w eGFR POC Glucometer Random Glucose Calcium Phosphorus Magnesium Total Bilirubin AST ALT Alkaline Phosphatase LD Total C-Reactive Protein Total Protein Albumin U Random Total Protein 144 H Ur Random Sodium Cancelled 96 Ur Random Potassium 21.4 Ur Random Chloride 112 Ur Random Urea Nitrogn 400 Urine Creatinine 25.3 Cancelled Random Vancomycin Rheumatoid Factor HIV 1&2 Antibody Screen HIV P24 Antigen 06/21/16 06/21/16 06/21/16 12:00 12:27 16:00 WBC RBC Hgb Hct MCV MCHC RDW Plt Count MPV Neutrophils % Lymphocytes % Monocytes % Eosinophils % Basophils % ESR PTT (Actin FS) Puncture Site ABG pH ABG pCO2 at Pt Temp ABG pO2 at Pt Temp ABG HCO3 ABG O2 Sat (Measured) ABG O2 Content ABG Base Excess Sree Test O2 Delivery Device Oxygen Flow Rate Vent Mode Vent Rate PEEP Pressure Support Vent Sodium 139 Potassium 5.1 Chloride 106 Carbon Dioxide 21 Anion Gap 12 BUN 84 H Creatinine 3.4 H Creat Clearance w eGFR POC Glucometer [phone] Random Glucose 301 H* Calcium 7.9 L Phosphorus Magnesium Total Bilirubin AST ALT Alkaline Phosphatase LD Total 729 H D C-Reactive Protein Total Protein Albumin U Random Total Protein Cancelled Ur Random Sodium Ur Random Potassium Ur Random Chloride Ur Random Urea Nitrogn Urine Creatinine Random Vancomycin Rheumatoid Factor HIV 1&2 Antibody Screen HIV P24 Antigen 06/21/16 06/21/16 06/21/16 17:19 21:00 21:00 WBC RBC Hgb Hct MCV MCHC RDW Plt Count MPV Neutrophils % Lymphocytes % Monocytes % Eosinophils % Basophils % ESR PTT (Actin FS) 53.2 H D Puncture Site ABG pH ABG pCO2 at Pt Temp ABG pO2 at Pt Temp ABG HCO3 ABG O2 Sat (Measured) ABG O2 Content ABG Base Excess Sree Test O2 Delivery Device Oxygen Flow Rate Vent Mode Vent Rate PEEP Pressure Support Vent Sodium Potassium Chloride Carbon Dioxide Anion Gap BUN Creatinine Creat Clearance w eGFR POC Glucometer [phone] Random Glucose Calcium Phosphorus Magnesium Total Bilirubin AST ALT Alkaline Phosphatase LD Total C-Reactive Protein Total Protein Albumin U Random Total Protein Ur Random Sodium Ur Random Potassium Ur Random Chloride Ur Random Urea Nitrogn Urine Creatinine Random Vancomycin Rheumatoid Factor HIV 1&2 Antibody Screen Negative HIV P24 Antigen Negative 06/22/16 06/22/16 06/22/16 05:05 05:05 05:05 WBC 16.0 H RBC 4.23 Hgb 10.4 L D Hct 33.3 MCV 78.7 L MCHC 31.4 L RDW 20.0 H Plt Count 97 L MPV 13.9 H Neutrophils % 95.5 H Lymphocytes % 1.4 L D Monocytes % 3.0 L Eosinophils % 0.0 Basophils % 0.1 D ESR PTT (Actin FS) Puncture Site ABG pH ABG pCO2 at Pt Temp ABG pO2 at Pt Temp ABG HCO3 ABG O2 Sat (Measured) ABG O2 Content ABG Base Excess Sree Test O2 Delivery Device Oxygen Flow Rate Vent Mode Vent Rate PEEP Pressure Support Vent Sodium 141 Potassium 5.3 H Chloride 109 H Carbon Dioxide 23 Anion Gap 9 BUN 90 H Creatinine 3.3 H Creat Clearance w eGFR 13.67 POC Glucometer Random Glucose 277 H Calcium 7.8 L Phosphorus Magnesium Total Bilirubin 0.4 D AST 19 ALT 15 Alkaline Phosphatase 45 LD Total C-Reactive Protein Total Protein 5.9 L Albumin 1.8 L U Random Total Protein Ur Random Sodium Ur Random Potassium Ur Random Chloride Ur Random Urea Nitrogn Urine Creatinine Random Vancomycin 11.349 Rheumatoid Factor < 10.0 HIV 1&2 Antibody Screen HIV P24 Antigen 06/22/16 06/22/16 06/22/16 05:05 05:05 05:05 WBC RBC Hgb Hct MCV MCHC RDW Plt Count MPV Neutrophils % Lymphocytes % Monocytes % Eosinophils % Basophils % ESR 55 H PTT (Actin FS) 86.5 H D Puncture Site ABG pH ABG pCO2 at Pt Temp ABG pO2 at Pt Temp ABG HCO3 ABG O2 Sat (Measured) ABG O2 Content ABG Base Excess Sree Test O2 Delivery Device Oxygen Flow Rate Vent Mode Vent Rate PEEP Pressure Support Vent Sodium Potassium Chloride Carbon Dioxide Anion Gap BUN Creatinine Creat Clearance w eGFR POC Glucometer Random Glucose Calcium Phosphorus 4.1 Magnesium 2.4 Total Bilirubin AST ALT Alkaline Phosphatase LD Total C-Reactive Protein 8.5 H Total Protein Albumin U Random Total Protein Ur Random Sodium Ur Random Potassium Ur Random Chloride Ur Random Urea Nitrogn Urine Creatinine Random Vancomycin Rheumatoid Factor HIV 1&2 Antibody Screen HIV P24 Antigen 06/22/16 06/22/16 06:26 09:19 WBC RBC Hgb Hct MCV MCHC RDW Plt Count MPV Neutrophils % Lymphocytes % Monocytes % Eosinophils % Basophils % ESR PTT (Actin FS) Puncture Site Right radial ABG pH 7.34 L ABG pCO2 at Pt Temp 39.5 ABG pO2 at Pt Temp 60.9 L ABG HCO3 20.6 L ABG O2 Sat (Measured) 89.6 L ABG O2 Content 13.0 L ABG Base Excess -4.3 L Sree Test Positive O2 Delivery Device Bi-pap Oxygen Flow Rate 90% Vent Mode S/t Vent Rate 12 PEEP 0.0 Pressure Support Vent 14/6 Sodium Potassium Chloride Carbon Dioxide Anion Gap BUN Creatinine Creat Clearance w eGFR POC Glucometer [phone] Random Glucose Calcium Phosphorus Magnesium Total Bilirubin AST ALT Alkaline Phosphatase LD Total C-Reactive Protein Total Protein Albumin U Random Total Protein Ur Random Sodium Ur Random Potassium Ur Random Chloride Ur Random Urea Nitrogn Urine Creatinine Random Vancomycin Rheumatoid Factor HIV 1&2 Antibody Screen HIV P24 Antigen Active Medications Generic Name Dose Route Start Last Admin Trade Name Freq PRN Reason Stop Dose Admin Albuterol Sulfate 1 amp 06/21/16 01:00 Ventolin 0.083% Nebulizer Soln - NEB Q1H PRN SHORT OF BREATH/WHEEZING Albuterol/Ipratropium 1 amp 06/21/16 06:00 06/22/16 11:50 Duoneb - NEB 1 amp QIDR JOANNE Administration Atenolol 50 mg 06/21/16 10:00 06/22/16 09:55 Tenormin - PO 50 mg DAILY JOANNE Administration Atorvastatin Calcium 80 mg 06/21/16 22:00 06/21/16 21:19 Lipitor - PO 80 mg HS JOANNE Administration Clonidine 0.1 mg 06/21/16 10:00 06/22/16 09:55 Catapres - PO 0.1 mg BID JOANNE Administration Heparin Sodium (Porcine) 1,000 unit 06/21/16 13:48 Heparin - IVPUSH PRN PRN Heparin Heparin Sodium (Porcine) 5,000 unit 06/21/16 13:48 Heparin - IVPUSH PRN PRN Heparin Heparin Sodium/Dextrose 500 mls @ 20 mls/hr 06/21/16 14:00 06/22/16 07:35 Heparin Infusion - IVPB 900 units/hr TITR JOANNE Titration Protocol 1,000 UNITS/HR Aztreonam 1 gm/ Dextrose 50 mls @ 100 mls/hr 06/21/16 14:30 06/22/16 09:51 IVPB 100 mls/hr BID JOANNE Administration Protocol Insulin Aspart 1 vial 06/21/16 07:00 06/22/16 06:33 Novolog Vial Sliding Scale - SQ 5 units TIDAC JOANNE Administration Protocol Methylprednisolone Sodium Succinate 80 mg 06/21/16 13:45 06/22/16 09:51 Solu-Medrol - IVPB 80 mg Q6H-IV JOANNE Administration Nifedipine 30 mg 06/21/16 10:00 06/22/16 09:55 Procardia Xl - PO 30 mg BID JOANNE Administration ASSESSMENT/PLAN: Acute Hypoxic Respiratory Failure could be due to rapid progression of interstial lung ds. could be due to infective process, as in old admissions patient was maintaining a saturation on room air. ( could , TB, fungal) F/U phan, panca, canca, ds dna, anti ccp, anti gbm F/U quantiferon gold, sputum culture, urine histoplasma, cryptococcal antigen hiv negative, inflamatory markers ESR and LDH elevated mainatian spo2 over 90 on BIPAP spo2 90%, patient has refused for elective intubation continue solumedrol to 80mh q 6h BNP could be elevated from interstial lung ds stress test in last admission negative, EF 61 ECHO in last admission no RV dilatation. patient less likely has chf, clinically patient doesn't appear to be in fluid overload. antibiotic as per ID. vanco/azactam day 3 on [facility] qidr CXR has gotten worse than yesterday. HTN taper nitro drip start on home meds atenolol, nifedipine and clonidine. Lactic acidosis could be elevated from hypoxia. Paroxysmal afib recently diagnosed, was started on eliquis on discharge, will hold eliquis for now for possible HD catheter insertion, continue heparin drip. monitor aptt cardiology consult appreciated ckd follow serology could be from renalpulmonary syndrome monitor cr and bun monitor urine output avoid nephrotoxic drugs subnephrotic proteinuria nephro consult appreciated : IV lasix 80 mg given high blood glucose secondary to steroid monitor bgm on insulin sliding scale UTI urine wbc 47, LE 3+ on vanco and aztrenam follow uc fluid : orally allowed electrolyte: hyperkalemia, repeat in am nutrition; diabetic + renal diet dvt pro: on heparin drip Dispo: admit in icu. Visit type - Emergency Visit Emergency Visit: Yes ED Registration Date: 06/20/16 Care time: The patient presented to the Emergency Department on the above date and was hospitalized for further evaluation of their emergent condition. - New Patient This patient is new to me today: No - Critical Care Critical Care patient: Yes Total Critical Care Time (in minutes): 45 Critical Care Statement: The care of this patient involved high complexity decision making to prevent further life threatening deterioration of the patient 's condition and/or to evalute & treat vital organ system(s) failure or risk of failure.
--- NOTE | 2016-06-22 12:25 | PN ---
Teaching Attending Note Name of Resident: Gino Stubbs ATTENDING PHYSICIAN STATEMENT I saw and evaluated the patient. I reviewed the resident's note and discussed the case with the resident. I agree with the resident's findings and plan as documented. SUBJECTIVE: Pt seen and examined in the ICU. Remains dependent on BiPAP, now on 90% FiO2. Still short of breath. No fevers recorded. Minimal dry cough. OBJECTIVE: Last Vital Signs Temp Pulse Resp BP Pulse Ox 98.0 F 51 L 20 133/60 94 L 06/22/16 10:00 06/22/16 11:00 06/22/16 11:00 06/22/16 11:00 06/22/16 11:35 Intake & Output 06/19/16 06/20/16 06/21/16 06/22/16 23:59 23:59 23:59 23:59 Intake Total 1053 240 Output Total 1350 Balance -297 240 Weight 222 lb 214 lb 9.6 oz 215 lb 8 oz Gen: tachypneic on BiPAP Heart: RRR Lung: diffuse rales, rhonchi Abd: soft, nontender Ext: trace edema CBC, BMP 06/22/16 05:05 06/22/16 05:05 Active Medications Albuterol Sulfate (Ventolin 0.083% Nebulizer Soln -) 1 amp NEB Q1H PRN PRN Reason: SHORT OF BREATH/WHEEZING Albuterol/Ipratropium (Duoneb -) 1 amp NEB QIDR [facility] Last Admin: 06/22/16 11:50 Dose: 1 amp Atenolol (Tenormin -) 50 mg PO DAILY [facility] Last Admin: 06/22/16 09:55 Dose: 50 mg Atorvastatin Calcium (Lipitor -) 80 mg PO HS [facility] Last Admin: 06/21/16 21:19 Dose: 80 mg Clonidine (Catapres -) 0.1 mg PO BID [facility] Last Admin: 06/22/16 09:55 Dose: 0.1 mg Heparin Sodium (Porcine) (Heparin -) 1,000 unit IVPUSH PRN PRN PRN Reason: Heparin Heparin Sodium (Porcine) (Heparin -) 5,000 unit IVPUSH PRN PRN PRN Reason: Heparin Heparin Sodium/Dextrose (Heparin Infusion -) 500 mls @ 20 mls/hr IVPB TITR JOANNE ; 1,000 UNITS/HR PRN Reason: Protocol Last Titration: 06/22/16 07:35 Dose: 900 units/hr Aztreonam 1 gm/ Dextrose 50 mls @ 100 mls/hr IVPB BID [facility] PRN Reason: Protocol Last Admin: 06/22/16 09:51 Dose: 100 mls/hr Insulin Aspart (Novolog Vial Sliding Scale -) 1 vial SQ TIDAC JOANNE PRN Reason: Protocol Last Admin: 06/22/16 06:33 Dose: 5 units Methylprednisolone Sodium Succinate (Solu-Medrol -) 80 mg IVPB Q6H-IV [facility] Last Admin: 06/22/16 09:51 Dose: 80 mg Nifedipine (Procardia Xl -) 30 mg PO BID [facility] Last Admin: 06/22/16 09:55 Dose: 30 mg ASSESSMENT AND PLAN: Acute Hypoxic Respiratory Failure Suspect Exacerbation of underlying Interstitial Lung Disease Lactic Acidosis likely from respiratory effort Acute on Chronic Renal Failure Paroxysmal Atrial Fibrillation r/o Pneumonia r/o CHF HTN - f/u serologies - continue medrol at current dose - inhaled bronchodilators - O2 to keep SpO2 >90% - BiPAP to assist in work of breathing - empiric antibiotics per ID - monitor fever curve, WBC trend - continue lasix - monitor urine output, creatinine - when more stable will need dedicated CT chest noncontrast and may need biopsy - DVT/GI prophylaxis - discussed elective intubation with pt and she understands her tenuous respiratory status but would like to defer unless more urgent - continue ICU monitoring CCT 38'
[2016-06-22] MEDS: HEPARIN INFUSION - 500 ML IVPB SCH (14:30)
--- NOTE | 2016-06-22 17:10 | EKG ---
Test Reason : Blood Pressure : / mmHG Vent. Rate : 059 BPM Atrial Rate : 059 BPM P-R Int : 132 ms QRS Dur : 108 ms QT Int : 466 ms P-R-T Axes : 058 014 242 degrees QTc Int : 461 ms SINUS BRADYCARDIA MINIMAL VOLTAGE CRITERIA FOR LVH, MAY BE NORMAL VARIANT ABNORMAL ECG WHEN COMPARED WITH ECG OF 20-JUN-2016 20:57, NO SIGNIFICANT CHANGE WAS FOUND Confirmed by MAIK STILL, CK ([id number]) on 06/22/2016 5:09:33 PM Referred By: ЕЛЕНА GIBBONS Confirmed By:CK PLEITEZ MD
--- NOTE | 2016-06-22 17:14 | EKG ---
Test Reason : Blood Pressure : / mmHG Vent. Rate : 068 BPM Atrial Rate : 068 BPM P-R Int : 130 ms QRS Dur : 098 ms QT Int : 426 ms P-R-T Axes : 064 009 201 degrees QTc Int : 452 ms NORMAL SINUS RHYTHM MINIMAL VOLTAGE CRITERIA FOR LVH, MAY BE NORMAL VARIANT ABNORMAL ECG WHEN COMPARED WITH ECG OF 06-JUN-2016 08:59, NO SIGNIFICANT CHANGE WAS FOUND Confirmed by CK PLEITEZ MD ([id number]) on 06/22/2016 5:13:34 PM Referred By: Confirmed By:CK PLEITEZ MD
[2016-06-22] MEDS ORDERED: ACETAMINOPHEN 325 MG TABLET (FP) PO PRN (17:24)
[2016-06-22] MEDS ORDERED: ACETAMINOPHEN 500 MG TABLET (FP) PO ONE (17:27)
[2016-06-22] MEDS ORDERED: ACETAMINOPHEN 325 MG TABLET (FP) PO ONE (17:27)
--- NOTE | 2016-06-22 19:20 | PN ---
GI Progress Note Subjective: No abdominal pain Somewhat SOB on BIPAP - Objective Vital Signs: Vital Signs Temperature 98.1 F 06/22/16 14:00 Pulse Rate 56 L 06/22/16 18:00 Respiratory Rate 24 06/22/16 18:00 Blood Pressure 170/70 06/22/16 18:00 O2 Sat by Pulse Oximetry (%) 91 L 06/22/16 17:25 Constitutional: Well Nourished HENT: Yes: Normocephalic Cardiovascular: Yes: Regular Rate and Rhythm Respiratory: Yes: Diminished ...Auscultate: Yes: Normoactive Bowel Sounds ...Palpate: No: Tenderness (f) Labs: CBC, BMP 06/22/16 05:05 06/22/16 05:05 INR, PTT INR 1.49 (0.82-1.09) H 06/21/16 02:00 Fibrinogen 473.0 mg/dL (238-498) 06/21/16 02:00 Assessment/Plan Mildly elevated lipase now trending down. Repeat ordered for AM Possibly passed gallstone/sludge with subclinical pancreatitis. Currently asymptomatic and labs normalizing, Tolerating diet Cont actigal 300 BID Trend enzymes
[2016-06-22] MEDS: ATORVASTATIN CA 80 MG TABLET (FP) PO SCH (22:01)
[2016-06-22] MEDS ORDERED: morphine CARPU-JECT 2 MG/1 ML DISP.SYRIN IVPUSH PRN (23:15)
[2016-06-22] MEDS ORDERED: morphine CARPU-JECT 2 MG/1 ML DISP.SYRIN ONE (23:17)
[2016-06-23] MEDS: ALBUTEROL SO4 2.5/IPRATROPIUM 0.5 INH SOL 3 ML VIAL.NEB. NEB SCH ×4 (00:01→17:00)
[2016-06-23] MEDS ORDERED: cloNIDine HCL 0.1 MG TABLET PO ONE (00:35)
[2016-06-23] MEDS: methylPREDNISolone NA SUCC 40 MG/1 ML VIAL IVPB SCH ×4 (02:40→21:41)
[2016-06-23 05:53] LABS: BASOPHIL 0.1 % (0-2.0); MCH 24.8 pg (25.7-33.7); MCHC 31.5 g/dl (32.0-36.0); MEAN CELL VOLUME 78.8 fl (80-96); NEUTROPHILS 96.2 % (42.8-82.8); RDW 19.3 % (11.6-15.6); WHITE BLOOD COUNT 13.4 K/mm3 (4.0-10.0)
[2016-06-23] MEDS: INSULIN SLIDING SCALE (NOVOLOG) 1 VIAL SQ SCH ×3 (06:06→18:45)
[2016-06-23 06:46] LABS: ALBUMIN 1.7 g/dl (3.4-5.0); BILIRUBIN,TOTAL 0.5 mg/dL (0.2-1.0); CREATININE 3.5 mg/dL (0.55-1.02); MAGNESIUM 2.4 mg/dL (1.8-2.4); PHOSPHOROUS 6.3 mg/dL (2.5-4.9); TOT PROT 5.9 g/dl (6.4-8.2)
[2016-06-23 07:13] LABS: MEAN PLT VOLUME 13.6 fl (7.5-11.1); PLATELET COUNT 81 K/MM3 (134-434)
[2016-06-23 07:15] LABS: PLATELET COMMENT2 NO CLUMPING NOTED; PLATELET COMMENT3 NO CLOTTING DETECTED; PLATELET ESTIMATE DECREASED (NORMAL)
[2016-06-23 07:41] LABS: ALLENS TEST POSITIVE; ARTERIAL BLOOD GAS BASE EXCESS -2.6 meq/l (-2-2); ARTERIAL BLOOD GAS HCO3 22.4 meq/L (22-26); ARTERIAL BLOOD GAS pH 7.35 (7.35-7.45)
[2016-06-23 07:42] LABS: ART PUNCT SITE RIGHT RADIAL; ARTERIAL BLD GAS O2 SATURATION 86.1 % (90-98.9); ARTERIAL BLOOD GAS PO2 54.9 mmHg (70-100); LPM/O2% 100%; PT. ON O2? YES; TYPE OF O2 BIPAP; VENT RATE 12; VT/PRESS 16/8
--- NOTE | 2016-06-23 08:08 | PN ---
Progress Note, Physician Chief Complaint: ID Remains dyspneic though says she feels better Getting doses Vancomycin along with Aztreonam Solumedrol 80mg q6H - Current Medication List Current Medications: Active Medications Albuterol Sulfate (Ventolin 0.083% Nebulizer Soln -) 1 amp NEB Q1H PRN PRN Reason: SHORT OF BREATH/WHEEZING Last Admin: 06/22/16 22:40 Dose: 1 amp Albuterol/Ipratropium (Duoneb -) 1 amp NEB QIDR [facility] Last Admin: 06/23/16 05:55 Dose: 1 amp Atenolol (Tenormin -) 50 mg PO DAILY [facility] Last Admin: 06/22/16 09:55 Dose: 50 mg Atorvastatin Calcium (Lipitor -) 80 mg PO HS [facility] Last Admin: 06/22/16 22:01 Dose: 80 mg Clonidine (Catapres -) 0.1 mg PO BID [facility] Last Admin: 06/22/16 22:01 Dose: Not Given Heparin Sodium (Porcine) (Heparin -) 1,000 unit IVPUSH PRN PRN PRN Reason: Heparin Heparin Sodium (Porcine) (Heparin -) 5,000 unit IVPUSH PRN PRN PRN Reason: Heparin Heparin Sodium/Dextrose (Heparin Infusion -) 500 mls @ 20 mls/hr IVPB TITR JOANNE ; 1,000 UNITS/HR PRN Reason: Protocol Last Titration: 06/22/16 16:00 Dose: 750 units/hr Aztreonam 1 gm/ Dextrose 50 mls @ 100 mls/hr IVPB BID JOANNE PRN Reason: Protocol Last Admin: 06/22/16 22:02 Dose: 100 mls/hr Insulin Aspart (Novolog Vial Sliding Scale -) 1 vial SQ TIDAC JOANNE PRN Reason: Protocol Last Admin: 06/23/16 06:06 Dose: 2 units Methylprednisolone Sodium Succinate (Solu-Medrol -) 80 mg IVPB Q6H-IV JOANNE Last Admin: 06/23/16 02:40 Dose: 80 mg Morphine Sulfate (Morphine Injection -) 1 mg IVPUSH Q3H PRN PRN Reason: PAIN Last Admin: 06/23/16 00:34 Dose: 1 mg Nifedipine (Procardia Xl -) 30 mg PO BID [facility] Last Admin: 06/22/16 22:03 Dose: Not Given - Objective Vital Signs: Vital Signs Temperature 98.1 F 03/22/17 06:00 Pulse Rate 69 06/23/16 06:00 Respiratory Rate 22 06/23/16 06:00 Blood Pressure 151/77 06/23/16 06:00 O2 Sat by Pulse Oximetry (%) 88 L 06/22/16 22:30 Constitutional: Yes: Severe Distress Neck: Yes: WNL, Supple Cardiovascular: Yes: S1, S2 Respiratory: Yes: WNL, Regular, CTA Bilaterally, Diminished, Rales Gastrointestinal: Yes: Soft. No: Tenderness Edema: No Labs: CBC, BMP 06/23/16 05:05 06/23/16 05:05 INR, PTT INR 1.49 (0.82-1.09) H 06/21/16 02:00 Fibrinogen 473.0 mg/dL (238-498) 06/21/16 02:00 Problem List - Problems (1) Acute respiratory failure with hypoxia Code(s): J96.01 - ACUTE RESPIRATORY FAILURE WITH HYPOXIA (2) Pulmonary fibrosis Code(s): J84.10 - PULMONARY FIBROSIS, UNSPECIFIED (3) Bilateral pulmonary infiltrates on CXR Code(s): R91.8 - OTHER NONSPECIFIC ABNORMAL FINDING OF LUNG FIELD Assessment/Plan Microbiology 06/21/16 10:00 Nasopharyngeal Swab Influenza Types A,B Antigen (ADRIANE) - Final 06/21/16 10:00 Nasopharyngeal Swab - Final 06/20/16 20:37 Urine - Urine Clean Catch Urine Culture - Final NO GROWTH OBTAINED 06/22/16 05:05 Serum Cryptococcal Antigen - Preliminary 06/21/16 15:20 Blood - Peripheral Venous TB Test (QFT) (ADRIANE) - Preliminary 06/21/16 10:00 Nasopharyngeal Swab Respiratory Virus Panel - Preliminary 06/20/16 20:00 Blood - Peripheral Venous Blood Culture - Preliminary NO GROWTH OBTAINED AFTER 48 HOURS, INCUBATION TO CONTINUE FOR 3 DAYS. 06/20/16 19:50 Blood - Peripheral Venous Blood Culture - Preliminary NO GROWTH OBTAINED AFTER 48 HOURS, INCUBATION TO CONTINUE FOR 3 DAYS. Laboratory Tests 06/22/16 06/23/16 05:05 05:05 WBC 13.4 H Hgb 9.8 L Plt Count 81 L ESR 55 H Assessment Respiratory failure Pulmonary fibrosis ? Superimposed infiltrate ( Never febrile however could not rule this out) Plan Continue Aztreonam Vanco level Leg Ag iMguel A STILL
--- NOTE | 2016-06-23 08:55 | PN ---
Progress Note, Physician Chief Complaint: given lasix CXR mildly improved History of Present Illness: platelets dropping - Current Medication List Current Medications: Active Medications Albuterol Sulfate (Ventolin 0.083% Nebulizer Soln -) 1 amp NEB Q1H PRN PRN Reason: SHORT OF BREATH/WHEEZING Last Admin: 06/22/16 22:40 Dose: 1 amp Albuterol/Ipratropium (Duoneb -) 1 amp NEB QIDR [facility] Last Admin: 06/23/16 05:55 Dose: 1 amp Atenolol (Tenormin -) 50 mg PO DAILY [facility] Last Admin: 06/22/16 09:55 Dose: 50 mg Atorvastatin Calcium (Lipitor -) 80 mg PO HS [facility] Last Admin: 06/22/16 22:01 Dose: 80 mg Clonidine (Catapres -) 0.1 mg PO BID [facility] Last Admin: 06/22/16 22:01 Dose: Not Given Heparin Sodium (Porcine) (Heparin -) 1,000 unit IVPUSH PRN PRN PRN Reason: Heparin Heparin Sodium (Porcine) (Heparin -) 5,000 unit IVPUSH PRN PRN PRN Reason: Heparin Heparin Sodium/Dextrose (Heparin Infusion -) 500 mls @ 20 mls/hr IVPB TITR JOANNE ; 1,000 UNITS/HR PRN Reason: Protocol Last Titration: 06/22/16 16:00 Dose: 750 units/hr Aztreonam 1 gm/ Dextrose 50 mls @ 100 mls/hr IVPB BID JOANNE PRN Reason: Protocol Last Admin: 06/22/16 22:02 Dose: 100 mls/hr Insulin Aspart (Novolog Vial Sliding Scale -) 1 vial SQ TIDAC JOANNE PRN Reason: Protocol Last Admin: 06/23/16 06:06 Dose: 2 units Methylprednisolone Sodium Succinate (Solu-Medrol -) 80 mg IVPB Q6H-IV JOANNE Last Admin: 06/23/16 02:40 Dose: 80 mg Morphine Sulfate (Morphine Injection -) 1 mg IVPUSH Q3H PRN PRN Reason: PAIN Last Admin: 06/23/16 00:34 Dose: 1 mg Nifedipine (Procardia Xl -) 30 mg PO BID [facility] Last Admin: 06/22/16 22:03 Dose: Not Given - Objective Vital Signs: Vital Signs Temperature 98.1 F 06/23/16 06:00 Pulse Rate 65 06/23/16 08:00 Respiratory Rate 22 06/23/16 08:00 Blood Pressure 172/86 06/23/16 08:00 O2 Sat by Pulse Oximetry (%) 88 L 06/22/16 22:30 Constitutional: Yes: No Distress, Other (on BiPap) Cardiovascular: Yes: Regular Rate and Rhythm Respiratory: Yes: Other (= breath sounds b/l) Gastrointestinal: Yes: Soft Edema: Yes Edema: LLE: 1+, RLE: 1+ Neurological: Yes: Alert Labs: CBC, BMP 06/23/16 05:05 06/23/16 05:05 INR, PTT INR 1.49 (0.82-1.09) H 06/21/16 02:00 Fibrinogen 473.0 mg/dL (238-498) 06/21/16 02:00 - ....Imaging EKG: Image Reviewed (TELE: NSR, NSST changes) Assessment/Plan Assessment/Plan Readmitted with SOB and hypoxia Does not appear significantly volume overloaded on exam Interstitial lung disease Recent b/l PNA Chronic diastolic CHF NSVT PAF CKD Thrombocytopenia REC: Renal input noted. Diuresing PRN. Slight improvement in CXR, creat relatively stable. Stress MIBI recent admission showed no ischemia and normal EF Echo 06/2016 showed normal LV systolic function, no pericardial effusion, no sig valvular abnl, unable to calculate RVSP Paroxysmal afib recently dx, was started on eliquis, hold eliquis for now for possible HD catheter insertion Platelets dropping. Send HIT Ab. Heme Consult.
[2016-06-23] MEDS: ATENOLOL 50 MG TABLET (FP) PO SCH (09:18)
[2016-06-23] MEDS: cloNIDine HCL 0.1 MG TABLET PO SCH (09:18)
[2016-06-23] MEDS: NIFEdipine E.R. 30 MG TABLET (FP) PO SCH (09:19)
[2016-06-23] MEDS ORDERED: PT OWN MED DRAWER 7, Y5N ONE ×3 (09:23→21:24)
--- NOTE | 2016-06-23 09:32 | PN ---
Progress Note, Physician History of Present Illness: ON BIPAP - Current Medication List Current Medications: Active Medications Albuterol Sulfate (Ventolin 0.083% Nebulizer Soln -) 1 amp NEB Q1H PRN PRN Reason: SHORT OF BREATH/WHEEZING Last Admin: 06/22/16 22:40 Dose: 1 amp Albuterol/Ipratropium (Duoneb -) 1 amp NEB QIDR [facility] Last Admin: 06/23/16 05:55 Dose: 1 amp Atenolol (Tenormin -) 50 mg PO DAILY [facility] Last Admin: 06/22/16 09:55 Dose: 50 mg Atorvastatin Calcium (Lipitor -) 80 mg PO HS [facility] Last Admin: 06/22/16 22:01 Dose: 80 mg Clonidine (Catapres -) 0.1 mg PO BID [facility] Last Admin: 06/22/16 22:01 Dose: Not Given Heparin Sodium (Porcine) (Heparin -) 1,000 unit IVPUSH PRN PRN PRN Reason: Heparin Heparin Sodium (Porcine) (Heparin -) 5,000 unit IVPUSH PRN PRN PRN Reason: Heparin Heparin Sodium/Dextrose (Heparin Infusion -) 500 mls @ 20 mls/hr IVPB TITR JOANNE ; 1,000 UNITS/HR PRN Reason: Protocol Last Titration: 06/22/16 16:00 Dose: 750 units/hr Aztreonam 1 gm/ Dextrose 50 mls @ 100 mls/hr IVPB BID JOANNE PRN Reason: Protocol Last Admin: 06/22/16 22:02 Dose: 100 mls/hr Insulin Aspart (Novolog Vial Sliding Scale -) 1 vial SQ TIDAC JOANNE PRN Reason: Protocol Last Admin: 06/23/16 06:06 Dose: 2 units Methylprednisolone Sodium Succinate (Solu-Medrol -) 80 mg IVPB Q6H-IV JOANNE Last Admin: 06/23/16 02:40 Dose: 80 mg Morphine Sulfate (Morphine Injection -) 1 mg IVPUSH Q3H PRN PRN Reason: PAIN Last Admin: 06/23/16 00:34 Dose: 1 mg Nifedipine (Procardia Xl -) 30 mg PO BID [facility] Last Admin: 06/22/16 22:03 Dose: Not Given - Objective Vital Signs: Vital Signs Temperature 98.1 F 06/23/16 06:00 Pulse Rate 65 06/23/16 08:00 Respiratory Rate 22 06/23/16 08:00 Blood Pressure 172/86 06/23/16 08:00 O2 Sat by Pulse Oximetry (%) 88 L 06/22/16 22:30 Cardiovascular: Yes: S1, S2 Respiratory: Yes: On BiPap Gastrointestinal: Yes: Normal Bowel Sounds, Soft Labs: CBC, BMP 06/23/16 05:05 06/23/16 05:05 INR, PTT INR 1.49 (0.82-1.09) H 06/21/16 02:00 Fibrinogen 473.0 mg/dL (238-498) 06/21/16 02:00 Problem List - Problems (1) COPD exacerbation Assessment/Plan: IV STEROIDS NEBS PULM Code(s): J44.1 - CHRONIC OBSTRUCTIVE PULMONARY DISEASE W (ACUTE) EXACERBATION (2) CHF exacerbation Assessment/Plan: LASIX CARDIO FOLLOW CE Code(s): I50.9 - HEART FAILURE, UNSPECIFIED Qualifiers: Congestive heart failure type: unspecified congestive heart failure type Qualified Code(s): I50.9 - Heart failure, unspecified (3) Pneumonia Assessment/Plan: IV ABX ID CONSULT Code(s): J18.9 - PNEUMONIA, UNSPECIFIED ORGANISM (4) CKD stage 4 secondary to hypertension Assessment/Plan: CHRONIC MONITOR RENAL Code(s): I12.9 - HYPERTENSIVE CHRONIC KIDNEY DISEASE W STG 1-4/UNSP CHR KDNY N18.4 - CHRONIC KIDNEY DISEASE, STAGE 4 (SEVERE) (5) Lactic acid acidosis Assessment/Plan: ON ABX CULTURES Code(s): E87.2 - ACIDOSIS (6) Elevated troponin Code(s): R79.89 - OTHER SPECIFIED ABNORMAL FINDINGS OF BLOOD CHEMISTRY (7) Sepsis Assessment/Plan: AWAIT CULTURES ABX Code(s): A41.9 - SEPSIS, UNSPECIFIED ORGANISM (8) HTN (hypertension) Assessment/Plan: ELEVATED RESUME CLONIDINE/PROCARDIA AND TENORMIN Code(s): I10 - ESSENTIAL (PRIMARY) HYPERTENSION (9) Thrombocytopenia Assessment/Plan: HEM CONSULT CHECK AB ?? DC HEPARIN Code(s): D69.6 - THROMBOCYTOPENIA, UNSPECIFIED
[2016-06-23] MEDS ORDERED: FUROSEMIDE 40 MG/4 ML INJECTABLE VIAL IVPUSH ONE (11:17)
[2016-06-23] MEDS: AZTREONAM 1 GM in DEXTROSE 5%-WATER - 50 ML IVPB SCH ×2 (11:17→21:42)
--- NOTE | 2016-06-23 11:24 | PN ---
Progress Note (short form) - Note Progress Note: Renal Follow up for CKD Pt seen and examined in the ICU awake and alert on BIPAP on 100% O2 unable to tolerate facemask or NC good urine output yesterday Vital Signs Temperature 97.5 F L 06/23/16 10:00 Pulse Rate 66 06/23/16 10:00 Respiratory Rate 22 06/23/16 10:00 Blood Pressure 187/67 06/23/16 10:00 O2 Sat by Pulse Oximetry (%) 90 L 06/23/16 09:30 Intake & Output 06/20/16 06/21/16 06/22/16 06/23/16 23:59 23:59 23:59 23:59 Intake Total 1053 910 320 Output Total 1350 1700 400 Balance -297 -790 -80 Weight 222 lb 214 lb 9.6 oz 215 lb 8 oz 205 lb 3.2 oz Gen: NAD, awake and alert on BIPAP CVS: RRR, No M/R Lungs : + diffuse crackles b/l lung silverman Abd: soft NT/ND Ext: trace to 1+ edema CBC, BMP 06/23/16 05:05 06/23/16 05:05 Current Medications Albuterol Sulfate (Ventolin 0.083% Nebulizer Soln -) 1 amp NEB Q1H PRN PRN Reason: SHORT OF BREATH/WHEEZING Last Admin: 06/22/16 22:40 Dose: 1 amp Albuterol/Ipratropium (Duoneb -) 1 amp NEB QIDR JOANNE Last Admin: 06/23/16 05:55 Dose: 1 amp Atenolol (Tenormin -) 50 mg PO DAILY [facility] Last Admin: 06/23/16 09:18 Dose: 50 mg Atorvastatin Calcium (Lipitor -) 80 mg PO HS [facility] Last Admin: 06/22/16 22:01 Dose: 80 mg Calcium Acetate (Phoslo -) 667 mg PO TIDCM JOANNE Clonidine (Catapres -) 0.1 mg PO BID JOANNE Last Admin: 06/23/16 09:18 Dose: 0.1 mg Furosemide (Lasix Injection -) 80 mg IVPUSH ONCE ONE Stop: 06/23/16 11:18 Aztreonam 1 gm/ Dextrose 50 mls @ 100 mls/hr IVPB BID JOANNE PRN Reason: Protocol Last Admin: 06/23/16 11:17 Dose: 100 mls/hr Insulin Aspart (Novolog Vial Sliding Scale -) 1 vial SQ TIDAC JOANNE PRN Reason: Protocol Last Admin: 06/23/16 06:06 Dose: 2 units Methylprednisolone Sodium Succinate (Solu-Medrol -) 80 mg IVPB Q6H-IV JOANNE Last Admin: 06/23/16 09:17 Dose: 80 mg Morphine Sulfate (Morphine Injection -) 1 mg IVPUSH Q3H PRN PRN Reason: PAIN Last Admin: 06/23/16 00:34 Dose: 1 mg Nifedipine (Procardia Xl -) 30 mg PO BID JOANNE Last Admin: 06/23/16 09:19 Dose: 30 mg A/P 75 year old woman with PMhx of CKD Stage 4, Hypertension (>40 years), Asthma, Osteoarthritis, Former Smoker who presented from [facility] with 1 day history of sob. #CKD Stage 4/5 with proteinuria Renal function stable BUN elevated but likely due to steroids, no signs of uremia pt is non-oliguric and responsive to IV lasix Serologic work up pending no acute indication for [employer] at this time Redose Lasix 80mg IV this am, redose as needed for pulmonary congestion Renal biopsy to be of low yield given atrophic kidneys #Hyperphosphatemia Start Calcium acetate TID #Resp Failure/Hypoxia/Pulmonary infiltrates BIPAP support IV lasix as needed IV steroids and Abx as per ICU ARA levels WNL work up as per pulmonary Raymundo Snyder DO
--- NOTE | 2016-06-23 12:12 | PN ---
Teaching Attending Note Name of Resident: Gino Stubbs ATTENDING PHYSICIAN STATEMENT I saw and evaluated the patient. I reviewed the resident's note and discussed the case with the resident. I agree with the resident's findings and plan as documented. SUBJECTIVE: Pt seen and examined in the ICU. Remains dependent on BiPAP, now on 100% FiO2. States breathing about the same. No fevers or chills. OBJECTIVE: Last Vital Signs Temp Pulse Resp BP Pulse Ox 97.5 F L 66 22 187/67 91 L 06/23/16 10:00 06/23/16 10:00 06/23/16 10:00 06/23/16 10:00 06/23/16 11:25 Intake & Output 06/20/16 06/21/16 06/22/16 06/23/16 23:59 23:59 23:59 23:59 Intake Total 1053 910 320 Output Total 1350 1700 400 Balance -297 -790 -80 Weight 222 lb 214 lb 9.6 oz 215 lb 8 oz 205 lb 3.2 oz Gen: tachypneic on BiPAP Heart: RRR Lung: diffuse rales, rhonchi Abd: soft, nontender Ext: 1+ edema CBC, BMP 06/23/16 05:05 06/23/16 05:05 Active Medications Albuterol Sulfate (Ventolin 0.083% Nebulizer Soln -) 1 amp NEB Q1H PRN PRN Reason: SHORT OF BREATH/WHEEZING Last Admin: 06/22/16 22:40 Dose: 1 amp Albuterol/Ipratropium (Duoneb -) 1 amp NEB QIDR [facility] Last Admin: 06/23/16 11:50 Dose: 1 amp Atenolol (Tenormin -) 50 mg PO DAILY [facility] Last Admin: 06/23/16 09:18 Dose: 50 mg Atorvastatin Calcium (Lipitor -) 80 mg PO HS [facility] Last Admin: 06/22/16 22:01 Dose: 80 mg Calcium Acetate (Phoslo -) 667 mg PO TIDCM [facility] Clonidine (Catapres -) 0.1 mg PO BID [facility] Last Admin: 06/23/16 09:18 Dose: 0.1 mg Furosemide (Lasix Injection -) 80 mg IVPUSH ONCE ONE Stop: 06/23/16 11:18 Aztreonam 1 gm/ Dextrose 50 mls @ 100 mls/hr IVPB BID JOANNE PRN Reason: Protocol Last Admin: 06/23/16 11:17 Dose: 100 mls/hr Insulin Aspart (Novolog Vial Sliding Scale -) 1 vial SQ TIDAC JOANNE PRN Reason: Protocol Last Admin: 06/23/16 06:06 Dose: 2 units Methylprednisolone Sodium Succinate (Solu-Medrol -) 80 mg IVPB Q6H-IV JOANNE Last Admin: 06/23/16 09:17 Dose: 80 mg Morphine Sulfate (Morphine Injection -) 1 mg IVPUSH Q3H PRN PRN Reason: PAIN Last Admin: 06/23/16 00:34 Dose: 1 mg Nifedipine (Procardia Xl -) 30 mg PO BID JOANNE Last Admin: 06/23/16 09:19 Dose: 30 mg ASSESSMENT AND PLAN: Acute Hypoxic Respiratory Failure Suspect Exacerbation of underlying Interstitial Lung Disease ARDS Lactic Acidosis likely from respiratory effort Acute on Chronic Renal Failure Paroxysmal Atrial Fibrillation r/o Pneumonia r/o CHF HTN - discussed again with pt that we recommend elective intubation as her oxygen requirements are increasing but she is still declining and would like to hold off unless it becomes emergent - f/u serologies - continue medrol at current dose - inhaled bronchodilators - O2 to keep SpO2 >90% - BiPAP to assist in work of breathing - empiric antibiotics per ID - monitor fever curve, WBC trend - continue lasix - monitor urine output, creatinine - when more stable will need dedicated CT chest noncontrast and will likely need biopsy - DVT/GI prophylaxis - continue ICU monitoring CCT 38'
--- NOTE | 2016-06-23 12:24 | PN ---
Physical Exam: SUBJECTIVE: Patient seen and examined, Patient seen and examined, Patient awake and alert. on BIPAP, Patient on 100% fio2 Patient has been again explained by attending regarding her condition and also been told that she needs an intubation. Patient has been explained regarding elective and emergent intubation. Patient wants to hold for intubation for now. Patient has also been told that if she starts feeling that she cant breath and tired let us know so that we will intubate her. condition of patient has been explained to son and daughter OBJECTIVE: Vital Signs Period Temp Pulse Resp BP Sys/Hill Pulse Ox Last 24 Hr 97.5 F-98.7 F 52-98 19-31 119-187/52-88 88-97 GENERAL: Awake, alert, and fully oriented, HEAD: Normal with no signs of trauma. NECK: Normal range of motion, supple without lymphadenopathy, LUNGS: Breath sounds equal, b/l diffuse rales. HEART:s1s2 normal, regular ABDOMEN: Soft, nontender, not distended, normoactive bowel sounds, no guarding, no rebound, no masses. UPPER EXTREMITIES: 2+ pulses, warm, well-perfused. No cyanosis. No clubbing. LOWER EXTREMITIES: 2+ pulses, warm, well-perfused. No calf tenderness. peripheral edema 1+ NEUROLOGICAL: Cranial nerves II-XII intact. Normal speech. gait not observed PSYCHIATRIC: Cooperative. Good eye contact. Appropriate mood and affect. SKIN: Warm, dry, normal turgor, Laboratory Results - last 24 hr 06/21/16 06/22/16 06/22/16 05:00 05:05 12:35 WBC RBC Hgb Hct MCV MCHC RDW Plt Count MPV Neutrophils % Lymphocytes % Monocytes % Eosinophils % Basophils % Platelet Estimate Platelet Comment PTT (Actin FS) Puncture Site ABG pH ABG pCO2 at Pt Temp ABG pO2 at Pt Temp ABG HCO3 ABG O2 Sat (Measured) ABG O2 Content ABG Base Excess Sree Test O2 Delivery Device Oxygen Flow Rate Vent Mode Vent Rate PEEP Pressure Support Vent Sodium Potassium Chloride Carbon Dioxide Anion Gap BUN Creatinine Creat Clearance w eGFR POC Glucometer [phone] Random Glucose Lactic Acid Calcium Phosphorus Magnesium Total Bilirubin AST ALT Alkaline Phosphatase Total Protein Albumin Lipase Angiotensin Convert Enz 50 CA 19-9 Antigen 1 Vancomycin Trough 06/22/16 06/22/16 06/22/16 12:40 17:27 21:30 WBC RBC Hgb Hct MCV MCHC RDW Plt Count MPV Neutrophils % Lymphocytes % Monocytes % Eosinophils % Basophils % Platelet Estimate Platelet Comment PTT (Actin FS) 103.4 H 63.4 H D Puncture Site ABG pH ABG pCO2 at Pt Temp ABG pO2 at Pt Temp ABG HCO3 ABG O2 Sat (Measured) ABG O2 Content ABG Base Excess Sree Test O2 Delivery Device Oxygen Flow Rate Vent Mode Vent Rate PEEP Pressure Support Vent Sodium Potassium Chloride Carbon Dioxide Anion Gap BUN Creatinine Creat Clearance w eGFR POC Glucometer [phone] Random Glucose Lactic Acid Calcium Phosphorus Magnesium Total Bilirubin AST ALT Alkaline Phosphatase Total Protein Albumin Lipase Angiotensin Convert Enz CA 19-9 Antigen Vancomycin Trough 06/23/16 06/23/16 06/23/16 05:05 05:05 05:05 WBC 13.4 H RBC 3.96 Hgb 9.8 L Hct 31.2 L MCV 78.8 L MCHC 31.5 L RDW 19.3 H Plt Count 81 L MPV 13.6 H Neutrophils % 96.2 H Lymphocytes % 1.0 L D Monocytes % 2.7 L Eosinophils % 0.0 Basophils % 0.1 Platelet Estimate Decreased Platelet Comment No clumping noted PTT (Actin FS) 71.6 H Puncture Site ABG pH ABG pCO2 at Pt Temp ABG pO2 at Pt Temp ABG HCO3 ABG O2 Sat (Measured) ABG O2 Content ABG Base Excess Sree Test O2 Delivery Device Oxygen Flow Rate Vent Mode Vent Rate PEEP Pressure Support Vent Sodium 143 Potassium 5.5 H Chloride 108 H Carbon Dioxide 26 Anion Gap 9 BUN 94 H Creatinine 3.5 H Creat Clearance w eGFR 12.77 POC Glucometer Random Glucose 208 H D Lactic Acid Calcium 8.0 L Phosphorus 6.3 H D Magnesium 2.4 Total Bilirubin 0.5 D AST 22 ALT 14 Alkaline Phosphatase 50 Total Protein 5.9 L Albumin 1.7 L Lipase 189 Angiotensin Convert Enz CA 19-9 Antigen Vancomycin Trough 06/23/16 06/23/16 06/23/16 05:05 05:52 07:30 WBC RBC Hgb Hct MCV MCHC RDW Plt Count MPV Neutrophils % Lymphocytes % Monocytes % Eosinophils % Basophils % Platelet Estimate Platelet Comment PTT (Actin FS) Puncture Site Right radial ABG pH 7.35 ABG pCO2 at Pt Temp 42.0 ABG pO2 at Pt Temp 54.9 L ABG HCO3 22.4 ABG O2 Sat (Measured) 86.1 L ABG O2 Content 12.1 L ABG Base Excess -2.6 L Sree Test Positive O2 Delivery Device Bipap Oxygen Flow Rate 100% Vent Mode S/t Vent Rate 12 PEEP 0.0 Pressure Support Vent 16/8 Sodium Potassium Chloride Carbon Dioxide Anion Gap BUN Creatinine Creat Clearance w eGFR POC Glucometer [phone] Random Glucose Lactic Acid 1.822 Calcium Phosphorus Magnesium Total Bilirubin AST ALT Alkaline Phosphatase Total Protein Albumin Lipase Angiotensin Convert Enz CA 19-9 Antigen Vancomycin Trough 06/23/16 06/23/16 08:35 11:34 WBC RBC Hgb Hct MCV MCHC RDW Plt Count MPV Neutrophils % Lymphocytes % Monocytes % Eosinophils % Basophils % Platelet Estimate Platelet Comment PTT (Actin FS) Puncture Site ABG pH ABG pCO2 at Pt Temp ABG pO2 at Pt Temp ABG HCO3 ABG O2 Sat (Measured) ABG O2 Content ABG Base Excess Sree Test O2 Delivery Device Oxygen Flow Rate Vent Mode Vent Rate PEEP Pressure Support Vent Sodium Potassium Chloride Carbon Dioxide Anion Gap BUN Creatinine Creat Clearance w eGFR POC Glucometer [phone] Random Glucose Lactic Acid Calcium Phosphorus Magnesium Total Bilirubin AST ALT Alkaline Phosphatase Total Protein Albumin Lipase Angiotensin Convert Enz CA 19-9 Antigen Vancomycin Trough 18.164 H* Active Medications Generic Name Dose Route Start Last Admin Trade Name Freq PRN Reason Stop Dose Admin Albuterol Sulfate 1 amp 06/21/16 01:00 06/22/16 22:40 Ventolin 0.083% Nebulizer Soln - NEB 1 amp Q1H PRN Administration SHORT OF BREATH/WHEEZING Albuterol/Ipratropium 1 amp 06/21/16 06:00 06/23/16 11:50 Duoneb - NEB 1 amp QIDR JOANNE Administration Atenolol 50 mg 06/21/16 10:00 06/23/16 09:18 Tenormin - PO 50 mg DAILY JOANNE Administration Atorvastatin Calcium 80 mg 06/21/16 22:00 06/22/16 22:01 Lipitor - PO 80 mg HS JOANNE Administration Calcium Acetate 667 mg 06/23/16 12:00 Phoslo - PO TIDCM JOANNE Clonidine 0.1 mg 06/21/16 10:00 06/23/16 09:18 Catapres - PO 0.1 mg BID JOANNE Administration Aztreonam 1 gm/ Dextrose 50 mls @ 100 mls/hr 06/21/16 14:30 06/23/16 11:17 IVPB 100 mls/hr BID JOANNE Administration Protocol Insulin Aspart 1 vial 06/21/16 07:00 06/23/16 06:06 Novolog Vial Sliding Scale - SQ 2 units TIDAC JOANNE Administration Protocol Methylprednisolone Sodium Succinate 80 mg 06/21/16 13:45 06/23/16 09:17 Solu-Medrol - IVPB 80 mg Q6H-IV JOANNE Administration Morphine Sulfate 1 mg 06/22/16 23:15 06/23/16 00:34 Morphine Injection - IVPUSH 1 mg Q3H PRN Administration PAIN Nifedipine 30 mg 06/21/16 10:00 06/23/16 09:19 Procardia Xl - PO 30 mg BID JOANNE Administration ASSESSMENT/PLAN: Acute Hypoxic Respiratory Failure A-a gradiet 530, pao2/fio2 67 cxr b/l opacity could be due to rapid progression of interstial lung ds,ARDS could be due to infective process, as in old admissions patient was maintaining a saturation on room air. ( could , TB, fungal) F/U phan, panca, canca, ds dna, anti ccp, anti gbm F/U quantiferon gold, sputum culture, urine histoplasma, cryptococcal antigen hiv negative, inflamatory markers ESR and LDH elevated mainatian spo2 over 90 on BIPAP spo2 100%, patient has refused for elective intubation continue solumedrol to 80mh q 6h BNP could be elevated from interstial lung ds antibiotic as per ID. vanco/azactam day 4 on [facility] CXR reviewed when more stable will need dedicated CT chest noncontrast HTN on home meds atenolol, nifedipine and clonidine. Paroxysmal afib recently diagnosed, was started on eliquis on discharge, will hold eliquis for now for possible HD catheter insertion, monitor aptt cardiology consult appreciated off heparin, thrombocytopenia, follow hit ab ckd monitor cr and bun monitor urine output on phoslo avoid nephrotoxic drugs nephro consult appreciated high blood glucose secondary to steroid monitor bgm on insulin sliding scale UTI urine wbc 47, LE 3+ on vanco and aztrenam follow uc fluid : orally allowed electrolyte: hyperkalemia, repeat in am nutrition; diabetic + renal diet dvt pro: scd b/l electrolyte: hyperphosphatemia Dispo: admit in icu. Visit type - Emergency Visit Emergency Visit: Yes ED Registration Date: 06/20/16 Care time: The patient presented to the Emergency Department on the above date and was hospitalized for further evaluation of their emergent condition. - New Patient This patient is new to me today: No - Critical Care Critical Care patient: Yes Total Critical Care Time (in minutes): 45 Critical Care Statement: The care of this patient involved high complexity decision making to prevent further life threatening deterioration of the patient 's condition and/or to evalute & treat vital organ system(s) failure or risk of failure.
[2016-06-23] MEDS: CALCIUM ACETATE 667 MG CAPSULE (FP) PO SCH ×2 (13:03→18:45)
--- NOTE | 2016-06-23 15:54 | CONSULT ---
Consult - text type - Consultation Consultation Note: Pt is a 75yr old woman with PMHx of COPD/Asthma, HTN, HLD, h/o TN and CKD (Cr 2.5 -->3.5 since 2016), left eye glaucoma and rt eye cataract. She was admitted 06/05-06/16 for pneumonia and was discharged to [facility]. Pt presents now to the ER with CC of SOB/respiratory distress and hypoxia. In ER found to have /WBC 16, BUN/Cr 91/3.6, K 5.4, lactic acid 2.47, BNP 31792, lipase 828 and +UA, platelets 111 (from 228 on 06/16). PAtient is with progressive respiratory failure We have been consulted regarding thrombocytopenia - Past Medical History Cardio/Vascular: Yes: HTN Pulmonary: Yes: COPD - Smoking History Smoking history: Former smoker - Allergies Allergies/Adverse Reactions: Allergies Allergy/AdvReac Type Severity Reaction Status Date / Time egg Allergy Severe LIP Verified 06/20/16 19:49 SWELLING Penicillins Allergy Severe Rash Verified 06/20/16 19:49 FLU SHOT Allergy Uncoded 06/20/16 19:49 - Home Medications Home Medications: Ambulatory Orders Albuterol 2.5/Ipratropium 0.5 [Duoneb -] 1 amp NEB Q6H PRN #0 amp 06/16/16 Apixaban [Eliquis -] 5 mg PO BID tablet 06/16/16 Atenolol [Tenormin -] 50 mg PO DAILY tablet 06/16/16 Clonidine HCl [Catapres -] 0.1 mg PO BID tablet 06/16/16 Levofloxacin [Levaquin -] 500 mg PO Q2D@0600 tablet 06/16/16 Nifedipine ER [Procardia XL -] 30 mg PO BID 06/16/16 Prednisone See Taper PO DAILY #30 tablet 06/16/16 Sodium Bicarbonate - 650 mg PO DAILY tablet 06/16/16 Omeprazole 20 mg PO DAILY 06/20/16 Vital Signs: Last Vital Signs Temp Pulse Resp BP Pulse Ox 97.6 F 66 22 179/81 87 L 06/23/16 14:00 06/23/16 14:00 06/23/16 14:00 06/23/16 14:00 06/23/16 16:05 Cardiovascular: Yes: S1, S2 Respiratory: Yes: Diminished, On BiPap, Rales (fine from 3/4 down), Rhonchi, SOB , Tachypnea, Wheezes (faint expiratory) Gastrointestinal: Yes: Normal Bowel Sounds, Soft, Abdomen, Obese. No: Tenderness Edema: Yes Abnormal Lab Results 06/22/16 06/23/16 06/23/16 21:30 05:05 05:05 WBC Hgb Hct MCV MCHC RDW Plt Count MPV Neutrophils % Lymphocytes % Monocytes % PTT (Actin FS) 63.4 H D 71.6 H ABG pO2 at Pt Temp ABG O2 Sat (Measured) ABG O2 Content ABG Base Excess Potassium 5.5 H Chloride 108 H BUN 94 H Creatinine 3.5 H Random Glucose 208 H D Calcium 8.0 L Phosphorus 6.3 H D Total Protein 5.9 L Albumin 1.7 L Vancomycin Trough 06/23/16 06/23/16 06/23/16 05:05 07:30 08:35 WBC 13.4 H Hgb 9.8 L Hct 31.2 L MCV 78.8 L MCHC 31.5 L RDW 19.3 H Plt Count 81 L MPV 13.6 H Neutrophils % 96.2 H Lymphocytes % 1.0 L D Monocytes % 2.7 L PTT (Actin FS) ABG pO2 at Pt Temp 54.9 L ABG O2 Sat (Measured) 86.1 L ABG O2 Content 12.1 L ABG Base Excess -2.6 L Potassium Chloride BUN Creatinine Random Glucose Calcium Phosphorus Total Protein Albumin Vancomycin Trough 18.164 H* - Results Chest X-ray: Report Reviewed, Image Reviewed Assessment/Plan Pt is a 75yr old woman with PMHx of COPD/Asthma, HTN, HLD, questionable hx of TN and CKD (Cr 2.5 -->3.5 since 2016), left eye glaucoma and rt eye cataract. Now in the ICU for acute on chronic renal insufficiency, CHF exacerbation, urosepsis and likely pneumonia Being intubated for acute resp. failure Acute Hypoxic Respiratory Failure Interstitial Lung Disease ARDS Acute on Chronic Renal Failure Paroxysmal Atrial Fibrillation r/o Pneumonia afib---on eliquis --which is on hold awaiting HD catheter placement Thrombocytopenia -- due to ongoing infection time frame unlikely for HIT Likely consumptive from ongoing resp. failure/multiorgan failure /?sepsis h/o pulmonary fibrosis now with progressive resp.. failure ? superimposed infiltrates On vanco/aztreonam
[2016-06-23] MEDS ORDERED: PROPOFOL 100 ML ONE ×2 (17:01→23:36)
--- NOTE | 2016-06-23 17:33 | PN ---
Progress Note (short form) - Note Progress Note: Called to intubate this 76 y/o female in respiratory distress/failure. Pt. has been on bi-pap and has been progressively worsening. Pt. was given 100mg propofol for sedation and then intubated under direct laryngoscopy using an 8.0 endotracheal tube. Bilateral breath sounds and + end-tidal CO2 noted. ETT secured. Further management as per ICU team.
[2016-06-23] MEDS ORDERED: SODIUM CHLORIDE 500 ML IV STA (17:59)
[2016-06-23] MEDS ORDERED: SENNOSIDES 8.6MG TABLET (FP) PO PRN (18:01)
[2016-06-23 19:18] LABS: ARTERIAL BLD GAS O2 SATURATION 99.4 % (90-98.9); ARTERIAL BLOOD GAS HCO3 22.6 meq/L (22-26); ARTERIAL BLOOD GAS pH 7.25 (7.35-7.45)
[2016-06-23 19:19] LABS: ALLENS TEST POSITIVE; ART PUNCT SITE RIGHT RADIAL; LPM/O2% 100%; MECH. VENT. YES; PT. ON O2? YES; TYPE OF O2 MECHANICAL VENT; VENT RATE 16; VT/PRESS 400ML
[2016-06-23] MEDS: POLYETHYLENE GLYCOL 3350 119 GM BTL PO SCH (21:40)
[2016-06-23] MEDS: FENTANYL INJECTION 500 MCG in DEXTROSE 5%-WATER - 90 ML IJ SCH (21:42)
[2016-06-23] MEDS: ATORVASTATIN CA 80 MG TABLET (FP) PO SCH (21:42)
[2016-06-24] MEDS: ALBUTEROL SO4 2.5/IPRATROPIUM 0.5 INH SOL 3 ML VIAL.NEB. NEB SCH ×4 (00:20→23:12)
[2016-06-24] MEDS ORDERED: BENZOIN/ALOE VERA/STORAX/TOLU 58 ML BOTTLE ONE (00:38)
[2016-06-24] MEDS: NIFEdipine E.R. 30 MG TABLET (FP) PO SCH (03:51)
[2016-06-24] MEDS: cloNIDine HCL 0.1 MG TABLET PO SCH (03:51)
[2016-06-24] MEDS: DOPAMINE 400 MG/D5W - 250 ML IVPB SCH ×2 (03:52→22:35)
[2016-06-24] MEDS: methylPREDNISolone NA SUCC 40 MG/1 ML VIAL IVPB SCH ×2 (03:52→09:04)
[2016-06-24 05:43] LABS: ARTERIAL BLOOD GAS BASE EXCESS -3.6 meq/l (-2-2)
[2016-06-24 05:44] LABS: ALLENS TEST POSITIVE; ART PUNCT SITE RIGHT RADIAL; ARTERIAL BLOOD GAS HCO3 22.2 meq/L (22-26); ARTERIAL BLOOD GAS PO2 40.2 mmHg (70-100); ARTERIAL BLOOD GAS pH 7.29 (7.35-7.45); LPM/O2% 60%; MECH. VENT. YES; PT. ON O2? YES; TYPE OF O2 MECH VENT; VENT RATE 20; VT/PRESS 325
[2016-06-24 05:45] LABS: ARTERIAL BLD GAS O2 SATURATION 68.4 % (90-98.9)
[2016-06-24] MEDS ORDERED: SODIUM CHLORIDE 250 ML IV STA (05:50)
[2016-06-24 06:01] LABS: BASOPHIL 0.1 % (0-2.0); MCH 24.4 pg (25.7-33.7); MCHC 30.7 g/dl (32.0-36.0); MEAN CELL VOLUME 79.6 fl (80-96); MEAN PLT VOLUME 13.3 fl (7.5-11.1); NEUTROPHILS 97.1 % (42.8-82.8); PLATELET COUNT 60 K/MM3 (134-434); RDW 19.6 % (11.6-15.6); WHITE BLOOD COUNT 12.3 K/mm3 (4.0-10.0)
[2016-06-24] MEDS: INSULIN SLIDING SCALE (NOVOLOG) 1 VIAL SQ SCH ×3 (06:23→17:29)
[2016-06-24 06:33] LABS: CALCIUM 7.3 mg/dL (8.5-10.1); CREATININE 3.8 mg/dL (0.55-1.02); PHOSPHOROUS 8.2 mg/dL (2.5-4.9); TROPONIN I 0.05 ng/ml (0.00-0.05)
[2016-06-24] MEDS ORDERED: PT OWN MED DRAWER 7, Y5N ONE ×2 (08:00→22:03)
--- NOTE | 2016-06-24 08:32 | PN ---
Progress Note, Physician History of Present Illness: REQUIRED INTUBATION ON VENT SEDATED - Current Medication List Current Medications: Active Medications Albuterol Sulfate (Ventolin 0.083% Nebulizer Soln -) 1 amp NEB Q1H PRN PRN Reason: SHORT OF BREATH/WHEEZING Last Admin: 06/22/16 22:40 Dose: 1 amp Albuterol/Ipratropium (Duoneb -) 1 amp NEB QIDR JOANNE Last Admin: 06/24/16 06:30 Dose: 1 amp Atorvastatin Calcium (Lipitor -) 80 mg PO HS JOANNE Last Admin: 06/23/16 21:42 Dose: 80 mg Calcium Acetate (Phoslo -) 667 mg PO TIDCM JOANNE Last Admin: 06/23/16 18:45 Dose: Not Given Aztreonam 1 gm/ Dextrose 50 mls @ 100 mls/hr IVPB BID JOANNE PRN Reason: Protocol Last Admin: 06/23/16 21:42 Dose: 100 mls/hr Fentanyl 500 mcg/ Dextrose 100 mls @ 5 mls/hr IJ TITR JOANNE PRN Reason: 25 MCG/HR Last Admin: 06/23/16 21:42 Dose: 5 mls/hr Dopamine HCl/Dextrose (Dopamine 400 Mg/D5w -) 250 mls @ 17.452 mls/hr IVPB TITR JOANNE; 5 MCG/KG/MIN PRN Reason: Protocol Last Admin: 06/24/16 03:52 Dose: Not Given Insulin Aspart (Novolog Vial Sliding Scale -) 1 vial SQ TIDAC JOANNE PRN Reason: Protocol Last Admin: 06/24/16 06:23 Dose: 2 units Methylprednisolone Sodium Succinate (Solu-Medrol -) 80 mg IVPB Q6H-IV JOANNE Last Admin: 06/24/16 03:52 Dose: 80 mg Polyethylene Glycol (Miralax (For Daily Use) -) 17 gm PO DAILY JOANNE Last Admin: 06/23/16 21:40 Dose: 17 gm Senna (Senna -) 2 tab PO HS PRN PRN Reason: CONSTIPATION - Objective Vital Signs: Vital Signs Temperature 97.8 F 06/24/16 02:00 Pulse Rate 60 06/24/16 06:00 Respiratory Rate 30 H 06/24/16 06:56 Blood Pressure 121/62 06/24/16 06:00 O2 Sat by Pulse Oximetry (%) 100 06/23/16 22:00 Cardiovascular: Yes: Bradycardia, S1, S2 Respiratory: Yes: Mechanically Ventilated, Rhonchi Gastrointestinal: Yes: Normal Bowel Sounds, Soft Labs: CBC, BMP 06/24/16 05:05 06/24/16 05:05 INR, PTT INR 1.49 (0.82-1.09) H 06/21/16 02:00 Fibrinogen 473.0 mg/dL (238-498) 06/21/16 02:00 Problem List - Problems (1) COPD exacerbation Assessment/Plan: IV STEROIDS NEBS PULM Code(s): J44.1 - CHRONIC OBSTRUCTIVE PULMONARY DISEASE W (ACUTE) EXACERBATION (2) CHF exacerbation Assessment/Plan: LASIX IV CARDIO FOLLOW CE CONSIDER DIALYSIS Code(s): I50.9 - HEART FAILURE, UNSPECIFIED Qualifiers: Congestive heart failure type: unspecified congestive heart failure type Qualified Code(s): I50.9 - Heart failure, unspecified (3) Pneumonia Assessment/Plan: IV ABX ID CONSULT Code(s): J18.9 - PNEUMONIA, UNSPECIFIED ORGANISM (4) CKD stage 4 secondary to hypertension Assessment/Plan: CHRONIC MONITOR RENAL Code(s): I12.9 - HYPERTENSIVE CHRONIC KIDNEY DISEASE W STG 1-4/UNSP CHR KDNY N18.4 - CHRONIC KIDNEY DISEASE, STAGE 4 (SEVERE) (5) Lactic acid acidosis Code(s): E87.2 - ACIDOSIS (6) Elevated troponin Code(s): R79.89 - OTHER SPECIFIED ABNORMAL FINDINGS OF BLOOD CHEMISTRY (7) Sepsis Assessment/Plan: AWAIT CULTURES ABX Code(s): A41.9 - SEPSIS, UNSPECIFIED ORGANISM (8) HTN (hypertension) Assessment/Plan: ELEVATED RESUME CLONIDINE/PROCARDIA AND TENORMIN Code(s): I10 - ESSENTIAL (PRIMARY) HYPERTENSION (9) Thrombocytopenia Assessment/Plan: HEM CONSULT CHECK AB OFF HEPARIN Code(s): D69.6 - THROMBOCYTOPENIA, UNSPECIFIED (10) Respiratory failure Assessment/Plan: VENT SETTING PER PULM Code(s): J96.90 - RESPIRATORY FAILURE, UNSP, UNSP W HYPOXIA OR HYPERCAPNIA (11) Hypotension Assessment/Plan: ON DOPAMINE DC ORAL MEDS Code(s): I95.9 - HYPOTENSION, UNSPECIFIED
[2016-06-24] MEDS: CALCIUM ACETATE 667 MG CAPSULE (FP) PO SCH ×3 (09:04→17:32)
[2016-06-24] MEDS: AZTREONAM 1 GM in DEXTROSE 5%-WATER - 50 ML IVPB SCH ×2 (09:05→22:33)
--- NOTE | 2016-06-24 09:58 | PN ---
Progress Note, Physician Chief Complaint: intubated TELE: NSR, NSST changes - Current Medication List Current Medications: Active Medications Albuterol Sulfate (Ventolin 0.083% Nebulizer Soln -) 1 amp NEB Q1H PRN PRN Reason: SHORT OF BREATH/WHEEZING Last Admin: 06/22/16 22:40 Dose: 1 amp Albuterol/Ipratropium (Duoneb -) 1 amp NEB QIDR JOANNE Last Admin: 06/24/16 06:30 Dose: 1 amp Atorvastatin Calcium (Lipitor -) 80 mg PO HS JOANNE Last Admin: 06/23/16 21:42 Dose: 80 mg Calcium Acetate (Phoslo -) 667 mg PO TIDCM JOANNE Last Admin: 06/24/16 09:04 Dose: 667 mg Furosemide (Lasix Injection -) 80 mg IVPB DAILY JOANNE Last Admin: 06/24/16 09:18 Dose: 80 mg Aztreonam 1 gm/ Dextrose 50 mls @ 100 mls/hr IVPB BID JOANNE PRN Reason: Protocol Last Admin: 06/24/16 09:05 Dose: 100 mls/hr Fentanyl 500 mcg/ Dextrose 100 mls @ 5 mls/hr IJ TITR JOANNE PRN Reason: 25 MCG/HR Last Admin: 06/23/16 21:42 Dose: 5 mls/hr Dopamine HCl/Dextrose (Dopamine 400 Mg/D5w -) 250 mls @ 17.452 mls/hr IVPB TITR JOANNE; 5 MCG/KG/MIN PRN Reason: Protocol Last Admin: 06/24/16 03:52 Dose: Not Given Insulin Aspart (Novolog Vial Sliding Scale -) 1 vial SQ TIDAC JOANNE PRN Reason: Protocol Last Admin: 06/24/16 06:23 Dose: 2 units Methylprednisolone Sodium Succinate (Solu-Medrol -) 80 mg IVPB Q6H-IV JOANNE Last Admin: 06/24/16 09:04 Dose: 80 mg Polyethylene Glycol (Miralax (For Daily Use) -) 17 gm PO DAILY JOANNE Last Admin: 06/23/16 21:40 Dose: 17 gm Senna (Senna -) 2 tab PO HS PRN PRN Reason: CONSTIPATION - Objective Vital Signs: Vital Signs Temperature 97.8 F 06/24/16 02:00 Pulse Rate 60 06/24/16 06:00 Respiratory Rate 30 H 06/24/16 06:56 Blood Pressure 121/62 06/24/16 06:00 O2 Sat by Pulse Oximetry (%) 92 L 06/24/16 08:37 Constitutional: Yes: No Distress HENT: Yes: Other (+ ETT) Cardiovascular: Yes: Regular Rate and Rhythm Respiratory: Yes: Other (= breath sounds) Edema: Yes Edema: LLE: 2+ Neurological: Yes: Other (sedated) Labs: CBC, BMP 06/24/16 05:05 06/24/16 05:05 INR, PTT INR 1.49 (0.82-1.09) H 06/21/16 02:00 Fibrinogen 473.0 mg/dL (238-498) 06/21/16 02:00 Laboratory Tests 06/23/16 06/23/16 06/23/16 05:05 05:05 05:05 WBC 13.4 H Hgb 9.8 L Hct 31.2 L Plt Count 81 L PTT (Actin FS) 71.6 H ABG pH ABG pCO2 at Pt Temp ABG pO2 at Pt Temp Potassium 5.5 H BUN 94 H Creatinine 3.5 H 06/23/16 06/24/16 06/24/16 07:30 05:05 05:05 WBC 12.3 H Hgb 8.0 L D Hct 26.0 L D Plt Count 60 L D PTT (Actin FS) 30.9 D ABG pH 7.35 ABG pCO2 at Pt Temp 42.0 ABG pO2 at Pt Temp 54.9 L Potassium BUN Creatinine 06/24/16 05:05 WBC Hgb Hct Plt Count PTT (Actin FS) ABG pH ABG pCO2 at Pt Temp ABG pO2 at Pt Temp Potassium 5.7 H BUN Creatinine 3.8 H Assessment/Plan Assessment/Plan Readmitted with SOB and hypoxia, acute respiratory failure, intubated Interstitial lung disease Recent b/l PNA Acute on chronic diastolic CHF NSVT PAF CKD Thrombocytopenia REC: 1. Renal input noted. On dopamine. IV Lasix. Vent support. 2. Platelets dropping. HIT Ab pending, heparin d/c'd. Has been in NSR with no evidence of recurrent AF. Heme consult appreciated.
[2016-06-24] MEDS ORDERED: FUROSEMIDE 100 MG/10 ML INJECTABLE VIAL IVPB SCH (10:00)
[2016-06-24] MEDS ORDERED: PROPOFOL 100 ML ONE (10:16)
[2016-06-24] MEDS ORDERED: SODIUM POLYSTYRENE SULFONATE 15 GM/60 ML BOTTLE NGT ONE (10:36)
--- NOTE | 2016-06-24 10:40 | PN ---
Progress Note (short form) - Note Progress Note: Renal Follow up for CKD Pt seen and examined in the ICU intubated yesterday evening for hypoxia currently on 100% O2 good urine output BP stable Vital Signs Temperature 97.8 F 06/24/16 02:00 Pulse Rate 95 H 06/24/16 09:40 Respiratory Rate 33 H 06/24/16 09:30 Blood Pressure 121/62 06/24/16 06:00 O2 Sat by Pulse Oximetry (%) 92 L 06/24/16 09:40 Intake & Output 06/21/16 06/22/16 06/23/16 06/24/16 23:59 23:59 23:59 23:59 Intake Total 0511 453 0866 556 Output Total 1350 1700 1400 600 Balance -297 -790 -170 -44 Weight 214 lb 9.6 oz 215 lb 8 oz 205 lb 3.2 oz 207 lb Gen: Intubated CVS: RRR, No M/R Lungs : + diffuse crackles b/l lung silverman Abd: soft NT/ND Ext: trace to 1+ edema CBC, BMP 06/24/16 05:05 06/24/16 05:05 Current Medications Albuterol Sulfate (Ventolin 0.083% Nebulizer Soln -) 1 amp NEB Q1H PRN PRN Reason: SHORT OF BREATH/WHEEZING Last Admin: 06/22/16 22:40 Dose: 1 amp Albuterol/Ipratropium (Duoneb -) 1 amp NEB QIDR [facility] Last Admin: 06/24/16 06:30 Dose: 1 amp Atorvastatin Calcium (Lipitor -) 80 mg PO HS [facility] Last Admin: 06/23/16 21:42 Dose: 80 mg Calcium Acetate (Phoslo -) 667 mg PO TIDCM [facility] Last Admin: 06/24/16 09:04 Dose: 667 mg Furosemide (Lasix Injection -) 80 mg IVPB DAILY [facility] Last Admin: 06/24/16 09:18 Dose: 80 mg Aztreonam 1 gm/ Dextrose 50 mls @ 100 mls/hr IVPB BID JOANNE PRN Reason: Protocol Last Admin: 06/24/16 09:05 Dose: 100 mls/hr Fentanyl 500 mcg/ Dextrose 100 mls @ 5 mls/hr IJ TITR JOANNE PRN Reason: 25 MCG/HR Last Admin: 06/23/16 21:42 Dose: 5 mls/hr Dopamine HCl/Dextrose (Dopamine 400 Mg/D5w -) 250 mls @ 17.452 mls/hr IVPB TITR JOANNE; 5 MCG/KG/MIN PRN Reason: Protocol Last Admin: 06/24/16 03:52 Dose: Not Given Insulin Aspart (Novolog Vial Sliding Scale -) 1 vial SQ TIDAC JOANNE PRN Reason: Protocol Last Admin: 06/24/16 06:23 Dose: 2 units Methylprednisolone Sodium Succinate (Solu-Medrol -) 80 mg IVPB Q6H-IV JOANNE Last Admin: 06/24/16 09:04 Dose: 80 mg Polyethylene Glycol (Miralax (For Daily Use) -) 17 gm PO DAILY JOANNE Last Admin: 06/23/16 21:40 Dose: 17 gm Senna (Senna -) 2 tab PO HS PRN PRN Reason: CONSTIPATION A/P 75 year old woman with PMhx of CKD Stage 4, Hypertension (>40 years), Asthma, Osteoarthritis, Former Smoker who presented from [facility] with 1 day history of sob. #CKD Stage 4/5 with proteinuria Cr with slight worsening in last 24 hours - related to hemodynamic changes ( periods of hypotension) vs. volume depletion with Lasix Good urine output maintain MAP > 65 Continue to trend BUN/Cr No acute indication for [employer] at the present time Continue PRN Lasix for volume management (got Lasix 80mg IV this am) #Hyperphosphatemia Start Calcium acetate TID #Hyperkalemia Kayexalate 30g via OGT Repeat BMP in the evening #Resp Failure/Hypoxia/Pulmonary infiltrates MOLLY strongly positive Anti DS DNA is negative Will order antiphospholipid Ab panel, C3, C4, CH50 Consider High dose pulse steroids given respiratory failure (1g Daily for 3 days ) Rheum Eval Continue Empiric Abx PRN lasix for Pulmonary congestion Raymundo Snyder DO
[2016-06-24 10:42] LABS: MAGNESIUM 2.7 mg/dL (1.8-2.4)
--- NOTE | 2016-06-24 11:18 | PN ---
Progress Note, Physician Chief Complaint: ID Has to be intubated Vancomycin and Aztreonam empriric Solumedrol 80mg q6H Discussed with Dr Snyder regarding positive MOLLY - Current Medication List Current Medications: Active Medications Albuterol Sulfate (Ventolin 0.083% Nebulizer Soln -) 1 amp NEB Q1H PRN PRN Reason: SHORT OF BREATH/WHEEZING Last Admin: 06/22/16 22:40 Dose: 1 amp Albuterol/Ipratropium (Duoneb -) 1 amp NEB QIDR JOANNE Last Admin: 06/24/16 06:30 Dose: 1 amp Atorvastatin Calcium (Lipitor -) 80 mg PO HS JOANNE Last Admin: 06/23/16 21:42 Dose: 80 mg Calcium Acetate (Phoslo -) 667 mg PO TIDCM JOANNE Last Admin: 06/24/16 09:04 Dose: 667 mg Furosemide (Lasix Injection -) 80 mg IVPB DAILY JOANNE Last Admin: 06/24/16 09:18 Dose: 80 mg Aztreonam 1 gm/ Dextrose 50 mls @ 100 mls/hr IVPB BID JOANNE PRN Reason: Protocol Last Admin: 06/24/16 09:05 Dose: 100 mls/hr Fentanyl 500 mcg/ Dextrose 100 mls @ 5 mls/hr IJ TITR JOANNE PRN Reason: 25 MCG/HR Last Admin: 06/23/16 21:42 Dose: 5 mls/hr Dopamine HCl/Dextrose (Dopamine 400 Mg/D5w -) 250 mls @ 17.452 mls/hr IVPB TITR JOANNE; 5 MCG/KG/MIN PRN Reason: Protocol Last Admin: 06/24/16 03:52 Dose: Not Given Insulin Aspart (Novolog Vial Sliding Scale -) 1 vial SQ TIDAC JOANNE PRN Reason: Protocol Last Admin: 06/24/16 06:23 Dose: 2 units Methylprednisolone Sodium Succinate (Solu-Medrol -) 80 mg IVPB Q6H-IV JOANNE Last Admin: 06/24/16 09:04 Dose: 80 mg Polyethylene Glycol (Miralax (For Daily Use) -) 17 gm PO DAILY JOANNE Last Admin: 06/23/16 21:40 Dose: 17 gm Senna (Senna -) 2 tab PO HS PRN PRN Reason: CONSTIPATION - Objective Vital Signs: Vital Signs Temperature 97.8 F 06/24/16 02:00 Pulse Rate 95 H 06/24/16 09:40 Respiratory Rate 33 H 06/24/16 09:30 Blood Pressure 121/62 06/24/16 06:00 O2 Sat by Pulse Oximetry (%) 92 L 06/24/16 09:40 Labs: CBC, BMP 06/24/16 05:05 06/24/16 05:05 INR, PTT INR 1.49 (0.82-1.09) H 06/21/16 02:00 Fibrinogen 473.0 mg/dL (238-498) 06/21/16 02:00 Problem List - Problems (1) Acute respiratory failure with hypoxia Code(s): J96.01 - ACUTE RESPIRATORY FAILURE WITH HYPOXIA (2) Pulmonary fibrosis Code(s): J84.10 - PULMONARY FIBROSIS, UNSPECIFIED (3) Bilateral pulmonary infiltrates on CXR Code(s): R91.8 - OTHER NONSPECIFIC ABNORMAL FINDING OF LUNG FIELD Assessment/Plan Laboratory Tests 06/22/16 06/22/16 06/22/16 05:05 05:05 05:05 WBC Plt Count ESR 55 H ABG pH ABG pCO2 at Pt Temp ABG pO2 at Pt Temp Oxygen Flow Rate Vancomycin Trough MOLLY Speckled Pattern 1:1280 H Double Strand DNA Ab <1 A. galactomannan Ag Pending Beta-(1,3)-D-Glucan Pending 06/23/16 06/24/16 06/24/16 08:35 05:05 05:40 WBC 12.3 H Plt Count 60 L D ESR ABG pH 7.29 L ABG pCO2 at Pt Temp 47.2 H ABG pO2 at Pt Temp 40.2 L* D Oxygen Flow Rate 60% Vancomycin Trough 18.164 H* MOLLY Speckled Pattern Double Strand DNA Ab A. galactomannan Ag Beta-(1,3)-D-Glucan Assessment Respiratory failure Pulmonary fibrosis Antibiotic empiric treatment for ? infection Thrombocytopenia Positive MOLLY doubt vasculititis and kidney disease small kidneys contracted so chronic kidney disease Plan Redose vanco for last time and complete 7 days of Aztreonam Obtain sputum for fungal culture and c/s AFB Miguel A STILL
[2016-06-24] MEDS ORDERED: VANCOMYCIN 1 GRAM (PRE-DOCKED) 250 ML IVPB ONE (12:00)
[2016-06-24 12:19] LABS: ARTERIAL BLD GAS O2 SATURATION 93.9 % (90-98.9); ARTERIAL BLOOD GAS HCO3 21.5 meq/L (22-26); ARTERIAL BLOOD GAS PO2 76.2 mmHg (70-100); ARTERIAL BLOOD GAS pH 7.25 (7.35-7.45)
[2016-06-24 12:20] LABS: ALLENS TEST POSITIVE; ART PUNCT SITE RIGHT RADIAL; PT. ON O2? YES
[2016-06-24 12:21] LABS: LPM/O2% 70%; MECH. VENT. YES; TYPE OF O2 MECHANICAL VENT; VENT RATE 26; VT/PRESS 325ML
--- NOTE | 2016-06-24 12:42 | PN ---
Teaching Attending Note Name of Resident: Gino Stubbs ATTENDING PHYSICIAN STATEMENT I saw and evaluated the patient. I reviewed the resident's note and discussed the case with the resident. I agree with the resident's findings and plan as documented. SUBJECTIVE: Pt seen and examined in the ICU. Remains intubated, sedated. On volume assist control with 100% FiO2, PEEP 10. MOLLY strongly positive. OBJECTIVE: Last Vital Signs Temp Pulse Resp BP Pulse Ox 97.8 F 49 L 26 H 108/52 92 L 06/24/16 02:00 06/24/16 10:00 06/24/16 11:40 06/24/16 10:00 06/24/16 09:40 Intake & Output 06/21/16 06/22/16 06/23/16 06/24/16 23:59 23:59 23:59 23:59 Intake Total 1172 014 4637 556 Output Total 1350 1700 1400 600 Balance -297 -790 -170 -44 Weight 214 lb 9.6 oz 215 lb 8 oz 205 lb 3.2 oz 207 lb Gen: intubated, sedated Heart: RRR Lung: bilateral rhonchi, rales Abd: soft, nontender Ext: no edema CBC, BMP 06/24/16 05:05 06/24/16 05:05 CXR: extensive bilateral infiltrates Active Medications Albuterol Sulfate (Ventolin 0.083% Nebulizer Soln -) 1 amp NEB Q1H PRN PRN Reason: SHORT OF BREATH/WHEEZING Last Admin: 06/22/16 22:40 Dose: 1 amp Albuterol/Ipratropium (Duoneb -) 1 amp NEB QIDR [facility] Last Admin: 06/24/16 11:20 Dose: 1 amp Atorvastatin Calcium (Lipitor -) 80 mg PO HS [facility] Last Admin: 06/23/16 21:42 Dose: 80 mg Calcium Acetate (Phoslo -) 667 mg PO TIDCM [facility] Last Admin: 06/24/16 09:04 Dose: 667 mg Furosemide (Lasix Injection -) 80 mg IVPB DAILY [facility] Last Admin: 06/24/16 09:18 Dose: 80 mg Aztreonam 1 gm/ Dextrose 50 mls @ 100 mls/hr IVPB BID JOANNE PRN Reason: Protocol Last Admin: 06/24/16 09:05 Dose: 100 mls/hr Fentanyl 500 mcg/ Dextrose 100 mls @ 5 mls/hr IJ TITR JOANNE PRN Reason: 25 MCG/HR Last Admin: 06/23/16 21:42 Dose: 5 mls/hr Dopamine HCl/Dextrose (Dopamine 400 Mg/D5w -) 250 mls @ 17.452 mls/hr IVPB TITR JOANNE; 5 MCG/KG/MIN PRN Reason: Protocol Last Admin: 06/24/16 03:52 Dose: Not Given Propofol (Diprivan -) 100 mls @ 2.817 mls/hr IVPB TITR JOANNE; 5 MCG/KG/MIN PRN Reason: Protocol Vancomycin HCl (Vancomycin (Pre-Docked)) 250 mls @ 250 mls/hr IVPB ONCE ONE PRN Reason: Protocol Stop: 06/24/16 12:59 Insulin Aspart (Novolog Vial Sliding Scale -) 1 vial SQ TIDAC JOANNE PRN Reason: Protocol Last Admin: 06/24/16 06:23 Dose: 2 units Methylprednisolone Sodium Succinate (Solu-Medrol -) 1,000 mg IVPB DAILY JOANNE Stop: 06/26/16 10:01 Polyethylene Glycol (Miralax (For Daily Use) -) 17 gm PO DAILY JOANNE Last Admin: 06/23/16 21:40 Dose: 17 gm Senna (Senna -) 2 tab PO HS PRN PRN Reason: CONSTIPATION ASSESSMENT AND PLAN: Acute Hypoxic Respiratory Failure Suspect Exacerbation of underlying Interstitial Lung Disease ARDS Lactic Acidosis likely from respiratory effort Acute on Chronic Renal Failure Paroxysmal Atrial Fibrillation r/o Pneumonia r/o CHF HTN - discussed with renal, agree with pulse steroids - f/u serologies - rheum eval - inhaled bronchodilators - titrate FiO2, PEEP to keep SpO2 >90% - may need paralytics as pt double triggering vent - low tidal volume ventilation - monitor ABG - empiric antibiotics per ID - monitor fever curve, WBC trend - would hold lasix - monitor urine output, creatinine - when more stable will need dedicated CT chest noncontrast and will likely need biopsy - DVT/GI prophylaxis - continue ICU monitoring
[2016-06-24] MEDS: methylPREDNISolone NA SUCC 1000 MG/8 ML VIAL IVPB SCH (12:46)
[2016-06-24] MEDS: PROPOFOL 100 ML IVPB SCH ×2 (12:49→22:37)
[2016-06-24] MEDS ORDERED: SODIUM POLYSTYRENE SULFONATE 15 GM/60 ML BOTTLE ONE (12:58)
--- NOTE | 2016-06-24 13:42 | PROC ---
<Gino Stubbs - Last Filed: 06/24/16 13:42> Procedure Note Procedure: central line insertion on right IJ usg was used to Central Line Insertion Indication: CVP Monitoring, Vasopressor Risks and Benefits Explained: Yes Consent on Chart: Yes Central Line: Triple Lumen Catheter Anesthesia: 1% Lidocaine Sterile Technique: Yes Ultrasound Guided Assistance: Yes Position: Right Internal Jugular Post Insertion: Yes: Chest X-Ray Ordered Sterile Dressing Applied: Yes Remarks: guide wire removed <Bola Redd MD - Last Filed: 06/25/16 11:24> Procedure Note Procedure: I supervised and was present during the entire procedure. Bola Redd MD
--- NOTE | 2016-06-24 13:48 | PN ---
Physical Exam: SUBJECTIVE: Patient seen and examined, patient was lying comfortably in bed. patient in in ventilator support, sedated with propofol and fentanyl. OBJECTIVE: Vital Signs Period Temp Pulse Resp BP Sys/Hill Pulse Ox Last 24 Hr 97.6 F-98 F 44-95 18-33 67-180/36-81 87-100 GENERAL: sedated and intubated HEAD: Normal with no signs of trauma., dry lips , LUNGS: Breath sounds equal, b/l diffuse rales. HEART:s1s2 normal, ABDOMEN: Soft, nontender, not distended, normoactive bowel sounds, no guarding, no rebound, no masses. UPPER EXTREMITIES: 2+ pulses, warm, well-perfused. No cyanosis. No clubbing. LOWER EXTREMITIES: 2+ pulses, warm, well-perfused. No calf tenderness. no peripheral edema NEUROLOGICAL: Cranial nerves II-XII intact. Normal speech. gait not observed PSYCHIATRIC: Cooperative. Good eye contact. Appropriate mood and affect. SKIN: Warm, dry, normal turgor, Laboratory Results - last 24 hr 06/22/16 06/22/16 06/23/16 05:05 05:05 18:40 WBC RBC Hgb Hct MCV MCHC RDW Plt Count MPV Neutrophils % Lymphocytes % Monocytes % Eosinophils % Basophils % PTT (Actin FS) Puncture Site ABG pH ABG pCO2 at Pt Temp ABG pO2 at Pt Temp ABG HCO3 ABG O2 Sat (Measured) ABG O2 Content ABG Base Excess Sree Test O2 Delivery Device Oxygen Flow Rate Vent Mode Vent Rate Mechanical Rate PEEP Pressure Support Vent Sodium Potassium Chloride Carbon Dioxide Anion Gap BUN Creatinine POC Glucometer [phone] Random Glucose Lactic Acid Calcium Phosphorus Magnesium Creatine Kinase Troponin I C-Reactive Protein Cycl Citrul Peptide IgG 4 PHAN Screen Positive H PHAN Homogeneous Pattern TNP PHAN Nucleolar Pattern TNP PHAN Speckled Pattern 1:1280 H PHAN Centromere Pattern TNP Double Strand DNA Ab <1 06/23/16 06/24/16 06/24/16 19:10 05:05 05:05 WBC 12.3 H RBC 3.27 L Hgb 8.0 L D Hct 26.0 L D MCV 79.6 L MCHC 30.7 L RDW 19.6 H Plt Count 60 L D MPV 13.3 H Neutrophils % 97.1 H Lymphocytes % 1.5 L D Monocytes % 1.3 L Eosinophils % 0.0 Basophils % 0.1 PTT (Actin FS) 30.9 D Puncture Site Right radial ABG pH 7.25 L ABG pCO2 at Pt Temp 53.0 H D ABG pO2 at Pt Temp 196.0 H* D ABG HCO3 22.6 ABG O2 Sat (Measured) 99.4 H ABG O2 Content 11.2 L ABG Base Excess -4.0 L Sree Test Positive O2 Delivery Device Mechanical vent Oxygen Flow Rate 100% Vent Mode A/c Vent Rate 16 Mechanical Rate Yes PEEP 10.0 Pressure Support Vent 400ml Sodium Potassium Chloride Carbon Dioxide Anion Gap BUN Creatinine POC Glucometer Random Glucose Lactic Acid Calcium Phosphorus Magnesium Creatine Kinase Troponin I C-Reactive Protein Cycl Citrul Peptide IgG PHAN Screen PHAN Homogeneous Pattern PHAN Nucleolar Pattern PHAN Speckled Pattern PHAN Centromere Pattern Double Strand DNA Ab 06/24/16 06/24/16 06/24/16 05:05 05:05 05:05 WBC RBC Hgb Hct MCV MCHC RDW Plt Count MPV Neutrophils % Lymphocytes % Monocytes % Eosinophils % Basophils % PTT (Actin FS) Puncture Site ABG pH ABG pCO2 at Pt Temp ABG pO2 at Pt Temp ABG HCO3 ABG O2 Sat (Measured) ABG O2 Content ABG Base Excess Sree Test O2 Delivery Device Oxygen Flow Rate Vent Mode Vent Rate Mechanical Rate PEEP Pressure Support Vent Sodium 144 Potassium 5.7 H Chloride 108 H Carbon Dioxide 24 Anion Gap 12 BUN 110 H* Creatinine 3.8 H POC Glucometer Random Glucose 212 H Lactic Acid Calcium 7.3 L Phosphorus 8.2 H D Magnesium 2.7 H Cancelled Creatine Kinase 73 Troponin I 0.05 C-Reactive Protein Cycl Citrul Peptide IgG PHAN Screen PHAN Homogeneous Pattern PHAN Nucleolar Pattern PHAN Speckled Pattern PHAN Centromere Pattern Double Strand DNA Ab 06/24/16 06/24/16 06/24/16 05:26 05:40 08:10 WBC RBC Hgb Hct MCV MCHC RDW Plt Count MPV Neutrophils % Lymphocytes % Monocytes % Eosinophils % Basophils % PTT (Actin FS) Puncture Site Right radial ABG pH 7.29 L ABG pCO2 at Pt Temp 47.2 H ABG pO2 at Pt Temp 40.2 L* D ABG HCO3 22.2 ABG O2 Sat (Measured) 68.4 L* ABG O2 Content 7.7 L* ABG Base Excess -3.6 L Sree Test Positive O2 Delivery Device Mech vent Oxygen Flow Rate 60% Vent Mode A/c Vent Rate 20 Mechanical Rate Yes PEEP 5.0 Pressure Support Vent 325 Sodium Potassium Chloride Carbon Dioxide Anion Gap BUN Creatinine POC Glucometer [phone] Random Glucose Lactic Acid 1.438 Calcium Phosphorus Magnesium Creatine Kinase Troponin I C-Reactive Protein Cycl Citrul Peptide IgG PHAN Screen PHAN Homogeneous Pattern PHAN Nucleolar Pattern PHAN Speckled Pattern PHAN Centromere Pattern Double Strand DNA Ab 06/24/16 06/24/16 11:30 12:15 WBC RBC Hgb Hct MCV MCHC RDW Plt Count MPV Neutrophils % Lymphocytes % Monocytes % Eosinophils % Basophils % PTT (Actin FS) Puncture Site Right radial ABG pH 7.25 L ABG pCO2 at Pt Temp 50.5 H ABG pO2 at Pt Temp 76.2 D ABG HCO3 21.5 L ABG O2 Sat (Measured) 93.9 ABG O2 Content 11.0 L ABG Base Excess -5.0 L Sree Test Positive O2 Delivery Device Mechanical vent Oxygen Flow Rate 70% Vent Mode A/c Vent Rate 26 Mechanical Rate Yes PEEP 15.0 Pressure Support Vent 325ml Sodium Potassium Chloride Carbon Dioxide Anion Gap BUN Creatinine POC Glucometer Random Glucose Lactic Acid Calcium Phosphorus Magnesium Creatine Kinase Troponin I C-Reactive Protein 21.1 H D Cycl Citrul Peptide IgG PHAN Screen PHAN Homogeneous Pattern PHAN Nucleolar Pattern PHAN Speckled Pattern PHAN Centromere Pattern Double Strand DNA Ab Active Medications Generic Name Dose Route Start Last Admin Trade Name Freq PRN Reason Stop Dose Admin Albuterol Sulfate 1 amp 06/21/16 01:00 06/22/16 22:40 Ventolin 0.083% Nebulizer Soln - NEB 1 amp Q1H PRN Administration SHORT OF BREATH/WHEEZING Albuterol/Ipratropium 1 amp 06/21/16 06:00 06/24/16 11:20 Duoneb - NEB 1 amp QIDR JOANNE Administration Atorvastatin Calcium 80 mg 06/21/16 22:00 06/23/16 21:42 Lipitor - PO 80 mg HS JOANNE Administration Calcium Acetate 667 mg 06/23/16 12:00 06/24/16 13:04 Phoslo - PO 667 mg TIDCM JOANNE Administration Furosemide 80 mg 06/24/16 10:00 06/24/16 09:18 Lasix Injection - IVPB 80 mg DAILY JOANNE Administration Aztreonam 1 gm/ Dextrose 50 mls @ 100 mls/hr 06/21/16 14:30 06/24/16 09:05 IVPB 100 mls/hr BID JOANNE Administration Protocol Fentanyl 500 mcg/ Dextrose 100 mls @ 5 mls/hr 06/23/16 21:15 06/23/16 21:42 IJ 5 mls/hr TITR JOANNE Administration 25 MCG/HR Dopamine HCl/Dextrose 250 mls @ 17.452 mls/hr 06/24/16 00:45 06/24/16 03:52 Dopamine 400 Mg/D5w - IVPB Not Given TITR JOANNE Protocol 5 MCG/KG/MIN Propofol 100 mls @ 2.817 mls/hr 06/24/16 11:15 06/24/16 12:49 Diprivan - IVPB 7.3 mls/hr TITR JOANNE Administration Protocol 5 MCG/KG/MIN Insulin Aspart 1 vial 06/21/16 07:00 06/24/16 06:23 Novolog Vial Sliding Scale - SQ 2 units TIDAC JOANNE Administration Protocol Methylprednisolone Sodium Succinate 1,000 mg 06/24/16 12:30 06/24/16 12:46 Solu-Medrol - IVPB 06/26/16 10:01 1,000 mg DAILY JOANNE Administration Polyethylene Glycol 17 gm 06/23/16 18:00 06/23/16 21:40 Miralax (For Daily Use) - PO 17 gm DAILY JOANNE Administration Senna 2 tab 06/23/16 18:01 Senna - PO HS PRN CONSTIPATION ABG Results ABG pH 7.25 (7.35-7.45) L 06/24/16 12:15 ABG pCO2 at Pt Temp 50.5 mmHg (35-45) H 06/24/16 12:15 ABG pO2 at Pt Temp 76.2 mmHg (70-100) D 06/24/16 12:15 ABG HCO3 21.5 meq/L (22-26) L 06/24/16 12:15 ABG O2 Sat (Measured) 93.9 % (90-98.9) 06/24/16 12:15 ABG O2 Content 11.0 % vol (15-22) L 06/24/16 12:15 ABG Base Excess -5.0 meq/l (-2-2) L 06/24/16 12:15 Laboratory Tests 03/21/17 03/21/17 03/21/17 05:05 05:05 05:05 Rheumatoid Factor < 10.0 Cycl Citrul Peptide IgG 4 PHAN Screen Positive H PHAN Homogeneous Pattern TNP PHAN Nucleolar Pattern TNP PHAN Speckled Pattern 1:1280 H PHAN Centromere Pattern TNP ASSESSMENT/PLAN: Acute Hypoxic Respiratory Failure cxr b/l opacity could be due to rapid progression of interstial lung ds,ARDS f/u serology. phan 1;1280, hiv negative, inflamatory markers ESR and LDH elevated mainatian spo2 over 90 intubated and sedated started on solumedrol 1gm daily for 3 days antibiotic as per ID. vanco/azactam day 5 on [facility] qidr rheumatology consult follow post central line cxr HTN home meds atenolol, nifedipine and clonidine. on hold Paroxysmal afib recently diagnosed, off heparin drip, due to fall in platelets follow hit ab ckd monitor cr and bun monitor urine output on phoslo avoid nephrotoxic drugs nephro consult appreciated has hyperkalemia got kaxylate high blood glucose secondary to steroid monitor bgm on insulin sliding scale fluid :npo electrolyte: hyperkalemia got kaxylate repeat in am nutrition; npo, will start of tube feed dvt pro: scd b/l electrolyte: hyperphosphatemia, and hperkalemia. condition of patient and treatment plan has been explained to patient son and grand daughter. Dispo: admit in icu. Patient is full code Visit type - Emergency Visit Emergency Visit: Yes ED Registration Date: 06/20/16 Care time: The patient presented to the Emergency Department on the above date and was hospitalized for further evaluation of their emergent condition. - New Patient This patient is new to me today: No - Critical Care Critical Care patient: Yes Total Critical Care Time (in minutes): 60 Critical Care Statement: The care of this patient involved high complexity decision making to prevent further life threatening deterioration of the patient 's condition and/or to evalute & treat vital organ system(s) failure or risk of failure.
[2016-06-24] MEDS: POLYETHYLENE GLYCOL 3350 119 GM BTL PO SCH (15:08)
--- NOTE | 2016-06-24 15:31 | PN ---
Progress Note (short form) - Note Progress Note: PAtient seen and examined Denies any complaints Last Vital Signs Temp Pulse Resp BP Pulse Ox 97.8 F 49 L 26 H 108/52 92 L 06/24/16 02:00 06/24/16 10:00 06/24/16 14:00 06/24/16 10:00 06/24/16 09:40 HEENT: MALLORY, EOM Intact Cor: RSR, No murmurs, No gallops Lungs: Clear to P&A Abd: Soft, Normal bowel sounds, No organomegaly Ext:No significant edema Abnormal Lab Results 06/22/16 06/23/16 06/24/16 05:05 19:10 05:05 WBC 12.3 H RBC 3.27 L Hgb 8.0 L D Hct 26.0 L D MCV 79.6 L MCHC 30.7 L RDW 19.6 H Plt Count 60 L D MPV 13.3 H Neutrophils % 97.1 H Lymphocytes % 1.5 L D Monocytes % 1.3 L ABG pH 7.25 L ABG pCO2 at Pt Temp 53.0 H D ABG pO2 at Pt Temp 196.0 H* D ABG HCO3 ABG O2 Sat (Measured) 99.4 H ABG O2 Content 11.2 L ABG Base Excess -4.0 L Potassium Chloride BUN Creatinine Random Glucose Calcium Phosphorus Magnesium C-Reactive Protein MOLLY Screen Positive H MOLLY Speckled Pattern 1:1280 H 06/24/16 06/24/16 06/24/16 05:05 05:40 11:30 WBC RBC Hgb Hct MCV MCHC RDW Plt Count MPV Neutrophils % Lymphocytes % Monocytes % ABG pH 7.29 L ABG pCO2 at Pt Temp 47.2 H ABG pO2 at Pt Temp 40.2 L* D ABG HCO3 ABG O2 Sat (Measured) 68.4 L* ABG O2 Content 7.7 L* ABG Base Excess -3.6 L Potassium 5.7 H Chloride 108 H BUN 110 H* Creatinine 3.8 H Random Glucose 212 H Calcium 7.3 L Phosphorus 8.2 H D Magnesium 2.7 H C-Reactive Protein 21.1 H D MOLLY Screen MOLLY Speckled Pattern 06/24/16 12:15 WBC RBC Hgb Hct MCV MCHC RDW Plt Count MPV Neutrophils % Lymphocytes % Monocytes % ABG pH 7.25 L ABG pCO2 at Pt Temp 50.5 H ABG pO2 at Pt Temp ABG HCO3 21.5 L ABG O2 Sat (Measured) ABG O2 Content 11.0 L ABG Base Excess -5.0 L Potassium Chloride BUN Creatinine Random Glucose Calcium Phosphorus Magnesium C-Reactive Protein MOLLY Screen MOLLY Speckled Pattern Home Medication List Medication Instructions Recorded Confirmed Type Omeprazole 20 mg PO DAILY 06/20/16 06/20/16 History Active Medications Generic Name Dose Route Start Last Admin Trade Name Freq PRN Reason Stop Dose Admin Albuterol Sulfate 1 amp 06/21/16 01:00 06/22/16 22:40 Ventolin 0.083% Nebulizer Soln - NEB 1 amp Q1H PRN Administration SHORT OF BREATH/WHEEZING Albuterol/Ipratropium 1 amp 06/21/16 06:00 06/24/16 11:20 Duoneb - NEB 1 amp QIDR JOANNE Administration Atorvastatin Calcium 80 mg 06/21/16 22:00 06/23/16 21:42 Lipitor - PO 80 mg HS JOANNE Administration Calcium Acetate 667 mg 06/23/16 12:00 06/24/16 13:04 Phoslo - PO 667 mg TIDCM JOANNE Administration Furosemide 80 mg 06/24/16 10:00 06/24/16 09:18 Lasix Injection - IVPB 80 mg DAILY JOANNE Administration Aztreonam 1 gm/ Dextrose 50 mls @ 100 mls/hr 06/21/16 14:30 06/24/16 09:05 IVPB 100 mls/hr BID JOANNE Administration Protocol Fentanyl 500 mcg/ Dextrose 100 mls @ 5 mls/hr 06/23/16 21:15 06/23/16 21:42 IJ 5 mls/hr TITR JOANNE Administration 25 MCG/HR Dopamine HCl/Dextrose 250 mls @ 17.452 mls/hr 06/24/16 00:45 06/24/16 03:52 Dopamine 400 Mg/D5w - IVPB Not Given TITR JOANNE Protocol 5 MCG/KG/MIN Propofol 100 mls @ 2.817 mls/hr 06/24/16 11:15 06/24/16 12:49 Diprivan - IVPB 7.3 mls/hr TITR JOANNE Administration Protocol 5 MCG/KG/MIN Insulin Aspart 1 vial 06/21/16 07:00 06/24/16 15:07 Novolog Vial Sliding Scale - SQ 2 units TIDAC JOANNE Administration Protocol Methylprednisolone Sodium Succinate 1,000 mg 06/24/16 12:30 06/24/16 12:46 Solu-Medrol - IVPB 06/26/16 10:01 1,000 mg DAILY JOANNE Administration Polyethylene Glycol 17 gm 06/23/16 18:00 06/24/16 15:08 Miralax (For Daily Use) - PO Not Given DAILY JOANNE Senna 2 tab 06/23/16 18:01 Senna - PO HS PRN CONSTIPATION A/P 76 y/o patient with Acute Hypoxic Respiratory Failure Suspect Exacerbation of underlying Interstitial Lung Disease ARDS Lactic Acidosis likely from respiratory effort Acute on Chronic Renal Failure Paroxysmal Atrial Fibrillation r/o Pneumonia r/o CHF ++ MOLLY--1in 1280 thrombocytopenia/anemia -- worsening part of multiorgan failure ??vasculitis/ autoimmune + MOLLY antiphospholipid panel pending will get rheumatology consult check hemolysis w/u
--- NOTE | 2016-06-24 17:14 | EKG ---
Test Reason : Blood Pressure : / mmHG Vent. Rate : 049 BPM Atrial Rate : 049 BPM P-R Int : 126 ms QRS Dur : 102 ms QT Int : 500 ms P-R-T Axes : 062 004 146 degrees QTc Int : 451 ms SINUS BRADYCARDIA POSSIBLE LEFT ATRIAL ENLARGEMENT LEFT VENTRICULAR HYPERTROPHY CANNOT RULE OUT SEPTAL INFARCT , AGE UNDETERMINED ABNORMAL ECG WHEN COMPARED WITH ECG OF 21-JUN-2016 09:25, MINIMAL CRITERIA FOR SEPTAL INFARCT ARE NOW PRESENT Confirmed by BEBA STILL, MARGARITA ([id number]) on 06/24/2016 5:13:57 PM Referred By: CHRISTINE URIOSTEGUI Confirmed By:MARGARITA YODER MD
[2016-06-24] MEDS: FENTANYL INJECTION 500 MCG in DEXTROSE 5%-WATER - 90 ML IJ SCH ×2 (17:56→22:33)
--- NOTE | 2016-06-24 21:21 | CONSULT ---
Consult Consult Specialty:: Rheumatology - History of Present Illness History of Present Illness: 75yr old woman with PMHx of COPD/Asthma, HTN, HLD, questionable hx of [place] and CKD , left eye glaucoma and rt eye cataract, admitted with SOB/respiratory distress and hypoxia. In ER found to have WBC 16, chest xray with diffuse opacification of lung silverman probable extensive pulmonary vascular congestion and infiltrates. ABG 7.28/43/107/19.9 on fio2 80%. The patient was admitted to ICU - required Nitrodrip and bipap Creatinine in range of 3.5 to 3.9. On admission she was started on steroids, she requiried Nitrodrip, intubation and sedation. On 06/21/16 Steroids were increased to Solumedrol 80 mg IV Q 6 hrs and today she received 1 gr bollus. Urinalysis showed protein 3+, glucose 2+, blood 1+ abnd LE 3+, MOLLY 1:1280. Rheumatoid factor, CCP and anti-DNA ds negative. Recent renal US showed kidneys decreased in size. Since admission the respiratory failure has progressed. I initially saw the patient on 01/13/10. At that time she had an episode of uveitis and laboratory work-up revealed MOLLY 1:1280 with homogeneous pattern. Anti-Sm, anti-CEMENT RUBBER, anti-SSA anti-SSB, RPR and anti-cardiolipin antibodies were all negative and complement normal. ARA was 72. Creatinine was 3.07, BUN 32. Based on a suspicion of sarcoidosis I obtained a CT of the chest that was reported with findings suggestive of interstitial lung disease with early changes of possible interstitial pulmonary fibrosis. The patient did not follow -up with me. She was admitted on 06/17 for TKR and on 06/20/16 for pneumonia and respiratory distress. In 2016 the creatinine was about 2.6 and since 06/18 from 3.5 to 3.9. - History Source History Provided By: Medical Record - Past Medical History Cardio/Vascular: Yes: AFIB (PAF), HTN, Hyperlipdemia Pulmonary: Yes: COPD, Pneumonia Renal/: Yes: Renal Failure, Renal Inusuff ...: No - Alcohol/Substance Use Hx Alcohol Use: No - Smoking History Smoking history: Former smoker Have you smoked in the past 12 months: No If you are a former smoker, when did you quit?: 35 YEARS AGO Home Medications - Allergies Allergies/Adverse Reactions: Allergies Allergy/AdvReac Type Severity Reaction Status Date / Time egg Allergy Severe LIP Verified 06/20/16 19:49 SWELLING Penicillins Allergy Severe Rash Verified 06/20/16 19:49 FLU SHOT Allergy Uncoded 06/20/16 19:49 - Home Medications Home Medications: Ambulatory Orders Albuterol 2.5/Ipratropium 0.5 [Duoneb -] 1 amp NEB Q6H PRN #0 amp 06/16/16 Apixaban [Eliquis -] 5 mg PO BID tablet 06/16/16 Atenolol [Tenormin -] 50 mg PO DAILY tablet 06/16/16 Clonidine HCl [Catapres -] 0.1 mg PO BID tablet 06/16/16 Levofloxacin [Levaquin -] 500 mg PO Q2D@0600 tablet 06/16/16 Nifedipine ER [Procardia XL -] 30 mg PO BID 06/16/16 Prednisone See Taper PO DAILY #30 tablet 06/16/16 Sodium Bicarbonate - 650 mg PO DAILY tablet 06/16/16 Omeprazole 20 mg PO DAILY 06/20/16 Review of Systems Findings/Remarks: Patient is sedated and intubated. Physical Exam Vital Signs: Vital Signs Temperature 97.8 F 06/24/16 18:00 Pulse Rate 41 L 06/24/16 18:00 Respiratory Rate 26 H 06/24/16 20:00 Blood Pressure 99/49 06/24/16 18:00 O2 Sat by Pulse Oximetry (%) 92 L 06/24/16 09:40 Respiratory: Yes: Mechanically Ventilated Musculoskeletal: Yes: Other (No synovitis.) Labs: CBC, BMP 06/24/16 05:05 06/24/16 05:05 Laboratory Tests 06/20/16 06/22/16 06/22/16 20:37 05:05 05:05 ESR ABG pH ABG pCO2 at Pt Temp ABG pO2 at Pt Temp ABG HCO3 ABG O2 Sat (Measured) ABG O2 Content ABG Base Excess Creatine Kinase Troponin I Urine Color Yellow Urine Appearance Cloudy Urine pH 5.0 Ur Specific [place] 1.016 Urine Protein 3+ H Urine Glucose (UA) 2+ H Urine Ketones Negative Urine Blood 1+ H Urine Nitrite Negative Urine Bilirubin Negative Urine Urobilinogen Negative Ur Leukocyte Esterase 3+ H Urine RBC 38 Urine WBC 47 Rheumatoid Factor < 10.0 MOLLY Speckled Pattern 1:1280 H Double Strand DNA Ab <1 06/22/16 06/24/16 06/24/16 05:05 05:05 12:15 ESR 55 H ABG pH 7.25 L ABG pCO2 at Pt Temp 50.5 H ABG pO2 at Pt Temp 76.2 D ABG HCO3 21.5 L ABG O2 Sat (Measured) 93.9 ABG O2 Content 11.0 L ABG Base Excess -5.0 L Creatine Kinase 73 Troponin I 0.05 Urine Color Urine Appearance Urine pH Ur Specific [place] Urine Protein Urine Glucose (UA) Urine Ketones Urine Blood Urine Nitrite Urine Bilirubin Urine Urobilinogen Ur Leukocyte Esterase Urine RBC Urine WBC Rheumatoid Factor MOLLY Speckled Pattern Double Strand DNA Ab Problem List - Problems (1) Respiratory distress Assessment/Plan: Since 2009 the patient has radiological features of pulmonary fibrosis. Also since the she has had a high MOLLY with no other abnormal serology and normal complement. Finally chronic renal insufficiency that has had little progression since then. It is unlikely that she has lupus or other connective tissue disease (repeat serology was requested), She has progressive respiratory failure not responding to high doses of steroids. In summary progressive respiratory failure probably related to pulmonary fibrosis probably not related to connective tissue disease. I suggest to continue treatment focused on pulmonary fibrosis and not autoimmune disease. I suggest to decrease the dose of steroids. Code(s): R06.00 - DYSPNEA, UNSPECIFIED
[2016-06-24] MEDS: ATORVASTATIN CA 80 MG TABLET (FP) PO SCH (22:35)
[2016-06-25] MEDS: DOPAMINE 400 MG/D5W - 250 ML IVPB SCH (01:36)
[2016-06-25] MEDS: FENTANYL INJECTION 500 MCG in DEXTROSE 5%-WATER - 90 ML IJ SCH ×3 (01:37→20:46)
[2016-06-25 05:51] LABS: BASOPHIL 0.3 % (0-2.0); MCH 25.1 pg (25.7-33.7); MEAN CELL VOLUME 78.4 fl (80-96); MEAN PLT VOLUME 16.2 fl (7.5-11.1); NEUTROPHILS 96.4 % (42.8-82.8); PLATELET COUNT 66 K/MM3 (134-434); RDW 19.6 % (11.6-15.6); WHITE BLOOD COUNT 10.8 K/mm3 (4.0-10.0)
[2016-06-25] MEDS: ALBUTEROL SO4 2.5/IPRATROPIUM 0.5 INH SOL 3 ML VIAL.NEB. NEB SCH ×3 (06:07→18:54)
[2016-06-25 06:30] LABS: ALBUMIN 1.4 g/dl (3.4-5.0); CALCIUM 7.2 mg/dL (8.5-10.1); MAGNESIUM 2.5 mg/dL (1.8-2.4)
[2016-06-25 06:34] LABS: BILIRUBIN,TOTAL 0.4 mg/dL (0.2-1.0); CREATININE 4.3 mg/dL (0.55-1.02); TOT PROT 4.6 g/dl (6.4-8.2)
[2016-06-25] MEDS: INSULIN SLIDING SCALE (NOVOLOG) 1 VIAL SQ SCH ×3 (06:52→16:18)
[2016-06-25 07:09] LABS: INR 1.34 (0.82-1.09); PROTHROMBIN TIME (PATIENT) 14.8 SEC (9.98-11.88)
[2016-06-25 07:22] LABS: ARTERIAL BLD GAS O2 SATURATION 96.5 % (90-98.9); ARTERIAL BLOOD GAS BASE EXCESS -4.8 meq/l (-2-2); ARTERIAL BLOOD GAS HCO3 21.2 meq/L (22-26); ARTERIAL BLOOD GAS PO2 92.1 mmHg (70-100)
[2016-06-25 07:23] LABS: ALLENS TEST POSITIVE; ART PUNCT SITE RIGHT RADIAL; ARTERIAL BLOOD GAS pH 7.27 (7.35-7.45); LPM/O2% 90%; MECH. VENT. YES; PT. ON O2? YES; TYPE OF O2 VENTILATOR; VENT RATE 26; VT/PRESS 325
--- NOTE | 2016-06-25 07:39 | PN ---
Progress Note, Physician Chief Complaint: ID ICU followup for this 76 year old female with known pulmonary fibrosis and chronic kidney disease. Brought to ICU with progressive respiratory failure Empiric antibiotic given Vancomycin and Aztreonam no day 5 in ICU on antibiotics To date no documented infection. Respiratory status grave indeed with PEEP 15 and 90% FIO2. Has been afebrile throughout All cultures to date negative - Current Medication List Current Medications: Active Medications Albuterol Sulfate (Ventolin 0.083% Nebulizer Soln -) 1 amp NEB Q1H PRN PRN Reason: SHORT OF BREATH/WHEEZING Last Admin: 06/22/16 22:40 Dose: 1 amp Albuterol/Ipratropium (Duoneb -) 1 amp NEB QIDR JOANNE Last Admin: 06/25/16 06:07 Dose: 1 amp Atorvastatin Calcium (Lipitor -) 80 mg PO HS [facility] Last Admin: 06/24/16 22:35 Dose: 80 mg Calcium Acetate (Phoslo -) 667 mg PO TIDCM [facility] Last Admin: 06/24/16 17:32 Dose: 667 mg Furosemide (Lasix Injection -) 80 mg IVPB DAILY [facility] Last Admin: 06/24/16 09:18 Dose: 80 mg Aztreonam 1 gm/ Dextrose 50 mls @ 100 mls/hr IVPB BID JOANNE PRN Reason: Protocol Last Admin: 06/24/16 22:33 Dose: 100 mls/hr Fentanyl 500 mcg/ Dextrose 100 mls @ 5 mls/hr IJ TITR JOANNE PRN Reason: 25 MCG/HR Last Admin: 06/25/16 01:37 Dose: 10 mls/hr Dopamine HCl/Dextrose (Dopamine 400 Mg/D5w -) 250 mls @ 17.452 mls/hr IVPB TITR JOANNE; 5 MCG/KG/MIN PRN Reason: Protocol Last Admin: 06/25/16 01:36 Dose: Not Given Propofol (Diprivan -) 100 mls @ 2.817 mls/hr IVPB TITR JOANNE; 5 MCG/KG/MIN PRN Reason: Protocol Last Admin: 06/24/16 22:37 Dose: 5.6 mls/hr Pantoprazole Sodium (Protonix 40mg Ivpb (Pre-Docked)) 100 mls @ 200 mls/hr IVPB DAILY [facility] Insulin Aspart (Novolog Vial Sliding Scale -) 1 vial SQ TIDAC JOANNE PRN Reason: Protocol Last Admin: 06/25/16 06:52 Dose: 3 units Methylprednisolone Sodium Succinate (Solu-Medrol -) 1,000 mg IVPB DAILY [facility] Stop: 06/26/16 10:01 Last Admin: 06/24/16 12:46 Dose: 1,000 mg Polyethylene Glycol (Miralax (For Daily Use) -) 17 gm PO DAILY [facility] Last Admin: 06/24/16 15:08 Dose: Not Given Senna (Senna -) 2 tab PO HS PRN PRN Reason: CONSTIPATION - Objective Vital Signs: Vital Signs Temperature 98.4 F 06/25/16 06:00 Pulse Rate 46 L 06/25/16 06:00 Respiratory Rate 26 H 06/25/16 06:00 Blood Pressure 106/50 06/25/16 06:00 O2 Sat by Pulse Oximetry (%) 100 06/24/16 20:00 Constitutional: Yes: Well Nourished, Severe Distress HENT: Yes: Other (Et tube) Cardiovascular: Yes: Bradycardia, S1, S2 Respiratory: Yes: WNL, Regular, CTA Bilaterally Gastrointestinal: Yes: WNL, Normal Bowel Sounds, Soft. No: Tenderness, Tenderness, Rebound Edema: Yes Labs: CBC, BMP 06/25/16 05:00 06/25/16 05:00 INR, PTT INR 1.34 (0.82-1.09) H 06/25/16 05:00 Fibrinogen 608.0 mg/dL (238-498) H 06/25/16 05:00 Problem List - Problems (1) Acute respiratory failure with hypoxia Code(s): J96.01 - ACUTE RESPIRATORY FAILURE WITH HYPOXIA (2) Pulmonary fibrosis Code(s): J84.10 - PULMONARY FIBROSIS, UNSPECIFIED (3) Bilateral pulmonary infiltrates on CXR Code(s): R91.8 - OTHER NONSPECIFIC ABNORMAL FINDING OF LUNG FIELD Assessment/Plan Microbiology 06/23/16 19:00 Urine For Antigen Detection Legionella Antigen - Final 06/23/16 19:00 Urine For Antigen Detection Streptococcus pneumoniae Antigen (M - Final 06/22/16 05:05 Serum Cryptococcal Antigen - Preliminary Laboratory Tests 06/21/16 06/22/16 06/22/16 21:00 05:05 05:05 WBC Hgb Hct Plt Count ABG pH ABG pCO2 at Pt Temp ABG pO2 at Pt Temp Oxygen Flow Rate Creatinine Creat Clearance w eGFR Random Glucose C-Reactive Protein MOLLY Speckled Pattern 1:1280 H HIV 1&2 Antibody Screen Negative HIV P24 Antigen Negative A. galactomannan Ag Pending Beta-(1,3)-D-Glucan Pending 06/24/16 06/25/16 06/25/16 11:30 05:00 05:00 WBC 10.8 H Hgb 7.7 L Hct 24.1 L Plt Count 66 L ABG pH ABG pCO2 at Pt Temp ABG pO2 at Pt Temp Oxygen Flow Rate Creatinine 4.3 H Creat Clearance w eGFR 10.07 Random Glucose 278 H D C-Reactive Protein 21.1 H D MOLLY Speckled Pattern HIV 1&2 Antibody Screen HIV P24 Antigen A. galactomannan Ag Beta-(1,3)-D-Glucan 06/25/16 07:18 WBC Hgb Hct Plt Count ABG pH 7.27 L ABG pCO2 at Pt Temp 47.4 H ABG pO2 at Pt Temp 92.1 D Oxygen Flow Rate 90% Creatinine Creat Clearance w eGFR Random Glucose C-Reactive Protein MOLLY Speckled Pattern HIV 1&2 Antibody Screen HIV P24 Antigen A. galactomannan Ag Beta-(1,3)-D-Glucan Assessment Pulmonary fibrosis with complicating respiratory failure Respiratory failure on PEEP 90%FIO2 Atrial fibrillation Chronic kidney failure MOLLY positive but DS DNA negative Seen rheumatology doubt vasculitis Elevated CRP Plan Difficult to discern if we are dealing with infection at all vs progressive pulmonary fibrosis. Empiric antibiotics given but possiblitly of opportunistic pulmonary infection viral fungal PCP cannot be ruled out completely. Will discuss waith Dr Redd as to whether BAL now that the patient intubated Continue antibiotics for today to complete 7days 38 minutes critical care time spent Miguel A STILL
[2016-06-25] MEDS: CALCIUM ACETATE 667 MG CAPSULE (FP) PO SCH (08:03)
[2016-06-25] MEDS ORDERED: FUROSEMIDE 40 MG/4 ML INJECTABLE VIAL IVPUSH SCH (08:09)
--- NOTE | 2016-06-25 08:09 | PN ---
Progress Note, Physician History of Present Illness: REQUIRED INTUBATION ON VENT SEDATED - Current Medication List Current Medications: Active Medications Albuterol Sulfate (Ventolin 0.083% Nebulizer Soln -) 1 amp NEB Q1H PRN PRN Reason: SHORT OF BREATH/WHEEZING Last Admin: 06/22/16 22:40 Dose: 1 amp Albuterol/Ipratropium (Duoneb -) 1 amp NEB QIDR [facility] Last Admin: 06/25/16 06:07 Dose: 1 amp Atorvastatin Calcium (Lipitor -) 80 mg PO HS [facility] Last Admin: 06/24/16 22:35 Dose: 80 mg Calcium Acetate (Phoslo -) 667 mg PO TIDCM [facility] Last Admin: 06/25/16 08:03 Dose: 667 mg Furosemide (Lasix Injection -) 80 mg IVPB DAILY [facility] Last Admin: 06/24/16 09:18 Dose: 80 mg Aztreonam 1 gm/ Dextrose 50 mls @ 100 mls/hr IVPB BID JOANNE PRN Reason: Protocol Last Admin: 06/24/16 22:33 Dose: 100 mls/hr Fentanyl 500 mcg/ Dextrose 100 mls @ 5 mls/hr IJ TITR JOANNE PRN Reason: 25 MCG/HR Last Admin: 06/25/16 08:03 Dose: 10 mls/hr Dopamine HCl/Dextrose (Dopamine 400 Mg/D5w -) 250 mls @ 17.452 mls/hr IVPB TITR JOANNE; 5 MCG/KG/MIN PRN Reason: Protocol Last Admin: 06/25/16 01:36 Dose: Not Given Propofol (Diprivan -) 100 mls @ 2.817 mls/hr IVPB TITR JOANNE; 5 MCG/KG/MIN PRN Reason: Protocol Last Admin: 06/24/16 22:37 Dose: 5.6 mls/hr Pantoprazole Sodium (Protonix 40mg Ivpb (Pre-Docked)) 100 mls @ 200 mls/hr IVPB DAILY [facility] Insulin Aspart (Novolog Vial Sliding Scale -) 1 vial SQ TIDAC JOANNE PRN Reason: Protocol Last Admin: 06/25/16 06:52 Dose: 3 units Methylprednisolone Sodium Succinate (Solu-Medrol -) 1,000 mg IVPB DAILY [facility] Stop: 06/26/16 10:01 Last Admin: 06/24/16 12:46 Dose: 1,000 mg Polyethylene Glycol (Miralax (For Daily Use) -) 17 gm PO DAILY [facility] Last Admin: 06/24/16 15:08 Dose: Not Given Senna (Senna -) 2 tab PO HS PRN PRN Reason: CONSTIPATION - Objective Vital Signs: Vital Signs Temperature 98.4 F 06/25/16 06:00 Pulse Rate 47 L 06/25/16 07:24 Respiratory Rate 26 H 06/25/16 07:24 Blood Pressure 106/50 06/25/16 06:00 O2 Sat by Pulse Oximetry (%) 100 06/25/16 07:24 Cardiovascular: Yes: S1, S2 Respiratory: Yes: Mechanically Ventilated Gastrointestinal: Yes: Normal Bowel Sounds, Soft Labs: CBC, BMP 06/25/16 05:00 06/25/16 05:00 INR, PTT INR 1.34 (0.82-1.09) H 06/25/16 05:00 Fibrinogen 608.0 mg/dL (238-498) H 06/25/16 05:00 Problem List - Problems (1) COPD exacerbation Assessment/Plan: IV STEROIDS NEBS PULM Code(s): J44.1 - CHRONIC OBSTRUCTIVE PULMONARY DISEASE W (ACUTE) EXACERBATION (2) CHF exacerbation Assessment/Plan: LASIX IV CARDIO FOLLOW CE CONSIDER DIALYSIS Code(s): I50.9 - HEART FAILURE, UNSPECIFIED Qualifiers: Congestive heart failure type: unspecified congestive heart failure type Qualified Code(s): I50.9 - Heart failure, unspecified (3) Pneumonia Assessment/Plan: IV ABX ID CONSULT NOTED RHEUMOTOLGY Code(s): J18.9 - PNEUMONIA, UNSPECIFIED ORGANISM (4) CKD stage 4 secondary to hypertension Assessment/Plan: CHRONIC MONITOR RENAL Code(s): I12.9 - HYPERTENSIVE CHRONIC KIDNEY DISEASE W STG 1-4/UNSP CHR KDNY N18.4 - CHRONIC KIDNEY DISEASE, STAGE 4 (SEVERE) (5) Lactic acid acidosis Assessment/Plan: ON ABX CULTURES Code(s): E87.2 - ACIDOSIS (6) Elevated troponin Code(s): R79.89 - OTHER SPECIFIED ABNORMAL FINDINGS OF BLOOD CHEMISTRY (7) Sepsis Assessment/Plan: AWAIT CULTURES ABX Code(s): A41.9 - SEPSIS, UNSPECIFIED ORGANISM (8) HTN (hypertension) Assessment/Plan: ELEVATED RESUME CLONIDINE/PROCARDIA AND TENORMIN Code(s): I10 - ESSENTIAL (PRIMARY) HYPERTENSION (9) Thrombocytopenia Assessment/Plan: HEM CONSULT CHECK AB OFF HEPARIN Code(s): D69.6 - THROMBOCYTOPENIA, UNSPECIFIED (10) Respiratory failure Assessment/Plan: VENT SETTING PER PULM Code(s): J96.90 - RESPIRATORY FAILURE, UNSP, UNSP W HYPOXIA OR HYPERCAPNIA (11) Hypotension Assessment/Plan: ON DOPAMINE DC ORAL MEDS Code(s): I95.9 - HYPOTENSION, UNSPECIFIED
[2016-06-25 08:12] LABS: PHOSPHOROUS 8.8 mg/dL (2.5-4.9)
[2016-06-25 08:17] LABS: COMPLEMENT C3 100 mg/dL (82-167); COMPLEMENT C4 24 mg/dL (14-44)
[2016-06-25] MEDS ORDERED: PT OWN MED DRAWER 7, Y5N ONE ×2 (08:32→17:11)
[2016-06-25] MEDS: AZTREONAM 1 GM in DEXTROSE 5%-WATER - 50 ML IVPB SCH ×3 (08:34→22:30)
[2016-06-25] MEDS: PANTOPRAZOLE SODIUM 100 ML IVPB SCH (09:01)
[2016-06-25] MEDS: POLYETHYLENE GLYCOL 3350 119 GM BTL PO SCH (09:02)
--- NOTE | 2016-06-25 09:26 | PN ---
Progress Note, Physician Chief Complaint: intubated, opens eyes. On dopamine. BAL being discussed. History of Present Illness: TELE: NSR w/ 3 beats nsvt - Current Medication List Current Medications: Active Medications Albuterol Sulfate (Ventolin 0.083% Nebulizer Soln -) 1 amp NEB Q1H PRN PRN Reason: SHORT OF BREATH/WHEEZING Last Admin: 06/22/16 22:40 Dose: 1 amp Albuterol/Ipratropium (Duoneb -) 1 amp NEB QIDR [facility] Last Admin: 06/25/16 06:07 Dose: 1 amp Atorvastatin Calcium (Lipitor -) 80 mg PO HS [facility] Last Admin: 06/24/16 22:35 Dose: 80 mg Calcium Acetate (Phoslo -) 667 mg PO TIDCM [facility] Last Admin: 06/25/16 08:03 Dose: 667 mg Furosemide (Lasix Injection -) 40 mg IVPUSH [employer] [facility] Stop: 06/25/16 14:00 Aztreonam 1 gm/ Dextrose 50 mls @ 100 mls/hr IVPB BID JOANNE PRN Reason: Protocol Last Admin: 06/25/16 09:03 Dose: Not Given Fentanyl 500 mcg/ Dextrose 100 mls @ 5 mls/hr IJ TITR JOANNE PRN Reason: 25 MCG/HR Last Admin: 06/25/16 08:03 Dose: 10 mls/hr Dopamine HCl/Dextrose (Dopamine 400 Mg/D5w -) 250 mls @ 17.452 mls/hr IVPB TITR JOANNE; 5 MCG/KG/MIN PRN Reason: Protocol Last Admin: 06/25/16 01:36 Dose: Not Given Propofol (Diprivan -) 100 mls @ 2.817 mls/hr IVPB TITR JOANNE; 5 MCG/KG/MIN PRN Reason: Protocol Last Titration: 06/25/16 08:35 Dose: 10 mcg/kg/min Pantoprazole Sodium (Protonix 40mg Ivpb (Pre-Docked)) 100 mls @ 200 mls/hr IVPB DAILY [facility] Last Admin: 06/25/16 09:01 Dose: 200 mls/hr Insulin Aspart (Novolog Vial Sliding Scale -) 1 vial SQ TIDAC JOANNE PRN Reason: Protocol Last Admin: 06/25/16 06:52 Dose: 3 units Methylprednisolone Sodium Succinate (Solu-Medrol -) 1,000 mg IVPB DAILY [facility] Stop: 06/26/16 10:01 Last Admin: 06/24/16 12:46 Dose: 1,000 mg Polyethylene Glycol (Miralax (For Daily Use) -) 17 gm PO DAILY [facility] Last Admin: 06/25/16 09:02 Dose: 17 gm Senna (Senna -) 2 tab PO HS PRN PRN Reason: CONSTIPATION - Objective Vital Signs: Vital Signs Temperature 98.4 F 06/25/16 06:00 Pulse Rate 47 L 06/25/16 07:24 Respiratory Rate 26 H 06/25/16 07:24 Blood Pressure 106/50 06/25/16 06:00 O2 Sat by Pulse Oximetry (%) 100 06/25/16 07:24 Constitutional: Yes: Other (ETT) Cardiovascular: Yes: Regular Rate and Rhythm Respiratory: Yes: Other (= breath sounds. decreased at bases.) Gastrointestinal: Yes: Soft Edema: No Labs: CBC, BMP 06/25/16 05:00 06/25/16 05:00 INR, PTT INR 1.34 (0.82-1.09) H 06/25/16 05:00 Fibrinogen 608.0 mg/dL (238-498) H 06/25/16 05:00 Laboratory Tests 06/22/16 06/23/16 06/25/16 05:05 09:33 05:00 WBC 10.8 H Hgb 7.7 L Plt Count 66 L ABG pH ABG pCO2 at Pt Temp ABG pO2 at Pt Temp Oxygen Flow Rate Potassium Creatinine MOLLY Screen Positive H MOLLY Speckled Pattern 1:1280 H Hep-Induced Plt Ab Rapid 0.661 H 06/25/16 06/25/16 05:00 07:18 WBC Hgb Plt Count ABG pH 7.27 L ABG pCO2 at Pt Temp 47.4 H ABG pO2 at Pt Temp 92.1 D Oxygen Flow Rate 90% Potassium 5.9 H Creatinine 4.3 H MOLLY Screen MOLLY Speckled Pattern Hep-Induced Plt Ab Rapid - ....Imaging EKG: Image Reviewed Assessment/Plan Assessment/Plan Readmitted with SOB and hypoxia, acute respiratory failure, intubated Interstitial lung disease Recent b/l PNA Acute on chronic diastolic CHF NSVT PAF CKD Thrombocytopenia REC: Remains in NSR. Heparin discontinued due to dropping platelet count and no recurrence of PAF which was a brief episode on prior admission. Continue vent support and further management as per critical care, Renal, ID and Rheum. BAL being discussed.
--- NOTE | 2016-06-25 10:41 | PN ---
Progress Note (short form) - Note Progress Note: Renal Follow up for CKD Pt seen and examined in the ICU intubated and sedated on Fentayl and Propofol On Dopamine 2mcg good urine output s/p Laisx 80mg IV yesterday seen by Rheum this am on 100% O2 Vital Signs Temperature 98.4 F 06/25/16 06:00 Pulse Rate 47 L 06/25/16 07:24 Respiratory Rate 29 H 06/25/16 09:35 Blood Pressure 106/50 06/25/16 06:00 O2 Sat by Pulse Oximetry (%) 100 06/25/16 07:24 Intake & Output 06/22/16 06/23/16 06/24/16 06/25/16 23:59 23:59 23:59 23:59 Intake Total 910 1230 1506 320 Output Total 1700 1400 1300 250 Balance -790 -170 206 70 Weight 215 lb 8 oz 205 lb 3.2 oz 207 lb 208 lb Gen: Intubated CVS: RRR, No M/R Lungs : + diffuse crackles b/l lung silverman Abd: soft NT/ND Ext: trace to 1+ edema CBC, BMP 06/25/16 05:00 06/25/16 05:00 Laboratory Tests 06/25/16 05:00 Calcium 7.2 L Phosphorus 8.8 H Magnesium 2.5 H Albumin 1.4 L Current Medications Albuterol Sulfate (Ventolin 0.083% Nebulizer Soln -) 1 amp NEB Q1H PRN PRN Reason: SHORT OF BREATH/WHEEZING Last Admin: 06/22/16 22:40 Dose: 1 amp Albuterol/Ipratropium (Duoneb -) 1 amp NEB QIDR JOANNE Last Admin: 06/25/16 06:07 Dose: 1 amp Atorvastatin Calcium (Lipitor -) 80 mg PO HS [facility] Last Admin: 06/24/16 22:35 Dose: 80 mg Calcium Acetate (Phoslo -) 667 mg PO TIDCM [facility] Last Admin: 06/25/16 08:03 Dose: 667 mg Furosemide (Lasix Injection -) 40 mg IVPUSH [employer] [facility] Stop: 06/25/16 14:00 Aztreonam 1 gm/ Dextrose 50 mls @ 100 mls/hr IVPB BID JOANNE PRN Reason: Protocol Last Admin: 06/25/16 09:03 Dose: Not Given Fentanyl 500 mcg/ Dextrose 100 mls @ 5 mls/hr IJ TITR JOANNE PRN Reason: 25 MCG/HR Last Admin: 06/25/16 08:03 Dose: 10 mls/hr Dopamine HCl/Dextrose (Dopamine 400 Mg/D5w -) 250 mls @ 17.452 mls/hr IVPB TITR JOANNE; 5 MCG/KG/MIN PRN Reason: Protocol Last Admin: 06/25/16 01:36 Dose: Not Given Propofol (Diprivan -) 100 mls @ 2.817 mls/hr IVPB TITR JOANNE; 5 MCG/KG/MIN PRN Reason: Protocol Last Titration: 06/25/16 08:35 Dose: 10 mcg/kg/min Pantoprazole Sodium (Protonix 40mg Ivpb (Pre-Docked)) 100 mls @ 200 mls/hr IVPB DAILY [facility] Last Admin: 06/25/16 09:01 Dose: 200 mls/hr Insulin Aspart (Novolog Vial Sliding Scale -) 1 vial SQ TIDAC JOANNE PRN Reason: Protocol Last Admin: 06/25/16 06:52 Dose: 3 units Methylprednisolone Sodium Succinate (Solu-Medrol -) 1,000 mg IVPB DAILY [facility] Stop: 06/26/16 10:01 Last Admin: 06/24/16 12:46 Dose: 1,000 mg Polyethylene Glycol (Miralax (For Daily Use) -) 17 gm PO DAILY [facility] Last Admin: 06/25/16 09:02 Dose: 17 gm Senna (Senna -) 2 tab PO HS PRN PRN Reason: CONSTIPATION A/P 75 year old woman with PMhx of CKD Stage 4, Hypertension (>40 years), Asthma, Osteoarthritis, Former Smoker who presented from [facility] with 1 day history of sob. #CKD Stage 4/5 with proteinuria Renal function worsening over the past 72 hours remains non-oliguric with IV Lasix K is 5.9 today Continue Lasix as needed for volume management if hyperkalemia worsens or if pt becomes not responsive to IV Lasix pt may require dialysis #Hyperphosphatemia Calcium acetate TID via OGT #Hyperkalemia Kayexalate 30g via OGT again today Repeat BMP in the PM #Resp Failure/Hypoxia/Pulmonary infiltrates Seen by Rheum, prior work up done as outpatient negative for SLE F/u remaining serologic studies Continue Vent support as per ICU staff Keep MAP > 65 Steroids as needed for pulmonary fibrosis, intersitial lung disease Prognosis guarded Raymundo Snyder DO
--- NOTE | 2016-06-25 10:43 | PN ---
Progress Note (short form) - Note Progress Note: PAtient seen and examined Denies any complaints Last Vital Signs Temp Pulse Resp BP Pulse Ox 98.4 F 47 L 29 H 106/50 100 06/25/16 06:00 06/25/16 07:24 06/25/16 09:35 06/25/16 06:00 06/25/16 07:24 HEENT: MALLORY, EOM Intact Cor: RSR, No murmurs, No gallops Lungs: Clear to P&A Abd: Soft, Normal bowel sounds, No organomegaly Ext:No significant edema Abnormal Lab Results 06/23/16 06/24/16 06/24/16 09:33 05:05 11:30 WBC RBC Hgb Hct MCV RDW Plt Count MPV Neutrophils % Lymphocytes % Monocytes % INR Fibrinogen ABG pH ABG pCO2 at Pt Temp ABG HCO3 ABG O2 Content ABG Base Excess Potassium BUN Creatinine Random Glucose Calcium Phosphorus Magnesium 2.7 H AST ALT Alkaline Phosphatase LD Total C-Reactive Protein 21.1 H D Total Protein Albumin Hep-Induced Plt Ab Rapid 0.661 H Crossmatch 06/24/16 06/24/16 06/24/16 12:15 17:00 18:00 WBC RBC Hgb Hct MCV RDW Plt Count MPV Neutrophils % Lymphocytes % Monocytes % INR Fibrinogen ABG pH 7.25 L ABG pCO2 at Pt Temp 50.5 H ABG HCO3 21.5 L ABG O2 Content 11.0 L ABG Base Excess -5.0 L Potassium BUN Creatinine Random Glucose Calcium Phosphorus Magnesium AST ALT Alkaline Phosphatase LD Total 695 H C-Reactive Protein Total Protein Albumin Hep-Induced Plt Ab Rapid Crossmatch See Detail 06/25/16 06/25/16 06/25/16 05:00 05:00 05:00 WBC 10.8 H RBC 3.07 L Hgb 7.7 L Hct 24.1 L MCV 78.4 L RDW 19.6 H Plt Count 66 L MPV 16.2 H Neutrophils % 96.4 H Lymphocytes % 1.4 L Monocytes % 1.9 L INR 1.34 H Fibrinogen 608.0 H ABG pH ABG pCO2 at Pt Temp ABG HCO3 ABG O2 Content ABG Base Excess Potassium 5.9 H BUN 124 H* Creatinine 4.3 H Random Glucose 278 H D Calcium 7.2 L Phosphorus 8.8 H Magnesium 2.5 H AST 11 L D ALT 9 L D Alkaline Phosphatase 43 L LD Total 610 H C-Reactive Protein Total Protein 4.6 L D Albumin 1.4 L Hep-Induced Plt Ab Rapid Crossmatch 06/25/16 07:18 WBC RBC Hgb Hct MCV RDW Plt Count MPV Neutrophils % Lymphocytes % Monocytes % INR Fibrinogen ABG pH 7.27 L ABG pCO2 at Pt Temp 47.4 H ABG HCO3 21.2 L ABG O2 Content 10.6 L ABG Base Excess -4.8 L Potassium BUN Creatinine Random Glucose Calcium Phosphorus Magnesium AST ALT Alkaline Phosphatase LD Total C-Reactive Protein Total Protein Albumin Hep-Induced Plt Ab Rapid Crossmatch Active Medications Generic Name Dose Route Start Last Admin Trade Name Freq PRN Reason Stop Dose Admin Albuterol Sulfate 1 amp 06/21/16 01:00 06/22/16 22:40 Ventolin 0.083% Nebulizer Soln - NEB 1 amp Q1H PRN Administration SHORT OF BREATH/WHEEZING Albuterol/Ipratropium 1 amp 06/21/16 06:00 06/25/16 06:07 Duoneb - NEB 1 amp QIDR JOANNE Administration Atorvastatin Calcium 80 mg 06/21/16 22:00 06/24/16 22:35 Lipitor - PO 80 mg HS JOANNE Administration Calcium Acetate 667 mg 06/23/16 12:00 06/25/16 08:03 Phoslo - PO 667 mg TIDCM JOANNE Administration Furosemide 40 mg 06/25/16 08:09 Lasix Injection - IVPUSH 06/25/16 14:00 IS TECHNICIAN JOANNE Aztreonam 1 gm/ Dextrose 50 mls @ 100 mls/hr 06/21/16 14:30 06/25/16 09:03 IVPB Not Given BID JOANNE Protocol Fentanyl 500 mcg/ Dextrose 100 mls @ 5 mls/hr 06/23/16 21:15 06/25/16 08:03 IJ 10 mls/hr TITR JOANNE Administration 25 MCG/HR Dopamine HCl/Dextrose 250 mls @ 17.452 mls/hr 06/24/16 00:45 06/25/16 01:36 Dopamine 400 Mg/D5w - IVPB Not Given TITR JOANNE Protocol 5 MCG/KG/MIN Propofol 100 mls @ 2.817 mls/hr 06/24/16 11:15 06/25/16 08:35 Diprivan - IVPB 10 mcg/kg/min TITR JOANNE Titration Protocol 5 MCG/KG/MIN Pantoprazole Sodium 100 mls @ 200 mls/hr 06/25/16 10:00 06/25/16 09:01 Protonix 40mg Ivpb (Pre-Docked) IVPB 200 mls/hr DAILY JOANNE Administration Insulin Aspart 1 vial 06/21/16 07:00 06/25/16 06:52 Novolog Vial Sliding Scale - SQ 3 units TIDAC JOANNE Administration Protocol Methylprednisolone Sodium Succinate 1,000 mg 06/24/16 12:30 06/24/16 12:46 Solu-Medrol - IVPB 06/26/16 10:01 1,000 mg DAILY JOANNE Administration Polyethylene Glycol 17 gm 06/23/16 18:00 06/25/16 09:02 Miralax (For Daily Use) - PO 17 gm DAILY JOANNE Administration Senna 2 tab 06/23/16 18:01 Senna - PO HS PRN CONSTIPATION A/P 76 y/o patient with Acute Hypoxic Respiratory Failure Suspect Exacerbation of underlying Interstitial Lung Disease ARDS Acute on Chronic Renal Failure Paroxysmal Atrial Fibrillation r/o Pneumonia r/o CHF ++ MOLLY--1in 1280 neg. ds DNA ab neg. thrombocytopenia/anemia -- worsening. ? worsening renal function/systemic process/? interstitial lung disease and rt. hear failure part of multiorgan failure rheumatology input noted --unlikely vasculitis antiphospholipid panel pending false positive HIT-- timing/clinical scenario not s/o HIT. check BRITNEY discussed with cardiology team
[2016-06-25] MEDS: PROPOFOL 100 ML IVPB SCH ×2 (10:49→20:47)
[2016-06-25] MEDS ORDERED: SODIUM POLYSTYRENE SULFONATE 15 GM/60 ML BOTTLE NGT ONE (11:00)
[2016-06-25] MEDS: methylPREDNISolone NA SUCC 1000 MG/8 ML VIAL IVPB SCH (11:14)
--- NOTE | 2016-06-25 12:14 | PN ---
Physical Exam: SUBJECTIVE: Patient seen and examined, patient sedated on ventilator support. patient on dopamin at 10 OBJECTIVE: Vital Signs Period Temp Pulse Resp BP Sys/Hill Pulse Ox Last 24 Hr 97.4 F-98.4 F 40-54 22-29 72-113/38-54 100-100 GENERAL: sedated and on ventilator HEAD: Normal with no signs of trauma. EYES: PERRL, , sclera anicteric, conjunctiva clear. ENT: Ears normal, nares patent, dry mucous membranes. NECK: Trachea midline, LUNGS: Breath sounds equal, b/l rales present decreased since yesterday HEART: s1s2 normal ABDOMEN: Soft, nontender, nondistended, normoactive bowel sounds, no guarding. EXTREMITIES: 2+ pulses, warm, well-perfused, no edema. NEUROLOGICAL: sedated and intubated SKIN: Warm, dry, Laboratory Results - last 24 hr 06/22/16 06/23/16 06/24/16 05:05 09:33 11:30 WBC RBC Hgb Hct MCV MCHC RDW Plt Count MPV Neutrophils % Lymphocytes % Monocytes % Eosinophils % Basophils % INR PTT (Actin FS) Fibrinogen Puncture Site ABG pH ABG pCO2 at Pt Temp ABG pO2 at Pt Temp ABG HCO3 ABG O2 Sat (Measured) ABG O2 Content ABG Base Excess Sree Test O2 Delivery Device Oxygen Flow Rate Vent Mode Vent Rate Mechanical Rate PEEP Pressure Support Vent Sodium Potassium Chloride Carbon Dioxide Anion Gap BUN Creatinine Creat Clearance w eGFR POC Glucometer Random Glucose Calcium Phosphorus Magnesium Total Bilirubin AST ALT Alkaline Phosphatase LD Total C-Reactive Protein Total Protein Albumin Glomerular Base Memb Ab 4 Hep-Induced Plt Ab Rapid 0.661 H Complement C3 100 Complement C4 24 Blood Type Antibody Screen Direct Antiglob Test Crossmatch 06/24/16 06/24/16 06/24/16 11:30 12:15 17:00 WBC RBC Hgb Hct MCV MCHC RDW Plt Count MPV Neutrophils % Lymphocytes % Monocytes % Eosinophils % Basophils % INR PTT (Actin FS) Fibrinogen Puncture Site Right radial ABG pH 7.25 L ABG pCO2 at Pt Temp 50.5 H ABG pO2 at Pt Temp 76.2 D ABG HCO3 21.5 L ABG O2 Sat (Measured) 93.9 ABG O2 Content 11.0 L ABG Base Excess -5.0 L Sree Test Positive O2 Delivery Device Mechanical vent Oxygen Flow Rate 70% Vent Mode A/c Vent Rate 26 Mechanical Rate Yes PEEP 15.0 Pressure Support Vent 325ml Sodium Potassium Chloride Carbon Dioxide Anion Gap BUN Creatinine Creat Clearance w eGFR POC Glucometer Random Glucose Calcium Phosphorus Magnesium Total Bilirubin AST ALT Alkaline Phosphatase LD Total 695 H C-Reactive Protein 21.1 H D Total Protein Albumin Glomerular Base Memb Ab Hep-Induced Plt Ab Rapid Complement C3 Complement C4 Blood Type Antibody Screen Direct Antiglob Test Crossmatch 06/24/16 06/24/16 06/25/16 17:02 18:00 05:00 WBC RBC Hgb Hct MCV MCHC RDW Plt Count MPV Neutrophils % Lymphocytes % Monocytes % Eosinophils % Basophils % INR PTT (Actin FS) 31.7 Fibrinogen Puncture Site ABG pH ABG pCO2 at Pt Temp ABG pO2 at Pt Temp ABG HCO3 ABG O2 Sat (Measured) ABG O2 Content ABG Base Excess Sree Test O2 Delivery Device Oxygen Flow Rate Vent Mode Vent Rate Mechanical Rate PEEP Pressure Support Vent Sodium Potassium Chloride Carbon Dioxide Anion Gap BUN Creatinine Creat Clearance w eGFR POC Glucometer [phone] Random Glucose Calcium Phosphorus Magnesium Total Bilirubin AST ALT Alkaline Phosphatase LD Total C-Reactive Protein Total Protein Albumin Glomerular Base Memb Ab Hep-Induced Plt Ab Rapid Complement C3 Complement C4 Blood Type B POSITIVE Antibody Screen Negative Direct Antiglob Test Negative Crossmatch See Detail 06/25/16 06/25/16 06/25/16 05:00 05:00 05:00 WBC 10.8 H RBC 3.07 L Hgb 7.7 L Hct 24.1 L MCV 78.4 L MCHC 32.0 RDW 19.6 H Plt Count 66 L MPV 16.2 H Neutrophils % 96.4 H Lymphocytes % 1.4 L Monocytes % 1.9 L Eosinophils % 0.0 Basophils % 0.3 INR 1.34 H PTT (Actin FS) Fibrinogen 608.0 H Puncture Site ABG pH ABG pCO2 at Pt Temp ABG pO2 at Pt Temp ABG HCO3 ABG O2 Sat (Measured) ABG O2 Content ABG Base Excess Sree Test O2 Delivery Device Oxygen Flow Rate Vent Mode Vent Rate Mechanical Rate PEEP Pressure Support Vent Sodium 143 Potassium 5.9 H Chloride 107 Carbon Dioxide 23 Anion Gap 13 BUN 124 H* Creatinine 4.3 H Creat Clearance w eGFR 10.07 POC Glucometer Random Glucose 278 H D Calcium 7.2 L Phosphorus 8.8 H Magnesium 2.5 H Total Bilirubin 0.4 AST 11 L D ALT 9 L D Alkaline Phosphatase 43 L LD Total 610 H C-Reactive Protein Total Protein 4.6 L D Albumin 1.4 L Glomerular Base Memb Ab Hep-Induced Plt Ab Rapid Complement C3 Complement C4 Blood Type Antibody Screen Direct Antiglob Test Crossmatch 06/25/16 06/25/16 06/25/16 07:18 08:48 10:47 WBC RBC Hgb Hct MCV MCHC RDW Plt Count MPV Neutrophils % Lymphocytes % Monocytes % Eosinophils % Basophils % INR PTT (Actin FS) Fibrinogen Puncture Site Right radial ABG pH 7.27 L ABG pCO2 at Pt Temp 47.4 H ABG pO2 at Pt Temp 92.1 D ABG HCO3 21.2 L ABG O2 Sat (Measured) 96.5 ABG O2 Content 10.6 L ABG Base Excess -4.8 L Sree Test Positive O2 Delivery Device Ventilator Oxygen Flow Rate 90% Vent Mode A/c Vent Rate 26 Mechanical Rate Yes PEEP 15.0 Pressure Support Vent 325 Sodium Potassium Chloride Carbon Dioxide Anion Gap BUN Creatinine Creat Clearance w eGFR POC Glucometer [phone] Random Glucose Calcium Phosphorus Magnesium Total Bilirubin AST ALT Alkaline Phosphatase LD Total C-Reactive Protein Total Protein Albumin Glomerular Base Memb Ab Hep-Induced Plt Ab Rapid Complement C3 Complement C4 Blood Type B POSITIVE Antibody Screen Direct Antiglob Test Crossmatch Active Medications Generic Name Dose Route Start Last Admin Trade Name Freq PRN Reason Stop Dose Admin Albuterol Sulfate 1 amp 06/21/16 01:00 06/22/16 22:40 Ventolin 0.083% Nebulizer Soln - NEB 1 amp Q1H PRN Administration SHORT OF BREATH/WHEEZING Albuterol/Ipratropium 1 amp 06/21/16 06:00 06/25/16 11:44 Duoneb - NEB 1 amp QIDR JOANNE Administration Atorvastatin Calcium 80 mg 06/21/16 22:00 06/24/16 22:35 Lipitor - PO 80 mg HS JOANNE Administration Furosemide 40 mg 06/25/16 08:09 Lasix Injection - IVPUSH 06/25/16 14:00 TECHNICAL FELLOW JOANNE Aztreonam 1 gm/ Dextrose 50 mls @ 100 mls/hr 06/21/16 14:30 06/25/16 09:03 IVPB Not Given BID JOANNE Protocol Fentanyl 500 mcg/ Dextrose 100 mls @ 5 mls/hr 06/23/16 21:15 06/25/16 08:03 IJ 10 mls/hr TITR JOANNE Administration 25 MCG/HR Dopamine HCl/Dextrose 250 mls @ 17.452 mls/hr 06/24/16 00:45 06/25/16 01:36 Dopamine 400 Mg/D5w - IVPB Not Given TITR JOANNE Protocol 5 MCG/KG/MIN Propofol 100 mls @ 2.817 mls/hr 06/24/16 11:15 06/25/16 10:49 Diprivan - IVPB 5.634 mls/hr TITR JOANNE Administration Protocol 5 MCG/KG/MIN Pantoprazole Sodium 100 mls @ 200 mls/hr 06/25/16 10:00 06/25/16 09:01 Protonix 40mg Ivpb (Pre-Docked) IVPB 200 mls/hr DAILY JOANNE Administration Insulin Aspart 1 vial 06/21/16 07:00 06/25/16 10:51 Novolog Vial Sliding Scale - SQ 4 units TIDAC JOANNE Administration Protocol Methylprednisolone Sodium Succinate 1,000 mg 06/24/16 12:30 06/25/16 11:14 Solu-Medrol - IVPB 06/26/16 10:01 1,000 mg DAILY JOANNE Administration Polyethylene Glycol 17 gm 06/23/16 18:00 06/25/16 09:02 Miralax (For Daily Use) - PO 17 gm DAILY JOANNE Administration Senna 2 tab 06/23/16 18:01 Senna - PO HS PRN CONSTIPATION Sevelamer Carbonate 0.8 gm 06/25/16 12:00 Renvela Powder Packet - NGT TIDCM JOANNE ASSESSMENT/PLAN: Acute Hypoxic Respiratory Failure cxr b/l opacity could be due to rapid progression of interstial lung ds,ARDS f/u serology. phan 1;1280, mainatian spo2 over 90 intubated and sedated started on solumedrol 1gm daily for 3 days. Day 2. will complete the pulse therapy. antibiotic as per ID. on dun qidr monitor intake/ output on dopamin for low blood pressure and magda.( magda could be due to propofol and fentanyl), keep map > 65 rheumatology input noted --unlikely vasculitis Paroxysmal afib recently diagnosed, Remains in NSR. off heparin cardiology on case ckd monitor cr and bun, bun and cr increasing, renal function worsen monitor urine output on phoslo, monitor phosphorus avoid nephrotoxic drugs nephrology on case K is 5.9 got kaxylate, follow bmp in afternoon. high blood glucose secondary to steroid monitor bgm on insulin sliding scale microcytic anemia 2 units of blood ordered by primary follow stool for occult h/o HTN home meds atenolol, nifedipine and clonidine. on hold electrolyte: hyperkalemia got kaxylate, repeat in afternoon dvt pro: scd b/l electrolyte: hyperphosphatemia, and hperkalemia. Dispo: admit in icu. Patient is full code Visit type - Emergency Visit Emergency Visit: Yes ED Registration Date: 06/20/16 Care time: The patient presented to the Emergency Department on the above date and was hospitalized for further evaluation of their emergent condition. - New Patient This patient is new to me today: No - Critical Care Critical Care patient: Yes Total Critical Care Time (in minutes): 60 Critical Care Statement: The care of this patient involved high complexity decision making to prevent further life threatening deterioration of the patient 's condition and/or to evalute & treat vital organ system(s) failure or risk of failure.
[2016-06-25] MEDS: SEVELAMER CARBONATE 0.8 GM POWDER PACKET NGT SCH ×2 (12:49→16:31)
--- NOTE | 2016-06-25 16:02 | PN ---
Teaching Attending Note Name of Resident: Gino Stubbs ATTENDING PHYSICIAN STATEMENT I saw and evaluated the patient. I reviewed the resident's note and discussed the case with the resident. I agree with the resident's findings and plan as documented. SUBJECTIVE: Patient seen and examined in the ICU. Remains intubated, sedated. On volume assist control with 90% FiO2, PEEP 10. Day #2 of steroid pulse (Rheumatology note seen) No pressors. CXR: minimal improvement Intake & Output 06/22/16 06/23/16 06/24/16 06/25/16 23:59 23:59 23:59 23:59 Intake Total 910 1230 1506 320 Output Total 1700 1400 1300 550 Balance -790 -170 206 -230 Weight 215 lb 8 oz 205 lb 3.2 oz 207 lb 208 lb Last Vital Signs Temp Pulse Resp BP Pulse Ox 97.5 F L 47 L 26 H 113/48 100 06/25/16 14:00 06/25/16 15:21 06/25/16 15:21 06/25/16 15:18 06/25/16 15:21 Active Medications Albuterol Sulfate (Ventolin 0.083% Nebulizer Soln -) 1 amp NEB Q1H PRN PRN Reason: SHORT OF BREATH/WHEEZING Last Admin: 06/22/16 22:40 Dose: 1 amp Albuterol/Ipratropium (Duoneb -) 1 amp NEB QIDR JOANNE Last Admin: 06/25/16 11:44 Dose: 1 amp Atorvastatin Calcium (Lipitor -) 80 mg PO HS JOANNE Last Admin: 06/24/16 22:35 Dose: 80 mg Chlorhexidine Gluconate (Hibiclens For Decolonization -) 1 applic TP HS JOANNE Aztreonam 1 gm/ Dextrose 50 mls @ 100 mls/hr IVPB BID JOANNE PRN Reason: Protocol Last Admin: 06/25/16 09:03 Dose: Not Given Fentanyl 500 mcg/ Dextrose 100 mls @ 5 mls/hr IJ TITR JOANNE PRN Reason: 25 MCG/HR Last Admin: 06/25/16 08:03 Dose: 10 mls/hr Dopamine HCl/Dextrose (Dopamine 400 Mg/D5w -) 250 mls @ 17.452 mls/hr IVPB TITR JOANNE; 5 MCG/KG/MIN PRN Reason: Protocol Last Admin: 06/25/16 01:36 Dose: Not Given Propofol (Diprivan -) 100 mls @ 2.817 mls/hr IVPB TITR JOANNE; 5 MCG/KG/MIN PRN Reason: Protocol Last Admin: 06/25/16 10:49 Dose: 5.634 mls/hr Pantoprazole Sodium (Protonix 40mg Ivpb (Pre-Docked)) 100 mls @ 200 mls/hr IVPB DAILY [facility] Last Admin: 06/25/16 09:01 Dose: 200 mls/hr Insulin Aspart (Novolog Vial Sliding Scale -) 1 vial SQ TIDAC JOANNE PRN Reason: Protocol Last Admin: 06/25/16 10:51 Dose: 4 units Methylprednisolone Sodium Succinate (Solu-Medrol -) 1,000 mg IVPB DAILY [facility] Stop: 06/26/16 10:01 Last Admin: 06/25/16 11:14 Dose: 1,000 mg Mupirocin (Bactroban 2% Ointment -) 1 applic TP BID [facility] Polyethylene Glycol (Miralax (For Daily Use) -) 17 gm PO DAILY [facility] Last Admin: 06/25/16 09:02 Dose: 17 gm Senna (Senna -) 2 tab PO HS PRN PRN Reason: CONSTIPATION Sevelamer Carbonate (Renvela Powder Packet -) 0.8 gm NGT TIDCM [facility] Last Admin: 06/25/16 12:49 Dose: 0.8 gm Gen: intubated, sedated Heart: RRR Lung: bilateral rhonchi, rales Abd: soft, nontender Ext: no edema Laboratory Results - last 24 hr 06/22/16 06/23/16 06/24/16 05:05 09:33 11:30 WBC RBC Hgb Hct MCV MCHC RDW Plt Count MPV Neutrophils % Lymphocytes % Monocytes % Eosinophils % Basophils % INR PTT (Actin FS) Fibrinogen Puncture Site ABG pH ABG pCO2 at Pt Temp ABG pO2 at Pt Temp ABG HCO3 ABG O2 Sat (Measured) ABG O2 Content ABG Base Excess Sree Test O2 Delivery Device Oxygen Flow Rate Vent Mode Vent Rate Mechanical Rate PEEP Pressure Support Vent Sodium Potassium Chloride Carbon Dioxide Anion Gap BUN Creatinine Creat Clearance w eGFR POC Glucometer Random Glucose Calcium Phosphorus Magnesium Total Bilirubin AST ALT Alkaline Phosphatase LD Total Total Protein Albumin Stool Occult Blood Glomerular Base Memb Ab 4 Hep-Induced Plt Ab Rapid 0.661 H Complement C3 100 Complement C4 24 Blood Type Antibody Screen Direct Antiglob Test Crossmatch 06/24/16 06/24/16 06/24/16 17:00 17:02 18:00 WBC RBC Hgb Hct MCV MCHC RDW Plt Count MPV Neutrophils % Lymphocytes % Monocytes % Eosinophils % Basophils % INR PTT (Actin FS) Fibrinogen Puncture Site ABG pH ABG pCO2 at Pt Temp ABG pO2 at Pt Temp ABG HCO3 ABG O2 Sat (Measured) ABG O2 Content ABG Base Excess Sree Test O2 Delivery Device Oxygen Flow Rate Vent Mode Vent Rate Mechanical Rate PEEP Pressure Support Vent Sodium Potassium Chloride Carbon Dioxide Anion Gap BUN Creatinine Creat Clearance w eGFR POC Glucometer [phone] Random Glucose Calcium Phosphorus Magnesium Total Bilirubin AST ALT Alkaline Phosphatase LD Total 695 H Total Protein Albumin Stool Occult Blood Glomerular Base Memb Ab Hep-Induced Plt Ab Rapid Complement C3 Complement C4 Blood Type B POSITIVE Antibody Screen Negative Direct Antiglob Test Negative Crossmatch See Detail 06/25/16 06/25/16 06/25/16 05:00 05:00 05:00 WBC 10.8 H RBC 3.07 L Hgb 7.7 L Hct 24.1 L MCV 78.4 L MCHC 32.0 RDW 19.6 H Plt Count 66 L MPV 16.2 H Neutrophils % 96.4 H Lymphocytes % 1.4 L Monocytes % 1.9 L Eosinophils % 0.0 Basophils % 0.3 INR PTT (Actin FS) 31.7 Fibrinogen Puncture Site ABG pH ABG pCO2 at Pt Temp ABG pO2 at Pt Temp ABG HCO3 ABG O2 Sat (Measured) ABG O2 Content ABG Base Excess Sree Test O2 Delivery Device Oxygen Flow Rate Vent Mode Vent Rate Mechanical Rate PEEP Pressure Support Vent Sodium 143 Potassium 5.9 H Chloride 107 Carbon Dioxide 23 Anion Gap 13 BUN 124 H* Creatinine 4.3 H Creat Clearance w eGFR 10.07 POC Glucometer Random Glucose 278 H D Calcium 7.2 L Phosphorus 8.8 H Magnesium 2.5 H Total Bilirubin 0.4 AST 11 L D ALT 9 L D Alkaline Phosphatase 43 L LD Total 610 H Total Protein 4.6 L D Albumin 1.4 L Stool Occult Blood Glomerular Base Memb Ab Hep-Induced Plt Ab Rapid Complement C3 Complement C4 Blood Type Antibody Screen Direct Antiglob Test Crossmatch 06/25/16 06/25/16 06/25/16 05:00 07:18 08:48 WBC RBC Hgb Hct MCV MCHC RDW Plt Count MPV Neutrophils % Lymphocytes % Monocytes % Eosinophils % Basophils % INR 1.34 H PTT (Actin FS) Fibrinogen 608.0 H Puncture Site Right radial ABG pH 7.27 L ABG pCO2 at Pt Temp 47.4 H ABG pO2 at Pt Temp 92.1 D ABG HCO3 21.2 L ABG O2 Sat (Measured) 96.5 ABG O2 Content 10.6 L ABG Base Excess -4.8 L Sree Test Positive O2 Delivery Device Ventilator Oxygen Flow Rate 90% Vent Mode A/c Vent Rate 26 Mechanical Rate Yes PEEP 15.0 Pressure Support Vent 325 Sodium Potassium Chloride Carbon Dioxide Anion Gap BUN Creatinine Creat Clearance w eGFR POC Glucometer Random Glucose Calcium Phosphorus Magnesium Total Bilirubin AST ALT Alkaline Phosphatase LD Total Total Protein Albumin Stool Occult Blood Glomerular Base Memb Ab Hep-Induced Plt Ab Rapid Complement C3 Complement C4 Blood Type B POSITIVE Antibody Screen Direct Antiglob Test Crossmatch 06/25/16 06/25/16 10:47 12:05 WBC RBC Hgb Hct MCV MCHC RDW Plt Count MPV Neutrophils % Lymphocytes % Monocytes % Eosinophils % Basophils % INR PTT (Actin FS) Fibrinogen Puncture Site ABG pH ABG pCO2 at Pt Temp ABG pO2 at Pt Temp ABG HCO3 ABG O2 Sat (Measured) ABG O2 Content ABG Base Excess Sree Test O2 Delivery Device Oxygen Flow Rate Vent Mode Vent Rate Mechanical Rate PEEP Pressure Support Vent Sodium Potassium Chloride Carbon Dioxide Anion Gap BUN Creatinine Creat Clearance w eGFR POC Glucometer [phone] Random Glucose Calcium Phosphorus Magnesium Total Bilirubin AST ALT Alkaline Phosphatase LD Total Total Protein Albumin Stool Occult Blood Negative Glomerular Base Memb Ab Hep-Induced Plt Ab Rapid Complement C3 Complement C4 Blood Type Antibody Screen Direct Antiglob Test Crossmatch ASSESSMENT AND PLAN: Acute Hypoxic Respiratory Failure Suspect Exacerbation of underlying Interstitial Lung Disease ARDS Lactic Acidosis likely from respiratory effort Acute on Chronic Renal Failure Paroxysmal Atrial Fibrillation r/o Pneumonia r/o CHF HTN - Steroid pulse and then rapid taper - inhaled bronchodilators - titrate FiO2, PEEP to keep SpO2 >90% - may need paralytics - low tidal volume ventilation - monitor ABG - empiric antibiotics per ID - would hold lasix - monitor urine output, creatinine - when more stable will need dedicated CT chest noncontrast and will likely need biopsy - DVT/GI prophylaxis Dr Gatica CCTime 35"
[2016-06-25 19:29] LABS: CREATININE 4.4 mg/dL (0.55-1.02)
[2016-06-25] MEDS: MUPIROCIN 2% TOPICAL OINTMENT 22 GM TUBE TP SCH (21:42)
[2016-06-25] MEDS: ATORVASTATIN CA 80 MG TABLET (FP) PO SCH (21:43)
[2016-06-25] MEDS: CHLORHEXIDINE GLUCONATE 4% CLEANSER FOR DECOLONIZATION TP SCH (21:43)
[2016-06-26] MEDS: ALBUTEROL SO4 2.5/IPRATROPIUM 0.5 INH SOL 3 ML VIAL.NEB. NEB SCH ×4 (00:05→17:49)
[2016-06-26 00:07] LABS: B D GLUCAN(FUNGITELL) < 31 pg/mL (.); C-ANCA <1:20 titer (Neg:<1:20); MYELOPEROXIDASE ANTIBODY <9.0 U/mL (0.0-9.0); PROTEINASE-3 ANTIBODY <3.5 U/mL (0.0-3.5)
[2016-06-26 00:07] LABS: SMOOTH MUSCLE AB 94 Units (0-19)
[2016-06-26] MEDS: DOPAMINE 400 MG/D5W - 250 ML IVPB SCH ×2 (00:18→22:23)
[2016-06-26] MEDS ORDERED: PT OWN MED DRAWER 7, Y5N ONE ×3 (00:23→12:46)
[2016-06-26 06:17] LABS: MCH 25.9 pg (25.7-33.7); MCHC 32.5 g/dl (32.0-36.0); MEAN CELL VOLUME 79.7 fl (80-96); WHITE BLOOD COUNT 12.9 K/mm3 (4.0-10.0)
[2016-06-26 06:31] LABS: INR 1.19 (0.82-1.09); PROTHROMBIN TIME (PATIENT) 13.1 SEC (9.98-11.88)
[2016-06-26 06:32] LABS: ALBUMIN 1.5 g/dl (3.4-5.0); BILIRUBIN,TOTAL 0.5 mg/dL (0.2-1.0); CREATININE 4.5 mg/dL (0.55-1.02); MAGNESIUM 2.5 mg/dL (1.8-2.4); TOT PROT 4.8 g/dl (6.4-8.2)
[2016-06-26 06:33] LABS: ACTIVATED PTT 31.2 SECONDS (26.9-34.4)
[2016-06-26 06:37] LABS: PHOSPHOROUS 8.6 mg/dL (2.5-4.9)
[2016-06-26] MEDS: INSULIN SLIDING SCALE (NOVOLOG) 1 VIAL SQ SCH ×3 (07:32→16:58)
--- NOTE | 2016-06-26 07:58 | PN ---
Progress Note, Physician Chief Complaint: ID Remains intubated 70% FIO2 and PEEP 15 Day 7 antibiotics Solumedrol - Current Medication List Current Medications: Active Medications Albuterol Sulfate (Ventolin 0.083% Nebulizer Soln -) 1 amp NEB Q1H PRN PRN Reason: SHORT OF BREATH/WHEEZING Last Admin: 06/22/16 22:40 Dose: 1 amp Albuterol/Ipratropium (Duoneb -) 1 amp NEB QIDR JOANNE Last Admin: 06/26/16 07:07 Dose: 1 amp Atorvastatin Calcium (Lipitor -) 80 mg PO HS JOANNE Last Admin: 06/25/16 21:43 Dose: 80 mg Chlorhexidine Gluconate (Hibiclens For Decolonization -) 1 applic TP HS [facility] Last Admin: 06/25/16 21:43 Dose: 1 applic Aztreonam 1 gm/ Dextrose 50 mls @ 100 mls/hr IVPB BID JOANNE PRN Reason: Protocol Last Admin: 06/25/16 22:30 Dose: 100 mls/hr Fentanyl 500 mcg/ Dextrose 100 mls @ 5 mls/hr IJ TITR JOANNE PRN Reason: 25 MCG/HR Last Admin: 06/25/16 20:46 Dose: 10 mls/hr Dopamine HCl/Dextrose (Dopamine 400 Mg/D5w -) 250 mls @ 17.452 mls/hr IVPB TITR JOANNE; 5 MCG/KG/MIN PRN Reason: Protocol Last Admin: 06/26/16 00:18 Dose: 10 mls/hr Propofol (Diprivan -) 100 mls @ 2.817 mls/hr IVPB TITR JOANNE; 5 MCG/KG/MIN PRN Reason: Protocol Last Admin: 06/25/16 20:47 Dose: 5.634 mls/hr Pantoprazole Sodium (Protonix 40mg Ivpb (Pre-Docked)) 100 mls @ 200 mls/hr IVPB DAILY [facility] Last Admin: 06/25/16 09:01 Dose: 200 mls/hr Insulin Aspart (Novolog Vial Sliding Scale -) 1 vial SQ TIDAC JOANNE PRN Reason: Protocol Last Admin: 06/26/16 07:32 Dose: 4 units Methylprednisolone Sodium Succinate (Solu-Medrol -) 1,000 mg IVPB DAILY [facility] Stop: 06/26/16 10:01 Last Admin: 06/25/16 11:14 Dose: 1,000 mg Mupirocin (Bactroban 2% Ointment -) 1 applic TP BID [facility] Last Admin: 06/25/16 21:42 Dose: 1 applic Polyethylene Glycol (Miralax (For Daily Use) -) 17 gm PO DAILY [facility] Last Admin: 06/25/16 09:02 Dose: 17 gm Senna (Senna -) 2 tab PO HS PRN PRN Reason: CONSTIPATION Sevelamer Carbonate (Renvela Powder Packet -) 0.8 gm NGT TIDCM [facility] Last Admin: 06/25/16 16:31 Dose: 0.8 gm - Objective Vital Signs: Vital Signs Temperature 97.2 F L 06/26/16 06:00 Pulse Rate 55 L 06/26/16 06:00 Respiratory Rate 26 H 06/26/16 07:43 Blood Pressure 148/60 06/26/16 06:00 O2 Sat by Pulse Oximetry (%) 100 06/25/16 22:00 Constitutional: Yes: Moderate Distress Cardiovascular: Yes: Regular Rate and Rhythm, S1, S2. No: Murmur Respiratory: Yes: WNL, Regular, CTA Bilaterally Gastrointestinal: Yes: Soft. No: Tenderness Edema: No Labs: CBC, BMP 06/26/16 05:40 06/26/16 06:00 INR, PTT INR 1.19 (0.82-1.09) H 06/26/16 05:40 Fibrinogen 520.0 mg/dL (238-498) H 06/26/16 05:10 Problem List - Problems (1) Acute respiratory failure with hypoxia Code(s): J96.01 - ACUTE RESPIRATORY FAILURE WITH HYPOXIA (2) Pulmonary fibrosis Code(s): J84.10 - PULMONARY FIBROSIS, UNSPECIFIED (3) Bilateral pulmonary infiltrates on CXR Code(s): R91.8 - OTHER NONSPECIFIC ABNORMAL FINDING OF LUNG FIELD Assessment/Plan Microbiology 06/23/16 19:00 Urine For Antigen Detection Legionella Antigen - Final 06/23/16 19:00 Urine For Antigen Detection Streptococcus pneumoniae Antigen (M - Final 06/22/16 05:05 Serum Cryptococcal Antigen - Final 06/21/16 10:00 Nasopharyngeal Swab Influenza Types A,B Antigen (ADRIANE) - Final 06/21/16 10:00 Nasopharyngeal Swab - Final 06/20/16 20:37 Urine - Urine Clean Catch Urine Culture - Final NO GROWTH OBTAINED 06/20/16 20:00 Blood - Peripheral Venous Blood Culture - Final NO GROWTH AFTER 5 DAYS INCUBATION 06/20/16 19:50 Blood - Peripheral Venous Blood Culture - Final NO GROWTH AFTER 5 DAYS INCUBATION 06/24/16 16:00 Sputum - Endotrachea Suction/Ventilator GRACIELA Preparation - Preliminary 06/24/16 16:00 Sputum - Endotrachea Suction/Ventilator Fungal Culture - Preliminary 06/21/16 10:00 Nasopharyngeal Swab Respiratory Virus Panel - Preliminary Selected Entries 06/26/16 06/26/16 06:00 07:43 Temperature 97.2 F L Pulse Rate 55 L Respiratory 26 H Rate Blood Pressure 148/60 Laboratory Tests 06/22/16 06/22/16 06/26/16 05:05 05:05 05:40 WBC 12.9 H Hgb 9.8 L D Hct 30.2 L D Plt Count Pending BUN Creatinine Creat Clearance w eGFR AST ALT Alkaline Phosphatase LD Total MOLLY Speckled Pattern 1:1280 H A. galactomannan Ag Pending Beta-(1,3)-D-Glucan < 31 06/26/16 06:00 WBC Hgb Hct Plt Count BUN 130 H* Creatinine 4.5 H Creat Clearance w eGFR 9.55 AST 13 L ALT 13 D Alkaline Phosphatase 43 L LD Total 618 H MOLLY Speckled Pattern A. galactomannan Ag Beta-(1,3)-D-Glucan Assessment PUlmonary fibrosis with ARDS. THus far cultures negative though sputum pending LDH is high ? significance Prelim fungal marker neg. Advise Stop antibiotic today Reculture Await sputum CMV serology Discuss with pulmonary as to ivet of WALTER Grady MD
[2016-06-26] MEDS: FENTANYL INJECTION 500 MCG in DEXTROSE 5%-WATER - 90 ML IJ SCH ×3 (08:57→19:32)
--- NOTE | 2016-06-26 09:15 | PN ---
Progress Note (short form) - Note Progress Note: Patient seen and examined in the ICU. -fio2 80% -still high airway pressures c/w ards, may need paralysis -will get last dose of pulse, though rheum feels unlikely primary process - very awake and interactive with vent, increasing sedation for vent synchrony -non oliguric renal failure stable Active Medications Albuterol Sulfate (Ventolin 0.083% Nebulizer Soln -) 1 amp NEB Q1H PRN PRN Reason: SHORT OF BREATH/WHEEZING Last Admin: 06/22/16 22:40 Dose: 1 amp Albuterol/Ipratropium (Duoneb -) 1 amp NEB QIDR JOANNE Last Admin: 06/26/16 07:07 Dose: 1 amp Atorvastatin Calcium (Lipitor -) 80 mg PO HS JOANNE Last Admin: 06/25/16 21:43 Dose: 80 mg Chlorhexidine Gluconate (Hibiclens For Decolonization -) 1 applic TP HS [facility] Last Admin: 06/25/16 21:43 Dose: 1 applic Fentanyl 500 mcg/ Dextrose 100 mls @ 5 mls/hr IJ TITR JOANNE PRN Reason: 25 MCG/HR Last Admin: 06/25/16 20:46 Dose: 10 mls/hr Dopamine HCl/Dextrose (Dopamine 400 Mg/D5w -) 250 mls @ 17.452 mls/hr IVPB TITR JOANNE; 5 MCG/KG/MIN PRN Reason: Protocol Last Admin: 06/26/16 00:18 Dose: 10 mls/hr Propofol (Diprivan -) 100 mls @ 2.817 mls/hr IVPB TITR JOANNE; 5 MCG/KG/MIN PRN Reason: Protocol Last Admin: 06/25/16 20:47 Dose: 5.634 mls/hr Pantoprazole Sodium (Protonix 40mg Ivpb (Pre-Docked)) 100 mls @ 200 mls/hr IVPB DAILY [facility] Last Admin: 06/25/16 09:01 Dose: 200 mls/hr Insulin Aspart (Novolog Vial Sliding Scale -) 1 vial SQ TIDAC JOANNE PRN Reason: Protocol Last Admin: 06/26/16 07:32 Dose: 4 units Methylprednisolone Sodium Succinate (Solu-Medrol -) 1,000 mg IVPB DAILY [facility] Stop: 06/26/16 10:01 Last Admin: 06/25/16 11:14 Dose: 1,000 mg Mupirocin (Bactroban 2% Ointment -) 1 applic TP BID [facility] Last Admin: 06/25/16 21:42 Dose: 1 applic Polyethylene Glycol (Miralax (For Daily Use) -) 17 gm PO DAILY [facility] Last Admin: 06/25/16 09:02 Dose: 17 gm Senna (Senna -) 2 tab PO HS PRN PRN Reason: CONSTIPATION Sevelamer Carbonate (Renvela Powder Packet -) 0.8 gm NGT TIDCM [facility] Last Admin: 06/25/16 16:31 Dose: 0.8 gm CXR: minimal improvement, bilateral alveolar filling, ARDS pattern Vital Signs Temp 97.2 F L 06/26/16 06:00 Pulse 63 06/26/16 08:36 Resp 32 H 06/26/16 08:36 BP 154/63 06/26/16 08:00 Pulse Ox 96 06/26/16 08:36 Intake & Output 06/25/16 06/25/16 06/26/16 11:59 23:59 11:59 Intake Total 320 1813 462 Output Total 250 700 300 Balance 70 1113 162 Weight 94.347 kg 97.931 kg Intake: IV 320 393 182 Dopamine 400 mg/D5w - 250 120 152 70 ml @ 5 MCG/KG/MIN 17.452 mls/hr IVPB TITR [facility] Rx# :[id number] Diprivan - 100 ml @ 5 MCG 80 89 42 /KG/MIN 2.817 mls/hr IVPB TITR [facility] Rx#:[id number] llower fa saline lock 120 fentanyl 152 70 IVPB 600 Tube Feeding 80 140 Packed Cells 700 Tube Irrigant 40 140 Output: Urine 250 700 300 Soares 250 700 300 Other: Voiding Method Indwelling Catheter Indwelling Catheter Bowel Movement No Yes: lg liq Yes: mod liq # Bowel Movements 1 1 Weight Measurement Method Built [facility] Built [facility] Gen: intubated, lightly sedated Heart: RRR Lung: bilateral rhonchi, rales Abd: soft, nontender Ext: no edema Neuro: follows commands to loud voice---> increasing sedation CBC, BMP 06/26/16 05:40 06/26/16 06:00 Microbiology 06/20/16 20:00 Blood - Peripheral Venous Blood Culture - Final NO GROWTH AFTER 5 DAYS INCUBATION 06/20/16 19:50 Blood - Peripheral Venous Blood Culture - Final NO GROWTH AFTER 5 DAYS INCUBATION 06/21/16 15:20 Blood - Peripheral Venous TB Test (QFT) (ADRIANE) - Final 06/22/16 05:05 Serum Cryptococcal Antigen - Final 06/24/16 16:00 Sputum - Endotrachea Suction/Ventilator GRACIELA Preparation - Preliminary 06/24/16 16:00 Sputum - Endotrachea Suction/Ventilator Fungal Culture - Preliminary 06/23/16 19:00 Urine For Antigen Detection Legionella Antigen - Final 06/23/16 19:00 Urine For Antigen Detection Streptococcus pneumoniae Antigen (M - Final 06/21/16 10:00 Nasopharyngeal Swab Respiratory Virus Panel - Preliminary 06/21/16 10:00 Nasopharyngeal Swab Influenza Types A,B Antigen (ADRIANE) - Final 06/21/16 10:00 Nasopharyngeal Swab - Final 06/20/16 20:37 Urine - Urine Clean Catch Urine Culture - Final NO GROWTH OBTAINED ASSESSMENT AND PLAN: Acute Hypoxic Respiratory Failure Suspect Exacerbation of underlying Interstitial Lung Disease ARDS Lactic Acidosis likely from respiratory effort Acute on Chronic Renal Failure Paroxysmal Atrial Fibrillation r/o Pneumonia r/o CHF HTN - Steroid pulse and then rapid taper, rheum not convinced there is an ab mediated process - inhaled bronchodilators - titrate FiO2, PEEP to keep SpO2 >90% - low tidal volume ventilation for pPlat < 30, 6cc/kg TV (314cc) - monitor ABG - empiric antibiotics per ID - would hold lasix - monitor urine output, creatinine, may need PLACEMENT SPECIALIST soon - when more stable will need dedicated CT chest noncontrast - consider biopsy when stable, likely low yield now (DAD would be likely finding) - DVT/GI prophylaxis - ICU monitoring Juan Adams ACNP [id number]
[2016-06-26] MEDS: PROPOFOL 100 ML IVPB SCH ×4 (09:22→23:00)
[2016-06-26] MEDS: SEVELAMER CARBONATE 0.8 GM POWDER PACKET NGT SCH ×3 (09:30→18:15)
[2016-06-26] MEDS: methylPREDNISolone NA SUCC 1000 MG/8 ML VIAL IVPB SCH (09:36)
[2016-06-26] MEDS: PANTOPRAZOLE SODIUM 100 ML IVPB SCH (10:54)
[2016-06-26] MEDS: MUPIROCIN 2% TOPICAL OINTMENT 22 GM TUBE TP SCH ×2 (10:56→22:23)
[2016-06-26 11:13] LABS: PLATELET COUNT 51 K/MM3 (134-434)
[2016-06-26 11:15] LABS: PLATELET COMMENT2 NO CLOTTING DETECTED; PLATELET ESTIMATE DECREASED (NORMAL)
[2016-06-26] MEDS ORDERED: ROCURONIUM BROMIDE 50 MG/5 ML VIAL IV ONE (11:15)
[2016-06-26] MEDS: POLYETHYLENE GLYCOL 3350 119 GM BTL PO SCH (11:43)
--- NOTE | 2016-06-26 12:17 | PN ---
Progress Note (short form) - Note Progress Note: Event Note: Pt increasingly difficult to ventilate with increasing airway pressures (PIP 50s ), worsening resp acidosis, increasing Fio2 requirements, and disynchrony. Decision made to trial paralytics. Single dose of Rocuronium improved airway pressures and compliance with vent. Plan to put on cont drip if cont issues.
--- NOTE | 2016-06-26 12:36 | PN ---
Progress Note (short form) - Note Progress Note: Renal Follow up for CKD Pt seen and examined in the ICU sedated on vent good urine output on Pulse steroids Vital Signs Temperature 99.2 F 06/26/16 10:00 Pulse Rate 66 06/26/16 12:00 Respiratory Rate 22 06/26/16 12:00 Blood Pressure 130/55 06/26/16 12:00 O2 Sat by Pulse Oximetry (%) 96 06/26/16 08:36 Intake & Output 06/23/16 06/24/16 06/25/16 06/26/16 23:59 23:59 23:59 23:59 Intake Total 1230 1506 2133 462 Output Total 1400 1300 950 300 Balance -483 822 7691 162 Weight 205 lb 3.2 oz 207 lb 208 lb 215 lb 14.4 oz Gen: Intubated CVS: RRR, No M/R Lungs : + diffuse crackles b/l lung silverman Abd: soft NT/ND Ext: trace to 1+ edema CBC, BMP 06/26/16 05:40 06/26/16 06:00 Laboratory Tests 06/26/16 06:00 Calcium 7.0 L Phosphorus 8.6 H Magnesium 2.5 H Albumin 1.5 L Current Medications Albuterol Sulfate (Ventolin 0.083% Nebulizer Soln -) 1 amp NEB Q1H PRN PRN Reason: SHORT OF BREATH/WHEEZING Last Admin: 06/22/16 22:40 Dose: 1 amp Albuterol/Ipratropium (Duoneb -) 1 amp NEB QIDR JOANNE Last Admin: 06/26/16 11:32 Dose: 1 amp Atorvastatin Calcium (Lipitor -) 80 mg PO HS JOANNE Last Admin: 06/25/16 21:43 Dose: 80 mg Chlorhexidine Gluconate (Hibiclens For Decolonization -) 1 applic TP HS JOANNE Last Admin: 06/25/16 21:43 Dose: 1 applic Fentanyl 500 mcg/ Dextrose 100 mls @ 5 mls/hr IJ TITR JOANNE PRN Reason: 25 MCG/HR Last Titration: 06/26/16 09:15 Dose: 100 mcg/hr Dopamine HCl/Dextrose (Dopamine 400 Mg/D5w -) 250 mls @ 17.452 mls/hr IVPB TITR JOANNE; 5 MCG/KG/MIN PRN Reason: Protocol Last Admin: 06/26/16 00:18 Dose: 10 mls/hr Propofol (Diprivan -) 100 mls @ 2.817 mls/hr IVPB TITR JOANNE; 5 MCG/KG/MIN PRN Reason: Protocol Last Admin: 06/26/16 11:20 Dose: Not Given Pantoprazole Sodium (Protonix 40mg Ivpb (Pre-Docked)) 100 mls @ 200 mls/hr IVPB DAILY [facility] Last Admin: 06/26/16 10:54 Dose: 200 mls/hr Insulin Aspart (Novolog Vial Sliding Scale -) 1 vial SQ TIDAC JOANNE PRN Reason: Protocol Last Admin: 06/26/16 11:08 Dose: 2 units Mupirocin (Bactroban 2% Ointment -) 1 applic TP BID [facility] Last Admin: 06/26/16 10:56 Dose: 1 applic Polyethylene Glycol (Miralax (For Daily Use) -) 17 gm PO DAILY [facility] Last Admin: 06/26/16 11:43 Dose: 17 gm Senna (Senna -) 2 tab PO HS PRN PRN Reason: CONSTIPATION Sevelamer Carbonate (Renvela Powder Packet -) 0.8 gm NGT TIDCM [facility] Last Admin: 06/26/16 09:30 Dose: 0.8 gm A/P 75 year old woman with PMhx of CKD Stage 4, Hypertension (>40 years), Asthma, Osteoarthritis, Former Smoker who presented from [facility] with 1 day history of sob. #CKD Stage 4/5 with proteinuria BUN/Cr up trending but pt remains non-oliguric no acute indication for dialysis at this time continue PRN lasix as needed keep MAP> 65 consider Central Line for CVP monitoring #Resp Failure/Hypoxia/Pulmonary infiltrates Seen by Rheum, prior work up done as outpatient negative for SLE Continue Vent support and management as per ICU on IV steroids holding Abx as this time as per ID Prognosis mayte Snyder DO
--- NOTE | 2016-06-26 13:57 | PN ---
Progress Note, Physician - Current Medication List Current Medications: Active Medications Albuterol Sulfate (Ventolin 0.083% Nebulizer Soln -) 1 amp NEB Q1H PRN PRN Reason: SHORT OF BREATH/WHEEZING Last Admin: 06/22/16 22:40 Dose: 1 amp Albuterol/Ipratropium (Duoneb -) 1 amp NEB QIDR JOANNE Last Admin: 06/26/16 11:32 Dose: 1 amp Atorvastatin Calcium (Lipitor -) 80 mg PO HS JOANNE Last Admin: 06/25/16 21:43 Dose: 80 mg Chlorhexidine Gluconate (Hibiclens For Decolonization -) 1 applic TP HS JOANNE Last Admin: 06/25/16 21:43 Dose: 1 applic Fentanyl 500 mcg/ Dextrose 100 mls @ 5 mls/hr IJ TITR JOANNE PRN Reason: 25 MCG/HR Last Titration: 06/26/16 09:15 Dose: 100 mcg/hr Dopamine HCl/Dextrose (Dopamine 400 Mg/D5w -) 250 mls @ 17.452 mls/hr IVPB TITR JOANNE; 5 MCG/KG/MIN PRN Reason: Protocol Last Admin: 06/26/16 00:18 Dose: 10 mls/hr Propofol (Diprivan -) 100 mls @ 2.817 mls/hr IVPB TITR JOANNE; 5 MCG/KG/MIN PRN Reason: Protocol Last Admin: 06/26/16 11:20 Dose: Not Given Pantoprazole Sodium (Protonix 40mg Ivpb (Pre-Docked)) 100 mls @ 200 mls/hr IVPB DAILY JOANNE Last Admin: 06/26/16 10:54 Dose: 200 mls/hr Vecuronium [place] 50 mg/ (Dextrose) 250 mls @ 29.37 mls/hr IVPB TITR JOANNE PRN Reason: 1 MCG/KG/MIN Insulin Aspart (Novolog Vial Sliding Scale -) 1 vial SQ TIDAC JOANNE PRN Reason: Protocol Last Admin: 06/26/16 11:08 Dose: 2 units Mupirocin (Bactroban 2% Ointment -) 1 applic TP BID [facility] Last Admin: 06/26/16 10:56 Dose: 1 applic Polyethylene Glycol (Miralax (For Daily Use) -) 17 gm PO DAILY JOANNE Last Admin: 06/26/16 11:43 Dose: 17 gm Senna (Senna -) 2 tab PO HS PRN PRN Reason: CONSTIPATION Sevelamer Carbonate (Renvela Powder Packet -) 0.8 gm NGT TIDCM [facility] Last Admin: 06/26/16 12:47 Dose: 0.8 gm - Objective Vital Signs: Vital Signs Temperature 99.2 F 06/26/16 10:00 Pulse Rate 66 06/26/16 12:00 Respiratory Rate 26 H 06/26/16 13:03 Blood Pressure 130/55 06/26/16 12:00 O2 Sat by Pulse Oximetry (%) 96 06/26/16 08:36 Cardiovascular: Yes: WNL Respiratory: Yes: WNL Gastrointestinal: Yes: WNL Labs: CBC, BMP 06/26/16 05:40 06/26/16 06:00 INR, PTT INR 1.19 (0.82-1.09) H 06/26/16 05:40 Fibrinogen 520.0 mg/dL (238-498) H 06/26/16 05:10 Assessment/Plan (1) COPD exacerbation Assessment/Plan: IV STEROIDS NEBS PULM ON CASE Code(s): J44.1 - CHRONIC OBSTRUCTIVE PULMONARY DISEASE W (ACUTE) EXACERBATION (2) CHF exacerbation Assessment/Plan: CARDIO ON CASE FOLLOW CE -> NOW NEG Code(s): I50.9 - HEART FAILURE, UNSPECIFIED Qualifiers: Congestive heart failure type: unspecified congestive heart failure type Qualified Code(s): I50.9 - Heart failure, unspecified (3) Pneumonia Assessment/Plan: IV ABX ID CONSULT NOTED RHEUMOTOLGY Code(s): J18.9 - PNEUMONIA, UNSPECIFIED ORGANISM (4) CKD stage 4 secondary to hypertension Assessment/Plan: CHRONIC MONITOR RENAL Code(s): I12.9 - HYPERTENSIVE CHRONIC KIDNEY DISEASE W STG 1-4/UNSP CHR KDNY N18.4 - CHRONIC KIDNEY DISEASE, STAGE 4 (SEVERE) (5) Lactic acid acidosis Assessment/Plan: ON ABX CULTURES Code(s): E87.2 - ACIDOSIS (6) Elevated troponin Code(s): R79.89 - OTHER SPECIFIED ABNORMAL FINDINGS OF BLOOD CHEMISTRY (7) Sepsis Assessment/Plan: AWAIT CULTURES -> NEG ABX Code(s): A41.9 - SEPSIS, UNSPECIFIED ORGANISM (8) HTN (hypertension) Assessment/Plan: IMPROVED CARDIO ON CASE Code(s): I10 - ESSENTIAL (PRIMARY) HYPERTENSION (9) Thrombocytopenia Assessment/Plan: HEM CONSULT OFF HEPARIN -> SCDs Code(s): D69.6 - THROMBOCYTOPENIA, UNSPECIFIED (10) Respiratory failure Assessment/Plan: VENT SETTING PER PULM Code(s): J96.90 - RESPIRATORY FAILURE, UNSP, UNSP W HYPOXIA OR HYPERCAPNIA (11) Hypotension Assessment/Plan: ON DOPAMINE DC ORAL MEDS Code(s): I95.9 - HYPOTENSION, UNSPECIFIED ESTATE PLANNING ATTORNEY FM
[2016-06-26] MEDS: VECURONIUM BROMIDE 50 MG in DEXTROSE 5%-WATER - 250 ML IVPB SCH ×2 (14:15→22:18)
[2016-06-26] MEDS ORDERED: VECURONIUM BROMIDE 50 MG VIAL IVPUSH ONE (14:17)
[2016-06-26] MEDS: INSULIN DETEMIR 100 UNITS/ML MDV SQ SCH (16:59)
--- NOTE | 2016-06-26 17:39 | PN ---
Progress Note, Physician Chief Complaint: Pt remains intubated; sedated; "fighting ventillator-->vercuronium. History of Present Illness: Patient is a 75 year old female HTN, HLD, asthma, COPD, recent admission for pneumonia (d/c 06/16) and admitted to [facility] for short term rehab, who is presenting to the ED for shortness of breath, respiratory distress, and low O2Sat. According to EMS, the patients normal O2Sat is in the high 90s, but it has been fluctuating between 62-92% in the NH. She was given two combivents in the field. The patient was started on 500mg of levaquin on 06/13/2016, every other day for 7 doses. The patient has never been intubated. Denies fever, chills, or chest pain - Current Medication List Current Medications: Active Medications Albuterol Sulfate (Ventolin 0.083% Nebulizer Soln -) 1 amp NEB Q1H PRN PRN Reason: SHORT OF BREATH/WHEEZING Last Admin: 06/22/16 22:40 Dose: 1 amp Albuterol/Ipratropium (Duoneb -) 1 amp NEB QIDR JOANNE Last Admin: 06/26/16 11:32 Dose: 1 amp Atorvastatin Calcium (Lipitor -) 80 mg PO HS JOANNE Last Admin: 06/25/16 21:43 Dose: 80 mg Chlorhexidine Gluconate (Hibiclens For Decolonization -) 1 applic TP HS JOANNE Last Admin: 06/25/16 21:43 Dose: 1 applic Fentanyl 500 mcg/ Dextrose 100 mls @ 5 mls/hr IJ TITR JOANNE PRN Reason: 25 MCG/HR Last Admin: 06/26/16 14:35 Dose: 20 mls/hr Dopamine HCl/Dextrose (Dopamine 400 Mg/D5w -) 250 mls @ 17.452 mls/hr IVPB TITR JOANNE; 5 MCG/KG/MIN PRN Reason: Protocol Last Admin: 06/26/16 00:18 Dose: 10 mls/hr Propofol (Diprivan -) 100 mls @ 2.817 mls/hr IVPB TITR JOANNE; 5 MCG/KG/MIN PRN Reason: Protocol Last Admin: 06/26/16 15:02 Dose: 16.901 mls/hr Pantoprazole Sodium (Protonix 40mg Ivpb (Pre-Docked)) 100 mls @ 200 mls/hr IVPB DAILY [facility] Last Admin: 06/26/16 10:54 Dose: 200 mls/hr Vecuronium [place] 50 mg/ (Dextrose) 250 mls @ 29.37 mls/hr IVPB TITR JOANNE; 1 MCG/KG/MIN PRN Reason: Protocol Last Admin: 06/26/16 14:15 Dose: 29.37 mls/hr Insulin Aspart (Novolog Vial Sliding Scale -) 1 vial SQ TIDAC JOANNE PRN Reason: Protocol Last Admin: 06/26/16 16:58 Dose: 3 units Insulin Detemir (Levemir Vial) 8 units SQ BIDAC [facility] Last Admin: 06/26/16 16:59 Dose: 8 unit Mupirocin (Bactroban 2% Ointment -) 1 applic TP BID [facility] Last Admin: 06/26/16 10:56 Dose: 1 applic Polyethylene Glycol (Miralax (For Daily Use) -) 17 gm PO DAILY [facility] Last Admin: 06/26/16 11:43 Dose: 17 gm Senna (Senna -) 2 tab PO HS PRN PRN Reason: CONSTIPATION Sevelamer Carbonate (Renvela Powder Packet -) 0.8 gm NGT TIDCM [facility] Last Admin: 06/26/16 12:47 Dose: 0.8 gm - Objective Vital Signs: Vital Signs Temperature 98 F 06/26/16 14:00 Pulse Rate 60 06/26/16 16:00 Respiratory Rate 26 H 06/26/16 16:00 Blood Pressure 116/51 06/26/16 16:00 O2 Sat by Pulse Oximetry (%) 96 06/26/16 08:36 Constitutional: Yes: Other Eyes: Yes: Conjunctiva Clear Neck: Yes: Decreased ROM Cardiovascular: Yes: Bradycardia Respiratory: Yes: Diminished Gastrointestinal: Yes: Soft Genitourinary: No: Anuria Musculoskeletal: Yes: Muscle Weakness Extremities: Yes: Cool Edema: No Peripheral Pulses WNL: No Peripheral Pulses: Left Doralis Pedis: 1+, Right Dorsalis Pedis: 1+ Integumentary: Yes: WNL Neurological: Yes: Unresponsive, Other (intubated; sedated) Psychiatric: Yes: Other Labs: CBC, BMP 06/26/16 05:40 06/26/16 06:00 INR, PTT INR 1.19 (0.82-1.09) H 06/26/16 05:40 Fibrinogen 520.0 mg/dL (238-498) H 06/26/16 05:10 - ....Imaging Chest X-ray: Image Reviewed (worsening IS, vascular changes) Other: Image Reviewed (telemetry: sinus bradycardia; period of atrial tachycardia in am (about 945 am).) Problem List - Problems (1) Acute respiratory failure with hypoxia Assessment/Plan: remains intubated; f/u with public finance specialist. Code(s): J96.01 - ACUTE RESPIRATORY FAILURE WITH HYPOXIA (2) Afib Assessment/Plan: unable to give anticoagulant or antiplatellets due to thrombycytopenia. period of atrial tachycardia today. F/u TSH. Code(s): I48.91 - UNSPECIFIED ATRIAL FIBRILLATION (3) CKD (chronic kidney disease) Code(s): N18.9 - CHRONIC KIDNEY DISEASE, UNSPECIFIED (4) Hypotension Assessment/Plan: On dopamine. Maintain fluids. Code(s): I95.9 - HYPOTENSION, UNSPECIFIED (5) Lactic acid acidosis Code(s): E87.2 - ACIDOSIS (6) Pulmonary fibrosis Code(s): J84.10 - PULMONARY FIBROSIS, UNSPECIFIED (7) SIRS (systemic inflammatory response syndrome) Code(s): R65.10 - SIRS OF NON-INFECTIOUS ORIGIN W/O ACUTE ORGAN DYSFUNCTION (8) Sepsis Code(s): A41.9 - SEPSIS, UNSPECIFIED ORGANISM (9) Thrombocytopenia Code(s): D69.6 - THROMBOCYTOPENIA, UNSPECIFIED (10) CKD stage 4 secondary to hypertension Code(s): I12.9 - HYPERTENSIVE CHRONIC KIDNEY DISEASE W STG 1-4/UNSP CHR KDNY N18.4 - CHRONIC KIDNEY DISEASE, STAGE 4 (SEVERE) (11) Diabetes Code(s): E11.9 - TYPE 2 DIABETES MELLITUS WITHOUT COMPLICATIONS
--- NOTE | 2016-06-26 21:25 | PN ---
Progress Note (short form) - Note Progress Note: PAtient seen and examined intubated/on paralytic Last Vital Signs Temp Pulse Resp BP Pulse Ox 97 F L 55 L 26 H 117/48 96 06/26/16 20:00 06/26/16 22:23 06/26/16 21:30 06/26/16 22:23 06/26/16 08:36 HEENT: MALLORY, EOM Intact Cor: RSR, No murmurs, No gallops Lungs: CTA ( ant,) Abd: Soft, Normal bowel sounds, No organomegaly Ext:No significant edema Abnormal Lab Results 06/22/16 06/24/16 06/24/16 05:05 05:05 11:30 WBC Hgb Hct MCV RDW Plt Count MPV Neutrophils % Lymphocytes % Monocytes % Haptoglobin INR Fibrinogen ABG pH ABG pCO2 at Pt Temp ABG HCO3 ABG O2 Content ABG Base Excess BUN Creatinine Random Glucose Calcium Phosphorus Magnesium AST Alkaline Phosphatase LD Total Total Protein Albumin TSH p-ANCA 1:160 H Smooth [employer]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 Intrp 94 H Hep-Induced Plt Ab Rapid 0.667 H Tot Complement (CH50) > 62 H 06/24/16 06/26/16 06/26/16 17:00 05:10 05:40 WBC Hgb Hct MCV RDW Plt Count MPV Neutrophils % Lymphocytes % Monocytes % Haptoglobin 219 H INR 1.19 H Fibrinogen 520.0 H ABG pH ABG pCO2 at Pt Temp ABG HCO3 ABG O2 Content ABG Base Excess BUN Creatinine Random Glucose Calcium Phosphorus Magnesium AST Alkaline Phosphatase LD Total Total Protein Albumin TSH p-ANCA 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 SPECIALIST Intrp Hep-Induced Plt Ab Rapid Tot Complement (CH50) 06/26/16 06/26/16 06/26/16 05:40 06:00 06:10 WBC 12.9 H Hgb 9.8 L D Hct 30.2 L D MCV 79.7 L RDW 19.0 H Plt Count 51 L D MPV 13.0 H D Neutrophils % 90.0 H Lymphocytes % 3.0 L D Monocytes % 2.0 L Haptoglobin INR Fibrinogen ABG pH ABG pCO2 at Pt Temp ABG HCO3 ABG O2 Content ABG Base Excess BUN 130 H* Creatinine 4.5 H Random Glucose 295 H Calcium 7.0 L Phosphorus 8.6 H Magnesium 2.5 H AST 13 L Alkaline Phosphatase 43 L LD Total 618 H Total Protein 4.8 L Albumin 1.5 L TSH 0.08 L p-ANCA 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 SPECIALIST Intrp Hep-Induced Plt Ab Rapid Tot Complement (CH50) 06/26/16 12:05 WBC Hgb Hct MCV RDW Plt Count MPV Neutrophils % Lymphocytes % Monocytes % Haptoglobin INR Fibrinogen ABG pH 7.18 L* ABG pCO2 at Pt Temp 58.5 H D ABG HCO3 21.1 L ABG O2 Content 13.4 L ABG Base Excess -7.1 L BUN Creatinine Random Glucose Calcium Phosphorus Magnesium AST Alkaline Phosphatase LD Total Total Protein Albumin TSH p-ANCA 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 SPECIALIST Intrp Hep-Induced Plt Ab Rapid Tot Complement (CH50) A/P 76 y/o patient with Acute Hypoxic Respiratory Failure Suspect Exacerbation of underlying Interstitial Lung Disease--- CT shows severe ILD ARDS Acute on Chronic Renal Failure. chronic scarring of kidneys Paroxysmal Atrial Fibrillation r/o Pneumonia r/o CHF ++ MOLLY--1in 1280 neg. ds DNA ab neg. thrombocytopenia/anemia -- worsening. ? worsening renal function/systemic process/? interstitial lung disease and rt. hear failure part of multiorgan failure rheumatology input noted --less likely vasculitis and more ? ild antiphospholipid panel pending false positive HIT-- timing/clinical scenario not s/o HIT. check BRITNEY discussed with cardiology team. platelets dropping--? consumption from multiorgan failure reviewed smear--anisocytosis/poikilocytosis,++ bernie cells, occ. schistocytes s/p PRBCS
[2016-06-26] MEDS ORDERED: MINERAL OIL/PETROLATUM,WHITE 3.5 GM TUBE OU SCH (22:00)
[2016-06-26] MEDS: MINERAL OIL/PETROLATUM,WHITE 3.5 GM TUBE OU PRN (22:21)
[2016-06-26] MEDS: ATORVASTATIN CA 80 MG TABLET (FP) PO SCH (22:22)
[2016-06-26] MEDS: CHLORHEXIDINE GLUCONATE 0.12% 15ML CUP MM SCH (22:23)
[2016-06-26] MEDS: CHLORHEXIDINE GLUCONATE 4% CLEANSER FOR DECOLONIZATION TP SCH (22:23)
[2016-06-27] MEDS: ALBUTEROL SO4 2.5/IPRATROPIUM 0.5 INH SOL 3 ML VIAL.NEB. NEB SCH ×5 (00:09→23:07)
[2016-06-27] MEDS: FENTANYL INJECTION 500 MCG in DEXTROSE 5%-WATER - 90 ML IJ SCH ×5 (00:26→22:57)
[2016-06-27] MEDS: PROPOFOL 100 ML IVPB SCH ×5 (03:19→23:16)
[2016-06-27] MEDS: INSULIN DETEMIR 100 UNITS/ML MDV SQ SCH ×2 (06:01→17:21)
[2016-06-27] MEDS: INSULIN SLIDING SCALE (NOVOLOG) 1 VIAL SQ SCH ×3 (06:02→17:20)
[2016-06-27 06:15] LABS: BASOPHIL 0.3 % (0-2.0); MCH 26.3 pg (25.7-33.7); MCHC 32.3 g/dl (32.0-36.0); MEAN CELL VOLUME 81.7 fl (80-96); NEUTROPHILS 96.6 % (42.8-82.8); PLATELET COUNT 60 K/MM3 (134-434); RDW 18.8 % (11.6-15.6); WHITE BLOOD COUNT 13.9 K/mm3 (4.0-10.0)
[2016-06-27 06:43] LABS: ALBUMIN 1.4 g/dl (3.4-5.0); BILIRUBIN,TOTAL 0.5 mg/dL (0.2-1.0); CREATININE 4.7 mg/dL (0.55-1.02); MAGNESIUM 2.6 mg/dL (1.8-2.4); TOT PROT 4.9 g/dl (6.4-8.2)
[2016-06-27 06:52] LABS: CALCIUM 6.9 mg/dL (8.5-10.1)
[2016-06-27 07:14] LABS: PHOSPHOROUS 9.5 mg/dL (2.5-4.9)
--- NOTE | 2016-06-27 07:32 | PN ---
Progress Note (short form) - Note Progress Note: Seen and examined in the ICU Remains intubated, placed on NMBA given ARDS and vent dyssynchrony cont elevated plateau pressure: 40 BP stable on RECREATION ATTENDANT Current Medications Albuterol Sulfate (Ventolin 0.083% Nebulizer Soln -) 1 amp NEB Q1H PRN PRN Reason: SHORT OF BREATH/WHEEZING Last Admin: 06/22/16 22:40 Dose: 1 amp Albuterol/Ipratropium (Duoneb -) 1 amp NEB QIDR JOANNE Last Admin: 06/27/16 06:51 Dose: 1 amp Artificial Tears (Artificial Tears Ointment -) 1 applic OU Q6H PRN Last Admin: 06/26/16 22:21 Dose: 1 applic Atorvastatin Calcium (Lipitor -) 80 mg PO HS JOANNE Last Admin: 06/26/16 22:22 Dose: 80 mg Chlorhexidine Gluconate (Hibiclens For Decolonization -) 1 applic TP HS JOANNE Last Admin: 06/26/16 22:23 Dose: 1 applic Chlorhexidine Gluconate (Peridex -) 15 ml MM BID JOANNE Last Admin: 06/26/16 22:23 Dose: 15 ml Fentanyl 500 mcg/ Dextrose 100 mls @ 5 mls/hr IJ TITR JOANNE PRN Reason: 25 MCG/HR Last Admin: 06/27/16 05:43 Dose: 20 mls/hr Dopamine HCl/Dextrose (Dopamine 400 Mg/D5w -) 250 mls @ 17.452 mls/hr IVPB TITR JOANNE; 5 MCG/KG/MIN PRN Reason: Protocol Last Admin: 06/26/16 22:23 Dose: 10 mls/hr Propofol (Diprivan -) 100 mls @ 2.817 mls/hr IVPB TITR JOANNE; 5 MCG/KG/MIN PRN Reason: Protocol Last Admin: 06/27/16 03:19 Dose: 16.901 mls/hr Pantoprazole Sodium (Protonix 40mg Ivpb (Pre-Docked)) 100 mls @ 200 mls/hr IVPB DAILY JOANNE Last Admin: 06/26/16 10:54 Dose: 200 mls/hr Vecuronium [place] 50 mg/ (Dextrose) 250 mls @ 29.37 mls/hr IVPB TITR JOANNE; 1 MCG/KG/MIN PRN Reason: Protocol Last Admin: 06/26/16 22:18 Dose: 29.37 mls/hr Insulin Aspart (Novolog Vial Sliding Scale -) 1 vial SQ TIDAC [facility] PRN Reason: Protocol Last Admin: 06/27/16 06:02 Dose: 4 units Insulin Detemir (Levemir Vial) 8 units SQ BIDAC [facility] Last Admin: 06/27/16 06:01 Dose: 8 unit Mupirocin (Bactroban 2% Ointment -) 1 applic TP BID [facility] Last Admin: 06/26/16 22:23 Dose: 1 applic Polyethylene Glycol (Miralax (For Daily Use) -) 17 gm PO DAILY [facility] Last Admin: 06/26/16 11:43 Dose: 17 gm Senna (Senna -) 2 tab PO HS PRN PRN Reason: CONSTIPATION Sevelamer Carbonate (Renvela Powder Packet -) 0.8 gm NGT TIDCM [facility] Last Admin: 06/26/16 18:15 Dose: 0.8 gm Vital Signs Period Temp Pulse Resp BP Sys/Hill Pulse Ox Last 24 Hr 95 F-99.2 F 51-70 20-32 105-154/48-65 85-96 Intake & Output 06/24/16 06/25/16 06/26/16 06/27/16 23:59 23:59 23:59 23:59 Intake Total 1506 2133 2926 899 Output Total 1568 548 1950 300 Balance 206 1183 1926 599 Weight 93.894 kg 94.347 kg 97.931 kg 97.795 kg Exam: General: sedated and paralysed on mechanical ventilation HEENT: surgical pupils CV: NSR Pulm: bilateral broncial breath sounds Abd: obese, soft Ext: Warm, +2 pulses, LE edema +1-2 Neuro: RASS -5, TOF: 2/4 CBCD WBC 13.9 K/mm3 (4.0-10.0) H 06/27/16 05:20 RBC 3.77 M/mm3 (3.60-5.2) 06/27/16 05:20 Hgb 9.9 GM/dL (10.7-15.3) L 06/27/16 05:20 Hct 30.8 % (32.4-45.2) L 06/27/16 05:20 MCV 81.7 fl (80-96) 06/27/16 05:20 MCHC 32.3 g/dl (32.0-36.0) 06/27/16 05:20 RDW 18.8 % (11.6-15.6) H 06/27/16 05:20 Plt Count 60 K/MM3 (134-434) L 06/27/16 05:20 MPV 16.0 fl (7.5-11.1) H 06/27/16 05:20 CMP Sodium 141 mmol/L (136-145) 06/27/16 05:20 Potassium 4.9 mmol/L (3.5-5.1) 06/27/16 05:20 Chloride 104 mmol/L (98-107) 06/27/16 05:20 Carbon Dioxide 23 mmol/L (21-32) 06/27/16 05:20 Anion Gap 14 (8-16) 06/27/16 05:20 BUN 135 mg/dL (7-18) H* 06/27/16 05:20 Creatinine 4.7 mg/dL (0.55-1.02) H 06/27/16 05:20 Creat Clearance w eGFR 9.09 (>60) 06/27/16 05:20 Random Glucose 318 mg/dL (74-106) H* 06/27/16 05:20 Calcium 6.9 mg/dL (8.5-10.1) L* 06/27/16 05:20 Total Bilirubin 0.5 mg/dL (0.2-1.0) 06/27/16 05:20 AST 14 U/L (15-37) L 06/27/16 05:20 ALT 14 U/L (12-78) 06/27/16 05:20 Alkaline Phosphatase 51 U/L (45-117) 06/27/16 05:20 Total Protein 4.9 g/dl (6.4-8.2) L 06/27/16 05:20 Albumin 1.4 g/dl (3.4-5.0) L 06/27/16 05:20 CARDIAC ENZYMES Creatine Kinase 73 IU/L (26-192) 06/24/16 05:05 Troponin I 0.05 ng/ml (0.00-0.05) 06/24/16 05:05 ABG Results ABG pH 7.18 (7.35-7.45) L* 06/26/16 12:05 ABG pCO2 at Pt Temp 58.5 mmHg (35-45) H D 06/26/16 12:05 ABG pO2 at Pt Temp 75.4 mmHg (70-100) 06/26/16 12:05 ABG HCO3 21.1 meq/L (22-26) L 06/26/16 12:05 ABG O2 Sat (Measured) 92.1 % (90-98.9) 06/26/16 12:05 ABG O2 Content 13.4 % vol (15-22) L 06/26/16 12:05 ABG Base Excess -7.1 meq/l (-2-2) L 06/26/16 12:05 CXR: ETT in good position. Unchanged diffuse bilateral infiltrates Microbiology 06/24/16 18:00 Sputum - Endotrachea Suction/Ventilator Gram Stain - Final 06/24/16 18:00 Sputum - Endotrachea Suction/Ventilator Sputum Culture - Preliminary NORMAL RESPIRATORY LUIS 06/20/16 20:00 Blood - Peripheral Venous Blood Culture - Final NO GROWTH AFTER 5 DAYS INCUBATION 06/20/16 19:50 Blood - Peripheral Venous Blood Culture - Final NO GROWTH AFTER 5 DAYS INCUBATION 06/21/16 15:20 Blood - Peripheral Venous TB Test (QFT) (ADRIANE) - Final 06/22/16 05:05 Serum Cryptococcal Antigen - Final 06/24/16 16:00 Sputum - Endotrachea Suction/Ventilator GRACIELA Preparation - Preliminary 06/24/16 16:00 Sputum - Endotrachea Suction/Ventilator Fungal Culture - Preliminary 06/23/16 19:00 Urine For Antigen Detection Legionella Antigen - Final 06/23/16 19:00 Urine For Antigen Detection Streptococcus pneumoniae Antigen (M - Final 06/21/16 10:00 Nasopharyngeal Swab Respiratory Virus Panel - Preliminary 06/21/16 10:00 Nasopharyngeal Swab Influenza Types A,B Antigen (ADRIANE) - Final 06/21/16 10:00 Nasopharyngeal Swab - Final 06/20/16 20:37 Urine - Urine Clean Catch Urine Culture - Final NO GROWTH OBTAINED ASSESSMENT AND PLAN: Acute Hypoxic Respiratory Failure Suspect Exacerbation of underlying Interstitial Lung Disease s/p pulse steroids (last dose 08/26) ARDS Lactic Acidosis likely from respiratory effort Acute on Chronic Renal Failure Paroxysmal Atrial Fibrillation r/o Pneumonia r/o CHF HTN - s/p Steroid pulse with taper taper, will dose 125mg today - inhaled bronchodilators - titrate FiO2, PEEP to keep SpO2 >90% - low tidal volume ventilation for pPlat < 30, 6cc/kg TV (314cc) - increased RR 26->35 given acidosis - Cont NMBA for 48hrs then attempt to hold - Cont deep sedation - monitor ABG - empiric antibiotics per ID - will attempt lasix challenge given continued positive volume status - monitor urine output, creatinine, may need ZIPPER IRONER soon - when stable CT chest - consider biopsy when stable, likely low yield now (DAD would be likely finding) - DVT/GI prophylaxis - ICU monitoring Boerem ACNP
[2016-06-27] MEDS ORDERED: FUROSEMIDE 100 MG/10 ML INJECTABLE VIAL IVPB ONE (07:48)
--- NOTE | 2016-06-27 08:00 | PN ---
Progress Note, Physician Chief Complaint: ID No significant change on respiratory status PEEP 15 85% FIO2 Yesterday antibiotics stoped after a week in light of negative culture Recent sputum culture normal respiratory froylan Solumedrol 125 mg daily and Vercuronium - Current Medication List Current Medications: Active Medications Albuterol Sulfate (Ventolin 0.083% Nebulizer Soln -) 1 amp NEB Q1H PRN PRN Reason: SHORT OF BREATH/WHEEZING Last Admin: 06/22/16 22:40 Dose: 1 amp Albuterol/Ipratropium (Duoneb -) 1 amp NEB QIDR JOANNE Last Admin: 06/27/16 06:51 Dose: 1 amp Artificial Tears (Artificial Tears Ointment -) 1 applic OU Q6H PRN Last Admin: 06/26/16 22:21 Dose: 1 applic Atorvastatin Calcium (Lipitor -) 80 mg PO HS JOANNE Last Admin: 06/26/16 22:22 Dose: 80 mg Chlorhexidine Gluconate (Hibiclens For Decolonization -) 1 applic TP HS JOANNE Last Admin: 06/26/16 22:23 Dose: 1 applic Chlorhexidine Gluconate (Peridex -) 15 ml MM BID JOANNE Last Admin: 06/26/16 22:23 Dose: 15 ml Fentanyl 500 mcg/ Dextrose 100 mls @ 5 mls/hr IJ TITR JOANNE PRN Reason: 25 MCG/HR Last Admin: 06/27/16 05:43 Dose: 20 mls/hr Dopamine HCl/Dextrose (Dopamine 400 Mg/D5w -) 250 mls @ 17.452 mls/hr IVPB TITR JOANNE; 5 MCG/KG/MIN PRN Reason: Protocol Last Admin: 06/26/16 22:23 Dose: 10 mls/hr Propofol (Diprivan -) 100 mls @ 2.817 mls/hr IVPB TITR JOANNE; 5 MCG/KG/MIN PRN Reason: Protocol Last Admin: 06/27/16 07:49 Dose: 16.901 mls/hr Pantoprazole Sodium (Protonix 40mg Ivpb (Pre-Docked)) 100 mls @ 200 mls/hr IVPB DAILY JOANNE Last Admin: 06/26/16 10:54 Dose: 200 mls/hr Vecuronium [place] 50 mg/ (Dextrose) 250 mls @ 29.37 mls/hr IVPB TITR JOANNE; 1 MCG/KG/MIN PRN Reason: Protocol Last Admin: 06/26/16 22:18 Dose: 29.37 mls/hr Insulin Aspart (Novolog Vial Sliding Scale -) 1 vial SQ TIDAC [facility] PRN Reason: Protocol Last Admin: 06/27/16 06:02 Dose: 4 units Insulin Detemir (Levemir Vial) 8 units SQ BIDAC [facility] Last Admin: 06/27/16 06:01 Dose: 8 unit Methylprednisolone Sodium Succinate (Solu-Medrol -) 125 mg IVPB DAILY [facility] Mupirocin (Bactroban 2% Ointment -) 1 applic TP BID [facility] Last Admin: 06/26/16 22:23 Dose: 1 applic Polyethylene Glycol (Miralax (For Daily Use) -) 17 gm PO DAILY [facility] Last Admin: 06/26/16 11:43 Dose: 17 gm Senna (Senna -) 2 tab PO HS PRN PRN Reason: CONSTIPATION Sevelamer Carbonate (Renvela Powder Packet -) 0.8 gm NGT TIDCM [facility] Last Admin: 06/26/16 18:15 Dose: 0.8 gm - Objective Vital Signs: Vital Signs Temperature 96.2 F L 06/27/16 05:33 Pulse Rate 70 06/27/16 05:33 Respiratory Rate 26 H 06/27/16 07:34 Blood Pressure 128/56 06/27/16 05:33 O2 Sat by Pulse Oximetry (%) 88 L 06/27/16 02:00 Constitutional: Yes: Severe Distress, Other (INtubated) Cardiovascular: Yes: Regular Rate and Rhythm, S1, S2 Respiratory: Yes: WNL, Regular, CTA Bilaterally Gastrointestinal: Yes: Soft Edema: Yes Labs: CBC, BMP 06/27/16 05:20 06/27/16 05:20 INR, PTT INR 1.19 (0.82-1.09) H 06/26/16 05:40 Fibrinogen 520.0 mg/dL (238-498) H 06/26/16 05:10 Problem List - Problems (1) Acute respiratory failure with hypoxia Code(s): J96.01 - ACUTE RESPIRATORY FAILURE WITH HYPOXIA (2) Pulmonary fibrosis Code(s): J84.10 - PULMONARY FIBROSIS, UNSPECIFIED (3) Bilateral pulmonary infiltrates on CXR Code(s): R91.8 - OTHER NONSPECIFIC ABNORMAL FINDING OF LUNG FIELD Assessment/Plan Microbiology 06/24/16 18:00 Sputum - Endotrachea Suction/Ventilator Gram Stain - Final 06/23/16 19:00 Urine For Antigen Detection Legionella Antigen - Final 06/23/16 19:00 Urine For Antigen Detection Streptococcus pneumoniae Antigen (M - Final 06/22/16 05:05 Serum Cryptococcal Antigen - Final 06/21/16 15:20 Blood - Peripheral Venous TB Test (QFT) (ADRIANE) - Final 06/24/16 18:00 Sputum - Endotrachea Suction/Ventilator Sputum Culture - Preliminary NORMAL RESPIRATORY FROYLAN 06/24/16 16:00 Sputum - Endotrachea Suction/Ventilator GRACIELA Preparation - Preliminary 06/24/16 16:00 Sputum - Endotrachea Suction/Ventilator Fungal Culture - Preliminary 06/21/16 10:00 Nasopharyngeal Swab Respiratory Virus Panel - Preliminary Laboratory Tests 06/26/16 06/26/16 06/26/16 05:40 06:00 12:05 WBC Hgb Hct Plt Count INR 1.19 H ABG pH 7.18 L* ABG pCO2 at Pt Temp 58.5 H D ABG pO2 at Pt Temp 75.4 Oxygen Flow Rate 60% Sodium Potassium BUN Random Glucose AST 13 L ALT 13 D Alkaline Phosphatase 43 L LD Total 618 H 06/27/16 06/27/16 05:20 05:20 WBC 13.9 H Hgb 9.9 L Hct 30.8 L Plt Count 60 L INR ABG pH ABG pCO2 at Pt Temp ABG pO2 at Pt Temp Oxygen Flow Rate Sodium 141 Potassium 4.9 BUN 135 H* Random Glucose 318 H* AST ALT Alkaline Phosphatase LD Total Assessment Respiratory failure PEEP 85%FIO2 ARDS with progressive chest xray findings Thrombocytopenia ?consumptive Interstitial lung disease Acute real failure Plan Prognosis remains grave Now off antibiotics will repeat cultures Blood Urine sputum Miguel A STILL
[2016-06-27] MEDS ORDERED: PT OWN MED DRAWER 7, Y5N ONE (08:43)
[2016-06-27] MEDS: SEVELAMER CARBONATE 0.8 GM POWDER PACKET NGT SCH ×3 (09:00→17:21)
[2016-06-27 09:42] LABS: ARTERIAL BLD GAS O2 SATURATION 93.6 % (90-98.9); ARTERIAL BLOOD GAS HCO3 20.2 meq/L (22-26); ARTERIAL BLOOD GAS PO2 74.2 mmHg (70-100)
[2016-06-27 09:45] LABS: ALLENS TEST POSITIVE; ART PUNCT SITE LEFT RADIAL; ARTERIAL BLOOD GAS pH 7.17 (7.35-7.45); LPM/O2% 85% OT; MECH. VENT. ESPRIT; PT. ON O2? YES; VENT RATE 35; VT/PRESS 315
[2016-06-27 10:18] LABS: ALLENS TEST POSITIVE; ARTERIAL BLD GAS O2 SATURATION 92.1 % (90-98.9); ARTERIAL BLOOD GAS BASE EXCESS -7.1 meq/l (-2-2); ARTERIAL BLOOD GAS HCO3 21.1 meq/L (22-26); ARTERIAL BLOOD GAS PO2 75.4 mmHg (70-100)
[2016-06-27 10:19] LABS: ART PUNCT SITE RIGHT RADIAL
[2016-06-27 10:20] LABS: LPM/O2% 80%; PT. ON O2? YES; TYPE OF O2 OT
[2016-06-27 10:21] LABS: MECH. VENT. ESPRIT; VENT RATE 20; VT/PRESS 315
[2016-06-27 10:22] LABS: ARTERIAL BLOOD GAS pH 7.18 (7.35-7.45)
[2016-06-27 10:28] LABS: ALLENS TEST POSITIVE; ART PUNCT SITE LEFT RADIAL; ARTERIAL BLD GAS O2 SATURATION 89.5 % (90-98.9); ARTERIAL BLOOD GAS HCO3 20.4 meq/L (22-26); LPM/O2% 85%; MECH. VENT. ESPRIT; PT. ON O2? YES; TYPE OF O2 OT
[2016-06-27 10:29] LABS: VENT RATE 26; VT/PRESS 315
[2016-06-27 10:30] LABS: ARTERIAL BLOOD GAS pH 7.12 (7.35-7.45)
[2016-06-27 10:31] LABS: ARTERIAL BLOOD GAS PO2 66.8 mmHg (70-100)
[2016-06-27] MEDS: DOPAMINE 400 MG/D5W - 250 ML IVPB SCH ×2 (11:07→22:42)
[2016-06-27] MEDS: methylPREDNISolone NA SUCC 125 MG/2 ML VIAL IVPB SCH (11:26)
[2016-06-27] MEDS: PANTOPRAZOLE SODIUM 100 ML IVPB SCH (11:27)
[2016-06-27] MEDS: CHLORHEXIDINE GLUCONATE 0.12% 15ML CUP MM SCH ×2 (11:27→22:00)
[2016-06-27] MEDS: MUPIROCIN 2% TOPICAL OINTMENT 22 GM TUBE TP SCH ×2 (11:32→22:00)
[2016-06-27] MEDS: POLYETHYLENE GLYCOL 3350 119 GM BTL PO SCH (11:34)
--- NOTE | 2016-06-27 12:42 | PN ---
Progress Note, Physician - Current Medication List Current Medications: Active Medications Albuterol Sulfate (Ventolin 0.083% Nebulizer Soln -) 1 amp NEB Q1H PRN PRN Reason: SHORT OF BREATH/WHEEZING Last Admin: 06/22/16 22:40 Dose: 1 amp Albuterol/Ipratropium (Duoneb -) 1 amp NEB QIDR JOANNE Last Admin: 06/27/16 12:02 Dose: 1 amp Artificial Tears (Artificial Tears Ointment -) 1 applic OU Q6H PRN Last Admin: 06/26/16 22:21 Dose: 1 applic Atorvastatin Calcium (Lipitor -) 80 mg PO HS JOANNE Last Admin: 06/26/16 22:22 Dose: 80 mg Chlorhexidine Gluconate (Hibiclens For Decolonization -) 1 applic TP HS [facility] Last Admin: 06/26/16 22:23 Dose: 1 applic Chlorhexidine Gluconate (Peridex -) 15 ml MM BID JOANNE Last Admin: 06/27/16 11:27 Dose: 15 ml Fentanyl 500 mcg/ Dextrose 100 mls @ 5 mls/hr IJ TITR JOANNE PRN Reason: 25 MCG/HR Last Admin: 06/27/16 12:25 Dose: 20 mls/hr Dopamine HCl/Dextrose (Dopamine 400 Mg/D5w -) 250 mls @ 17.452 mls/hr IVPB TITR JOANNE; 5 MCG/KG/MIN PRN Reason: Protocol Last Admin: 06/27/16 11:07 Dose: Not Given Propofol (Diprivan -) 100 mls @ 2.817 mls/hr IVPB TITR JOANNE; 5 MCG/KG/MIN PRN Reason: Protocol Last Admin: 06/27/16 12:26 Dose: 16.901 mls/hr Pantoprazole Sodium (Protonix 40mg Ivpb (Pre-Docked)) 100 mls @ 200 mls/hr IVPB DAILY [facility] Last Admin: 06/27/16 11:27 Dose: 200 mls/hr Vecuronium [place] 50 mg/ (Dextrose) 250 mls @ 29.37 mls/hr IVPB TITR JOANNE; 1 MCG/KG/MIN PRN Reason: Protocol Last Titration: 06/27/16 08:00 Dose: 0.5 mcg/kg/min Insulin Aspart (Novolog Vial Sliding Scale -) 1 vial SQ TIDAC JOANNE PRN Reason: Protocol Last Admin: 06/27/16 12:00 Dose: 3 units Insulin Detemir (Levemir Vial) 8 units SQ BIDAC [facility] Last Admin: 06/27/16 06:01 Dose: 8 unit Methylprednisolone Sodium Succinate (Solu-Medrol -) 125 mg IVPB DAILY [facility] Last Admin: 06/27/16 11:26 Dose: 125 mg Mupirocin (Bactroban 2% Ointment -) 1 applic TP BID [facility] Last Admin: 06/27/16 11:32 Dose: 1 applic Polyethylene Glycol (Miralax (For Daily Use) -) 17 gm PO DAILY [facility] Last Admin: 06/27/16 11:34 Dose: 17 gm Senna (Senna -) 2 tab PO HS PRN PRN Reason: CONSTIPATION Sevelamer Carbonate (Renvela Powder Packet -) 0.8 gm NGT TIDCM [facility] Last Admin: 06/27/16 12:02 Dose: 0.8 gm - Objective Vital Signs: Vital Signs Temperature 98.3 F 06/27/16 12:00 Pulse Rate 73 06/27/16 12:01 Respiratory Rate 35 H 06/27/16 12:01 Blood Pressure 101/48 06/27/16 12:00 O2 Sat by Pulse Oximetry (%) 95 06/27/16 12:01 Cardiovascular: Yes: WNL Respiratory: Yes: WNL, Other (INTUBATED) Gastrointestinal: Yes: WNL Edema: Yes Labs: CBC, BMP 06/27/16 05:20 06/27/16 05:20 INR, PTT INR 1.19 (0.82-1.09) H 06/26/16 05:40 Fibrinogen 520.0 mg/dL (238-498) H 06/26/16 05:10 Problem List - Problems (1) Acute respiratory failure with hypoxia Code(s): J96.01 - ACUTE RESPIRATORY FAILURE WITH HYPOXIA (2) CHF exacerbation Code(s): I50.9 - HEART FAILURE, UNSPECIFIED Qualifiers: Congestive heart failure type: unspecified congestive heart failure type Qualified Code(s): I50.9 - Heart failure, unspecified (3) CKD (chronic kidney disease) Code(s): N18.9 - CHRONIC KIDNEY DISEASE, UNSPECIFIED (4) COPD exacerbation Code(s): J44.1 - CHRONIC OBSTRUCTIVE PULMONARY DISEASE W (ACUTE) EXACERBATION (5) Diabetes Code(s): E11.9 - TYPE 2 DIABETES MELLITUS WITHOUT COMPLICATIONS (6) HTN (hypertension) Code(s): I10 - ESSENTIAL (PRIMARY) HYPERTENSION (7) Pneumonia Code(s): J18.9 - PNEUMONIA, UNSPECIFIED ORGANISM Assessment/Plan (1) COPD exacerbation Assessment/Plan: IV STEROIDS NEBS PULM ON CASE Code(s): J44.1 - CHRONIC OBSTRUCTIVE PULMONARY DISEASE W (ACUTE) EXACERBATION (2) CHF exacerbation Assessment/Plan: CARDIO ON CASE FOLLOW CE -> NOW NEG Code(s): I50.9 - HEART FAILURE, UNSPECIFIED Qualifiers: Congestive heart failure type: unspecified congestive heart failure type Qualified Code(s): I50.9 - Heart failure, unspecified (3) Pneumonia Assessment/Plan: IV ABX ID CONSULT NOTED RHEUMOTOLGY Code(s): J18.9 - PNEUMONIA, UNSPECIFIED ORGANISM (4) CKD stage 4 secondary to hypertension Assessment/Plan: CHRONIC MONITOR RENAL Code(s): I12.9 - HYPERTENSIVE CHRONIC KIDNEY DISEASE W STG 1-4/UNSP CHR KDNY N18.4 - CHRONIC KIDNEY DISEASE, STAGE 4 (SEVERE) (5) Lactic acid acidosis Assessment/Plan: ON ABX CULTURES Code(s): E87.2 - ACIDOSIS (6) Elevated troponin Code(s): R79.89 - OTHER SPECIFIED ABNORMAL FINDINGS OF BLOOD CHEMISTRY (7) Sepsis Assessment/Plan: AWAIT CULTURES -> NEG ABX Code(s): A41.9 - SEPSIS, UNSPECIFIED ORGANISM (8) HTN (hypertension) Assessment/Plan: IMPROVED CARDIO ON CASE Code(s): I10 - ESSENTIAL (PRIMARY) HYPERTENSION (9) Thrombocytopenia Assessment/Plan: HEM CONSULT OFF HEPARIN -> SCDs Code(s): D69.6 - THROMBOCYTOPENIA, UNSPECIFIED (10) Respiratory failure Assessment/Plan: VENT SETTING PER PULM Code(s): J96.90 - RESPIRATORY FAILURE, UNSP, UNSP W HYPOXIA OR HYPERCAPNIA (11) Hypotension Assessment/Plan: ON PRESSORS Code(s): I95.9 - HYPOTENSION, UNSPECIFIED [employer] FM
--- NOTE | 2016-06-27 15:35 | PN ---
Progress Note (short form) - Note Progress Note: PAtient seen and examined intubated/on paralytic Last Vital Signs Temp Pulse Resp BP Pulse Ox 97.8 F 70 35 H 109/45 95 06/27/16 14:00 06/27/16 14:00 06/27/16 14:00 06/27/16 14:00 06/27/16 12:01 HEENT: MALLORY, EOM Intact Cor: RSR, No murmurs, No gallops Lungs: CTA ( ant,) Abd: Soft, Normal bowel sounds, No organomegaly Ext:No significant edema Abnormal Lab Results 06/24/16 06/26/16 06/26/16 17:00 06:10 11:50 WBC Hgb Hct RDW Plt Count MPV Neutrophils % Lymphocytes % Monocytes % ABG pH 7.18 L* ABG pCO2 at Pt Temp 58.5 H D ABG pO2 at Pt Temp ABG HCO3 21.1 L ABG O2 Sat (Measured) ABG O2 Content 13.4 L ABG Base Excess -7.1 L BUN Creatinine Random Glucose Calcium Phosphorus Magnesium AST LD Total 715 H Total Protein Albumin TSH 0.08 L 06/27/16 06/27/16 06/27/16 05:20 05:20 07:50 WBC 13.9 H Hgb 9.9 L Hct 30.8 L RDW 18.8 H Plt Count 60 L MPV 16.0 H Neutrophils % 96.6 H Lymphocytes % 0.8 L Monocytes % 2.3 L ABG pH 7.12 L* ABG pCO2 at Pt Temp 65.8 H* ABG pO2 at Pt Temp 66.8 L ABG HCO3 20.4 L ABG O2 Sat (Measured) 89.5 L ABG O2 Content 12.3 L ABG Base Excess -9.0 L BUN 135 H* Creatinine 4.7 H Random Glucose 318 H* Calcium 6.9 L* Phosphorus 9.5 H* Magnesium 2.6 H AST 14 L LD Total Total Protein 4.9 L Albumin 1.4 L TSH 06/27/16 09:35 WBC Hgb Hct RDW Plt Count MPV Neutrophils % Lymphocytes % Monocytes % ABG pH 7.17 L* ABG pCO2 at Pt Temp 57.8 H ABG pO2 at Pt Temp ABG HCO3 20.2 L ABG O2 Sat (Measured) ABG O2 Content 12.5 L ABG Base Excess -8.0 L BUN Creatinine Random Glucose Calcium Phosphorus Magnesium AST LD Total Total Protein Albumin TSH A/P 76 y/o patient with Acute Hypoxic Respiratory Failure Suspect Exacerbation of underlying Interstitial Lung Disease--- CT shows severe ILD ARDS Acute on Chronic Renal Failure. chronic scarring of kidneys Paroxysmal Atrial Fibrillation r/o Pneumonia r/o CHF ++ MOLLY--1in 1280 neg. ds DNA ab neg. thrombocytopenia/anemia -- worsening renal function/systemic process/? interstitial lung disease and rt. heart failure part of multiorgan failure rheumatology input noted --less likely vasculitis and more ? ild antiphospholipid panel pending high haptoglobin false positive HIT-- timing/clinical scenario not s/o HIT. check BRITNEY discussed with cardiology team. platelets dropping--? consumption from multiorgan failure reviewed smear --06/26--anisocytosis/poikilocytosis,++ bernie cells, occ. schistocytes s/p PRBCS
[2016-06-27] MEDS: VECURONIUM BROMIDE 50 MG in DEXTROSE 5%-WATER - 250 ML IVPB SCH ×3 (17:33→19:50)
[2016-06-27 21:25] LABS: ARTERIAL BLD GAS O2 SATURATION 86.6 % (90-98.9); ARTERIAL BLOOD GAS BASE EXCESS -8.7 meq/l (-2-2); ARTERIAL BLOOD GAS HCO3 20.4 meq/L (22-26); ARTERIAL BLOOD GAS PO2 60.2 mmHg (70-100)
[2016-06-27 21:26] LABS: ALLENS TEST POSITIVE; ART PUNCT SITE LEFT RADIAL; ARTERIAL BLOOD GAS pH 7.13 (7.35-7.45); LPM/O2% 85%; MECH. VENT. Y; PT. ON O2? YES; TYPE OF O2 VENT; VENT RATE 35; VT/PRESS 250
[2016-06-27] MEDS ORDERED: METOCLOPRAMIDE HCL INJECTION 10 MG/2 ML VIAL IVPUSH PRN (21:36)
[2016-06-27] MEDS ORDERED: SODIUM BICARBONATE 8.4% 50 MEQ/50 ML DISP.SYRIN IVPUSH ONE (21:39)
[2016-06-27] MEDS ORDERED: SODIUM BICARBONATE 8.4% 50 MEQ/50 ML VIAL ONE (21:45)
[2016-06-27] MEDS: MINERAL OIL/PETROLATUM,WHITE 3.5 GM TUBE OU PRN (22:00)
[2016-06-27] MEDS: CHLORHEXIDINE GLUCONATE 4% CLEANSER FOR DECOLONIZATION TP SCH (22:00)
[2016-06-27] MEDS: ATORVASTATIN CA 80 MG TABLET (FP) PO SCH (22:00)
[2016-06-28] MEDS: FENTANYL INJECTION 500 MCG in DEXTROSE 5%-WATER - 90 ML IJ SCH ×4 (03:37→22:19)
[2016-06-28] MEDS: VECURONIUM BROMIDE 50 MG in DEXTROSE 5%-WATER - 250 ML IVPB SCH ×2 (03:40→13:23)
[2016-06-28] MEDS: PROPOFOL 100 ML IVPB SCH ×2 (04:57→11:22)
[2016-06-28 05:53] LABS: ARTERIAL BLOOD GAS HCO3 20.3 meq/L (22-26); ARTERIAL BLOOD GAS PO2 56.3 mmHg (70-100)
[2016-06-28 05:55] LABS: ALLENS TEST POSITIVE; ART PUNCT SITE LEFT RADIAL; ARTERIAL BLOOD GAS pH 7.26 (7.35-7.45); LPM/O2% 100%; MECH. VENT. Y; PT. ON O2? YES; TYPE OF O2 VENT; VENT RATE 36; VT/PRESS 300
[2016-06-28 06:01] LABS: BASOPHIL 0.3 % (0-2.0); EOSINOPHIL 0.1 % (0-4.5); MCH 26.2 pg (25.7-33.7); MCHC 32.4 g/dl (32.0-36.0); MEAN PLT VOLUME 13.3 fl (7.5-11.1); NEUTROPHILS 97.3 % (42.8-82.8); PLATELET COUNT 48 K/MM3 (134-434); RDW 19.2 % (11.6-15.6); WHITE BLOOD COUNT 9.8 K/mm3 (4.0-10.0)
[2016-06-28] MEDS: INSULIN DETEMIR 100 UNITS/ML MDV SQ SCH ×2 (06:05→18:30)
[2016-06-28] MEDS: INSULIN SLIDING SCALE (NOVOLOG) 1 VIAL SQ SCH ×3 (06:05→18:31)
[2016-06-28] MEDS: MINERAL OIL/PETROLATUM,WHITE 3.5 GM TUBE OU PRN (06:06)
--- NOTE | 2016-06-28 06:22 | PN ---
Progress Note, Physician Chief Complaint: Pt remains intubated; sedated. History of Present Illness: Patient is a 75 year old female HTN, HLD, asthma, COPD, recent admission for pneumonia (d/c 06/16) and admitted to [facility] for short term rehab, who is presenting to the ED for shortness of breath, respiratory distress, and low O2Sat. According to EMS, the patients normal O2Sat is in the high 90s, but it has been fluctuating between 62-92% in the NH. She was given two combivents in the field. The patient was started on 500mg of levaquin on 06/13/2016, every other day for 7 doses. The patient has never been intubated. Denies fever, chills, or chest pain - Current Medication List Current Medications: Active Medications Albuterol Sulfate (Ventolin 0.083% Nebulizer Soln -) 1 amp NEB Q1H PRN PRN Reason: SHORT OF BREATH/WHEEZING Last Admin: 06/22/16 22:40 Dose: 1 amp Albuterol/Ipratropium (Duoneb -) 1 amp NEB QIDR JOANNE Last Admin: 06/27/16 23:07 Dose: 1 amp Artificial Tears (Artificial Tears Ointment -) 1 applic OU Q6H PRN Last Admin: 06/28/16 06:06 Dose: 1 applic Atorvastatin Calcium (Lipitor -) 80 mg PO HS JOANNE Last Admin: 06/27/16 22:00 Dose: 80 mg Chlorhexidine Gluconate (Hibiclens For Decolonization -) 1 applic TP HS [facility] Last Admin: 06/27/16 22:00 Dose: 1 applic Chlorhexidine Gluconate (Peridex -) 15 ml MM BID JOANNE Last Admin: 06/27/16 22:00 Dose: 15 ml Docusate Sodium (Colace -) 100 mg PO DAILY JOANNE Fentanyl 500 mcg/ Dextrose 100 mls @ 5 mls/hr IJ TITR JOANNE PRN Reason: 25 MCG/HR Last Admin: 06/28/16 03:37 Dose: 20 mls/hr Dopamine HCl/Dextrose (Dopamine 400 Mg/D5w -) 250 mls @ 17.452 mls/hr IVPB TITR JOANNE; 5 MCG/KG/MIN PRN Reason: Protocol Last Admin: 06/27/16 22:42 Dose: 10 mls/hr Propofol (Diprivan -) 100 mls @ 2.817 mls/hr IVPB TITR JOANNE; 5 MCG/KG/MIN PRN Reason: Protocol Last Admin: 06/28/16 04:57 Dose: 14.084 mls/hr Pantoprazole Sodium (Protonix 40mg Ivpb (Pre-Docked)) 100 mls @ 200 mls/hr IVPB DAILY [facility] Last Admin: 06/27/16 11:27 Dose: 200 mls/hr Vecuronium [place] 50 mg/ (Dextrose) 250 mls @ 29.37 mls/hr IVPB TITR JOANNE; 1 MCG/KG/MIN PRN Reason: Protocol Last Admin: 06/28/16 03:40 Dose: 29.37 mls/hr Insulin Aspart (Novolog Vial Sliding Scale -) 1 vial SQ TIDAC [facility] PRN Reason: Protocol Last Admin: 06/28/16 06:05 Dose: 1 units Insulin Detemir (Levemir Vial) 13 units SQ BIDAC [facility] Last Admin: 06/28/16 06:05 Dose: 13 units Methylprednisolone Sodium Succinate (Solu-Medrol -) 125 mg IVPB DAILY [facility] Last Admin: 06/27/16 11:26 Dose: 125 mg Metoclopramide HCl (Reglan Injection -) 10 mg IVPUSH Q6H PRN PRN Reason: NAUSEA AND/OR VOMITING Last Admin: 06/27/16 23:20 Dose: 10 mg Mupirocin (Bactroban 2% Ointment -) 1 applic TP BID [facility] Last Admin: 06/27/16 22:00 Dose: 1 applic Polyethylene Glycol (Miralax (For Daily Use) -) 17 gm PO DAILY [facility] Last Admin: 06/27/16 11:34 Dose: 17 gm Senna (Senna -) 2 tab PO HS PRN PRN Reason: CONSTIPATION Sevelamer Carbonate (Renvela Powder Packet -) 0.8 gm NGT TIDCM [facility] Last Admin: 06/27/16 17:21 Dose: 0.8 gm - Objective Vital Signs: Vital Signs Temperature 96.6 F L 06/28/16 02:00 Pulse Rate 58 L 06/28/16 04:00 Respiratory Rate 36 H 06/28/16 04:54 Blood Pressure 119/54 06/28/16 04:00 O2 Sat by Pulse Oximetry (%) 93 L 06/28/16 02:41 Constitutional: Yes: Thin, Other (no movement (on vercuronium)) Eyes: Yes: Conjunctiva Clear Neck: Yes: Decreased ROM Cardiovascular: Yes: Pulse Irregular Respiratory: Yes: Diminished Gastrointestinal: Yes: Soft Genitourinary: No: Anuria Musculoskeletal: Yes: Muscle Weakness Extremities: Yes: Cool Edema: No Peripheral Pulses WNL: No Peripheral Pulses: Left Doralis Pedis: 1+, Right Dorsalis Pedis: 1+ Neurological: Yes: Unresponsive, Other (on sedation; on vercuronium (was asynchronous with ventilator)) Psychiatric: Yes: Other Labs: CBC, BMP 06/28/16 05:35 INR, PTT INR 1.19 (0.82-1.09) H 06/26/16 05:40 Fibrinogen 520.0 mg/dL (238-498) H 06/26/16 05:10 - ....Imaging Chest X-ray: Image Reviewed (worsening ILD) Problem List - Problems (1) Acute respiratory failure with hypoxia Assessment/Plan: remains intubated; worsening airspace disease diffusely. Off antibiotics since yesterday (negative cultures). 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 period of atrial tachycardia. Low TSH; f/u TFTs. Code(s): I48.91 - UNSPECIFIED ATRIAL FIBRILLATION (3) CKD (chronic kidney disease) Assessment/Plan: non-oliguric; furosemide increased; consider 2nd agent. Code(s): N18.9 - CHRONIC KIDNEY DISEASE, UNSPECIFIED (4) Hypotension Assessment/Plan: On dopamine. Code(s): I95.9 - HYPOTENSION, UNSPECIFIED (5) Lactic acid acidosis Code(s): E87.2 - ACIDOSIS (6) Pulmonary fibrosis Assessment/Plan: worsening ILD, ARDS despite ventilation/PEEP. Multiorgan failure. Poor prognosis. Code(s): J84.10 - PULMONARY FIBROSIS, UNSPECIFIED (7) Sepsis Code(s): A41.9 - SEPSIS, UNSPECIFIED ORGANISM (8) Diabetes Code(s): E11.9 - TYPE 2 DIABETES MELLITUS WITHOUT COMPLICATIONS
[2016-06-28 06:31] LABS: ALBUMIN 1.3 g/dl (3.4-5.0); INR 1.12 (0.82-1.09); MAGNESIUM 2.5 mg/dL (1.8-2.4); PROTHROMBIN TIME (PATIENT) 12.4 SEC (9.98-11.88)
[2016-06-28 06:33] LABS: BILIRUBIN,TOTAL 0.6 mg/dL (0.2-1.0); CREATININE 4.8 mg/dL (0.55-1.02); TOT PROT 4.6 g/dl (6.4-8.2)
[2016-06-28 06:34] LABS: ACTIVATED PTT 29.2 SECONDS (26.9-34.4)
[2016-06-28 06:40] LABS: CALCIUM 6.3 mg/dL (8.5-10.1)
[2016-06-28] MEDS: ALBUTEROL SO4 2.5/IPRATROPIUM 0.5 INH SOL 3 ML VIAL.NEB. NEB SCH ×3 (06:48→17:23)
[2016-06-28 07:19] LABS: PHOSPHOROUS 8.4 mg/dL (2.5-4.9)
--- NOTE | 2016-06-28 08:07 | PN ---
Progress Note (short form) - Note Progress Note: ID Remains critical 100% FIO2 ! Presently off antibiotics On steroids Selected Entries 06/28/16 06/28/16 06:00 06:47 Temperature 96.6 F L Pulse Rate 58 L Respiratory 36 H Rate Blood Pressure 120/54 Lung Rhonchi bilaterally Cor S1 S2 RR Abd Soft nontender Ext No edema Microbiology 06/22/16 05:05 Serum Cryptococcal Antigen - Final 06/21/16 15:20 Blood - Peripheral Venous TB Test (QFT) (ADRIANE) - Final Laboratory Tests 06/22/16 06/28/16 06/28/16 05:05 05:35 05:35 WBC Hgb Hct Plt Count ABG pH ABG pCO2 at Pt Temp ABG pO2 at Pt Temp Oxygen Flow Rate BUN 143 H* Creatinine 4.8 H CMV IgG Ab Pending CMV IgM Ab A. galactomannan Ag Pending Beta-(1,3)-D-Glucan < 31 06/28/16 06/28/16 06/28/16 05:35 05:35 06:00 WBC 9.8 Hgb 9.5 L Hct 29.2 L Plt Count 48 L ABG pH 7.26 L ABG pCO2 at Pt Temp 46.7 H D ABG pO2 at Pt Temp 56.3 L Oxygen Flow Rate 100% BUN Creatinine CMV IgG Ab CMV IgM Ab Pending A. galactomannan Ag Beta-(1,3)-D-Glucan Assessment Multiorgan failure Pulmonary fibrosis ARDS Acute renal failure Post Vanco and Aztreonam Plan Based on critical status will resume antibiotic empirically vancomycin and Imipenem Azithro Prognosis otoniel Grady MD Problem List - Problems (1) Acute respiratory failure with hypoxia Code(s): J96.01 - ACUTE RESPIRATORY FAILURE WITH HYPOXIA (2) Pulmonary fibrosis Code(s): J84.10 - PULMONARY FIBROSIS, UNSPECIFIED (3) Bilateral pulmonary infiltrates on CXR Code(s): R91.8 - OTHER NONSPECIFIC ABNORMAL FINDING OF LUNG FIELD
[2016-06-28] MEDS ORDERED: VANCOMYCIN 1,500 MG in DEXTROSE 5%-WATER - 500 ML IVPB ONE (08:08)
[2016-06-28] MEDS: PANTOPRAZOLE SODIUM 100 ML IVPB SCH (09:02)
[2016-06-28] MEDS ORDERED: PT OWN MED DRAWER 7, Y5N ONE ×2 (09:11→22:40)
[2016-06-28] MEDS: AZITHROMYCIN IVPB 250 ML IVPB SCH (09:15)
[2016-06-28] MEDS: methylPREDNISolone NA SUCC 125 MG/2 ML VIAL IVPB SCH (09:15)
[2016-06-28] MEDS: CHLORHEXIDINE GLUCONATE 0.12% 15ML CUP MM SCH ×2 (09:15→22:21)
[2016-06-28] MEDS: DOCUSATE SODIUM 100 MG CAPSULE (FP) PO SCH (09:15)
[2016-06-28] MEDS: SEVELAMER CARBONATE 0.8 GM POWDER PACKET NGT SCH ×3 (09:16→18:31)
[2016-06-28] MEDS: POLYETHYLENE GLYCOL 3350 119 GM BTL PO SCH (09:16)
--- NOTE | 2016-06-28 09:35 | PN ---
Progress Note, Physician History of Present Illness: REQUIRED INTUBATION ON VENT SEDATED - Current Medication List Current Medications: Active Medications Albuterol Sulfate (Ventolin 0.083% Nebulizer Soln -) 1 amp NEB Q1H PRN PRN Reason: SHORT OF BREATH/WHEEZING Last Admin: 06/22/16 22:40 Dose: 1 amp Albuterol/Ipratropium (Duoneb -) 1 amp NEB QIDR JOANNE Last Admin: 06/28/16 06:48 Dose: 1 amp Artificial Tears (Artificial Tears Ointment -) 1 applic OU Q6H PRN Last Admin: 06/28/16 06:06 Dose: 1 applic Atorvastatin Calcium (Lipitor -) 80 mg PO HS [facility] Last Admin: 06/27/16 22:00 Dose: 80 mg Chlorhexidine Gluconate (Hibiclens For Decolonization -) 1 applic TP HS [facility] Last Admin: 06/27/16 22:00 Dose: 1 applic Chlorhexidine Gluconate (Peridex -) 15 ml MM BID JOANNE Last Admin: 06/28/16 09:15 Dose: 15 ml Docusate Sodium (Colace -) 100 mg PO DAILY [facility] Last Admin: 06/28/16 09:15 Dose: 100 mg Fentanyl 500 mcg/ Dextrose 100 mls @ 5 mls/hr IJ TITR JOANNE PRN Reason: 25 MCG/HR Last Admin: 06/28/16 09:17 Dose: 20 mls/hr Dopamine HCl/Dextrose (Dopamine 400 Mg/D5w -) 250 mls @ 17.452 mls/hr IVPB TITR JOANNE; 5 MCG/KG/MIN PRN Reason: Protocol Last Admin: 06/27/16 22:42 Dose: 10 mls/hr Propofol (Diprivan -) 100 mls @ 2.817 mls/hr IVPB TITR JOANNE; 5 MCG/KG/MIN PRN Reason: Protocol Last Admin: 06/28/16 04:57 Dose: 14.084 mls/hr Pantoprazole Sodium (Protonix 40mg Ivpb (Pre-Docked)) 100 mls @ 200 mls/hr IVPB DAILY [facility] Last Admin: 06/28/16 09:02 Dose: 200 mls/hr Vecuronium [place] 50 mg/ (Dextrose) 250 mls @ 29.37 mls/hr IVPB TITR JOANNE; 1 MCG/KG/MIN PRN Reason: Protocol Last Admin: 06/28/16 03:40 Dose: 29.37 mls/hr Vancomycin HCl 1,500 mg/ (Dextrose) 500 mls @ 250 mls/hr IVPB ONCE ONE PRN Reason: Protocol Stop: 06/28/16 10:07 Imipenem/Cilastatin Sodium 250 (mg/ Sodium Chloride) 100 mls @ 100 mls/hr IVPB BID JOANNE PRN Reason: Protocol Azithromycin (Zithromax 500mg Ivpb (Pre-Docked)) 250 mls @ 250 mls/hr IVPB DAILY [facility] Last Admin: 06/28/16 09:15 Dose: 250 mls/hr Insulin Aspart (Novolog Vial Sliding Scale -) 1 vial SQ TIDAC [facility] PRN Reason: Protocol Last Admin: 06/28/16 06:05 Dose: 1 units Insulin Detemir (Levemir Vial) 13 units SQ BIDAC [facility] Last Admin: 06/28/16 06:05 Dose: 13 units Methylprednisolone Sodium Succinate (Solu-Medrol -) 125 mg IVPB DAILY [facility] Last Admin: 06/28/16 09:15 Dose: 125 mg Metoclopramide HCl (Reglan Injection -) 10 mg IVPUSH Q6H PRN PRN Reason: NAUSEA AND/OR VOMITING Last Admin: 06/27/16 23:20 Dose: 10 mg Mupirocin (Bactroban 2% Ointment -) 1 applic TP BID [facility] Last Admin: 06/27/16 22:00 Dose: 1 applic Polyethylene Glycol (Miralax (For Daily Use) -) 17 gm PO DAILY [facility] Last Admin: 06/28/16 09:16 Dose: 17 gm Senna (Senna -) 2 tab PO HS PRN PRN Reason: CONSTIPATION Sevelamer Carbonate (Renvela Powder Packet -) 0.8 gm NGT TIDCM [facility] Last Admin: 06/28/16 09:16 Dose: 0.8 gm - Objective Vital Signs: Vital Signs Temperature 95.5 F L 06/28/16 08:00 Pulse Rate 75 06/28/16 08:00 Respiratory Rate 36 H 06/28/16 08:26 Blood Pressure 108/50 06/28/16 08:00 O2 Sat by Pulse Oximetry (%) 96 06/28/16 08:26 Cardiovascular: Yes: S1, S2 Respiratory: Yes: Mechanically Ventilated Gastrointestinal: Yes: Normal Bowel Sounds, Soft Neurological: Yes: Lethargy Labs: CBC, BMP 06/28/16 05:35 06/28/16 05:35 INR, PTT INR 1.12 (0.82-1.09) 06/28/16 05:35 Fibrinogen 520.0 mg/dL (238-498) H 06/26/16 05:10 Problem List - Problems (1) Pneumonia Assessment/Plan: IV ABX ID CONSULT NOTED RHEUMOTOLGY Code(s): J18.9 - PNEUMONIA, UNSPECIFIED ORGANISM (2) COPD exacerbation Assessment/Plan: IV STEROIDS NEBS PULM Code(s): J44.1 - CHRONIC OBSTRUCTIVE PULMONARY DISEASE W (ACUTE) EXACERBATION (3) CHF exacerbation Assessment/Plan: LASIX IV CARDIO FOLLOW CE CONSIDER DIALYSIS Code(s): I50.9 - HEART FAILURE, UNSPECIFIED Qualifiers: Congestive heart failure type: unspecified congestive heart failure type Qualified Code(s): I50.9 - Heart failure, unspecified (4) CKD stage 4 secondary to hypertension Assessment/Plan: CHRONIC MONITOR RENAL Code(s): I12.9 - HYPERTENSIVE CHRONIC KIDNEY DISEASE W STG 1-4/UNSP CHR KDNY N18.4 - CHRONIC KIDNEY DISEASE, STAGE 4 (SEVERE) (5) Lactic acid acidosis Assessment/Plan: ON ABX CULTURES Code(s): E87.2 - ACIDOSIS (6) Elevated troponin Code(s): R79.89 - OTHER SPECIFIED ABNORMAL FINDINGS OF BLOOD CHEMISTRY (7) Sepsis Assessment/Plan: CULTURES ABX PER ID Microbiology 06/27/16 08:30 Blood - Peripheral Venous Blood Culture - Preliminary NO GROWTH OBTAINED AFTER 24 HOURS, INCUBATION TO CONTINUE FOR 4 DAYS. 06/24/16 18:00 Sputum - Endotrachea Suction/Ventilator Gram Stain - Final 06/24/16 18:00 Sputum - Endotrachea Suction/Ventilator Sputum Culture - Final NORMAL RESPIRATORY LUIS 06/20/16 20:00 Blood - Peripheral Venous Blood Culture - Final NO GROWTH AFTER 5 DAYS INCUBATION 06/20/16 19:50 Blood - Peripheral Venous Blood Culture - Final NO GROWTH AFTER 5 DAYS INCUBATION 06/21/16 15:20 Blood - Peripheral Venous TB Test (QFT) (ADRIANE) - Final 06/22/16 05:05 Serum Cryptococcal Antigen - Final 06/24/16 16:00 Sputum - Endotrachea Suction/Ventilator GRACIELA Preparation - Preliminary 06/24/16 16:00 Sputum - Endotrachea Suction/Ventilator Fungal Culture - Preliminary 06/23/16 19:00 Urine For Antigen Detection Legionella Antigen - Final 06/23/16 19:00 Urine For Antigen Detection Streptococcus pneumoniae Antigen (M - Final 06/21/16 10:00 Nasopharyngeal Swab Respiratory Virus Panel - Preliminary 06/21/16 10:00 Nasopharyngeal Swab Influenza Types A,B Antigen (ADRIANE) - Final 06/21/16 10:00 Nasopharyngeal Swab - Final 06/20/16 20:37 Urine - Urine Clean Catch Urine Culture - Final NO GROWTH OBTAINED Code(s): A41.9 - SEPSIS, UNSPECIFIED ORGANISM (8) HTN (hypertension) Code(s): I10 - ESSENTIAL (PRIMARY) HYPERTENSION (9) Thrombocytopenia Code(s): D69.6 - THROMBOCYTOPENIA, UNSPECIFIED (10) Respiratory failure Assessment/Plan: VENT SETTING PER PULM Code(s): J96.90 - RESPIRATORY FAILURE, UNSP, UNSP W HYPOXIA OR HYPERCAPNIA (11) Hypotension Assessment/Plan: ON DOPAMINE MONITOR Code(s): I95.9 - HYPOTENSION, UNSPECIFIED
[2016-06-28] MEDS: IMIPENEM/CILASTATIN SODIUM 250 MG in SODIUM CHLORIDE 100 ML IVPB SCH ×2 (09:39→22:21)
[2016-06-28 09:42] LABS: FREE T4 0.53 ng/dl (0.76-1.46)
[2016-06-28] MEDS ORDERED: FUROSEMIDE 40 MG/4 ML INJECTABLE VIAL IVPUSH ONE (11:00)
--- NOTE | 2016-06-28 11:00 | PN ---
Progress Note (short form) - Note Progress Note: Renal Follow up for CKD Pt seen and examined in the ICU sedated and paralyzed on the vent on 100% FiO2 urine output decreasing on Dopamine gtt Vital Signs Temperature 95.2 F L 06/28/16 10:00 Pulse Rate 91 H 06/28/16 10:00 Respiratory Rate 36 H 06/28/16 10:00 Blood Pressure 109/56 06/28/16 10:00 O2 Sat by Pulse Oximetry (%) 96 06/28/16 08:26 Intake & Output 06/25/16 06/26/16 06/27/16 06/28/16 23:59 23:59 23:59 23:59 Intake Total 2133 2926 3259 1001 Output Total 950 1000 800 300 Balance 1183 1926 2459 701 Weight 208 lb 215 lb 14.4 oz 215 lb 9.6 oz 222 lb 8 oz Gen: Intubated CVS: RRR, No M/R Lungs : + diffuse crackles b/l lung silverman Abd: soft NT/ND Ext: trace to 1+ edema CBC, BMP 06/28/16 05:35 06/28/16 05:35 Laboratory Tests 06/28/16 05:35 Calcium 6.3 L* Phosphorus 8.4 H Magnesium 2.5 H Albumin 1.3 L Current Medications Albuterol Sulfate (Ventolin 0.083% Nebulizer Soln -) 1 amp NEB Q1H PRN PRN Reason: SHORT OF BREATH/WHEEZING Last Admin: 06/22/16 22:40 Dose: 1 amp Albuterol/Ipratropium (Duoneb -) 1 amp NEB QIDR [facility] Last Admin: 06/28/16 06:48 Dose: 1 amp Artificial Tears (Artificial Tears Ointment -) 1 applic OU Q6H PRN Last Admin: 06/28/16 06:06 Dose: 1 applic Atorvastatin Calcium (Lipitor -) 80 mg PO HS [facility] Last Admin: 06/27/16 22:00 Dose: 80 mg Chlorhexidine Gluconate (Hibiclens For Decolonization -) 1 applic TP HS [facility] Last Admin: 06/27/16 22:00 Dose: 1 applic Chlorhexidine Gluconate (Peridex -) 15 ml MM BID [facility] Last Admin: 06/28/16 09:15 Dose: 15 ml Docusate Sodium (Colace -) 100 mg PO DAILY [facility] Last Admin: 06/28/16 09:15 Dose: 100 mg Furosemide (Lasix Injection -) 80 mg IVPUSH ONCE ONE Stop: 06/28/16 10:56 Fentanyl 500 mcg/ Dextrose 100 mls @ 5 mls/hr IJ TITR [facility] PRN Reason: 25 MCG/HR Last Admin: 06/28/16 09:17 Dose: 20 mls/hr Dopamine HCl/Dextrose (Dopamine 400 Mg/D5w -) 250 mls @ 17.452 mls/hr IVPB TITR JOANNE; 5 MCG/KG/MIN PRN Reason: Protocol Last Admin: 06/27/16 22:42 Dose: 10 mls/hr Propofol (Diprivan -) 100 mls @ 2.817 mls/hr IVPB TITR JOANNE; 5 MCG/KG/MIN PRN Reason: Protocol Last Admin: 06/28/16 04:57 Dose: 14.084 mls/hr Pantoprazole Sodium (Protonix 40mg Ivpb (Pre-Docked)) 100 mls @ 200 mls/hr IVPB DAILY [facility] Last Admin: 06/28/16 09:02 Dose: 200 mls/hr Vecuronium [place] 50 mg/ (Dextrose) 250 mls @ 29.37 mls/hr IVPB TITR JOANNE; 1 MCG/KG/MIN PRN Reason: Protocol Last Admin: 06/28/16 03:40 Dose: 29.37 mls/hr Imipenem/Cilastatin Sodium 250 (mg/ Sodium Chloride) 100 mls @ 100 mls/hr IVPB BID [facility] PRN Reason: Protocol Last Admin: 06/28/16 09:39 Dose: 100 mls/hr Azithromycin (Zithromax 500mg Ivpb (Pre-Docked)) 250 mls @ 250 mls/hr IVPB DAILY [facility] Last Admin: 06/28/16 09:15 Dose: 250 mls/hr Insulin Aspart (Novolog Vial Sliding Scale -) 1 vial SQ TIDAC [facility] PRN Reason: Protocol Last Admin: 06/28/16 06:05 Dose: 1 units Insulin Detemir (Levemir Vial) 13 units SQ BIDAC [facility] Last Admin: 06/28/16 06:05 Dose: 13 units Methylprednisolone Sodium Succinate (Solu-Medrol -) 125 mg IVPB DAILY [facility] Last Admin: 06/28/16 09:15 Dose: 125 mg Metoclopramide HCl (Reglan Injection -) 10 mg IVPUSH Q6H PRN PRN Reason: NAUSEA AND/OR VOMITING Last Admin: 06/27/16 23:20 Dose: 10 mg Mupirocin (Bactroban 2% Ointment -) 1 applic TP BID JOANNE Last Admin: 06/27/16 22:00 Dose: 1 applic Polyethylene Glycol (Miralax (For Daily Use) -) 17 gm PO DAILY JOANNE Last Admin: 06/28/16 09:16 Dose: 17 gm Senna (Senna -) 2 tab PO HS PRN PRN Reason: CONSTIPATION Sevelamer Carbonate (Renvela Powder Packet -) 0.8 gm NGT TIDCM JOANNE Last Admin: 06/28/16 09:16 Dose: 0.8 gm A/P 75 year old woman with PMhx of CKD Stage 4, Hypertension (>40 years), Asthma, Osteoarthritis, Former Smoker who presented from [facility] with 1 day history of sob. #Acute on Chronic Renal insufficiency Pt remains non-oliguric but has been in positive balance No acute indication for SAMPLE GRADER will attempt to diuresis with IV lasix (80mg IVP followed by lasix gtt if responsive) Dose all meds for Cr Cl less then 10 #Intersitital lung disease/Resp Failure Continue Vent support as per ICU IV steroids as per ICU IV Abx #Pseudohypocalcemia Corrected Ca is WNL #Hyperphosphetemia from renal failure continue Phos Binder Q8h Prognosis guarded Raymundo Snyder DO
[2016-06-28] MEDS: MUPIROCIN 2% TOPICAL OINTMENT 22 GM TUBE TP SCH ×2 (11:22→22:20)
--- NOTE | 2016-06-28 12:10 | PN ---
Progress Note, Physician History of Present Illness: seen and examined today. intubated, sedated, paralytics being used. no reported overnight events. - Current Medication List Current Medications: Active Medications Albuterol Sulfate (Ventolin 0.083% Nebulizer Soln -) 1 amp NEB Q1H PRN PRN Reason: SHORT OF BREATH/WHEEZING Last Admin: 06/22/16 22:40 Dose: 1 amp Albuterol/Ipratropium (Duoneb -) 1 amp NEB QIDR JOANNE Last Admin: 06/28/16 11:21 Dose: 1 amp Artificial Tears (Artificial Tears Ointment -) 1 applic OU Q6H PRN Last Admin: 06/28/16 06:06 Dose: 1 applic Atorvastatin Calcium (Lipitor -) 80 mg PO HS [facility] Last Admin: 06/27/16 22:00 Dose: 80 mg Chlorhexidine Gluconate (Hibiclens For Decolonization -) 1 applic TP HS [facility] Last Admin: 06/27/16 22:00 Dose: 1 applic Chlorhexidine Gluconate (Peridex -) 15 ml MM BID [facility] Last Admin: 06/28/16 09:15 Dose: 15 ml Docusate Sodium (Colace -) 100 mg PO DAILY [facility] Last Admin: 06/28/16 09:15 Dose: 100 mg Fentanyl 500 mcg/ Dextrose 100 mls @ 5 mls/hr IJ TITR JOANNE PRN Reason: 25 MCG/HR Last Admin: 06/28/16 09:17 Dose: 20 mls/hr Dopamine HCl/Dextrose (Dopamine 400 Mg/D5w -) 250 mls @ 17.452 mls/hr IVPB TITR JOANNE; 5 MCG/KG/MIN PRN Reason: Protocol Last Admin: 06/27/16 22:42 Dose: 10 mls/hr Propofol (Diprivan -) 100 mls @ 2.817 mls/hr IVPB TITR JOANNE; 5 MCG/KG/MIN PRN Reason: Protocol Last Admin: 06/28/16 11:22 Dose: 10 mls/hr Pantoprazole Sodium (Protonix 40mg Ivpb (Pre-Docked)) 100 mls @ 200 mls/hr IVPB DAILY [facility] Last Admin: 06/28/16 09:02 Dose: 200 mls/hr Vecuronium [place] 50 mg/ (Dextrose) 250 mls @ 29.37 mls/hr IVPB TITR JOANNE; 1 MCG/KG/MIN PRN Reason: Protocol Last Admin: 06/28/16 03:40 Dose: 29.37 mls/hr Imipenem/Cilastatin Sodium 250 (mg/ Sodium Chloride) 100 mls @ 100 mls/hr IVPB BID JOANNE PRN Reason: Protocol Last Admin: 06/28/16 09:39 Dose: 100 mls/hr Azithromycin (Zithromax 500mg Ivpb (Pre-Docked)) 250 mls @ 250 mls/hr IVPB DAILY [facility] Last Admin: 06/28/16 09:15 Dose: 250 mls/hr Insulin Aspart (Novolog Vial Sliding Scale -) 1 vial SQ TIDAC JOANNE PRN Reason: Protocol Last Admin: 06/28/16 06:05 Dose: 1 units Insulin Detemir (Levemir Vial) 13 units SQ BIDAC [facility] Last Admin: 06/28/16 06:05 Dose: 13 units Methylprednisolone Sodium Succinate (Solu-Medrol -) 125 mg IVPB DAILY [facility] Last Admin: 06/28/16 09:15 Dose: 125 mg Metoclopramide HCl (Reglan Injection -) 10 mg IVPUSH Q6H PRN PRN Reason: NAUSEA AND/OR VOMITING Last Admin: 06/27/16 23:20 Dose: 10 mg Mupirocin (Bactroban 2% Ointment -) 1 applic TP BID [facility] Last Admin: 06/28/16 11:22 Dose: 1 applic Polyethylene Glycol (Miralax (For Daily Use) -) 17 gm PO DAILY [facility] Last Admin: 06/28/16 09:16 Dose: 17 gm Senna (Senna -) 2 tab PO HS PRN PRN Reason: CONSTIPATION Sevelamer Carbonate (Renvela Powder Packet -) 0.8 gm NGT TIDCM [facility] Last Admin: 06/28/16 11:23 Dose: 0.8 gm - Objective Vital Signs: Vital Signs Temperature 97.9 F 06/28/16 11:51 Pulse Rate 88 06/28/16 11:51 Respiratory Rate 36 H 06/28/16 11:51 Blood Pressure 105/49 06/28/16 11:51 O2 Sat by Pulse Oximetry (%) 88 L 06/28/16 11:04 Constitutional: Yes: No Distress, Calm Eyes: Yes: Conjunctiva Clear HENT: Yes: Atraumatic, Normocephalic Cardiovascular: Yes: Regular Rate and Rhythm, S1, S2. No: Bradycardia, Tachycardia, Pulse Irregular, Bruit, JVD, Gallop, Murmur, Rub, S3, S4, Varicosities Respiratory: Yes: Regular, Diminished, Intubated, Mechanically Ventilated, Rhonchi. No: Rales, Wheezes Gastrointestinal: Yes: Normal Bowel Sounds, Soft. No: Distention, Tenderness Musculoskeletal: Yes: Other (paralyzed) Extremities: Yes: WNL Edema: No Peripheral Pulses WNL: Yes Peripheral Pulses: Left Doralis Pedis: 2+, Right Dorsalis Pedis: 2+ Integumentary: Yes: WNL Neurological: Yes: Unresponsive. No: Alert, Oriented Psychiatric: No: Alert, Oriented Labs: CBC, BMP 06/28/16 05:35 06/28/16 05:35 INR, PTT INR 1.12 (0.82-1.09) 06/28/16 05:35 Fibrinogen 520.0 mg/dL (238-498) H 06/26/16 05:10 - ....Imaging Chest X-ray: Report Reviewed, Image Reviewed EKG: Report Reviewed, Image Reviewed Other: Report Reviewed, Image Reviewed (tele-nsr, sinus tach, pvcs, apcs) Assessment/Plan SOB and hypoxia, acute respiratory failure, intubated Interstitial lung disease Recent b/l PNA Acute on chronic diastolic CHF NSVT PAF CKD Thrombocytopenia REC: No further pafib recorded thus far Heparin discontinued due to dropping platelet count and no recurrence of PAF which was a brief episode on prior admission. HIT AB reportedly false positive Still making urine, has not required lasix Cont vent support and further management as per critical care
[2016-06-28] MEDS: DOPAMINE 400 MG/D5W - 250 ML IVPB SCH (13:23)
--- NOTE | 2016-06-28 13:23 | PN ---
Teaching Attending Note Name of Resident: Gino Stubbs ATTENDING PHYSICIAN STATEMENT I saw and evaluated the patient. I reviewed the resident's note and discussed the case with the resident. I agree with the resident's findings and plan as documented. SUBJECTIVE: Patient seen and examined in the ICU. Remains critically ill on AC mode of vent, 100% FiO2 and PEEP 12. Low dose dopamine. Paralyzed. Hypothermic. Intake & Output 06/25/16 06/26/16 06/27/16 06/28/16 23:59 23:59 23:59 23:59 Intake Total 2133 2926 3259 1901 Output Total 950 1000 800 300 Balance 1183 1926 2459 1601 Weight 208 lb 215 lb 14.4 oz 215 lb 9.6 oz 222 lb 8 oz Last Vital Signs Temp Pulse Resp BP Pulse Ox 97.9 F 88 36 H 105/49 88 L 06/28/16 11:51 06/28/16 11:51 06/28/16 11:51 06/28/16 11:51 06/28/16 11:04 Active Medications Albuterol Sulfate (Ventolin 0.083% Nebulizer Soln -) 1 amp NEB Q1H PRN PRN Reason: SHORT OF BREATH/WHEEZING Last Admin: 06/22/16 22:40 Dose: 1 amp Albuterol/Ipratropium (Duoneb -) 1 amp NEB QIDR [facility] Last Admin: 06/28/16 11:21 Dose: 1 amp Artificial Tears (Artificial Tears Ointment -) 1 applic OU Q6H PRN Last Admin: 06/28/16 06:06 Dose: 1 applic Atorvastatin Calcium (Lipitor -) 80 mg PO HS [facility] Last Admin: 06/27/16 22:00 Dose: 80 mg Chlorhexidine Gluconate (Hibiclens For Decolonization -) 1 applic TP HS [facility] Last Admin: 06/27/16 22:00 Dose: 1 applic Chlorhexidine Gluconate (Peridex -) 15 ml MM BID [facility] Last Admin: 06/28/16 09:15 Dose: 15 ml Docusate Sodium (Colace -) 100 mg PO DAILY [facility] Last Admin: 06/28/16 09:15 Dose: 100 mg Fentanyl 500 mcg/ Dextrose 100 mls @ 5 mls/hr IJ TITR JOANNE PRN Reason: 25 MCG/HR Last Admin: 06/28/16 09:17 Dose: 20 mls/hr Dopamine HCl/Dextrose (Dopamine 400 Mg/D5w -) 250 mls @ 17.452 mls/hr IVPB TITR JOANNE; 5 MCG/KG/MIN PRN Reason: Protocol Last Admin: 06/27/16 22:42 Dose: 10 mls/hr Propofol (Diprivan -) 100 mls @ 2.817 mls/hr IVPB TITR JOANNE; 5 MCG/KG/MIN PRN Reason: Protocol Last Admin: 06/28/16 11:22 Dose: 10 mls/hr Pantoprazole Sodium (Protonix 40mg Ivpb (Pre-Docked)) 100 mls @ 200 mls/hr IVPB DAILY [facility] Last Admin: 06/28/16 09:02 Dose: 200 mls/hr Vecuronium [place] 50 mg/ (Dextrose) 250 mls @ 29.37 mls/hr IVPB TITR JOANNE; 1 MCG/KG/MIN PRN Reason: Protocol Last Admin: 06/28/16 03:40 Dose: 29.37 mls/hr Imipenem/Cilastatin Sodium 250 (mg/ Sodium Chloride) 100 mls @ 100 mls/hr IVPB BID JOANNE PRN Reason: Protocol Last Admin: 06/28/16 09:39 Dose: 100 mls/hr Azithromycin (Zithromax 500mg Ivpb (Pre-Docked)) 250 mls @ 250 mls/hr IVPB DAILY [facility] Last Admin: 06/28/16 09:15 Dose: 250 mls/hr Insulin Aspart (Novolog Vial Sliding Scale -) 1 vial SQ TIDAC [facility] PRN Reason: Protocol Last Admin: 06/28/16 12:04 Dose: 4 units Insulin Detemir (Levemir Vial) 13 units SQ BIDAC [facility] Last Admin: 06/28/16 06:05 Dose: 13 units Methylprednisolone Sodium Succinate (Solu-Medrol -) 125 mg IVPB DAILY [facility] Last Admin: 06/28/16 09:15 Dose: 125 mg Metoclopramide HCl (Reglan Injection -) 10 mg IVPUSH Q6H PRN PRN Reason: NAUSEA AND/OR VOMITING Last Admin: 06/27/16 23:20 Dose: 10 mg Mupirocin (Bactroban 2% Ointment -) 1 applic TP BID [facility] Last Admin: 06/28/16 11:22 Dose: 1 applic Polyethylene Glycol (Miralax (For Daily Use) -) 17 gm PO DAILY [facility] Last Admin: 06/28/16 09:16 Dose: 17 gm Senna (Senna -) 2 tab PO HS PRN PRN Reason: CONSTIPATION Sevelamer Carbonate (Renvela Powder Packet -) 0.8 gm NGT TIDCM [facility] Last Admin: 06/28/16 11:23 Dose: 0.8 gm Exam: General: sedated on AC mode of mechanical ventilation HEENT: surgical pupils CV: NSR Pulm: bilateral rhonchi Abd: obese, soft Ext: Warm, +2 pulses, LE edema +1-2 Neuro: RASS -5, TOF: 2/4 Laboratory Results - last 24 hr 06/24/16 06/27/16 06/27/16 18:00 05:29 11:53 WBC RBC Hgb Hct MCV MCHC RDW Plt Count MPV Neutrophils % Lymphocytes % Monocytes % Eosinophils % Basophils % INR PTT (Actin FS) Puncture Site ABG pH ABG pCO2 at Pt Temp ABG pO2 at Pt Temp ABG HCO3 ABG O2 Sat (Measured) ABG O2 Content ABG Base Excess Sree Test O2 Delivery Device Oxygen Flow Rate Vent Mode Vent Rate Mechanical Rate PEEP Pressure Support Vent Sodium Potassium Chloride Carbon Dioxide Anion Gap BUN Creatinine Creat Clearance w eGFR POC Glucometer [phone] Random Glucose Lactic Acid Calcium Phosphorus Magnesium Total Bilirubin AST ALT Alkaline Phosphatase Total Protein Albumin Free T4 Blood Type B POSITIVE Antibody Screen Negative Direct Antiglob Test Negative Crossmatch See Detail 06/27/16 06/27/16 06/28/16 17:10 21:25 05:35 WBC RBC Hgb Hct MCV MCHC RDW Plt Count MPV Neutrophils % Lymphocytes % Monocytes % Eosinophils % Basophils % INR PTT (Actin FS) Puncture Site Left radial ABG pH 7.13 L* ABG pCO2 at Pt Temp 63.7 H* ABG pO2 at Pt Temp 60.2 L ABG HCO3 20.4 L ABG O2 Sat (Measured) 86.6 L ABG O2 Content 11.8 L ABG Base Excess -8.7 L Sree Test Positive O2 Delivery Device Vent Oxygen Flow Rate 85% Vent Mode Ac Vent Rate 35 Mechanical Rate Y PEEP 8.0 Pressure Support Vent 250 Sodium 139 Potassium 4.6 Chloride 100 Carbon Dioxide 23 Anion Gap 16 BUN 143 H* Creatinine 4.8 H Creat Clearance w eGFR 8.87 POC Glucometer [phone] Random Glucose 189 H D Lactic Acid Calcium 6.3 L* Phosphorus 8.4 H Magnesium 2.5 H Total Bilirubin 0.6 AST 22 D ALT 14 Alkaline Phosphatase 45 Total Protein 4.6 L Albumin 1.3 L Free T4 0.53 L Blood Type Antibody Screen Direct Antiglob Test Crossmatch 06/28/16 06/28/16 06/28/16 05:35 05:35 05:35 WBC 9.8 RBC 3.61 Hgb 9.5 L Hct 29.2 L MCV 81.0 MCHC 32.4 RDW 19.2 H Plt Count 48 L MPV 13.3 H D Neutrophils % 97.3 H Lymphocytes % 1.3 L D Monocytes % 1.0 L Eosinophils % 0.1 D Basophils % 0.3 INR 1.12 PTT (Actin FS) 29.2 Puncture Site ABG pH ABG pCO2 at Pt Temp ABG pO2 at Pt Temp ABG HCO3 ABG O2 Sat (Measured) ABG O2 Content ABG Base Excess Sree Test O2 Delivery Device Oxygen Flow Rate Vent Mode Vent Rate Mechanical Rate PEEP Pressure Support Vent Sodium Potassium Chloride Carbon Dioxide Anion Gap BUN Creatinine Creat Clearance w eGFR POC Glucometer Random Glucose Lactic Acid 1.290 Calcium Phosphorus Magnesium Total Bilirubin AST ALT Alkaline Phosphatase Total Protein Albumin Free T4 Blood Type Antibody Screen Direct Antiglob Test Crossmatch 06/28/16 06/28/16 06/28/16 06:00 07:36 12:04 WBC RBC Hgb Hct MCV MCHC RDW Plt Count MPV Neutrophils % Lymphocytes % Monocytes % Eosinophils % Basophils % INR PTT (Actin FS) Puncture Site Left radial ABG pH 7.26 L ABG pCO2 at Pt Temp 46.7 H D ABG pO2 at Pt Temp 56.3 L ABG HCO3 20.3 L ABG O2 Sat (Measured) 88.0 L ABG O2 Content 11.2 L ABG Base Excess -6.0 L Sree Test Positive O2 Delivery Device Vent Oxygen Flow Rate 100% Vent Mode Ac Vent Rate 36 Mechanical Rate Y PEEP 12.0 Pressure Support Vent 300 Sodium Potassium Chloride Carbon Dioxide Anion Gap BUN Creatinine Creat Clearance w eGFR POC Glucometer [phone] Random Glucose Lactic Acid Calcium Phosphorus Magnesium Total Bilirubin AST ALT Alkaline Phosphatase Total Protein Albumin Free T4 Cancelled Blood Type Antibody Screen Direct Antiglob Test Crossmatch ASSESSMENT AND PLAN: Acute Hypoxic Respiratory Failure Suspect Exacerbation of underlying Interstitial Lung Disease s/p pulse steroids (last dose 08/26) ARDS Lactic Acidosis likely from respiratory effort Acute on Chronic Renal Failure Paroxysmal Atrial Fibrillation Pneumonia Do not suspect CHF HTN - Steroid taper - inhaled bronchodilators - titrate FiO2, PEEP to keep SpO2 >90% - low tidal volume ventilation for pPlat < 30, 6cc/kg TV (314cc) - NMBA - monitor ABG - ABX per ID - D/W Renal -> lasix trial - monitor urine output, creatinine - DVT/GI prophylaxis - ICU monitoring - Palliative care evaluation / Need to discuss GOC with family Dr Gatica CCTime 35"
[2016-06-28 14:36] LABS: ASPERGILLUS GALACTOMANNAN AG 0.05
--- NOTE | 2016-06-28 14:49 | PN ---
Physical Exam: SUBJECTIVE: Patient seen and examined, Patient is critically ill. on ventilator support fio2 100, peep 12. On dopamin support Patient is hypothermic Patient sedated and paralyzed. vecuronium, fentanyl, propofol Called her son, told him regarding the condition of her mother. He will be here at 5: 30 pm. OBJECTIVE: Vital Signs Period Temp Pulse Resp BP Sys/Hill Pulse Ox Last 24 Hr 95.2 F-97.9 F 58-91 35-58 98-120/47-56 88-96 GENERAL: sedated and on ventilator HEAD: Normal with no signs of trauma. EYES: PERRL, , sclera anicteric, conjunctiva clear. ENT: Ears normal, nares patent, moist mucous membranes. NECK: Trachea midline, LUNGS: Breath sounds equal, b/l diffuse rales. HEART: s1s2 normal ABDOMEN: Soft, nontender, nondistended, normoactive bowel sounds, no guarding. EXTREMITIES: 2+ pulses, warm, well-perfused, no edema. NEUROLOGICAL: sedated and intubated SKIN: cold to touch Laboratory Results - last 24 hr 06/22/16 06/24/16 06/27/16 05:05 18:00 05:29 WBC RBC Hgb Hct MCV MCHC RDW Plt Count MPV Neutrophils % Lymphocytes % Monocytes % Eosinophils % Basophils % INR PTT (Actin FS) Puncture Site ABG pH ABG pCO2 at Pt Temp ABG pO2 at Pt Temp ABG HCO3 ABG O2 Sat (Measured) ABG O2 Content ABG Base Excess Sree Test O2 Delivery Device Oxygen Flow Rate Vent Mode Vent Rate Mechanical Rate PEEP Pressure Support Vent Sodium Potassium Chloride Carbon Dioxide Anion Gap BUN Creatinine Creat Clearance w eGFR POC Glucometer [phone] Random Glucose Lactic Acid Calcium Phosphorus Magnesium Total Bilirubin AST ALT Alkaline Phosphatase Total Protein Albumin Free T4 A. galactomannan Ag 0.05 Blood Type B POSITIVE Antibody Screen Negative Direct Antiglob Test Negative Crossmatch See Detail 06/27/16 06/27/16 06/27/16 11:53 17:10 21:25 WBC RBC Hgb Hct MCV MCHC RDW Plt Count MPV Neutrophils % Lymphocytes % Monocytes % Eosinophils % Basophils % INR PTT (Actin FS) Puncture Site Left radial ABG pH 7.13 L* ABG pCO2 at Pt Temp 63.7 H* ABG pO2 at Pt Temp 60.2 L ABG HCO3 20.4 L ABG O2 Sat (Measured) 86.6 L ABG O2 Content 11.8 L ABG Base Excess -8.7 L Sree Test Positive O2 Delivery Device Vent Oxygen Flow Rate 85% Vent Mode Ac Vent Rate 35 Mechanical Rate Y PEEP 8.0 Pressure Support Vent 250 Sodium Potassium Chloride Carbon Dioxide Anion Gap BUN Creatinine Creat Clearance w eGFR POC Glucometer 271.72102 202.07511 Random Glucose Lactic Acid Calcium Phosphorus Magnesium Total Bilirubin AST ALT Alkaline Phosphatase Total Protein Albumin Free T4 A. galactomannan Ag Blood Type Antibody Screen Direct Antiglob Test Crossmatch 06/28/16 06/28/16 06/28/16 05:35 05:35 05:35 WBC 9.8 RBC 3.61 Hgb 9.5 L Hct 29.2 L MCV 81.0 MCHC 32.4 RDW 19.2 H Plt Count 48 L MPV 13.3 H D Neutrophils % 97.3 H Lymphocytes % 1.3 L D Monocytes % 1.0 L Eosinophils % 0.1 D Basophils % 0.3 INR 1.12 PTT (Actin FS) 29.2 Puncture Site ABG pH ABG pCO2 at Pt Temp ABG pO2 at Pt Temp ABG HCO3 ABG O2 Sat (Measured) ABG O2 Content ABG Base Excess Sree Test O2 Delivery Device Oxygen Flow Rate Vent Mode Vent Rate Mechanical Rate PEEP Pressure Support Vent Sodium 139 Potassium 4.6 Chloride 100 Carbon Dioxide 23 Anion Gap 16 BUN 143 H* Creatinine 4.8 H Creat Clearance w eGFR 8.87 POC Glucometer Random Glucose 189 H D Lactic Acid Calcium 6.3 L* Phosphorus 8.4 H Magnesium 2.5 H Total Bilirubin 0.6 AST 22 D ALT 14 Alkaline Phosphatase 45 Total Protein 4.6 L Albumin 1.3 L Free T4 0.53 L A. galactomannan Ag Blood Type Antibody Screen Direct Antiglob Test Crossmatch 06/28/16 06/28/16 06/28/16 05:35 06:00 07:36 WBC RBC Hgb Hct MCV MCHC RDW Plt Count MPV Neutrophils % Lymphocytes % Monocytes % Eosinophils % Basophils % INR PTT (Actin FS) Puncture Site Left radial ABG pH 7.26 L ABG pCO2 at Pt Temp 46.7 H D ABG pO2 at Pt Temp 56.3 L ABG HCO3 20.3 L ABG O2 Sat (Measured) 88.0 L ABG O2 Content 11.2 L ABG Base Excess -6.0 L Sree Test Positive O2 Delivery Device Vent Oxygen Flow Rate 100% Vent Mode Ac Vent Rate 36 Mechanical Rate Y PEEP 12.0 Pressure Support Vent 300 Sodium Potassium Chloride Carbon Dioxide Anion Gap BUN Creatinine Creat Clearance w eGFR POC Glucometer Random Glucose Lactic Acid 1.290 Calcium Phosphorus Magnesium Total Bilirubin AST ALT Alkaline Phosphatase Total Protein Albumin Free T4 Cancelled A. galactomannan Ag Blood Type Antibody Screen Direct Antiglob Test Crossmatch 06/28/16 12:04 WBC RBC Hgb Hct MCV MCHC RDW Plt Count MPV Neutrophils % Lymphocytes % Monocytes % Eosinophils % Basophils % INR PTT (Actin FS) Puncture Site ABG pH ABG pCO2 at Pt Temp ABG pO2 at Pt Temp ABG HCO3 ABG O2 Sat (Measured) ABG O2 Content ABG Base Excess Sree Test O2 Delivery Device Oxygen Flow Rate Vent Mode Vent Rate Mechanical Rate PEEP Pressure Support Vent Sodium Potassium Chloride Carbon Dioxide Anion Gap BUN Creatinine Creat Clearance w eGFR POC Glucometer [phone] Random Glucose Lactic Acid Calcium Phosphorus Magnesium Total Bilirubin AST ALT Alkaline Phosphatase Total Protein Albumin Free T4 A. galactomannan Ag Blood Type Antibody Screen Direct Antiglob Test Crossmatch Active Medications Generic Name Dose Route Start Last Admin Trade Name Freq PRN Reason Stop Dose Admin Albuterol Sulfate 1 amp 06/21/16 01:00 06/22/16 22:40 Ventolin 0.083% Nebulizer Soln - NEB 1 amp Q1H PRN Administration SHORT OF BREATH/WHEEZING Albuterol/Ipratropium 1 amp 06/21/16 06:00 06/28/16 11:21 Duoneb - NEB 1 amp QIDR JOANNE Administration Artificial Tears 1 applic 06/26/16 18:14 06/28/16 06:06 Artificial Tears Ointment - OU 1 applic Q6H PRN Administration Atorvastatin Calcium 80 mg 06/21/16 22:00 06/27/16 22:00 Lipitor - PO 80 mg HS JOANNE Administration Chlorhexidine Gluconate 1 applic 06/25/16 22:00 06/27/16 22:00 Hibiclens For Decolonization - TP 1 applic HS JOANNE Administration Chlorhexidine Gluconate 15 ml 06/26/16 22:00 06/28/16 09:15 Peridex - MM 15 ml BID JOANNE Administration Docusate Sodium 100 mg 06/28/16 10:00 06/28/16 09:15 Colace - PO 100 mg DAILY JOANNE Administration Fentanyl 500 mcg/ Dextrose 100 mls @ 5 mls/hr 06/23/16 21:15 06/28/16 09:17 IJ 20 mls/hr TITR JOANNE Administration 25 MCG/HR Dopamine HCl/Dextrose 250 mls @ 17.452 mls/hr 06/24/16 00:45 06/28/16 13:23 Dopamine 400 Mg/D5w - IVPB 7.1 mls/hr TITR JOANNE Administration Protocol 5 MCG/KG/MIN Propofol 100 mls @ 2.817 mls/hr 06/24/16 11:15 06/28/16 11:22 Diprivan - IVPB 10 mls/hr TITR JOANNE Administration Protocol 5 MCG/KG/MIN Pantoprazole Sodium 100 mls @ 200 mls/hr 06/25/16 10:00 06/28/16 09:02 Protonix 40mg Ivpb (Pre-Docked) IVPB 200 mls/hr DAILY JOANNE Administration Vecuronium [place] 50 mg/ 250 mls @ 29.37 mls/hr 06/26/16 13:00 06/28/16 13:23 Dextrose IVPB 29.4 mls/hr TITR JOANNE Administration Protocol 1 MCG/KG/MIN Imipenem/Cilastatin Sodium 250 100 mls @ 100 mls/hr 06/28/16 09:00 06/28/16 09: 39 mg/ Sodium Chloride IVPB 100 mls/hr BID JOANNE Administration Protocol Azithromycin 250 mls @ 250 mls/hr 06/28/16 10:00 06/28/16 09:15 Zithromax 500mg Ivpb (Pre-Docked) IVPB 250 mls/hr DAILY JOANNE Administration Insulin Aspart 1 vial 06/21/16 07:00 06/28/16 12:04 Novolog Vial Sliding Scale - SQ 4 units TIDAC JOANNE Administration Protocol Insulin Detemir 13 units 06/27/16 12:42 06/28/16 06:05 Levemir Vial SQ 13 units BIDAC JOANNE Administration Methylprednisolone Sodium Succinate 125 mg 06/27/16 10:00 06/28/16 09:15 Solu-Medrol - IVPB 125 mg DAILY JOANNE Administration Metoclopramide HCl 10 mg 06/27/16 21:36 06/27/16 23:20 Reglan Injection - IVPUSH 10 mg Q6H PRN Administration NAUSEA AND/OR VOMITING Mupirocin 1 applic 06/25/16 22:00 06/28/16 11:22 Bactroban 2% Ointment - TP 1 applic BID JOANNE Administration Polyethylene Glycol 17 gm 06/23/16 18:00 06/28/16 09:16 Miralax (For Daily Use) - PO 17 gm DAILY JOANNE Administration Senna 2 tab 06/23/16 18:01 Senna - PO HS PRN CONSTIPATION Sevelamer Carbonate 0.8 gm 06/25/16 12:00 06/28/16 11:23 Renvela Powder Packet - NGT 0.8 gm TIDCM JOANNE Administration ASSESSMENT/PLAN: Acute Hypoxic Respiratory Failure cxr b/l opacity could be due to rapid progression of interstial lung ds,ARDS mainatian spo2 over 90, on ventilator support fio2 100%, peep 12, tv 300, rr35 intubated sedated and paralysed completed pulse steroid therapy on 06/26. now on 125 mg iv daily antibiotic as per ID. on duneb qidr monitor intake/ output on dopamin for low blood pressure and magda.( magda could be due to propofol and fentanyl), keep map > 65 follow abg Hypotension on dopamin drip low dose, Paroxysmal afib recently diagnosed, Remains in NSR. off heparin cardiology on case not on heparin due to thrombocytopenia ckd monitor cr and bun, bun and cr increasing, renal function worsen monitor urine output, 800ml on phoslo, monitor phosphorus. hyperphosphatemia due to renal failure avoid nephrotoxic drugs nephrology on case : will give lasix trial. Hypocalcemia corrected ca 8.5 high blood glucose secondary to steroid monitor bgm on insulin sliding scale microcytic anemia stool for occult blood negative hb 9.5 h/o HTN home meds atenolol, nifedipine and clonidine. on hold dvt pro: scd b/l electrolyte: hyperphosphatemia, gi pro ; protonix paliative care consult, Dispo: admit in icu. Patient is full code Visit type - Emergency Visit Emergency Visit: Yes ED Registration Date: 06/20/16 Care time: The patient presented to the Emergency Department on the above date and was hospitalized for further evaluation of their emergent condition. - New Patient This patient is new to me today: No - Critical Care Critical Care patient: Yes Total Critical Care Time (in minutes): 60 Critical Care Statement: The care of this patient involved high complexity decision making to prevent further life threatening deterioration of the patient 's condition and/or to evalute & treat vital organ system(s) failure or risk of failure.
[2016-06-28] MEDS: ATORVASTATIN CA 80 MG TABLET (FP) PO SCH (22:21)
[2016-06-28] MEDS: CHLORHEXIDINE GLUCONATE 4% CLEANSER FOR DECOLONIZATION TP SCH (22:21)
[2016-06-29] MEDS: ALBUTEROL SO4 2.5/IPRATROPIUM 0.5 INH SOL 3 ML VIAL.NEB. NEB SCH ×4 (00:05→17:20)
[2016-06-29] MEDS: PROPOFOL 100 ML IVPB SCH ×3 (00:59→17:35)
[2016-06-29] MEDS: VECURONIUM BROMIDE 50 MG in DEXTROSE 5%-WATER - 250 ML IVPB SCH ×6 (01:00→23:04)
[2016-06-29] MEDS: INSULIN DETEMIR 100 UNITS/ML MDV SQ SCH ×2 (06:14→17:41)
[2016-06-29] MEDS: INSULIN SLIDING SCALE (NOVOLOG) 1 VIAL SQ SCH ×3 (06:15→17:40)
[2016-06-29 06:23] LABS: EOSINOPHIL 0.5 % (0-4.5); MCH 26.7 pg (25.7-33.7); MCHC 33.4 g/dl (32.0-36.0); MEAN PLT VOLUME 12.2 fl (7.5-11.1); NEUTROPHILS 96.7 % (42.8-82.8); PLATELET COUNT 42 K/MM3 (134-434); RDW 19.9 % (11.6-15.6); WHITE BLOOD COUNT 7.8 K/mm3 (4.0-10.0)
[2016-06-29 06:52] LABS: ALBUMIN 1.3 g/dl (3.4-5.0); MAGNESIUM 2.2 mg/dL (1.8-2.4)
[2016-06-29 06:57] LABS: BILIRUBIN,TOTAL 0.8 mg/dL (0.2-1.0); PHOSPHOROUS 7.7 mg/dL (2.5-4.9); TOT PROT 4.7 g/dl (6.4-8.2)
[2016-06-29 07:02] LABS: CALCIUM 5.9 mg/dL (8.5-10.1)
[2016-06-29] MEDS: FENTANYL INJECTION 500 MCG in DEXTROSE 5%-WATER - 90 ML IJ SCH (07:06)
[2016-06-29 07:17] LABS: ARTERIAL BLD GAS O2 SATURATION 82.4 % (90-98.9); ARTERIAL BLOOD GAS BASE EXCESS -7.7 meq/l (-2-2); ARTERIAL BLOOD GAS HCO3 19.6 meq/L (22-26)
[2016-06-29 07:18] LABS: ALLENS TEST POSITIVE; ART PUNCT SITE RIGHT RADIAL; LPM/O2% 100; MECH. VENT. YES; PT. ON O2? YES; TYPE OF O2 VENT; VENT RATE 36; VT/PRESS 300
[2016-06-29 07:19] LABS: ARTERIAL BLOOD GAS pH 7.21 (7.35-7.45)
[2016-06-29] MEDS: DOPAMINE 400 MG/D5W - 250 ML IVPB SCH (07:25)
--- NOTE | 2016-06-29 08:04 | PN ---
Progress Note, Physician History of Present Illness: ON VENT SEDATED - Current Medication List Current Medications: Active Medications Albuterol Sulfate (Ventolin 0.083% Nebulizer Soln -) 1 amp NEB Q1H PRN PRN Reason: SHORT OF BREATH/WHEEZING Last Admin: 06/22/16 22:40 Dose: 1 amp Albuterol/Ipratropium (Duoneb -) 1 amp NEB QIDR JOANNE Last Admin: 06/29/16 06:18 Dose: 1 amp Artificial Tears (Artificial Tears Ointment -) 1 applic OU Q6H PRN Last Admin: 06/28/16 06:06 Dose: 1 applic Atorvastatin Calcium (Lipitor -) 80 mg PO HS [facility]ANNE Last Admin: 06/28/16 22:21 Dose: 80 mg Chlorhexidine Gluconate (Hibiclens For Decolonization -) 1 applic TP HS [facility] Last Admin: 06/28/16 22:21 Dose: 1 applic Chlorhexidine Gluconate (Peridex -) 15 ml MM BID JOANNE Last Admin: 06/28/16 22:21 Dose: 15 ml Docusate Sodium (Colace -) 100 mg PO DAILY [facility] Last Admin: 06/28/16 09:15 Dose: 100 mg Fentanyl 500 mcg/ Dextrose 100 mls @ 5 mls/hr IJ TITR JOANNE PRN Reason: 25 MCG/HR Last Admin: 06/29/16 07:06 Dose: 5 mls/hr Dopamine HCl/Dextrose (Dopamine 400 Mg/D5w -) 250 mls @ 17.452 mls/hr IVPB TITR JOANNE; 5 MCG/KG/MIN PRN Reason: Protocol Last Admin: 06/29/16 07:25 Dose: Not Given Propofol (Diprivan -) 100 mls @ 2.817 mls/hr IVPB TITR JOANNE; 5 MCG/KG/MIN PRN Reason: Protocol Last Admin: 06/29/16 00:59 Dose: 14.084 mls/hr Pantoprazole Sodium (Protonix 40mg Ivpb (Pre-Docked)) 100 mls @ 200 mls/hr IVPB DAILY [facility] Last Admin: 06/28/16 09:02 Dose: 200 mls/hr Vecuronium [place] 50 mg/ (Dextrose) 250 mls @ 29.37 mls/hr IVPB TITR JOANNE; 1 MCG/KG/MIN PRN Reason: Protocol Last Admin: 06/29/16 07:05 Dose: 29.37 mls/hr Imipenem/Cilastatin Sodium 250 (mg/ Sodium Chloride) 100 mls @ 100 mls/hr IVPB BID [facility] PRN Reason: Protocol Last Admin: 06/28/16 22:21 Dose: 100 mls/hr Azithromycin (Zithromax 500mg Ivpb (Pre-Docked)) 250 mls @ 250 mls/hr IVPB DAILY [facility] Last Admin: 06/28/16 09:15 Dose: 250 mls/hr Insulin Aspart (Novolog Vial Sliding Scale -) 1 vial SQ TIDAC [facility] PRN Reason: Protocol Last Admin: 06/29/16 06:15 Dose: 2 units Insulin Detemir (Levemir Vial) 13 units SQ BIDAC [facility] Last Admin: 06/29/16 06:14 Dose: 13 units Methylprednisolone Sodium Succinate (Solu-Medrol -) 125 mg IVPB DAILY [facility] Last Admin: 06/28/16 09:15 Dose: 125 mg Metoclopramide HCl (Reglan Injection -) 10 mg IVPUSH Q6H PRN PRN Reason: NAUSEA AND/OR VOMITING Last Admin: 06/27/16 23:20 Dose: 10 mg Mupirocin (Bactroban 2% Ointment -) 1 applic TP BID [facility] Last Admin: 06/28/16 22:20 Dose: 1 applic Polyethylene Glycol (Miralax (For Daily Use) -) 17 gm PO DAILY [facility] Last Admin: 06/28/16 09:16 Dose: 17 gm Senna (Senna -) 2 tab PO HS PRN PRN Reason: CONSTIPATION Sevelamer Carbonate (Renvela Powder Packet -) 0.8 gm NGT TIDCM [facility] Last Admin: 06/28/16 18:31 Dose: 0.8 gm - Objective Vital Signs: Vital Signs Temperature 99.1 F 06/29/16 06:00 Pulse Rate 82 06/29/16 06:00 Respiratory Rate 36 H 06/29/16 07:33 Blood Pressure 133/49 06/29/16 06:00 O2 Sat by Pulse Oximetry (%) 87 L 06/28/16 22:00 Cardiovascular: Yes: S1, S2 Respiratory: Yes: Mechanically Ventilated, Rhonchi Gastrointestinal: Yes: Normal Bowel Sounds, Soft. No: Tenderness Edema: No Labs: CBC, BMP 06/29/16 05:50 06/29/16 05:50 INR, PTT INR 1.12 (0.82-1.09) 06/28/16 05:35 Fibrinogen 520.0 mg/dL (238-498) H 06/26/16 05:10 Problem List - Problems (1) Pneumonia Assessment/Plan: IV ABX ID CONSULT NOTED RHEUMOTOLGY Code(s): J18.9 - PNEUMONIA, UNSPECIFIED ORGANISM (2) COPD exacerbation Assessment/Plan: IV STEROIDS NEBS PULM Code(s): J44.1 - CHRONIC OBSTRUCTIVE PULMONARY DISEASE W (ACUTE) EXACERBATION (3) CHF exacerbation Assessment/Plan: LASIX IV CARDIO FOLLOW CE CONSIDER DIALYSIS Code(s): I50.9 - HEART FAILURE, UNSPECIFIED Qualifiers: Congestive heart failure type: unspecified congestive heart failure type Qualified Code(s): I50.9 - Heart failure, unspecified (4) CKD stage 4 secondary to hypertension Assessment/Plan: CHRONIC MONITOR RENAL ON BOARD Code(s): I12.9 - HYPERTENSIVE CHRONIC KIDNEY DISEASE W STG 1-4/UNSP CHR KDNY N18.4 - CHRONIC KIDNEY DISEASE, STAGE 4 (SEVERE) (5) Lactic acid acidosis Code(s): E87.2 - ACIDOSIS (6) Elevated troponin Code(s): R79.89 - OTHER SPECIFIED ABNORMAL FINDINGS OF BLOOD CHEMISTRY (7) Sepsis Assessment/Plan: CULTURES ABX PER ID Microbiology 06/27/16 08:30 Blood - Peripheral Venous Blood Culture - Preliminary NO GROWTH OBTAINED AFTER 24 HOURS, INCUBATION TO CONTINUE FOR 4 DAYS. 06/24/16 18:00 Sputum - Endotrachea Suction/Ventilator Gram Stain - Final 06/24/16 18:00 Sputum - Endotrachea Suction/Ventilator Sputum Culture - Final NORMAL RESPIRATORY LUIS 06/20/16 20:00 Blood - Peripheral Venous Blood Culture - Final NO GROWTH AFTER 5 DAYS INCUBATION 06/20/16 19:50 Blood - Peripheral Venous Blood Culture - Final NO GROWTH AFTER 5 DAYS INCUBATION 06/21/16 15:20 Blood - Peripheral Venous TB Test (QFT) (ADRIANE) - Final 06/22/16 05:05 Serum Cryptococcal Antigen - Final 06/24/16 16:00 Sputum - Endotrachea Suction/Ventilator GRACIELA Preparation - Preliminary 06/24/16 16:00 Sputum - Endotrachea Suction/Ventilator Fungal Culture - Preliminary 06/23/16 19:00 Urine For Antigen Detection Legionella Antigen - Final 06/23/16 19:00 Urine For Antigen Detection Streptococcus pneumoniae Antigen (M - Final 06/21/16 10:00 Nasopharyngeal Swab Respiratory Virus Panel - Preliminary 06/21/16 10:00 Nasopharyngeal Swab Influenza Types A,B Antigen (ADRIANE) - Final 06/21/16 10:00 Nasopharyngeal Swab - Final 06/20/16 20:37 Urine - Urine Clean Catch Urine Culture - Final NO GROWTH OBTAINED Code(s): A41.9 - SEPSIS, UNSPECIFIED ORGANISM (8) HTN (hypertension) Code(s): I10 - ESSENTIAL (PRIMARY) HYPERTENSION (9) Thrombocytopenia Code(s): D69.6 - THROMBOCYTOPENIA, UNSPECIFIED (10) Respiratory failure Assessment/Plan: VENT SETTING PER PULM PROGRESSIVE INTERSTITIAL DS? Code(s): J96.90 - RESPIRATORY FAILURE, UNSP, UNSP W HYPOXIA OR HYPERCAPNIA (11) Hypotension Code(s): I95.9 - HYPOTENSION, UNSPECIFIED
[2016-06-29] MEDS ORDERED: PT OWN MED DRAWER 7, Y5N ONE ×3 (09:29→20:39)
[2016-06-29] MEDS: PANTOPRAZOLE SODIUM 100 ML IVPB SCH (09:30)
[2016-06-29] MEDS: POLYETHYLENE GLYCOL 3350 119 GM BTL PO SCH (09:32)
[2016-06-29] MEDS: CHLORHEXIDINE GLUCONATE 0.12% 15ML CUP MM SCH ×2 (09:39→21:12)
[2016-06-29] MEDS: SEVELAMER CARBONATE 0.8 GM POWDER PACKET NGT SCH ×4 (09:39→21:12)
[2016-06-29] MEDS: MUPIROCIN 2% TOPICAL OINTMENT 22 GM TUBE TP SCH ×2 (09:40→21:12)
--- NOTE | 2016-06-29 10:07 | PN ---
Progress Note, Physician Chief Complaint: intubated sedated on dopamine History of Present Illness: TELE: NSR with NSST changes - Current Medication List Current Medications: Active Medications Albuterol Sulfate (Ventolin 0.083% Nebulizer Soln -) 1 amp NEB Q1H PRN PRN Reason: SHORT OF BREATH/WHEEZING Last Admin: 06/22/16 22:40 Dose: 1 amp Albuterol/Ipratropium (Duoneb -) 1 amp NEB QIDR JOANNE Last Admin: 06/29/16 06:18 Dose: 1 amp Artificial Tears (Artificial Tears Ointment -) 1 applic OU Q6H PRN Last Admin: 06/28/16 06:06 Dose: 1 applic Atorvastatin Calcium (Lipitor -) 80 mg PO HS [facility] Last Admin: 06/28/16 22:21 Dose: 80 mg Chlorhexidine Gluconate (Hibiclens For Decolonization -) 1 applic TP HS [facility] Last Admin: 06/28/16 22:21 Dose: 1 applic Chlorhexidine Gluconate (Peridex -) 15 ml MM BID [facility] Last Admin: 06/29/16 09:39 Dose: 15 ml Docusate Sodium (Colace -) 100 mg PO DAILY [facility] Last Admin: 06/28/16 09:15 Dose: 100 mg Fentanyl 500 mcg/ Dextrose 100 mls @ 5 mls/hr IJ TITR JOANNE PRN Reason: 25 MCG/HR Last Admin: 06/29/16 07:06 Dose: 5 mls/hr Dopamine HCl/Dextrose (Dopamine 400 Mg/D5w -) 250 mls @ 17.452 mls/hr IVPB TITR JOANNE; 5 MCG/KG/MIN PRN Reason: Protocol Last Admin: 06/29/16 07:25 Dose: Not Given Propofol (Diprivan -) 100 mls @ 2.817 mls/hr IVPB TITR JOANNE; 5 MCG/KG/MIN PRN Reason: Protocol Last Admin: 06/29/16 00:59 Dose: 14.084 mls/hr Pantoprazole Sodium (Protonix 40mg Ivpb (Pre-Docked)) 100 mls @ 200 mls/hr IVPB DAILY [facility] Last Admin: 06/29/16 09:30 Dose: 200 mls/hr Vecuronium [place] 50 mg/ (Dextrose) 250 mls @ 29.37 mls/hr IVPB TITR JOANNE; 1 MCG/KG/MIN PRN Reason: Protocol Last Admin: 06/29/16 07:05 Dose: 29.37 mls/hr Imipenem/Cilastatin Sodium 250 (mg/ Sodium Chloride) 100 mls @ 100 mls/hr IVPB BID JOANNE PRN Reason: Protocol Last Admin: 06/28/16 22:21 Dose: 100 mls/hr Azithromycin (Zithromax 500mg Ivpb (Pre-Docked)) 250 mls @ 250 mls/hr IVPB DAILY [facility] Last Admin: 06/28/16 09:15 Dose: 250 mls/hr Insulin Aspart (Novolog Vial Sliding Scale -) 1 vial SQ TIDAC JOANNE PRN Reason: Protocol Last Admin: 06/29/16 06:15 Dose: 2 units Insulin Detemir (Levemir Vial) 13 units SQ BIDAC [facility] Last Admin: 06/29/16 06:14 Dose: 13 units Methylprednisolone Sodium Succinate (Solu-Medrol -) 125 mg IVPB DAILY [facility] Last Admin: 06/28/16 09:15 Dose: 125 mg Metoclopramide HCl (Reglan Injection -) 10 mg IVPUSH Q6H PRN PRN Reason: NAUSEA AND/OR VOMITING Last Admin: 06/27/16 23:20 Dose: 10 mg Mupirocin (Bactroban 2% Ointment -) 1 applic TP BID [facility] Last Admin: 06/29/16 09:40 Dose: 1 applic Polyethylene Glycol (Miralax (For Daily Use) -) 17 gm PO DAILY [facility] Last Admin: 06/29/16 09:32 Dose: 17 gm Senna (Senna -) 2 tab PO HS PRN PRN Reason: CONSTIPATION Sevelamer Carbonate (Renvela Powder Packet -) 0.8 gm NGT TIDCM [facility] Last Admin: 06/29/16 09:39 Dose: 0.8 gm - Objective Vital Signs: Vital Signs Temperature 98.9 F 06/29/16 08:14 Pulse Rate 83 06/29/16 10:03 Respiratory Rate 36 H 06/29/16 09:25 Blood Pressure 129/44 06/29/16 08:14 O2 Sat by Pulse Oximetry (%) 84 L 06/29/16 10:04 Constitutional: Yes: Other (+ ETT) Cardiovascular: Yes: Regular Rate and Rhythm Respiratory: Yes: Other (= breath sounds b/l. No wheezing.) Gastrointestinal: Yes: Soft Edema: Yes Edema: LLE: 1+, RLE: 1+ Neurological: Yes: Other (sedated on vent) Labs: CBC, BMP 06/29/16 05:50 06/29/16 05:50 INR, PTT INR 1.12 (0.82-1.09) 06/28/16 05:35 Fibrinogen 520.0 mg/dL (238-498) H 06/26/16 05:10 Laboratory Tests 06/25/16 06/29/16 06/29/16 12:05 05:50 05:50 WBC 7.8 Hgb 9.3 L Hct 27.8 L Plt Count 42 L Sodium 134 L Potassium 4.6 BUN 147 H* Creatinine 5.0 H Stool Occult Blood Negative - ....Imaging MRI: Image Reviewed Assessment/Plan SOB and hypoxia, acute respiratory failure, intubated Interstitial lung disease Recent b/l PNA Acute on chronic diastolic CHF NSVT PAF CKD Thrombocytopenia REC: No further pafib recorded thus far Heparin discontinued due to dropping platelet count and no recurrence of PAF which was a brief episode on prior admission. 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 Still making urine, diuresing PRN. Renal following. Cont vent support and further management as per critical care. Prognosis guarded.
[2016-06-29] MEDS: methylPREDNISolone NA SUCC 125 MG/2 ML VIAL IVPB SCH (10:19)
[2016-06-29] MEDS: IMIPENEM/CILASTATIN SODIUM 250 MG in SODIUM CHLORIDE 100 ML IVPB SCH ×2 (11:20→21:12)
--- NOTE | 2016-06-29 11:35 | PN ---
Progress Note (short form) - Note Progress Note: doing poorly intubated sedated hypoxic fiO2 100% dopamine Vital Signs Period Temp Pulse Resp BP Sys/Hill Pulse Ox Last 24 Hr 95.8 F-100.3 F 73-93 36-36 100-143/43-56 84-87 cor-rrr lungs decreased bs at bases abd soft,nt ext 1+ edema CBC, BMP 06/29/16 05:50 06/29/16 05:50 Microbiology 06/27/16 09:50 Blood Culture - Preliminary Blood - Peripheral Venous NO GROWTH OBTAINED AFTER 48 HOURS, INCUBATION TO CONTINUE FOR 3 DAYS. 06/27/16 08:30 Blood Culture - Preliminary Blood - Peripheral Venous NO GROWTH OBTAINED AFTER 48 HOURS, INCUBATION TO CONTINUE FOR 3 DAYS. 06/21/16 10:00 Respiratory Virus Panel - Final Nasopharyngeal Swab 06/27/16 09:20 Urine Culture - Final Urine - Urine Soares NO GROWTH OBTAINED 06/26/16 12:30 AFB Smear Concentration - Preliminary Sputum - Endotrachea Suction/Ventilator Direct Acid Fast Bacilli Smear - Final Mycobacterial Culture - Preliminary cxray reviewed Current Medications Albuterol Sulfate (Ventolin 0.083% Nebulizer Soln -) 1 amp NEB Q1H PRN PRN Reason: SHORT OF BREATH/WHEEZING Last Admin: 06/22/16 22:40 Dose: 1 amp Albuterol/Ipratropium (Duoneb -) 1 amp NEB QIDR [facility] Last Admin: 06/29/16 06:18 Dose: 1 amp Artificial Tears (Artificial Tears Ointment -) 1 applic OU Q6H PRN Last Admin: 06/28/16 06:06 Dose: 1 applic Atorvastatin Calcium (Lipitor -) 80 mg PO HS [facility] Last Admin: 06/28/16 22:21 Dose: 80 mg Chlorhexidine Gluconate (Hibiclens For Decolonization -) 1 applic TP HS [facility] Last Admin: 06/28/16 22:21 Dose: 1 applic Chlorhexidine Gluconate (Peridex -) 15 ml MM BID [facility] Last Admin: 06/29/16 09:39 Dose: 15 ml Docusate Sodium (Colace -) 100 mg PO DAILY [facility] Last Admin: 06/28/16 09:15 Dose: 100 mg Fentanyl 500 mcg/ Dextrose 100 mls @ 5 mls/hr IJ TITR JOANNE PRN Reason: 25 MCG/HR Last Admin: 06/29/16 07:06 Dose: 5 mls/hr Dopamine HCl/Dextrose (Dopamine 400 Mg/D5w -) 250 mls @ 17.452 mls/hr IVPB TITR JOANNE; 5 MCG/KG/MIN PRN Reason: Protocol Last Admin: 06/29/16 07:25 Dose: Not Given Propofol (Diprivan -) 100 mls @ 2.817 mls/hr IVPB TITR JOANNE; 5 MCG/KG/MIN PRN Reason: Protocol Last Admin: 06/29/16 10:34 Dose: 14.1 mls/hr Pantoprazole Sodium (Protonix 40mg Ivpb (Pre-Docked)) 100 mls @ 200 mls/hr IVPB DAILY [facility] Last Admin: 06/29/16 09:30 Dose: 200 mls/hr Vecuronium [place] 50 mg/ (Dextrose) 250 mls @ 29.37 mls/hr IVPB TITR JOANNE; 1 MCG/KG/MIN PRN Reason: Protocol Last Titration: 06/29/16 11:16 Dose: 2 mcg/kg/min Imipenem/Cilastatin Sodium 250 (mg/ Sodium Chloride) 100 mls @ 100 mls/hr IVPB BID JOANNE PRN Reason: Protocol Last Admin: 06/29/16 11:20 Dose: 100 mls/hr Azithromycin (Zithromax 500mg Ivpb (Pre-Docked)) 250 mls @ 250 mls/hr IVPB DAILY [facility] Last Admin: 06/28/16 09:15 Dose: 250 mls/hr Insulin Aspart (Novolog Vial Sliding Scale -) 1 vial SQ TIDAC [facility] PRN Reason: Protocol Last Admin: 06/29/16 06:15 Dose: 2 units Insulin Detemir (Levemir Vial) 13 units SQ BIDAC [facility] Last Admin: 06/29/16 06:14 Dose: 13 units Methylprednisolone Sodium Succinate (Solu-Medrol -) 125 mg IVPB DAILY [facility] Last Admin: 06/29/16 10:19 Dose: 125 mg Metoclopramide HCl (Reglan Injection -) 10 mg IVPUSH Q6H PRN PRN Reason: NAUSEA AND/OR VOMITING Last Admin: 06/27/16 23:20 Dose: 10 mg Mupirocin (Bactroban 2% Ointment -) 1 applic TP BID [facility] Last Admin: 06/29/16 09:40 Dose: 1 applic Polyethylene Glycol (Miralax (For Daily Use) -) 17 gm PO DAILY [facility] Last Admin: 06/29/16 09:32 Dose: 17 gm Senna (Senna -) 2 tab PO HS PRN PRN Reason: CONSTIPATION Sevelamer Carbonate (Renvela Powder Packet -) 0.8 gm NGT TIDCM [facility] Last Admin: 06/29/16 09:39 Dose: 0.8 gm a/p Respiratory failure bilateral pulmonary fibrosis ?pneumonia- antibiotics resumed yesterday- imipenem/zithromax remains on steroids doing poorly quincy/ckd Problem List - Problems (1) Bilateral pulmonary infiltrates on CXR Code(s): R91.8 - OTHER NONSPECIFIC ABNORMAL FINDING OF LUNG FIELD (2) Acute respiratory failure with hypoxia Code(s): J96.01 - ACUTE RESPIRATORY FAILURE WITH HYPOXIA (3) CKD stage 4 secondary to hypertension Code(s): I12.9 - HYPERTENSIVE CHRONIC KIDNEY DISEASE W STG 1-4/UNSP CHR KDNY N18.4 - CHRONIC KIDNEY DISEASE, STAGE 4 (SEVERE) (4) Penicillin allergy Code(s): Z88.0 - ALLERGY STATUS TO PENICILLIN
--- NOTE | 2016-06-29 11:41 | PN ---
Progress Note (short form) - Note Progress Note: Renal Follow up for CKD Pt seen and examined in the ICU sedated and paralyzed on the vent no change in clinical status remains non-oliguric s/p Lasix IVP yesterday Vital Signs Temperature 98.3 F 06/29/16 10:00 Pulse Rate 83 06/29/16 10:03 Respiratory Rate 36 H 06/29/16 10:00 Blood Pressure 126/44 06/29/16 10:00 O2 Sat by Pulse Oximetry (%) 84 L 06/29/16 10:04 Intake & Output 06/26/16 06/27/16 06/28/16 06/29/16 23:59 23:59 23:59 23:59 Intake Total 2926 3259 3272 1396 Output Total 1000 800 600 400 Balance 1926 2459 2672 996 Weight 215 lb 14.4 oz 215 lb 9.6 oz 222 lb 8 oz 203 lb 4 oz Gen: Intubated CVS: RRR, No M/R Lungs : + diffuse crackles b/l lung silverman Abd: soft NT/ND Ext: trace to 1+ edema CBC, BMP 06/29/16 05:50 06/29/16 05:50 Current Medications Albuterol Sulfate (Ventolin 0.083% Nebulizer Soln -) 1 amp NEB Q1H PRN PRN Reason: SHORT OF BREATH/WHEEZING Last Admin: 06/22/16 22:40 Dose: 1 amp Albuterol/Ipratropium (Duoneb -) 1 amp NEB QIDR JOANNE Last Admin: 06/29/16 06:18 Dose: 1 amp Artificial Tears (Artificial Tears Ointment -) 1 applic OU Q6H PRN Last Admin: 06/28/16 06:06 Dose: 1 applic Atorvastatin Calcium (Lipitor -) 80 mg PO HS [facility] Last Admin: 06/28/16 22:21 Dose: 80 mg Chlorhexidine Gluconate (Hibiclens For Decolonization -) 1 applic TP HS [facility] Last Admin: 06/28/16 22:21 Dose: 1 applic Chlorhexidine Gluconate (Peridex -) 15 ml MM BID [facility] Last Admin: 06/29/16 09:39 Dose: 15 ml Docusate Sodium (Colace -) 100 mg PO DAILY [facility] Last Admin: 06/28/16 09:15 Dose: 100 mg Fentanyl 500 mcg/ Dextrose 100 mls @ 5 mls/hr IJ TITR JOANNE PRN Reason: 25 MCG/HR Last Admin: 06/29/16 07:06 Dose: 5 mls/hr Dopamine HCl/Dextrose (Dopamine 400 Mg/D5w -) 250 mls @ 17.452 mls/hr IVPB TITR JOANNE; 5 MCG/KG/MIN PRN Reason: Protocol Last Admin: 06/29/16 07:25 Dose: Not Given Propofol (Diprivan -) 100 mls @ 2.817 mls/hr IVPB TITR JOANNE; 5 MCG/KG/MIN PRN Reason: Protocol Last Admin: 06/29/16 10:34 Dose: 14.1 mls/hr Pantoprazole Sodium (Protonix 40mg Ivpb (Pre-Docked)) 100 mls @ 200 mls/hr IVPB DAILY [facility] Last Admin: 06/29/16 09:30 Dose: 200 mls/hr Vecuronium [place] 50 mg/ (Dextrose) 250 mls @ 29.37 mls/hr IVPB TITR JOANNE; 1 MCG/KG/MIN PRN Reason: Protocol Last Titration: 06/29/16 11:16 Dose: 2 mcg/kg/min Imipenem/Cilastatin Sodium 250 (mg/ Sodium Chloride) 100 mls @ 100 mls/hr IVPB BID JOANNE PRN Reason: Protocol Last Admin: 06/29/16 11:20 Dose: 100 mls/hr Azithromycin (Zithromax 500mg Ivpb (Pre-Docked)) 250 mls @ 250 mls/hr IVPB DAILY [facility] Last Admin: 06/28/16 09:15 Dose: 250 mls/hr Insulin Aspart (Novolog Vial Sliding Scale -) 1 vial SQ TIDAC [facility] PRN Reason: Protocol Last Admin: 06/29/16 06:15 Dose: 2 units Insulin Detemir (Levemir Vial) 13 units SQ BIDAC [facility] Last Admin: 06/29/16 06:14 Dose: 13 units Methylprednisolone Sodium Succinate (Solu-Medrol -) 125 mg IVPB DAILY [facility] Last Admin: 06/29/16 10:19 Dose: 125 mg Metoclopramide HCl (Reglan Injection -) 10 mg IVPUSH Q6H PRN PRN Reason: NAUSEA AND/OR VOMITING Last Admin: 06/27/16 23:20 Dose: 10 mg Mupirocin (Bactroban 2% Ointment -) 1 applic TP BID [facility] Last Admin: 06/29/16 09:40 Dose: 1 applic Polyethylene Glycol (Miralax (For Daily Use) -) 17 gm PO DAILY [facility] Last Admin: 06/29/16 09:32 Dose: 17 gm Senna (Senna -) 2 tab PO HS PRN PRN Reason: CONSTIPATION Sevelamer Carbonate (Renvela Powder Packet -) 0.8 gm NGT TIDCM [facility] Last Admin: 06/29/16 09:39 Dose: 0.8 gm A/P 75 year old woman with PMhx of CKD Stage 4, Hypertension (>40 years), Asthma, Osteoarthritis, Former Smoker who presented from [facility] with 1 day history of sob with Resp Failure and worsening renal function. #Acute on Chronic Renal insufficiency renal function continues to worsen pt remains non-oliguric but is in positive balance for the last 5 days Give Lasix 120mg IVPB to attempt to force diuresis no acute indication for dialysis at this time given worsening respiratory status unlikely that dialysis will alter clinical course #Intersitital lung disease/Resp Failure MOLLY is postive, P-ANCA is positive ? untilty of further immuno suppressive medications Rheum Follow up On IV Solumederol s/p pulse steroids #Pseudohypocalcemia Corrected Ca is WNL #Hyperphosphetemia from renal failure continue Phos Binder Q8h Prognosis guarded Raymundo Snyder DO
[2016-06-29] MEDS ORDERED: FUROSEMIDE 100 MG/10 ML INJECTABLE VIAL IVPB ONE (11:44)
[2016-06-29] MEDS: AZITHROMYCIN IVPB 250 ML IVPB SCH (11:59)
--- NOTE | 2016-06-29 13:40 | PN ---
Teaching Attending Note Name of Resident: Gino Stubbs ATTENDING PHYSICIAN STATEMENT I saw and evaluated the patient. I reviewed the resident's note and discussed the case with the resident. I agree with the resident's findings and plan as documented. SUBJECTIVE: Patient seen and examined in the ICU. Remains critically ill on AC mode of vent, 100% FiO2 and PEEP 12. Saturation in the low 80s Low dose dopamine. Paralyzed. CXR: Worsening ARDS pattern Intake & Output 06/26/16 06/27/16 06/28/16 06/29/16 23:59 23:59 23:59 23:59 Intake Total 2926 3259 3272 1396 Output Total 1000 800 600 400 Balance 1926 2459 2672 996 Weight 215 lb 14.4 oz 215 lb 9.6 oz 222 lb 8 oz 203 lb 4 oz Last Vital Signs Temp Pulse Resp BP Pulse Ox 98.3 F 83 36 H 126/44 82 L 06/29/16 10:00 06/29/16 10:03 06/29/16 12:01 06/29/16 10:00 06/29/16 11:48 Active Medications Albuterol Sulfate (Ventolin 0.083% Nebulizer Soln -) 1 amp NEB Q1H PRN PRN Reason: SHORT OF BREATH/WHEEZING Last Admin: 06/22/16 22:40 Dose: 1 amp Albuterol/Ipratropium (Duoneb -) 1 amp NEB QIDR [facility]AN[facility] Last Admin: 06/29/16 06:18 Dose: 1 amp Artificial Tears (Artificial Tears Ointment -) 1 applic OU Q6H PRN Last Admin: 06/28/16 06:06 Dose: 1 applic Atorvastatin Calcium (Lipitor -) 80 mg PO HS [facility] Last Admin: 06/28/16 22:21 Dose: 80 mg Chlorhexidine Gluconate (Hibiclens For Decolonization -) 1 applic TP HS [facility] Last Admin: 06/28/16 22:21 Dose: 1 applic Chlorhexidine Gluconate (Peridex -) 15 ml MM BID [facility] Last Admin: 06/29/16 09:39 Dose: 15 ml Docusate Sodium (Colace -) 100 mg PO DAILY [facility] Last Admin: 06/28/16 09:15 Dose: 100 mg Fentanyl 500 mcg/ Dextrose 100 mls @ 5 mls/hr IJ TITR JOANNE PRN Reason: 25 MCG/HR Last Admin: 06/29/16 07:06 Dose: 5 mls/hr Dopamine HCl/Dextrose (Dopamine 400 Mg/D5w -) 250 mls @ 17.452 mls/hr IVPB TITR JOANNE; 5 MCG/KG/MIN PRN Reason: Protocol Last Admin: 06/29/16 07:25 Dose: Not Given Propofol (Diprivan -) 100 mls @ 2.817 mls/hr IVPB TITR JOANNE; 5 MCG/KG/MIN PRN Reason: Protocol Last Admin: 06/29/16 10:34 Dose: 14.1 mls/hr Pantoprazole Sodium (Protonix 40mg Ivpb (Pre-Docked)) 100 mls @ 200 mls/hr IVPB DAILY [facility] Last Admin: 06/29/16 09:30 Dose: 200 mls/hr Vecuronium [place] 50 mg/ (Dextrose) 250 mls @ 29.37 mls/hr IVPB TITR JOANNE; 1 MCG/KG/MIN PRN Reason: Protocol Last Titration: 06/29/16 12:23 Dose: 2.5 mcg/kg/min Imipenem/Cilastatin Sodium 250 (mg/ Sodium Chloride) 100 mls @ 100 mls/hr IVPB BID [facility] PRN Reason: Protocol Last Admin: 06/29/16 11:20 Dose: 100 mls/hr Azithromycin (Zithromax 500mg Ivpb (Pre-Docked)) 250 mls @ 250 mls/hr IVPB DAILY [facility] Last Admin: 06/29/16 11:59 Dose: 250 mls/hr Insulin Aspart (Novolog Vial Sliding Scale -) 1 vial SQ TIDAC [facility] PRN Reason: Protocol Last Admin: 06/29/16 12:10 Dose: 1 units Insulin Detemir (Levemir Vial) 13 units SQ BIDAC [facility] Last Admin: 06/29/16 06:14 Dose: 13 units Methylprednisolone Sodium Succinate (Solu-Medrol -) 125 mg IVPB DAILY [facility] Last Admin: 06/29/16 10:19 Dose: 125 mg Metoclopramide HCl (Reglan Injection -) 10 mg IVPUSH Q6H PRN PRN Reason: NAUSEA AND/OR VOMITING Last Admin: 06/27/16 23:20 Dose: 10 mg Mupirocin (Bactroban 2% Ointment -) 1 applic TP BID [facility] Last Admin: 06/29/16 09:40 Dose: 1 applic Polyethylene Glycol (Miralax (For Daily Use) -) 17 gm PO DAILY [facility] Last Admin: 06/29/16 09:32 Dose: 17 gm Senna (Senna -) 2 tab PO HS PRN PRN Reason: CONSTIPATION Sevelamer Carbonate (Renvela Powder Packet -) 0.8 gm NGT TID [facility] Last Admin: 06/29/16 12:07 Dose: 0.8 gm Exam: General: sedated/paralyzed on AC mode of mechanical ventilation HEENT: surgical pupils CV: NSR Pulm: bilateral rhonchi Abd: obese, soft Ext: Warm, +2 pulses, LE edema +1-2 Neuro: TOF: 4/4 Laboratory Results - last 24 hr 06/22/16 06/24/16 06/28/16 05:05 18:00 05:35 WBC RBC Hgb Hct MCV MCHC RDW Plt Count MPV Neutrophils % Lymphocytes % Monocytes % Eosinophils % Basophils % Puncture Site ABG pH ABG pCO2 at Pt Temp ABG pO2 at Pt Temp ABG HCO3 ABG O2 Sat (Measured) ABG O2 Content ABG Base Excess Sree Test O2 Delivery Device Oxygen Flow Rate Vent Mode Vent Rate Mechanical Rate PEEP Pressure Support Vent Sodium Potassium Chloride Carbon Dioxide Anion Gap BUN Creatinine Creat Clearance w eGFR POC Glucometer Random Glucose Lactic Acid Calcium Phosphorus Magnesium Total Bilirubin AST ALT Alkaline Phosphatase Total Protein Albumin CMV IgG Ab > 10.00 H CMV IgM Ab A. galactomannan Ag 0.05 Blood Type B POSITIVE Antibody Screen Negative Direct Antiglob Test Negative Crossmatch See Detail 06/28/16 06/28/16 06/29/16 05:35 17:53 05:50 WBC 7.8 RBC 3.48 L Hgb 9.3 L Hct 27.8 L MCV 80.0 MCHC 33.4 RDW 19.9 H Plt Count 42 L MPV 12.2 H Neutrophils % 96.7 H Lymphocytes % 1.4 L Monocytes % 1.4 L Eosinophils % 0.5 D Basophils % 0.0 Puncture Site ABG pH ABG pCO2 at Pt Temp ABG pO2 at Pt Temp ABG HCO3 ABG O2 Sat (Measured) ABG O2 Content ABG Base Excess Sree Test O2 Delivery Device Oxygen Flow Rate Vent Mode Vent Rate Mechanical Rate PEEP Pressure Support Vent Sodium Potassium Chloride Carbon Dioxide Anion Gap BUN Creatinine Creat Clearance w eGFR POC Glucometer [phone] Random Glucose Lactic Acid Calcium Phosphorus Magnesium Total Bilirubin AST ALT Alkaline Phosphatase Total Protein Albumin CMV IgG Ab CMV IgM Ab < 30.0 A. galactomannan Ag Blood Type Antibody Screen Direct Antiglob Test Crossmatch 06/29/16 06/29/16 06/29/16 05:50 05:50 06:00 WBC RBC Hgb Hct MCV MCHC RDW Plt Count MPV Neutrophils % Lymphocytes % Monocytes % Eosinophils % Basophils % Puncture Site ABG pH ABG pCO2 at Pt Temp ABG pO2 at Pt Temp ABG HCO3 ABG O2 Sat (Measured) ABG O2 Content ABG Base Excess Sree Test O2 Delivery Device Oxygen Flow Rate Vent Mode Vent Rate Mechanical Rate PEEP Pressure Support Vent Sodium 134 L Potassium 4.6 Chloride 95 L Carbon Dioxide 22 Anion Gap 17 H BUN 147 H* Creatinine 5.0 H Creat Clearance w eGFR 8.46 POC Glucometer [phone] Random Glucose 169 H Lactic Acid 1.082 Calcium 5.9 L* Phosphorus 7.7 H Magnesium 2.2 Total Bilirubin 0.8 D AST 86 H D ALT 40 D Alkaline Phosphatase 72 D Total Protein 4.7 L Albumin 1.3 L CMV IgG Ab CMV IgM Ab A. galactomannan Ag Blood Type Antibody Screen Direct Antiglob Test Crossmatch 06/29/16 06/29/16 07:10 11:39 WBC RBC Hgb Hct MCV MCHC RDW Plt Count MPV Neutrophils % Lymphocytes % Monocytes % Eosinophils % Basophils % Puncture Site Right radial ABG pH 7.21 L* ABG pCO2 at Pt Temp 51.3 H ABG pO2 at Pt Temp 51.0 L ABG HCO3 19.6 L ABG O2 Sat (Measured) 82.4 L ABG O2 Content 10.5 L ABG Base Excess -7.7 L Sree Test Positive O2 Delivery Device Vent Oxygen Flow Rate 100 Vent Mode A/c Vent Rate 36 Mechanical Rate Yes PEEP 12.0 Pressure Support Vent 300 Sodium Potassium Chloride Carbon Dioxide Anion Gap BUN Creatinine Creat Clearance w eGFR POC Glucometer [phone] Random Glucose Lactic Acid Calcium Phosphorus Magnesium Total Bilirubin AST ALT Alkaline Phosphatase Total Protein Albumin CMV IgG Ab CMV IgM Ab A. galactomannan Ag Blood Type Antibody Screen Direct Antiglob Test Crossmatch ASSESSMENT AND PLAN: Acute Hypoxic Respiratory Failure Suspect Exacerbation of underlying Interstitial Lung Disease s/p pulse steroids (last dose 08/26) ARDS Lactic Acidosis likely from respiratory effort Acute on Chronic Renal Failure Paroxysmal Atrial Fibrillation Pneumonia Do not suspect CHF HTN - Steroid taper - inhaled bronchodilators - titrate FiO2, PEEP to keep SpO2 >90% - low tidal volume ventilation for pPlat < 30, 6cc/kg TV (314cc) - NMBA - monitor ABG - ABX per ID - D/W Renal -> lasix trial - monitor urine output, creatinine - DVT/GI prophylaxis - ICU monitoring - Palliative care evaluation / Need to discuss GOC with family Dr Gatica CCTime 35"
--- NOTE | 2016-06-29 13:43 | PN ---
Addendum entered and electronically signed by Gino Stubbs RES 06/29/16 19:11 : patient is dnr and they don't want HD Original Note: Physical Exam: SUBJECTIVE: Patient seen and examined, patient sedated paralysed on ventilator support. Patient in dopamin support. Renal function is worsening. CXR reviewed, no gross change patient saturation is decreasing on ventilator support fi02 100% OBJECTIVE: Vital Signs Period Temp Pulse Resp BP Sys/Hill Pulse Ox Last 24 Hr 96.9 F-100.3 F 73-93 36-36 100-143/43-56 82-87 GENERAL: sedated, paralized and on ventilator HEAD: Normal with no signs of trauma. ENT: Ears normal, nares patent, moist mucous membranes. NECK: Trachea midline, LUNGS: Breath sounds equal, b/l diffuse rales. HEART: s1s2 normal ABDOMEN: Soft, nontender, nondistended, normoactive bowel sounds, no guarding. EXTREMITIES: 2+ pulses, warm, well-perfused, no edema. NEUROLOGICAL: sedated and intubated SKIN: cold to touch Laboratory Results - last 24 hr 06/22/16 06/24/16 06/28/16 05:05 18:00 05:35 WBC RBC Hgb Hct MCV MCHC RDW Plt Count MPV Neutrophils % Lymphocytes % Monocytes % Eosinophils % Basophils % Puncture Site ABG pH ABG pCO2 at Pt Temp ABG pO2 at Pt Temp ABG HCO3 ABG O2 Sat (Measured) ABG O2 Content ABG Base Excess Sree Test O2 Delivery Device Oxygen Flow Rate Vent Mode Vent Rate Mechanical Rate PEEP Pressure Support Vent Sodium Potassium Chloride Carbon Dioxide Anion Gap BUN Creatinine Creat Clearance w eGFR POC Glucometer Random Glucose Lactic Acid Calcium Phosphorus Magnesium Total Bilirubin AST ALT Alkaline Phosphatase Total Protein Albumin CMV IgG Ab > 10.00 H CMV IgM Ab A. galactomannan Ag 0.05 Blood Type B POSITIVE Antibody Screen Negative Direct Antiglob Test Negative Crossmatch See Detail 06/28/16 06/28/16 06/29/16 05:35 17:53 05:50 WBC 7.8 RBC 3.48 L Hgb 9.3 L Hct 27.8 L MCV 80.0 MCHC 33.4 RDW 19.9 H Plt Count 42 L MPV 12.2 H Neutrophils % 96.7 H Lymphocytes % 1.4 L Monocytes % 1.4 L Eosinophils % 0.5 D Basophils % 0.0 Puncture Site ABG pH ABG pCO2 at Pt Temp ABG pO2 at Pt Temp ABG HCO3 ABG O2 Sat (Measured) ABG O2 Content ABG Base Excess Sree Test O2 Delivery Device Oxygen Flow Rate Vent Mode Vent Rate Mechanical Rate PEEP Pressure Support Vent Sodium Potassium Chloride Carbon Dioxide Anion Gap BUN Creatinine Creat Clearance w eGFR POC Glucometer [phone] Random Glucose Lactic Acid Calcium Phosphorus Magnesium Total Bilirubin AST ALT Alkaline Phosphatase Total Protein Albumin CMV IgG Ab CMV IgM Ab < 30.0 A. galactomannan Ag Blood Type Antibody Screen Direct Antiglob Test Crossmatch 06/29/16 06/29/16 06/29/16 05:50 05:50 06:00 WBC RBC Hgb Hct MCV MCHC RDW Plt Count MPV Neutrophils % Lymphocytes % Monocytes % Eosinophils % Basophils % Puncture Site ABG pH ABG pCO2 at Pt Temp ABG pO2 at Pt Temp ABG HCO3 ABG O2 Sat (Measured) ABG O2 Content ABG Base Excess Sree Test O2 Delivery Device Oxygen Flow Rate Vent Mode Vent Rate Mechanical Rate PEEP Pressure Support Vent Sodium 134 L Potassium 4.6 Chloride 95 L Carbon Dioxide 22 Anion Gap 17 H BUN 147 H* Creatinine 5.0 H Creat Clearance w eGFR 8.46 POC Glucometer [phone] Random Glucose 169 H Lactic Acid 1.082 Calcium 5.9 L* Phosphorus 7.7 H Magnesium 2.2 Total Bilirubin 0.8 D AST 86 H D ALT 40 D Alkaline Phosphatase 72 D Total Protein 4.7 L Albumin 1.3 L CMV IgG Ab CMV IgM Ab A. galactomannan Ag Blood Type Antibody Screen Direct Antiglob Test Crossmatch 06/29/16 06/29/16 07:10 11:39 WBC RBC Hgb Hct MCV MCHC RDW Plt Count MPV Neutrophils % Lymphocytes % Monocytes % Eosinophils % Basophils % Puncture Site Right radial ABG pH 7.21 L* ABG pCO2 at Pt Temp 51.3 H ABG pO2 at Pt Temp 51.0 L ABG HCO3 19.6 L ABG O2 Sat (Measured) 82.4 L ABG O2 Content 10.5 L ABG Base Excess -7.7 L Sree Test Positive O2 Delivery Device Vent Oxygen Flow Rate 100 Vent Mode A/c Vent Rate 36 Mechanical Rate Yes PEEP 12.0 Pressure Support Vent 300 Sodium Potassium Chloride Carbon Dioxide Anion Gap BUN Creatinine Creat Clearance w eGFR POC Glucometer [phone] Random Glucose Lactic Acid Calcium Phosphorus Magnesium Total Bilirubin AST ALT Alkaline Phosphatase Total Protein Albumin CMV IgG Ab CMV IgM Ab A. galactomannan Ag Blood Type Antibody Screen Direct Antiglob Test Crossmatch Active Medications Generic Name Dose Route Start Last Admin Trade Name Freq PRN Reason Stop Dose Admin Albuterol Sulfate 1 amp 06/21/16 01:00 06/22/16 22:40 Ventolin 0.083% Nebulizer Soln - NEB 1 amp Q1H PRN Administration SHORT OF BREATH/WHEEZING Albuterol/Ipratropium 1 amp 06/21/16 06:00 06/29/16 06:18 Duoneb - NEB 1 amp QIDR JOANNE Administration Artificial Tears 1 applic 06/26/16 18:14 06/28/16 06:06 Artificial Tears Ointment - OU 1 applic Q6H PRN Administration Atorvastatin Calcium 80 mg 06/21/16 22:00 06/28/16 22:21 Lipitor - PO 80 mg HS JOANNE Administration Chlorhexidine Gluconate 1 applic 06/25/16 22:00 06/28/16 22:21 Hibiclens For Decolonization - TP 1 applic HS JOANNE Administration Chlorhexidine Gluconate 15 ml 06/26/16 22:00 06/29/16 09:39 Peridex - MM 15 ml BID JOANNE Administration Docusate Sodium 100 mg 06/28/16 10:00 06/28/16 09:15 Colace - PO 100 mg DAILY JOANNE Administration Fentanyl 500 mcg/ Dextrose 100 mls @ 5 mls/hr 06/23/16 21:15 06/29/16 07:06 IJ 5 mls/hr TITR JOANNE Administration 25 MCG/HR Dopamine HCl/Dextrose 250 mls @ 17.452 mls/hr 06/24/16 00:45 06/29/16 07:25 Dopamine 400 Mg/D5w - IVPB Not Given TITR JOANNE Protocol 5 MCG/KG/MIN Propofol 100 mls @ 2.817 mls/hr 06/24/16 11:15 06/29/16 10:34 Diprivan - IVPB 14.1 mls/hr TITR JOANNE Administration Protocol 5 MCG/KG/MIN Pantoprazole Sodium 100 mls @ 200 mls/hr 06/25/16 10:00 06/29/16 09:30 Protonix 40mg Ivpb (Pre-Docked) IVPB 200 mls/hr DAILY JOANNE Administration Vecuronium [place] 50 mg/ 250 mls @ 29.37 mls/hr 06/26/16 13:00 06/29/16 12:23 Dextrose IVPB 2.5 mcg/kg/min TITR JOANNE Titration Protocol 1 MCG/KG/MIN Imipenem/Cilastatin Sodium 250 100 mls @ 100 mls/hr 06/28/16 09:00 06/29/16 11: 20 mg/ Sodium Chloride IVPB 100 mls/hr BID JOANNE Administration Protocol Azithromycin 250 mls @ 250 mls/hr 06/28/16 10:00 06/29/16 11:59 Zithromax 500mg Ivpb (Pre-Docked) IVPB 250 mls/hr DAILY JOANNE Administration Insulin Aspart 1 vial 06/21/16 07:00 06/29/16 12:10 Novolog Vial Sliding Scale - SQ 1 units TIDAC JOANNE Administration Protocol Insulin Detemir 13 units 06/27/16 12:42 06/29/16 06:14 Levemir Vial SQ 13 units BIDAC JOANNE Administration Methylprednisolone Sodium Succinate 125 mg 06/27/16 10:00 06/29/16 10:19 Solu-Medrol - IVPB 125 mg DAILY JOANNE Administration Metoclopramide HCl 10 mg 06/27/16 21:36 06/27/16 23:20 Reglan Injection - IVPUSH 10 mg Q6H PRN Administration NAUSEA AND/OR VOMITING Mupirocin 1 applic 06/25/16 22:00 06/29/16 09:40 Bactroban 2% Ointment - TP 1 applic BID JOANNE Administration Polyethylene Glycol 17 gm 06/23/16 18:00 06/29/16 09:32 Miralax (For Daily Use) - PO 17 gm DAILY JOANNE Administration Senna 2 tab 06/23/16 18:01 Senna - PO HS PRN CONSTIPATION Sevelamer Carbonate 0.8 gm 06/29/16 11:45 06/29/16 12:07 Renvela Powder Packet - NGT 0.8 gm TID JOANNE Administration ASSESSMENT/PLAN: Acute Hypoxic Respiratory Failure could be due to rapid progression of interstial lung ds,ARDS mainatian spo2 over 90, on ventilator support fio2 100%, peep 12, tv 300, rr36 intubated sedated and paralysed completed pulse steroid therapy on 06/26. now on 125 mg iv daily antibiotic as per ID. on duneb qidr monitor intake/ output 600ml on dopamin for low blood pressure and magda.( magda could be due to propofol and fentanyl), keep map > 65 follow abg saturation is decreasing, prognosis and condition explained to her son yesterday evening Hypotension on dopamin drip low dose, Paroxysmal afib recently diagnosed, Remains in NSR. off heparin, cardiology on case not on heparin due to thrombocytopenia ckd monitor cr and bun, bun and cr increasing, renal function worsen monitor urine output, 600ml on phoslo, monitor phosphorus. hyperphosphatemia due to renal failure avoid nephrotoxic drugs nephrology on case : will give lasix trial. high blood glucose secondary to steroid monitor bgm on insulin sliding scale microcytic anemia stool for occult blood negative s/p 2 pc hb 9.5 h/o HTN home meds atenolol, nifedipine and clonidine. on hold dvt pro: scd b/l electrolyte: hyperphosphatemia, onitor potassium gi pro ; protonix Dispo: admit in icu. Patient is full code Visit type - Emergency Visit Emergency Visit: Yes ED Registration Date: 06/20/16 Care time: The patient presented to the Emergency Department on the above date and was hospitalized for further evaluation of their emergent condition. - New Patient This patient is new to me today: No - Critical Care Critical Care patient: Yes Total Critical Care Time (in minutes): 60 Critical Care Statement: The care of this patient involved high complexity decision making to prevent further life threatening deterioration of the patient 's condition and/or to evalute & treat vital organ system(s) failure or risk of failure.
[2016-06-29] MEDS: DOCUSATE SODIUM 100 MG CAPSULE (FP) PO SCH (14:29)
[2016-06-29] MEDS ORDERED: FUROSEMIDE INJECTION 100 MG in DEXTROSE 5%-WATER - 90 ML IVPB SCH (19:15)
[2016-06-29] MEDS ORDERED: FUROSEMIDE 100 MG/10 ML INJECTABLE VIAL ONE (19:41)
--- NOTE | 2016-06-29 19:58 | PN ---
Progress Note (short form) - Note Progress Note: Patient seen and examined Intubated , parImpresalyzed Sedated on dopamine drip Last Vital Signs Temp Pulse Resp BP Pulse Ox 96.4 F L 74 36 H 107/44 82 L 06/29/16 18:00 06/29/16 18:00 06/29/16 18:43 06/29/16 18:00 06/29/16 11:48 HEENT: ?? pupil responsive Oropharynx-intubated Cor: RSR, No murmurs, No gall Lungs: bronchial breath sounds Abd: Soft, Normal bowel sounds, No organomegaly Ext:LE edema Skin: No rashes, Integument intact CBC, BMP 06/29/16 05:50 06/29/16 05:50 Current Medications Generic Name Dose Route Start Last Admin Trade Name Freq PRN Reason Stop Dose Admin Albuterol Sulfate 1 amp 06/21/16 01:00 06/22/16 22:40 Ventolin 0.083% Nebulizer Soln - NEB 1 amp Q1H PRN Administration SHORT OF BREATH/WHEEZING Albuterol/Ipratropium 1 amp 06/21/16 06:00 06/29/16 17:20 Duoneb - NEB 1 amp QIDR JOANNE Administration Artificial Tears 1 applic 06/26/16 18:14 06/28/16 06:06 Artificial Tears Ointment - OU 1 applic Q6H PRN Administration Atorvastatin Calcium 80 mg 06/21/16 22:00 06/28/16 22:21 Lipitor - PO 80 mg HS JOANNE Administration Chlorhexidine Gluconate 1 applic 06/25/16 22:00 06/28/16 22:21 Hibiclens For Decolonization - TP 1 applic HS JOANNE Administration Chlorhexidine Gluconate 15 ml 06/26/16 22:00 06/29/16 09:39 Peridex - MM 15 ml BID JOANNE Administration Docusate Sodium 100 mg 06/28/16 10:00 06/29/16 14:29 Colace - PO Not Given DAILY JOANNE Fentanyl 500 mcg/ Dextrose 100 mls @ 5 mls/hr 06/23/16 21:15 06/29/16 07:06 IJ 5 mls/hr TITR JOANNE Administration 25 MCG/HR Dopamine HCl/Dextrose 250 mls @ 17.452 mls/hr 06/24/16 00:45 06/29/16 07:25 Dopamine 400 Mg/D5w - IVPB Not Given TITR JOANNE Protocol 5 MCG/KG/MIN Propofol 100 mls @ 2.817 mls/hr 06/24/16 11:15 06/29/16 17:35 Diprivan - IVPB 14.1 mls/hr TITR JOANNE Administration Protocol 5 MCG/KG/MIN Pantoprazole Sodium 100 mls @ 200 mls/hr 06/25/16 10:00 06/29/16 09:30 Protonix 40mg Ivpb (Pre-Docked) IVPB 200 mls/hr DAILY JOANNE Administration Vecuronium [place] 50 mg/ 250 mls @ 29.37 mls/hr 06/26/16 13:00 06/29/16 18:36 Dextrose IVPB 73.44 mls/hr TITR JOANNE Administration Protocol 1 MCG/KG/MIN Imipenem/Cilastatin Sodium 250 100 mls @ 100 mls/hr 06/28/16 09:00 06/29/16 11: 20 mg/ Sodium Chloride IVPB 100 mls/hr BID JOANNE Administration Protocol Azithromycin 250 mls @ 250 mls/hr 06/28/16 10:00 06/29/16 11:59 Zithromax 500mg Ivpb (Pre-Docked) IVPB 250 mls/hr DAILY JOANNE Administration Furosemide 100 mg/ Dextrose 100 mls @ 5 mls/hr 06/29/16 19:15 IVPB TITR JOANNE 5 MG/HR Insulin Aspart 1 vial 06/21/16 07:00 06/29/16 17:40 Novolog Vial Sliding Scale - SQ 2 units TIDAC JOANNE Administration Protocol Insulin Detemir 13 units 06/27/16 12:42 06/29/16 17:41 Levemir Vial SQ 13 units BIDAC JOANNE Administration Methylprednisolone Sodium Succinate 125 mg 06/27/16 10:00 06/29/16 10:19 Solu-Medrol - IVPB 125 mg DAILY JOANNE Administration Metoclopramide HCl 10 mg 06/27/16 21:36 06/27/16 23:20 Reglan Injection - IVPUSH 10 mg Q6H PRN Administration NAUSEA AND/OR VOMITING Mupirocin 1 applic 06/25/16 22:00 06/29/16 09:40 Bactroban 2% Ointment - TP 1 applic BID JOANNE Administration Polyethylene Glycol 17 gm 06/23/16 18:00 06/29/16 09:32 Miralax (For Daily Use) - PO 17 gm DAILY JOANNE Administration Senna 2 tab 06/23/16 18:01 Senna - PO HS PRN CONSTIPATION Sevelamer Carbonate 0.8 gm 06/29/16 11:45 06/29/16 17:37 Renvela Powder Packet - NGT 0.8 gm TID JOANNE Administration Impression: Acute hypoxic respiratory failure AILD Sepsis Worsening kidney failure Falling platelet count Critical care monitoring of AILD, pulmonary status \Antibiotics per ID Lasix drip per Renal Await BRITNEY Monitoring CBC PRN blood products Normal PT/PTT against DIC.
[2016-06-29] MEDS: ATORVASTATIN CA 80 MG TABLET (FP) PO SCH (21:12)
[2016-06-29] MEDS: CHLORHEXIDINE GLUCONATE 4% CLEANSER FOR DECOLONIZATION TP SCH (21:13)
[2016-06-30] MEDS: DOPAMINE 400 MG/D5W - 250 ML IVPB SCH (00:02)
[2016-06-30] MEDS: PROPOFOL 100 ML IVPB SCH ×2 (00:04→12:07)
[2016-06-30] MEDS: ALBUTEROL SO4 2.5/IPRATROPIUM 0.5 INH SOL 3 ML VIAL.NEB. NEB SCH ×4 (00:05→18:45)
[2016-06-30] MEDS: FENTANYL INJECTION 500 MCG in DEXTROSE 5%-WATER - 90 ML IJ SCH ×2 (02:03→07:34)
[2016-06-30] MEDS: VECURONIUM BROMIDE 50 MG in DEXTROSE 5%-WATER - 250 ML IVPB SCH ×5 (02:33→22:35)
[2016-06-30 06:06] LABS: BASOPHIL 0.3 % (0-2.0); EOSINOPHIL 0.1 % (0-4.5); MCH 26.5 pg (25.7-33.7); MCHC 32.9 g/dl (32.0-36.0); MEAN CELL VOLUME 80.7 fl (80-96); MEAN PLT VOLUME 10.9 fl (7.5-11.1); NEUTROPHILS 96.2 % (42.8-82.8); PLATELET COUNT 44 K/MM3 (134-434); RDW 19.1 % (11.6-15.6); WHITE BLOOD COUNT 6.9 K/mm3 (4.0-10.0)
[2016-06-30] MEDS ORDERED: PT OWN MED DRAWER 7, Y5N ONE ×3 (06:40→20:23)
[2016-06-30 06:47] LABS: ALBUMIN 1.1 g/dl (3.4-5.0); BILIRUBIN,TOTAL 0.8 mg/dL (0.2-1.0); CREATININE 5.3 mg/dL (0.55-1.02); TOT PROT 4.6 g/dl (6.4-8.2)
[2016-06-30] MEDS: INSULIN SLIDING SCALE (NOVOLOG) 1 VIAL SQ SCH ×3 (06:49→16:30)
[2016-06-30] MEDS: SEVELAMER CARBONATE 0.8 GM POWDER PACKET NGT SCH ×3 (06:50→21:03)
[2016-06-30] MEDS: INSULIN DETEMIR 100 UNITS/ML MDV SQ SCH ×2 (06:52→16:30)
[2016-06-30 07:31] LABS: CALCIUM 6.1 mg/dL (8.5-10.1)
[2016-06-30 07:34] LABS: ARTERIAL BLD GAS O2 SATURATION 83.8 % (90-98.9); ARTERIAL BLOOD GAS BASE EXCESS -9.8 meq/l (-2-2); ARTERIAL BLOOD GAS HCO3 19.1 meq/L (22-26); ARTERIAL BLOOD GAS PO2 55.9 mmHg (70-100); ARTERIAL BLOOD GAS pH 7.12 (7.35-7.45)
[2016-06-30 07:36] LABS: ALLENS TEST POSITIVE; ART PUNCT SITE RIGHT RADIAL; LPM/O2% 100%; MECH. VENT. YES; PT. ON O2? YES; TYPE OF O2 VENT; VENT RATE 36; VT/PRESS 300
[2016-06-30] MEDS ORDERED: SODIUM POLYSTYRENE SULFONATE 15 GM/60 ML BOTTLE PO ONE (07:41)
--- NOTE | 2016-06-30 07:41 | PN ---
Progress Note, Physician Chief Complaint: ID No change in overall condition whcih is critical /grave Imipenem and Azithromycin to cover the possibility of secondary infection although recent cultures all no growth - Current Medication List Current Medications: Active Medications Albuterol Sulfate (Ventolin 0.083% Nebulizer Soln -) 1 amp NEB Q1H PRN PRN Reason: SHORT OF BREATH/WHEEZING Last Admin: 06/22/16 22:40 Dose: 1 amp Albuterol/Ipratropium (Duoneb -) 1 amp NEB QIDR JOANNE Last Admin: 06/30/16 06:47 Dose: 1 amp Artificial Tears (Artificial Tears Ointment -) 1 applic OU Q6H PRN Last Admin: 06/28/16 06:06 Dose: 1 applic Atorvastatin Calcium (Lipitor -) 80 mg PO HS [facility] Last Admin: 06/29/16 21:12 Dose: 80 mg Chlorhexidine Gluconate (Hibiclens For Decolonization -) 1 applic TP HS [facility] Last Admin: 06/29/16 21:13 Dose: 1 applic Chlorhexidine Gluconate (Peridex -) 15 ml MM BID [facility] Last Admin: 06/29/16 21:12 Dose: 15 ml Docusate Sodium (Colace -) 100 mg PO DAILY [facility] Last Admin: 06/29/16 14:29 Dose: Not Given Fentanyl 500 mcg/ Dextrose 100 mls @ 5 mls/hr IJ TITR JOANNE PRN Reason: 25 MCG/HR Last Admin: 06/30/16 07:34 Dose: 5 mls/hr Dopamine HCl/Dextrose (Dopamine 400 Mg/D5w -) 250 mls @ 17.452 mls/hr IVPB TITR JOANNE; 5 MCG/KG/MIN PRN Reason: Protocol Last Admin: 06/30/16 00:02 Dose: 7.1 mls/hr Propofol (Diprivan -) 100 mls @ 2.817 mls/hr IVPB TITR JOANNE; 5 MCG/KG/MIN PRN Reason: Protocol Last Admin: 06/30/16 00:04 Dose: 14.1 mls/hr Pantoprazole Sodium (Protonix 40mg Ivpb (Pre-Docked)) 100 mls @ 200 mls/hr IVPB DAILY [facility] Last Admin: 06/29/16 09:30 Dose: 200 mls/hr Vecuronium [place] 50 mg/ (Dextrose) 250 mls @ 29.37 mls/hr IVPB TITR JOANNE; 1 MCG/KG/MIN PRN Reason: Protocol Last Admin: 06/30/16 02:33 Dose: 73.4 mls/hr Imipenem/Cilastatin Sodium 250 (mg/ Sodium Chloride) 100 mls @ 100 mls/hr IVPB BID JOANNE PRN Reason: Protocol Last Admin: 06/29/16 21:12 Dose: 100 mls/hr Azithromycin (Zithromax 500mg Ivpb (Pre-Docked)) 250 mls @ 250 mls/hr IVPB DAILY JOANNE Last Admin: 06/29/16 11:59 Dose: 250 mls/hr Furosemide 100 mg/ Dextrose 100 mls @ 5 mls/hr IVPB TITR JOANNE PRN Reason: 5 MG/HR Last Admin: 06/29/16 19:53 Dose: 5 mls/hr Insulin Aspart (Novolog Vial Sliding Scale -) 1 vial SQ TIDAC JOANNE PRN Reason: Protocol Last Admin: 06/30/16 06:49 Dose: Not Given Insulin Detemir (Levemir Vial) 13 units SQ BIDAC [facility] Last Admin: 06/30/16 06:52 Dose: 13 units Methylprednisolone Sodium Succinate (Solu-Medrol -) 125 mg IVPB DAILY [facility] Last Admin: 06/29/16 10:19 Dose: 125 mg Metoclopramide HCl (Reglan Injection -) 10 mg IVPUSH Q6H PRN PRN Reason: NAUSEA AND/OR VOMITING Last Admin: 06/27/16 23:20 Dose: 10 mg Mupirocin (Bactroban 2% Ointment -) 1 applic TP BID [facility] Last Admin: 06/29/16 21:12 Dose: 1 applic Polyethylene Glycol (Miralax (For Daily Use) -) 17 gm PO DAILY [facility] Last Admin: 06/29/16 09:32 Dose: 17 gm Senna (Senna -) 2 tab PO HS PRN PRN Reason: CONSTIPATION Sevelamer Carbonate (Renvela Powder Packet -) 0.8 gm NGT TID [facility] Last Admin: 06/30/16 06:50 Dose: 0.8 gm - Objective Vital Signs: Vital Signs Temperature 98 F 06/30/16 02:00 Pulse Rate 92 H 06/30/16 07:32 Respiratory Rate 36 H 06/30/16 07:32 Blood Pressure 96/49 06/30/16 07:32 O2 Sat by Pulse Oximetry (%) 91 L 06/29/16 22:00 Constitutional: Yes: Severe Distress, Obese Cardiovascular: Yes: Regular Rate and Rhythm, S1, S2 Respiratory: Yes: WNL, Regular, Rhonchi Gastrointestinal: Yes: Soft, Abdomen, Obese. No: Tenderness Edema: No Labs: CBC, BMP 06/30/16 05:30 06/30/16 05:30 INR, PTT INR 1.12 (0.82-1.09) 06/28/16 05:35 Fibrinogen 520.0 mg/dL (238-498) H 06/26/16 05:10 Problem List - Problems (1) Acute respiratory failure with hypoxia Code(s): J96.01 - ACUTE RESPIRATORY FAILURE WITH HYPOXIA (2) Pulmonary fibrosis Code(s): J84.10 - PULMONARY FIBROSIS, UNSPECIFIED (3) Bilateral pulmonary infiltrates on CXR Code(s): R91.8 - OTHER NONSPECIFIC ABNORMAL FINDING OF LUNG FIELD Assessment/Plan Laboratory Tests 06/30/16 06/30/16 05:30 05:30 WBC 6.9 Hgb 8.6 L Hct 26.3 L Plt Count 44 L BUN 161 H* Creatinine 5.3 H Assessment ARDS Pulmonary fibrosis with complicating lung injury Thrombocytopenia Acute and chronic renal failure Plan Continue present supportive care Miguel A STILL
--- NOTE | 2016-06-30 08:42 | PN ---
Progress Note, Physician Chief Complaint: intubated sedated On lasix gtts On dopamine gtts History of Present Illness: TELE: NSR, short self limited run PSVT- non-sustained - Current Medication List Current Medications: Active Medications Albuterol Sulfate (Ventolin 0.083% Nebulizer Soln -) 1 amp NEB Q1H PRN PRN Reason: SHORT OF BREATH/WHEEZING Last Admin: 06/22/16 22:40 Dose: 1 amp Albuterol/Ipratropium (Duoneb -) 1 amp NEB QIDR JOANNE Last Admin: 06/30/16 06:47 Dose: 1 amp Artificial Tears (Artificial Tears Ointment -) 1 applic OU Q6H PRN Last Admin: 06/28/16 06:06 Dose: 1 applic Atorvastatin Calcium (Lipitor -) 80 mg PO HS [facility] Last Admin: 06/29/16 21:12 Dose: 80 mg Chlorhexidine Gluconate (Hibiclens For Decolonization -) 1 applic TP HS [facility] Last Admin: 06/29/16 21:13 Dose: 1 applic Chlorhexidine Gluconate (Peridex -) 15 ml MM BID [facility] Last Admin: 06/29/16 21:12 Dose: 15 ml Docusate Sodium (Colace -) 100 mg PO DAILY [facility] Last Admin: 06/29/16 14:29 Dose: Not Given Fentanyl 500 mcg/ Dextrose 100 mls @ 5 mls/hr IJ TITR JOANNE PRN Reason: 25 MCG/HR Last Admin: 06/30/16 07:34 Dose: 5 mls/hr Dopamine HCl/Dextrose (Dopamine 400 Mg/D5w -) 250 mls @ 17.452 mls/hr IVPB TITR JOANNE; 5 MCG/KG/MIN PRN Reason: Protocol Last Admin: 06/30/16 00:02 Dose: 7.1 mls/hr Propofol (Diprivan -) 100 mls @ 2.817 mls/hr IVPB TITR JOANNE; 5 MCG/KG/MIN PRN Reason: Protocol Last Admin: 06/30/16 00:04 Dose: 14.1 mls/hr Pantoprazole Sodium (Protonix 40mg Ivpb (Pre-Docked)) 100 mls @ 200 mls/hr IVPB DAILY [facility] Last Admin: 06/29/16 09:30 Dose: 200 mls/hr Vecuronium [place] 50 mg/ (Dextrose) 250 mls @ 29.37 mls/hr IVPB TITR JOANNE; 1 MCG/KG/MIN PRN Reason: Protocol Last Admin: 06/30/16 02:33 Dose: 73.4 mls/hr Imipenem/Cilastatin Sodium 250 (mg/ Sodium Chloride) 100 mls @ 100 mls/hr IVPB BID JOANNE PRN Reason: Protocol Last Admin: 06/29/16 21:12 Dose: 100 mls/hr Azithromycin (Zithromax 500mg Ivpb (Pre-Docked)) 250 mls @ 250 mls/hr IVPB DAILY [facility] Last Admin: 06/29/16 11:59 Dose: 250 mls/hr Furosemide 100 mg/ Dextrose 100 mls @ 5 mls/hr IVPB TITR JOANNE PRN Reason: 5 MG/HR Last Admin: 06/29/16 19:53 Dose: 5 mls/hr Insulin Aspart (Novolog Vial Sliding Scale -) 1 vial SQ TIDAC JOANNE PRN Reason: Protocol Last Admin: 06/30/16 06:49 Dose: Not Given Insulin Detemir (Levemir Vial) 13 units SQ BIDAC [facility] Last Admin: 06/30/16 06:52 Dose: 13 units Methylprednisolone Sodium Succinate (Solu-Medrol -) 125 mg IVPB DAILY [facility] Last Admin: 06/29/16 10:19 Dose: 125 mg Metoclopramide HCl (Reglan Injection -) 10 mg IVPUSH Q6H PRN PRN Reason: NAUSEA AND/OR VOMITING Last Admin: 06/27/16 23:20 Dose: 10 mg Mupirocin (Bactroban 2% Ointment -) 1 applic TP BID [facility] Last Admin: 06/29/16 21:12 Dose: 1 applic Polyethylene Glycol (Miralax (For Daily Use) -) 17 gm PO DAILY [facility] Last Admin: 06/29/16 09:32 Dose: 17 gm Senna (Senna -) 2 tab PO HS PRN PRN Reason: CONSTIPATION Sevelamer Carbonate (Renvela Powder Packet -) 0.8 gm NGT TID [facility] Last Admin: 06/30/16 06:50 Dose: 0.8 gm - Objective Vital Signs: Vital Signs Temperature 98 F 06/30/16 02:00 Pulse Rate 92 H 06/30/16 08:00 Respiratory Rate 36 H 06/30/16 08:00 Blood Pressure 98/57 06/30/16 08:00 O2 Sat by Pulse Oximetry (%) 86 L 06/30/16 08:00 HENT: Yes: Other (+ ETT) Cardiovascular: Yes: Regular Rate and Rhythm Respiratory: Yes: Other (= breath sounds, no rales) Gastrointestinal: Yes: Soft Edema: No Neurological: Yes: Other (sedated on vent) Labs: CBC, BMP 06/30/16 05:30 06/30/16 05:30 INR, PTT INR 1.12 (0.82-1.09) 06/28/16 05:35 Fibrinogen 520.0 mg/dL (238-498) H 06/26/16 05:10 Laboratory Tests 06/30/16 06/30/16 06/30/16 05:30 05:30 07:20 WBC 6.9 Hgb 8.6 L Hct 26.3 L Plt Count 44 L ABG pH 7.12 L* ABG pCO2 at Pt Temp 61.4 H* ABG pO2 at Pt Temp 55.9 L Oxygen Flow Rate 100% Sodium 128 L Potassium 5.4 H BUN 161 H* Creatinine 5.3 H - ....Imaging EKG: Image Reviewed Assessment/Plan Assessment/Plan SOB and hypoxia, acute respiratory failure, intubated Interstitial lung disease Recent b/l PNA Acute on chronic diastolic CHF NSVT PAF CKD Thrombocytopenia REC: No further pafib noted Heparin discontinued due to dropping platelet count and no recurrence of PAF which was a brief episode on prior admission. 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 As per discussion w/ RN, patient's prior wishes for DNR, no HD. On Lasix gtts now. Cont vent support and further management as per critical care.
[2016-06-30] MEDS: DOCUSATE SODIUM 100 MG CAPSULE (FP) PO SCH (09:04)
[2016-06-30] MEDS: CHLORHEXIDINE GLUCONATE 0.12% 15ML CUP MM SCH ×2 (09:04→21:03)
[2016-06-30] MEDS: MUPIROCIN 2% TOPICAL OINTMENT 22 GM TUBE TP SCH ×2 (09:04→21:03)
[2016-06-30] MEDS: methylPREDNISolone NA SUCC 125 MG/2 ML VIAL IVPB SCH (09:05)
[2016-06-30] MEDS: IMIPENEM/CILASTATIN SODIUM 250 MG in SODIUM CHLORIDE 100 ML IVPB SCH ×2 (09:05→21:03)
[2016-06-30] MEDS: PANTOPRAZOLE SODIUM 100 ML IVPB SCH (09:05)
[2016-06-30] MEDS: AZITHROMYCIN IVPB 250 ML IVPB SCH (09:06)
[2016-06-30] MEDS: MINERAL OIL/PETROLATUM,WHITE 3.5 GM TUBE OU PRN (09:06)
[2016-06-30] MEDS: POLYETHYLENE GLYCOL 3350 119 GM BTL PO SCH (09:19)
--- NOTE | 2016-06-30 09:48 | PN ---
Progress Note, Physician History of Present Illness: ON VENT SEDATED - Current Medication List Current Medications: Active Medications Albuterol Sulfate (Ventolin 0.083% Nebulizer Soln -) 1 amp NEB Q1H PRN PRN Reason: SHORT OF BREATH/WHEEZING Last Admin: 06/22/16 22:40 Dose: 1 amp Albuterol/Ipratropium (Duoneb -) 1 amp NEB QIDR JOANNE Last Admin: 06/30/16 06:47 Dose: 1 amp Artificial Tears (Artificial Tears Ointment -) 1 applic OU Q6H PRN Last Admin: 06/30/16 09:06 Dose: 1 applic Atorvastatin Calcium (Lipitor -) 80 mg PO HS JOANNE Last Admin: 06/29/16 21:12 Dose: 80 mg Chlorhexidine Gluconate (Hibiclens For Decolonization -) 1 applic TP HS [facility] Last Admin: 06/29/16 21:13 Dose: 1 applic Chlorhexidine Gluconate (Peridex -) 15 ml MM BID JOANNE Last Admin: 06/30/16 09:04 Dose: 15 ml Docusate Sodium (Colace -) 100 mg PO DAILY [facility] Last Admin: 06/30/16 09:04 Dose: Not Given Fentanyl 500 mcg/ Dextrose 100 mls @ 5 mls/hr IJ TITR JOANNE PRN Reason: 25 MCG/HR Last Admin: 06/30/16 07:34 Dose: 5 mls/hr Dopamine HCl/Dextrose (Dopamine 400 Mg/D5w -) 250 mls @ 17.452 mls/hr IVPB TITR JOANNE; 5 MCG/KG/MIN PRN Reason: Protocol Last Admin: 06/30/16 00:02 Dose: 7.1 mls/hr Propofol (Diprivan -) 100 mls @ 2.817 mls/hr IVPB TITR JOANNE; 5 MCG/KG/MIN PRN Reason: Protocol Last Admin: 06/30/16 00:04 Dose: 14.1 mls/hr Pantoprazole Sodium (Protonix 40mg Ivpb (Pre-Docked)) 100 mls @ 200 mls/hr IVPB DAILY [facility] Last Admin: 06/30/16 09:05 Dose: 200 mls/hr Vecuronium [place] 50 mg/ (Dextrose) 250 mls @ 29.37 mls/hr IVPB TITR JOANNE; 1 MCG/KG/MIN PRN Reason: Protocol Last Admin: 06/30/16 02:33 Dose: 73.4 mls/hr Imipenem/Cilastatin Sodium 250 (mg/ Sodium Chloride) 100 mls @ 100 mls/hr IVPB BID JOANNE PRN Reason: Protocol Last Admin: 06/30/16 09:05 Dose: 100 mls/hr Azithromycin (Zithromax 500mg Ivpb (Pre-Docked)) 250 mls @ 250 mls/hr IVPB DAILY [facility] Last Admin: 06/30/16 09:06 Dose: 250 mls/hr Furosemide 100 mg/ Dextrose 100 mls @ 5 mls/hr IVPB TITR JOANNE PRN Reason: 5 MG/HR Last Admin: 06/29/16 19:53 Dose: 5 mls/hr Insulin Aspart (Novolog Vial Sliding Scale -) 1 vial SQ TIDAC [facility] PRN Reason: Protocol Last Admin: 06/30/16 06:49 Dose: Not Given Insulin Detemir (Levemir Vial) 13 units SQ BIDAC [facility] Last Admin: 06/30/16 06:52 Dose: 13 units Methylprednisolone Sodium Succinate (Solu-Medrol -) 125 mg IVPB DAILY [facility] Last Admin: 06/30/16 09:05 Dose: 125 mg Metoclopramide HCl (Reglan Injection -) 10 mg IVPUSH Q6H PRN PRN Reason: NAUSEA AND/OR VOMITING Last Admin: 06/27/16 23:20 Dose: 10 mg Mupirocin (Bactroban 2% Ointment -) 1 applic TP BID [facility] Last Admin: 06/30/16 09:04 Dose: 1 applic Polyethylene Glycol (Miralax (For Daily Use) -) 17 gm PO DAILY [facility] Last Admin: 06/30/16 09:19 Dose: 17 gm Senna (Senna -) 2 tab PO HS PRN PRN Reason: CONSTIPATION Sevelamer Carbonate (Renvela Powder Packet -) 0.8 gm NGT TID [facility] Last Admin: 06/30/16 06:50 Dose: 0.8 gm - Objective Vital Signs: Vital Signs Temperature 98.2 F 06/30/16 09:34 Pulse Rate 90 06/30/16 09:10 Respiratory Rate 36 H 06/30/16 09:10 Blood Pressure 105/57 06/30/16 09:10 O2 Sat by Pulse Oximetry (%) 86 L 06/30/16 08:39 Cardiovascular: Yes: S1, S2 Respiratory: Yes: Mechanically Ventilated Gastrointestinal: Yes: Normal Bowel Sounds, Soft Labs: CBC, BMP 06/30/16 05:30 06/30/16 05:30 INR, PTT INR 1.12 (0.82-1.09) 06/28/16 05:35 Fibrinogen 520.0 mg/dL (238-498) H 06/26/16 05:10 Problem List - Problems (1) Pneumonia Assessment/Plan: IV ABX ID CONSULT NOTED RHEUMOTOLGY NOTED Code(s): J18.9 - PNEUMONIA, UNSPECIFIED ORGANISM (2) COPD exacerbation Assessment/Plan: IV STEROIDS NEBS PULM Code(s): J44.1 - CHRONIC OBSTRUCTIVE PULMONARY DISEASE W (ACUTE) EXACERBATION (3) CHF exacerbation Code(s): I50.9 - HEART FAILURE, UNSPECIFIED Qualifiers: Congestive heart failure type: unspecified congestive heart failure type Qualified Code(s): I50.9 - Heart failure, unspecified (4) CKD stage 4 secondary to hypertension Assessment/Plan: WORSENING MONITOR RENAL ON BOARD Code(s): I12.9 - HYPERTENSIVE CHRONIC KIDNEY DISEASE W STG 1-4/UNSP CHR KDNY N18.4 - CHRONIC KIDNEY DISEASE, STAGE 4 (SEVERE) (5) Lactic acid acidosis Code(s): E87.2 - ACIDOSIS (6) Elevated troponin Code(s): R79.89 - OTHER SPECIFIED ABNORMAL FINDINGS OF BLOOD CHEMISTRY (7) Sepsis Assessment/Plan: CULTURES ABX PER ID Microbiology 06/27/16 08:30 Blood - Peripheral Venous Blood Culture - Preliminary NO GROWTH OBTAINED AFTER 24 HOURS, INCUBATION TO CONTINUE FOR 4 DAYS. 06/24/16 18:00 Sputum - Endotrachea Suction/Ventilator Gram Stain - Final 06/24/16 18:00 Sputum - Endotrachea Suction/Ventilator Sputum Culture - Final NORMAL RESPIRATORY LUIS 06/20/16 20:00 Blood - Peripheral Venous Blood Culture - Final NO GROWTH AFTER 5 DAYS INCUBATION 06/20/16 19:50 Blood - Peripheral Venous Blood Culture - Final NO GROWTH AFTER 5 DAYS INCUBATION 06/21/16 15:20 Blood - Peripheral Venous TB Test (QFT) (ADRIANE) - Final 06/22/16 05:05 Serum Cryptococcal Antigen - Final 06/24/16 16:00 Sputum - Endotrachea Suction/Ventilator GRACIELA Preparation - Preliminary 06/24/16 16:00 Sputum - Endotrachea Suction/Ventilator Fungal Culture - Preliminary 06/23/16 19:00 Urine For Antigen Detection Legionella Antigen - Final 06/23/16 19:00 Urine For Antigen Detection Streptococcus pneumoniae Antigen (M - Final 06/21/16 10:00 Nasopharyngeal Swab Respiratory Virus Panel - Preliminary 06/21/16 10:00 Nasopharyngeal Swab Influenza Types A,B Antigen (ADRIANE) - Final 06/21/16 10:00 Nasopharyngeal Swab - Final 06/20/16 20:37 Urine - Urine Clean Catch Urine Culture - Final NO GROWTH OBTAINED Code(s): A41.9 - SEPSIS, UNSPECIFIED ORGANISM (8) HTN (hypertension) Code(s): I10 - ESSENTIAL (PRIMARY) HYPERTENSION (9) Thrombocytopenia Code(s): D69.6 - THROMBOCYTOPENIA, UNSPECIFIED (10) Respiratory failure Assessment/Plan: VENT SETTING PER PULM PROGRESSIVE INTERSTITIAL DS? Code(s): J96.90 - RESPIRATORY FAILURE, UNSP, UNSP W HYPOXIA OR HYPERCAPNIA (11) Hypotension Code(s): I95.9 - HYPOTENSION, UNSPECIFIED
--- NOTE | 2016-06-30 11:23 | PN ---
Progress Note (short form) - Note Progress Note: Renal Follow up for CKD Pt seen and examined in the ICU pt is hypotensive and more hypoxic this am remains sedated on the vent 100% FiO2 UO is 800cc Pt was made DNR yesterday Vital Signs Temperature 98.2 F 06/30/16 09:34 Pulse Rate 92 H 06/30/16 11:10 Respiratory Rate 36 H 06/30/16 11:10 Blood Pressure 80/53 06/30/16 11:10 O2 Sat by Pulse Oximetry (%) 80 L 06/30/16 10:38 Intake & Output 06/27/16 06/28/16 06/29/16 06/30/16 23:59 23:59 23:59 23:59 Intake Total 3259 3272 4373 1081 Output Total 800 600 800 200 Balance 2459 2672 3573 881 Weight 215 lb 9.6 oz 222 lb 8 oz 203 lb 4 oz 231 lb 4.238 oz Gen: Intubated CVS: RRR, No M/R Lungs : + diffuse crackles b/l lung [place]man Abd: soft NT/ND Ext: trace edema CBC, BMP 06/30/16 05:30 06/30/16 05:30 Current Medications Albuterol Sulfate (Ventolin 0.083% Nebulizer Soln -) 1 amp NEB Q1H PRN PRN Reason: SHORT OF BREATH/WHEEZING Last Admin: 06/22/16 22:40 Dose: 1 amp Albuterol/Ipratropium (Duoneb -) 1 amp NEB QIDR [facility] Last Admin: 06/30/16 06:47 Dose: 1 amp Artificial Tears (Artificial Tears Ointment -) 1 applic OU Q6H PRN Last Admin: 06/30/16 09:06 Dose: 1 applic Atorvastatin Calcium (Lipitor -) 80 mg PO HS [facility] Last Admin: 06/29/16 21:12 Dose: 80 mg Chlorhexidine Gluconate (Hibiclens For Decolonization -) 1 applic TP HS [facility] Last Admin: 06/29/16 21:13 Dose: 1 applic Chlorhexidine Gluconate (Peridex -) 15 ml MM BID [facility] Last Admin: 06/30/16 09:04 Dose: 15 ml Docusate Sodium (Colace -) 100 mg PO DAILY [facility] Last Admin: 06/30/16 09:04 Dose: Not Given Fentanyl 500 mcg/ Dextrose 100 mls @ 5 mls/hr IJ TITR JOANNE PRN Reason: 25 MCG/HR Last Admin: 06/30/16 07:34 Dose: 5 mls/hr Dopamine HCl/Dextrose (Dopamine 400 Mg/D5w -) 250 mls @ 17.452 mls/hr IVPB TITR JOANNE; 5 MCG/KG/MIN PRN Reason: Protocol Last Titration: 06/30/16 10:00 Dose: 4 mcg/kg/min Propofol (Diprivan -) 100 mls @ 2.817 mls/hr IVPB TITR JOANNE; 5 MCG/KG/MIN PRN Reason: Protocol Last Admin: 06/30/16 00:04 Dose: 14.1 mls/hr Pantoprazole Sodium (Protonix 40mg Ivpb (Pre-Docked)) 100 mls @ 200 mls/hr IVPB DAILY [facility] Last Admin: 06/30/16 09:05 Dose: 200 mls/hr Vecuronium [place] 50 mg/ (Dextrose) 250 mls @ 29.37 mls/hr IVPB TITR JOANNE; 1 MCG/KG/MIN PRN Reason: Protocol Last Titration: 06/30/16 10:41 Dose: 3 mcg/kg/min Imipenem/Cilastatin Sodium 250 (mg/ Sodium Chloride) 100 mls @ 100 mls/hr IVPB BID [facility] PRN Reason: Protocol Last Admin: 06/30/16 09:05 Dose: 100 mls/hr Azithromycin (Zithromax 500mg Ivpb (Pre-Docked)) 250 mls @ 250 mls/hr IVPB DAILY [facility] Last Admin: 06/30/16 09:06 Dose: 250 mls/hr Insulin Aspart (Novolog Vial Sliding Scale -) 1 vial SQ TIDAC [facility] PRN Reason: Protocol Last Admin: 06/30/16 11:17 Dose: 3 units Insulin Detemir (Levemir Vial) 13 units SQ BIDAC [facility] Last Admin: 06/30/16 06:52 Dose: 13 units Methylprednisolone Sodium Succinate (Solu-Medrol -) 125 mg IVPB DAILY [facility] Last Admin: 06/30/16 09:05 Dose: 125 mg Metoclopramide HCl (Reglan Injection -) 10 mg IVPUSH Q6H PRN PRN Reason: NAUSEA AND/OR VOMITING Last Admin: 06/27/16 23:20 Dose: 10 mg Mupirocin (Bactroban 2% Ointment -) 1 applic TP BID [facility] Last Admin: 06/30/16 09:04 Dose: 1 applic Polyethylene Glycol (Miralax (For Daily Use) -) 17 gm PO DAILY [facility] Last Admin: 06/30/16 09:19 Dose: 17 gm Senna (Senna -) 2 tab PO HS PRN PRN Reason: CONSTIPATION Sevelamer Carbonate (Renvela Powder Packet -) 0.8 gm NGT TID [facility] Last Admin: 06/30/16 06:50 Dose: 0.8 gm A/P 75 year old woman with PMhx of CKD Stage 4, Hypertension (>40 years), Asthma, Osteoarthritis, Former Smoker who presented from [facility] with 1 day history of sob with Resp Failure and worsening renal function. 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
[2016-06-30 14:17] LABS: HIGH DOSE HEPARIN SRA < 1 % (0-20); LOW DOSE HEPARIN SRA < 1 % (0-20)
--- NOTE | 2016-06-30 15:18 | PN ---
Physical Exam: SUBJECTIVE: Patient seen and examined, Patient seen and examined, patient sedated paralysed on ventilator support. Patient in dopamin support. Renal function is worsening,patient saturation is decreasing on ventilator support fi02 100% OBJECTIVE: Vital Signs Period Temp Pulse Resp BP Sys/Hill Pulse Ox Last 24 Hr 96 F-98.2 F 70-96 36-36 60-109/30-57 80-91 GENERAL: sedated, paralized and on ventilator HEAD: Normal with no signs of trauma, pupil not reacting ENT: Ears normal, nares patent, moist mucous membranes. NECK: Trachea midline, LUNGS: Breath sounds equal, b/l diffuse rales. HEART: s1s2 normal ABDOMEN: Soft, nontender, nondistended, normoactive bowel sounds, no guarding. EXTREMITIES: 2+ pulses, warm, well-perfused, no edema. NEUROLOGICAL: sedated and intubated SKIN: cold to touch Laboratory Results - last 24 hr 06/28/16 06/29/16 06/30/16 05:59 17:31 05:30 WBC 6.9 RBC 3.25 L Hgb 8.6 L Hct 26.3 L MCV 80.7 MCHC 32.9 RDW 19.1 H Plt Count 44 L MPV 10.9 D Neutrophils % 96.2 H Lymphocytes % 0.8 L Monocytes % 2.6 L D Eosinophils % 0.1 Basophils % 0.3 D Puncture Site ABG pH ABG pCO2 at Pt Temp ABG pO2 at Pt Temp ABG HCO3 ABG O2 Sat (Measured) ABG O2 Content ABG Base Excess Sree Test O2 Delivery Device Oxygen Flow Rate Vent Mode Vent Rate Mechanical Rate PEEP Pressure Support Vent Sodium Potassium Chloride Carbon Dioxide Anion Gap BUN Creatinine Creat Clearance w eGFR POC Glucometer 182.48531 239.71894 Random Glucose Lactic Acid Calcium Total Bilirubin AST ALT Alkaline Phosphatase Total Protein Albumin 06/30/16 06/30/16 06/30/16 05:30 05:30 06:47 WBC RBC Hgb Hct MCV MCHC RDW Plt Count MPV Neutrophils % Lymphocytes % Monocytes % Eosinophils % Basophils % Puncture Site ABG pH ABG pCO2 at Pt Temp ABG pO2 at Pt Temp ABG HCO3 ABG O2 Sat (Measured) ABG O2 Content ABG Base Excess Sree Test O2 Delivery Device Oxygen Flow Rate Vent Mode Vent Rate Mechanical Rate PEEP Pressure Support Vent Sodium 128 L Potassium 5.4 H Chloride 90 L Carbon Dioxide 22 Anion Gap 16 BUN 161 H* Creatinine 5.3 H Creat Clearance w eGFR 7.91 POC Glucometer 143.88986 Random Glucose 130 H D Lactic Acid 1.379 Calcium 6.1 L* Total Bilirubin 0.8 AST 59 H D ALT 34 Alkaline Phosphatase 62 Total Protein 4.6 L Albumin 1.1 L 06/30/16 06/30/16 07:20 11:16 WBC RBC Hgb Hct MCV MCHC RDW Plt Count MPV Neutrophils % Lymphocytes % Monocytes % Eosinophils % Basophils % Puncture Site Right radial ABG pH 7.12 L* ABG pCO2 at Pt Temp 61.4 H* ABG pO2 at Pt Temp 55.9 L ABG HCO3 19.1 L ABG O2 Sat (Measured) 83.8 L ABG O2 Content 9.9 L* ABG Base Excess -9.8 L Sree Test Positive O2 Delivery Device Vent Oxygen Flow Rate 100% Vent Mode A/c Vent Rate 36 Mechanical Rate Yes PEEP 12.0 Pressure Support Vent 300 Sodium Potassium Chloride Carbon Dioxide Anion Gap BUN Creatinine Creat Clearance w eGFR POC Glucometer 270.57508 Random Glucose Lactic Acid Calcium Total Bilirubin AST ALT Alkaline Phosphatase Total Protein Albumin Active Medications Generic Name Dose Route Start Last Admin Trade Name Freq PRN Reason Stop Dose Admin Albuterol Sulfate 1 amp 06/21/16 01:00 06/22/16 22:40 Ventolin 0.083% Nebulizer Soln - NEB 1 amp Q1H PRN Administration SHORT OF BREATH/WHEEZING Albuterol/Ipratropium 1 amp 06/21/16 06:00 06/30/16 11:31 Duoneb - NEB 1 amp QIDR JOANNE Administration Artificial Tears 1 applic 06/26/16 18:14 06/30/16 09:06 Artificial Tears Ointment - OU 1 applic Q6H PRN Administration Atorvastatin Calcium 80 mg 06/21/16 22:00 06/29/16 21:12 Lipitor - PO 80 mg HS JOANNE Administration Chlorhexidine Gluconate 1 applic 06/25/16 22:00 06/29/16 21:13 Hibiclens For Decolonization - TP 1 applic HS JOANNE Administration Chlorhexidine Gluconate 15 ml 06/26/16 22:00 06/30/16 09:04 Peridex - MM 15 ml BID JOANNE Administration Docusate Sodium 100 mg 06/28/16 10:00 06/30/16 09:04 Colace - PO Not Given DAILY JOANNE Fentanyl 500 mcg/ Dextrose 100 mls @ 5 mls/hr 06/23/16 21:15 06/30/16 07:34 IJ 5 mls/hr TITR JOANNE Administration 25 MCG/HR Dopamine HCl/Dextrose 250 mls @ 17.452 mls/hr 06/24/16 00:45 06/30/16 10:00 Dopamine 400 Mg/D5w - IVPB 4 mcg/kg/min TITR JOANNE Titration Protocol 5 MCG/KG/MIN Propofol 100 mls @ 2.817 mls/hr 06/24/16 11:15 06/30/16 12:07 Diprivan - IVPB 14 mls/hr TITR JOANNE Administration Protocol 5 MCG/KG/MIN Pantoprazole Sodium 100 mls @ 200 mls/hr 06/25/16 10:00 06/30/16 09:05 Protonix 40mg Ivpb (Pre-Docked) IVPB 200 mls/hr DAILY JOANNE Administration Vecuronium [place] 50 mg/ 250 mls @ 29.37 mls/hr 06/26/16 13:00 06/30/16 11:00 Dextrose IVPB 88.13 mls/hr TITR JOANNE Administration Protocol 1 MCG/KG/MIN Imipenem/Cilastatin Sodium 250 100 mls @ 100 mls/hr 06/28/16 09:00 06/30/16 09: 05 mg/ Sodium Chloride IVPB 100 mls/hr BID JOANNE Administration Protocol Azithromycin 250 mls @ 250 mls/hr 06/28/16 10:00 06/30/16 09:06 Zithromax 500mg Ivpb (Pre-Docked) IVPB 250 mls/hr DAILY JOANNE Administration Insulin Aspart 1 vial 06/21/16 07:00 06/30/16 11:17 Novolog Vial Sliding Scale - SQ 3 units TIDAC JOANNE Administration Protocol Insulin Detemir 13 units 06/27/16 12:42 06/30/16 06:52 Levemir Vial SQ 13 units BIDAC JOANNE Administration Methylprednisolone Sodium Succinate 125 mg 06/27/16 10:00 06/30/16 09:05 Solu-Medrol - IVPB 125 mg DAILY JOANNE Administration Metoclopramide HCl 10 mg 06/27/16 21:36 06/27/16 23:20 Reglan Injection - IVPUSH 10 mg Q6H PRN Administration NAUSEA AND/OR VOMITING Mupirocin 1 applic 06/25/16 22:00 06/30/16 09:04 Bactroban 2% Ointment - TP 1 applic BID JOANNE Administration Polyethylene Glycol 17 gm 06/23/16 18:00 06/30/16 09:19 Miralax (For Daily Use) - PO 17 gm DAILY JOANNE Administration Senna 2 tab 06/23/16 18:01 Senna - PO HS PRN CONSTIPATION Sevelamer Carbonate 0.8 gm 06/29/16 11:45 06/30/16 06:50 Renvela Powder Packet - NGT 0.8 gm TID JOANNE Administration ASSESSMENT/PLAN: Acute Hypoxic Respiratory Failure could be due to rapid progression of interstial lung ds,ARDS mainatian spo2 over 90, on ventilator support fio2 100%, peep 12, tv 300, rr36 intubated sedated and paralysed on solumedrol 125 mg daily antibiotic as per ID. on duneb qidr monitor intake/ output start on nor epinephrine follow abg saturation is decreasing, Hypotension on nor epi drip low dose, Paroxysmal afib recently diagnosed, Remains in NSR. off heparin, cardiology on case not on heparin due to thrombocytopenia ckd monitor cr and bun, bun and cr increasing, renal function worsen monitor urine output, 600ml on phoslo, monitor phosphorus. hyperphosphatemia due to renal failure avoid nephrotoxic drugs nephrology on case : will give lasix trial. kaxylete given for hyperkalemia high blood glucose secondary to steroid monitor bgm on insulin sliding scale microcytic anemia stool for occult blood negative s/p 2 pc hb 9.5 h/o HTN home meds atenolol, nifedipine and clonidine. on hold dvt pro: scd b/l electrolyte: hyperphosphatemia, monitor potassium gi pro ; protonix patient DNR Dispo: admit in icu. Visit type - Emergency Visit Emergency Visit: Yes ED Registration Date: 06/20/16 Care time: The patient presented to the Emergency Department on the above date and was hospitalized for further evaluation of their emergent condition. - New Patient This patient is new to me today: No - Critical Care Critical Care patient: Yes Total Critical Care Time (in minutes): 45 Critical Care Statement: The care of this patient involved high complexity decision making to prevent further life threatening deterioration of the patient 's condition and/or to evalute & treat vital organ system(s) failure or risk of failure. - Discharge Referral Referred to [facility] Med P.C[facility] No Physician Referral: Jay Bradley MD ([facility])
[2016-06-30] MEDS: NOREPINEPHRINE BITARTRATE 4,000 MCG in DEXTROSE 5%-WATER - 496 ML IV SCH (16:16)
[2016-06-30] MEDS ORDERED: NOREPINEPHRINE BITARTRATE 4 MG/4 ML ML IV ONE (16:19)
--- NOTE | 2016-06-30 17:10 | PN ---
Teaching Attending Note Name of Resident: Gino Stubbs ATTENDING PHYSICIAN STATEMENT I saw and evaluated the patient. I reviewed the resident's note and discussed the case with the resident. I agree with the resident's findings and plan as documented. SUBJECTIVE: Pt seen and examined in the ICU. Remains intubated, sedated, paralyzed on dopamine gtt. Hypoxic despite high PEEP and 100% fiO2. Made DNR yesterday by son. OBJECTIVE: Last Vital Signs Temp Pulse Resp BP Pulse Ox 98 F 82 36 H 93/63 80 L 06/30/16 16:00 06/30/16 16:00 06/30/16 16:16 06/30/16 16:00 06/30/16 10:38 Intake & Output 06/27/16 06/28/16 06/29/16 06/30/16 23:59 23:59 23:59 23:59 Intake Total 3259 3272 4373 1081 Output Total 800 600 800 200 Balance 2459 2672 3573 881 Weight 215 lb 9.6 oz 222 lb 8 oz 203 lb 4 oz 231 lb 4.238 oz Gen: intubated, sedated Heart: RRR Lung: bilateral rhonchi Abd: soft, nontender Ext: + edema CBC, BMP 06/30/16 05:30 06/30/16 05:30 ABG Results ABG pH 7.12 (7.35-7.45) L* 06/30/16 07:20 ABG pCO2 at Pt Temp 61.4 mmHg (35-45) H* 06/30/16 07:20 ABG pO2 at Pt Temp 55.9 mmHg (70-100) L 06/30/16 07:20 ABG HCO3 19.1 meq/L (22-26) L 06/30/16 07:20 ABG O2 Sat (Measured) 83.8 % (90-98.9) L 06/30/16 07:20 ABG O2 Content 9.9 % vol (15-22) L* 06/30/16 07:20 ABG Base Excess -9.8 meq/l (-2-2) L 06/30/16 07:20 CXR: extensive bilateral infiltrates Active Medications Albuterol Sulfate (Ventolin 0.083% Nebulizer Soln -) 1 amp NEB Q1H PRN PRN Reason: SHORT OF BREATH/WHEEZING Last Admin: 06/22/16 22:40 Dose: 1 amp Albuterol/Ipratropium (Duoneb -) 1 amp NEB QIDR [facility] Last Admin: 06/30/16 11:31 Dose: 1 amp Artificial Tears (Artificial Tears Ointment -) 1 applic OU Q6H PRN Last Admin: 06/30/16 09:06 Dose: 1 applic Atorvastatin Calcium (Lipitor -) 80 mg PO HS [facility] Last Admin: 06/29/16 21:12 Dose: 80 mg Chlorhexidine Gluconate (Hibiclens For Decolonization -) 1 applic TP HS [facility] Last Admin: 06/29/16 21:13 Dose: 1 applic Chlorhexidine Gluconate (Peridex -) 15 ml MM BID [facility] Last Admin: 06/30/16 09:04 Dose: 15 ml Docusate Sodium (Colace -) 100 mg PO DAILY [facility] Last Admin: 06/30/16 09:04 Dose: Not Given Fentanyl 500 mcg/ Dextrose 100 mls @ 5 mls/hr IJ TITR [facility] PRN Reason: 25 MCG/HR Last Admin: 06/30/16 07:34 Dose: 5 mls/hr Propofol (Diprivan -) 100 mls @ 2.817 mls/hr IVPB TITR JOANNE; 5 MCG/KG/MIN PRN Reason: Protocol Last Admin: 06/30/16 12:07 Dose: 14 mls/hr Pantoprazole Sodium (Protonix 40mg Ivpb (Pre-Docked)) 100 mls @ 200 mls/hr IVPB DAILY [facility] Last Admin: 06/30/16 09:05 Dose: 200 mls/hr Vecuronium [place] 50 mg/ (Dextrose) 250 mls @ 29.37 mls/hr IVPB TITR JOANNE; 1 MCG/KG/MIN PRN Reason: Protocol Last Admin: 06/30/16 16:24 Dose: 2,588.31 mls/hr Imipenem/Cilastatin Sodium 250 (mg/ Sodium Chloride) 100 mls @ 100 mls/hr IVPB BID [facility] PRN Reason: Protocol Last Admin: 06/30/16 09:05 Dose: 100 mls/hr Azithromycin (Zithromax 500mg Ivpb (Pre-Docked)) 250 mls @ 250 mls/hr IVPB DAILY [facility] Last Admin: 06/30/16 09:06 Dose: 250 mls/hr Norepinephrine Bitartrate 4, (000 mcg/ Dextrose) 500 mls @ 37.5 mls/hr IV TITR JOANNE; 5 MCG/MIN PRN Reason: Protocol Last Admin: 06/30/16 16:16 Dose: 37.5 mls/hr Insulin Aspart (Novolog Vial Sliding Scale -) 1 vial SQ TIDAC JOANNE PRN Reason: Protocol Last Admin: 06/30/16 16:30 Dose: 1 units Insulin Detemir (Levemir Vial) 13 units SQ BIDAC [facility] Last Admin: 06/30/16 16:30 Dose: 13 units Methylprednisolone Sodium Succinate (Solu-Medrol -) 125 mg IVPB DAILY [facility] Last Admin: 06/30/16 09:05 Dose: 125 mg Metoclopramide HCl (Reglan Injection -) 10 mg IVPUSH Q6H PRN PRN Reason: NAUSEA AND/OR VOMITING Last Admin: 06/27/16 23:20 Dose: 10 mg Mupirocin (Bactroban 2% Ointment -) 1 applic TP BID [facility] Last Admin: 06/30/16 09:04 Dose: 1 applic Polyethylene Glycol (Miralax (For Daily Use) -) 17 gm PO DAILY [facility] Last Admin: 06/30/16 09:19 Dose: 17 gm Senna (Senna -) 2 tab PO HS PRN PRN Reason: CONSTIPATION Sevelamer Carbonate (Renvela Powder Packet -) 0.8 gm NGT TID [facility] Last Admin: 06/30/16 16:15 Dose: 0.8 gm ASSESSMENT AND PLAN: Acute Hypoxic Respiratory Failure Suspect Exacerbation of underlying Interstitial Lung Disease ARDS Lactic Acidosis Acute on Chronic Renal Failure Paroxysmal Atrial Fibrillation r/o Pneumonia r/o CHF HTN - continue empiric antibiotics - continue medrol - inhaled bronchodilators - titrate FiO2, PEEP to keep SpO2 >90% - continue sedation/paralysis for vent synchrony - low tidal volume ventilation - monitor ABG - titrate pressors to maintain MAP >65 - monitor urine output, creatinine - DVT/GI prophylaxis - continue ICU monitoring - poor overall prognosis, continue discussions regarding goals of care
[2016-06-30] MEDS: ATORVASTATIN CA 80 MG TABLET (FP) PO SCH (21:03)
[2016-06-30] MEDS: CHLORHEXIDINE GLUCONATE 4% CLEANSER FOR DECOLONIZATION TP SCH (21:03)
[2016-07-01] MEDS: ALBUTEROL SO4 2.5/IPRATROPIUM 0.5 INH SOL 3 ML VIAL.NEB. NEB SCH ×5 (00:15→23:38)
[2016-07-01] MEDS: FENTANYL INJECTION 500 MCG in DEXTROSE 5%-WATER - 90 ML IJ SCH ×4 (01:34→22:40)
[2016-07-01] MEDS: PROPOFOL 100 ML IVPB SCH ×4 (01:36→17:53)
[2016-07-01] MEDS: VECURONIUM BROMIDE 50 MG in DEXTROSE 5%-WATER - 250 ML IVPB SCH ×4 (01:36→15:30)
[2016-07-01] MEDS ORDERED: NOREPINEPHRINE BITARTRATE 4 MG/4 ML ML IV ONE (01:40)
[2016-07-01] MEDS ORDERED: PT OWN MED DRAWER 7, Y5N ONE ×3 (04:59→16:15)
[2016-07-01] MEDS: SEVELAMER CARBONATE 0.8 GM POWDER PACKET NGT SCH ×3 (06:00→22:39)
[2016-07-01 06:46] LABS: CREATININE 5.7 mg/dL (0.55-1.02)
[2016-07-01] MEDS: INSULIN DETEMIR 100 UNITS/ML MDV SQ SCH ×3 (06:51→22:51)
[2016-07-01] MEDS: NOREPINEPHRINE BITARTRATE 4,000 MCG in DEXTROSE 5%-WATER - 496 ML IV SCH (06:52)
[2016-07-01 07:18] LABS: CALCIUM 5.4 mg/dL (8.5-10.1)
[2016-07-01] MEDS ORDERED: CALCIUM GLUCONATE 10% - 1,000 MG/10 ML VIAL IVPB ONE (07:31)
[2016-07-01] MEDS ORDERED: SODIUM POLYSTYRENE SULFONATE 15 GM/60 ML BOTTLE PO ONE (07:32)
[2016-07-01 07:34] LABS: MCH 26.3 pg (25.7-33.7); MCHC 32.3 g/dl (32.0-36.0); MEAN CELL VOLUME 81.5 fl (80-96); MEAN PLT VOLUME 12.9 fl (7.5-11.1); PLATELET COUNT 85 K/MM3 (134-434); RDW 19.8 % (11.6-15.6); WHITE BLOOD COUNT 6.9 K/mm3 (4.0-10.0)
[2016-07-01] MEDS ORDERED: INSULIN REGULAR 100 UNITS in SODIUM CHLORIDE 99 ML IVPB SCH (07:45)
[2016-07-01 07:50] LABS: ARTERIAL BLOOD GAS BASE EXCESS -13.9 meq/l (-2-2)
[2016-07-01 07:51] LABS: ARTERIAL BLOOD GAS pH 7.04 (7.35-7.45)
[2016-07-01 07:52] LABS: ALLENS TEST POSITIVE; ART PUNCT SITE LEFT BRACHIAL; ARTERIAL BLD GAS O2 SATURATION 85.2 % (90-98.9); ARTERIAL BLOOD GAS HCO3 15.9 meq/L (22-26); LPM/O2% 100%; MECH. VENT. Y; PT. ON O2? YES; TYPE OF O2 VENT; VENT RATE 36; VT/PRESS 300
[2016-07-01] MEDS ORDERED: INSULIN REGULAR HUMAN 100 UNITS/ML *VIAL IVPUSH ONE ×3 (07:57→16:59)
[2016-07-01] MEDS ORDERED: NOREPINEPHRINE BITARTRATE 4,000 MCG in SODIUM CHLORIDE 496 ML IV SCH (08:15)
--- NOTE | 2016-07-01 08:17 | PN ---
Progress Note, Physician Chief Complaint: ID Overall no change in her critical condition Intubated on maximal vent support She remains afebrile - Current Medication List Current Medications: Active Medications Albuterol Sulfate (Ventolin 0.083% Nebulizer Soln -) 1 amp NEB Q1H PRN PRN Reason: SHORT OF BREATH/WHEEZING Last Admin: 06/22/16 22:40 Dose: 1 amp Albuterol/Ipratropium (Duoneb -) 1 amp NEB QIDR [facility] Last Admin: 07/01/16 07:14 Dose: 1 amp Artificial Tears (Artificial Tears Ointment -) 1 applic OU Q6H PRN Last Admin: 06/30/16 09:06 Dose: 1 applic Atorvastatin Calcium (Lipitor -) 80 mg PO HS [facility] Last Admin: 06/30/16 21:03 Dose: 80 mg Chlorhexidine Gluconate (Hibiclens For Decolonization -) 1 applic TP HS [facility] Last Admin: 06/30/16 21:03 Dose: 1 applic Chlorhexidine Gluconate (Peridex -) 15 ml MM BID [facility] Last Admin: 06/30/16 21:03 Dose: 15 ml Docusate Sodium (Colace -) 100 mg PO DAILY [facility] Last Admin: 06/30/16 09:04 Dose: Not Given Fentanyl 500 mcg/ Dextrose 100 mls @ 5 mls/hr IJ TITR JOANNE PRN Reason: 25 MCG/HR Last Admin: 07/01/16 05:00 Dose: 5 mls/hr Propofol (Diprivan -) 100 mls @ 2.817 mls/hr IVPB TITR JOANNE; 5 MCG/KG/MIN PRN Reason: Protocol Last Admin: 07/01/16 06:54 Dose: 14 mls/hr Pantoprazole Sodium (Protonix 40mg Ivpb (Pre-Docked)) 100 mls @ 200 mls/hr IVPB DAILY [facility] Last Admin: 06/30/16 09:05 Dose: 200 mls/hr Vecuronium [place] 50 mg/ (Dextrose) 250 mls @ 29.37 mls/hr IVPB TITR JOANNE; 1 MCG/KG/MIN PRN Reason: Protocol Last Admin: 07/01/16 06:55 Dose: 88.1 mls/hr Imipenem/Cilastatin Sodium 250 (mg/ Sodium Chloride) 100 mls @ 100 mls/hr IVPB BID JOANNE PRN Reason: Protocol Last Admin: 06/30/16 21:03 Dose: 100 mls/hr Azithromycin (Zithromax 500mg Ivpb (Pre-Docked)) 250 mls @ 250 mls/hr IVPB DAILY [facility] Last Admin: 06/30/16 09:06 Dose: 250 mls/hr Norepinephrine Bitartrate 4, (000 mcg/ Sodium Chloride) 500 mls @ 37.5 mls/hr IV TITR JOANNE; 5 MCG/MIN PRN Reason: Protocol Insulin Aspart (Novolog Vial Sliding Scale -) 1 vial SQ ACHS JOANNE PRN Reason: Protocol Insulin Detemir (Levemir Vial) 14 units SQ BID [facility] Methylprednisolone Sodium Succinate (Solu-Medrol -) 125 mg IVPB DAILY [facility] Last Admin: 06/30/16 09:05 Dose: 125 mg Metoclopramide HCl (Reglan Injection -) 10 mg IVPUSH Q6H PRN PRN Reason: NAUSEA AND/OR VOMITING Last Admin: 06/27/16 23:20 Dose: 10 mg Mupirocin (Bactroban 2% Ointment -) 1 applic TP BID [facility] Last Admin: 06/30/16 21:03 Dose: 1 applic Polyethylene Glycol (Miralax (For Daily Use) -) 17 gm PO DAILY [facility] Last Admin: 06/30/16 09:19 Dose: 17 gm Senna (Senna -) 2 tab PO HS PRN PRN Reason: CONSTIPATION Sevelamer Carbonate (Renvela Powder Packet -) 0.8 gm NGT TID [facility] Last Admin: 07/01/16 06:00 Dose: 0.8 gm - Objective Vital Signs: Vital Signs Temperature 98.3 F 07/01/16 04:00 Pulse Rate 68 07/01/16 06:00 Respiratory Rate 36 H 07/01/16 07:47 Blood Pressure 94/45 07/01/16 06:00 O2 Sat by Pulse Oximetry (%) 87 L 06/30/16 21:22 Labs: CBC, BMP 07/01/16 05:50 07/01/16 05:50 INR, PTT INR 1.12 (0.82-1.09) 06/28/16 05:35 Fibrinogen 520.0 mg/dL (238-498) H 06/26/16 05:10 Problem List - Problems (1) Acute respiratory failure with hypoxia Code(s): J96.01 - ACUTE RESPIRATORY FAILURE WITH HYPOXIA (2) Pulmonary fibrosis Code(s): J84.10 - PULMONARY FIBROSIS, UNSPECIFIED (3) Bilateral pulmonary infiltrates on CXR Code(s): R91.8 - OTHER NONSPECIFIC ABNORMAL FINDING OF LUNG FIELD Assessment/Plan Microbiology 06/27/16 09:20 Urine - Urine Soares Urine Culture - Final NO GROWTH OBTAINED 06/26/16 12:30 Sputum - Endotrachea Suction/Ventilator Direct Acid Fast Bacilli Smear - Final 06/23/16 19:00 Urine For Antigen Detection Legionella Antigen - Final 06/23/16 19:00 Urine For Antigen Detection Streptococcus pneumoniae Antigen (M - Final 06/27/16 09:50 Blood - Peripheral Venous Blood Culture - Preliminary NO GROWTH OBTAINED AFTER 72 HOURS, INCUBATION TO CONTINUE FOR 2 DAYS. 06/27/16 08:30 Blood - Peripheral Venous Blood Culture - Preliminary NO GROWTH OBTAINED AFTER 72 HOURS, INCUBATION TO CONTINUE FOR 2 DAYS. 06/26/16 12:30 Sputum - Endotrachea Suction/Ventilator AFB Smear Concentration - Preliminary 06/26/16 12:30 Sputum - Endotrachea Suction/Ventilator Mycobacterial Culture - Preliminary Selected Entries 06/30/16 06/30/16 21:22 22:00 Temperature 98.6 F Pulse Rate 76 Respiratory 36 H Rate Blood Pressure 102/56 O2 Sat by Pulse 87 L Oximetry (%) Laboratory Tests 06/22/16 06/28/16 06/28/16 05:05 05:35 05:35 ABG pH ABG pCO2 at Pt Temp ABG pO2 at Pt Temp Oxygen Flow Rate BUN Creatinine CMV IgG Ab > 10.00 H CMV IgM Ab < 30.0 A. galactomannan Ag 0.05 Beta-(1,3)-D-Glucan < 31 07/01/16 07/01/16 05:50 07:25 ABG pH 7.04 L* ABG pCO2 at Pt Temp 61.7 H* ABG pO2 at Pt Temp 62.0 L Oxygen Flow Rate 100% BUN 170 H* Creatinine 5.7 H CMV IgG Ab CMV IgM Ab A. galactomannan Ag Beta-(1,3)-D-Glucan Assessment 2 courses broad spectrum antibiotics have done nothing to immprove her respiratory status Cultures have been consistently negative. Plan At this point appears that to continue antibiotic would be medically futile and have added nothing to her clinical improvement will stop meds. Multi organ failure Remains preterminal Miguel A STILL
--- NOTE | 2016-07-01 08:41 | PN ---
Progress Note, Physician Chief Complaint: intubated and sedated on vent - Current Medication List Current Medications: Active Medications Albuterol Sulfate (Ventolin 0.083% Nebulizer Soln -) 1 amp NEB Q1H PRN PRN Reason: SHORT OF BREATH/WHEEZING Last Admin: 06/22/16 22:40 Dose: 1 amp Albuterol/Ipratropium (Duoneb -) 1 amp NEB QIDR JOANNE Last Admin: 07/01/16 07:14 Dose: 1 amp Artificial Tears (Artificial Tears Ointment -) 1 applic OU Q6H PRN Last Admin: 06/30/16 09:06 Dose: 1 applic Atorvastatin Calcium (Lipitor -) 80 mg PO HS JOANNE Last Admin: 06/30/16 21:03 Dose: 80 mg Chlorhexidine Gluconate (Hibiclens For Decolonization -) 1 applic TP HS [facility] Last Admin: 06/30/16 21:03 Dose: 1 applic Chlorhexidine Gluconate (Peridex -) 15 ml MM BID JOANNE Last Admin: 06/30/16 21:03 Dose: 15 ml Docusate Sodium (Colace -) 100 mg PO DAILY [facility] Last Admin: 06/30/16 09:04 Dose: Not Given Fentanyl 500 mcg/ Dextrose 100 mls @ 5 mls/hr IJ TITR JOANNE PRN Reason: 25 MCG/HR Last Admin: 07/01/16 08:38 Dose: 5 mls/hr Propofol (Diprivan -) 100 mls @ 2.817 mls/hr IVPB TITR JOANNE; 5 MCG/KG/MIN PRN Reason: Protocol Last Admin: 07/01/16 06:54 Dose: 14 mls/hr Pantoprazole Sodium (Protonix 40mg Ivpb (Pre-Docked)) 100 mls @ 200 mls/hr IVPB DAILY [facility] Last Admin: 06/30/16 09:05 Dose: 200 mls/hr Vecuronium [place] 50 mg/ (Dextrose) 250 mls @ 29.37 mls/hr IVPB TITR JOANNE; 1 MCG/KG/MIN PRN Reason: Protocol Last Admin: 07/01/16 06:55 Dose: 88.1 mls/hr Norepinephrine Bitartrate 4, (000 mcg/ Sodium Chloride) 500 mls @ 37.5 mls/hr IV TITR JOANNE; 5 MCG/MIN PRN Reason: Protocol Insulin Aspart (Novolog Vial Sliding Scale -) 1 vial SQ ACHS JOANNE PRN Reason: Protocol Insulin Detemir (Levemir Vial) 14 units SQ BID [facility] Methylprednisolone Sodium Succinate (Solu-Medrol -) 125 mg IVPB DAILY [facility] Last Admin: 06/30/16 09:05 Dose: 125 mg Metoclopramide HCl (Reglan Injection -) 10 mg IVPUSH Q6H PRN PRN Reason: NAUSEA AND/OR VOMITING Last Admin: 06/27/16 23:20 Dose: 10 mg Mupirocin (Bactroban 2% Ointment -) 1 applic TP BID [facility] Last Admin: 06/30/16 21:03 Dose: 1 applic Polyethylene Glycol (Miralax (For Daily Use) -) 17 gm PO DAILY [facility] Last Admin: 06/30/16 09:19 Dose: 17 gm Senna (Senna -) 2 tab PO HS PRN PRN Reason: CONSTIPATION Sevelamer Carbonate (Renvela Powder Packet -) 0.8 gm NGT TID [facility] Last Admin: 07/01/16 06:00 Dose: 0.8 gm - Objective Vital Signs: Vital Signs Temperature 98.3 F 07/01/16 04:00 Pulse Rate 68 07/01/16 06:00 Respiratory Rate 36 H 07/01/16 07:47 Blood Pressure 94/45 07/01/16 06:00 O2 Sat by Pulse Oximetry (%) 87 L 06/30/16 21:22 Constitutional: Yes: No Distress HENT: Yes: Other (+ ETT) Cardiovascular: Yes: Regular Rate and Rhythm Respiratory: Yes: Other (= breath sounds b/l) Gastrointestinal: Yes: Soft Edema: No Neurological: Yes: Other (sedated on vent) Labs: CBC, BMP 07/01/16 05:50 07/01/16 05:50 INR, PTT INR 1.12 (0.82-1.09) 06/28/16 05:35 Fibrinogen 520.0 mg/dL (238-498) H 06/26/16 05:10 Laboratory Tests 07/01/16 07/01/16 07/01/16 05:50 05:50 07:25 WBC 6.9 Hct 25.3 L Plt Count 85 L D ABG pH 7.04 L* ABG pCO2 at Pt Temp 61.7 H* Oxygen Flow Rate 100% Sodium 122 L* Potassium 5.4 H Creatinine 5.7 H - ....Imaging EKG: Image Reviewed Assessment/Plan Assessment/Plan SOB and hypoxia, acute respiratory failure, intubated Interstitial lung disease Recent b/l PNA Acute on chronic diastolic CHF NSVT PAF CKD Thrombocytopenia REC: Has been in sinus Heparin discontinued due to dropping platelet count and no recurrence of PAF which was a brief episode on prior admission. 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 As per discussion w/ RN, patient's prior wishes for DNR, no HD. Cont vent support and further management as per critical care.
[2016-07-01] MEDS ORDERED: SODIUM CHLORIDE IV SCH (09:00)
[2016-07-01] MEDS ORDERED: NOREPINEPHRINE BITARTRATE IV SCH (09:00)
[2016-07-01] MEDS: POLYETHYLENE GLYCOL 3350 119 GM BTL PO SCH ×3 (09:44→12:41)
[2016-07-01] MEDS: MUPIROCIN 2% TOPICAL OINTMENT 22 GM TUBE TP SCH ×2 (09:46→22:39)
[2016-07-01] MEDS: PANTOPRAZOLE SODIUM 100 ML IVPB SCH (09:46)
--- NOTE | 2016-07-01 11:13 | PN ---
Progress Note (short form) - Note Progress Note: Renal Follow up for CKD Pt seen and examined in the ICU hypotensive on Leveophed now remains hypoxic on 100% FiO2 pt is now oliguric Vital Signs Temperature 98.3 F 07/01/16 04:00 Pulse Rate 64 07/01/16 10:34 Respiratory Rate 36 H 07/01/16 10:34 Blood Pressure 92/46 07/01/16 10:00 O2 Sat by Pulse Oximetry (%) 90 L 07/01/16 10:34 Intake & Output 06/28/16 06/29/16 06/30/16 07/01/16 23:59 23:59 23:59 23:59 Intake Total 3272 4373 4281.6 1863.9 Output Total 600 800 350 350 Balance 2672 3573 3931.6 1513.9 Weight 222 lb 8 oz 203 lb 4 oz 231 lb 4.238 oz 234 lb 4 oz Gen: Intubated CVS: RRR, No M/R Lungs : + diffuse crackles b/l lung silverman Abd: soft NT/ND Ext: trace edema CBC, BMP 07/01/16 05:50 07/01/16 05:50 Laboratory Tests 06/29/16 06/29/16 07/01/16 05:50 05:50 05:50 Random Glucose 411 H* D Lactic Acid 1.082 Calcium 5.9 L* 5.4 L* Phosphorus 7.7 H Albumin 1.3 L 07/01/16 07:50 Random Glucose Lactic Acid 2.041 H* Calcium Phosphorus Albumin Current Medications Albuterol Sulfate (Ventolin 0.083% Nebulizer Soln -) 1 amp NEB Q1H PRN PRN Reason: SHORT OF BREATH/WHEEZING Last Admin: 06/22/16 22:40 Dose: 1 amp Albuterol/Ipratropium (Duoneb -) 1 amp NEB QIDR JOANNE Last Admin: 07/01/16 07:14 Dose: 1 amp Artificial Tears (Artificial Tears Ointment -) 1 applic OU Q6H PRN Last Admin: 06/30/16 09:06 Dose: 1 applic Atorvastatin Calcium (Lipitor -) 80 mg PO [facility] Last Admin: 06/30/16 21:03 Dose: 80 mg Chlorhexidine Gluconate (Hibiclens For Decolonization -) 1 applic TP HS [facility] Last Admin: 06/30/16 21:03 Dose: 1 applic Chlorhexidine Gluconate (Peridex -) 15 ml MM BID [facility] Last Admin: 06/30/16 21:03 Dose: 15 ml Docusate Sodium (Colace -) 100 mg PO DAILY [facility] Last Admin: 06/30/16 09:04 Dose: Not Given Fentanyl 500 mcg/ Dextrose 100 mls @ 5 mls/hr IJ TITR JOANNE PRN Reason: 25 MCG/HR Last Admin: 07/01/16 08:38 Dose: 5 mls/hr Propofol (Diprivan -) 100 mls @ 2.817 mls/hr IVPB TITR JOANNE; 5 MCG/KG/MIN PRN Reason: Protocol Last Admin: 07/01/16 06:54 Dose: 14 mls/hr Pantoprazole Sodium (Protonix 40mg Ivpb (Pre-Docked)) 100 mls @ 200 mls/hr IVPB DAILY [facility] Last Admin: 07/01/16 09:46 Dose: 200 mls/hr Vecuronium [place] 50 mg/ (Dextrose) 250 mls @ 29.37 mls/hr IVPB TITR JOANNE; 1 MCG/KG/MIN PRN Reason: Protocol Last Admin: 07/01/16 10:49 Dose: 88.13 mls/hr Norepinephrine Bitartrate 8, (000 mcg/ Sodium Chloride) 500 mls @ 18.75 mls/hr IV ASDIR JOANNE; 5 MCG/MIN PRN Reason: Protocol Last Admin: 07/01/16 10:47 Dose: 18.75 mls/hr Insulin Aspart (Novolog Vial Sliding Scale -) 1 vial SQ ACHS [facility] PRN Reason: Protocol Insulin Detemir (Levemir Vial) 14 units SQ BID [facility] Methylprednisolone Sodium Succinate (Solu-Medrol -) 125 mg IVPB DAILY [facility] Last Admin: 06/30/16 09:05 Dose: 125 mg Metoclopramide HCl (Reglan Injection -) 10 mg IVPUSH Q6H PRN PRN Reason: NAUSEA AND/OR VOMITING Last Admin: 06/27/16 23:20 Dose: 10 mg Mupirocin (Bactroban 2% Ointment -) 1 applic TP BID [facility] Last Admin: 07/01/16 09:46 Dose: 1 applic Polyethylene Glycol (Miralax (For Daily Use) -) 17 gm PO DAILY [facility] Last Admin: 07/01/16 09:44 Dose: Not Given Senna (Senna -) 2 tab PO HS PRN PRN Reason: CONSTIPATION Sevelamer Carbonate (Renvela Powder Packet -) 0.8 gm NGT TID [facility] Last Admin: 07/01/16 06:00 Dose: 0.8 gm A/P 75 year old woman with PMhx of CKD Stage 4, Hypertension (>40 years), Asthma, Osteoarthritis, Former Smoker who presented from [facility] with 1 day history of sob with Resp Failure and worsening renal function. #Oliguric Renal failure Pt is not a candidate for dialysis Can attempt further Lasix diuresis if BP stable keep MAP > 65 CVP goal ~12 #Intersitital lung disease/Resp Failure Continue supportive care as per ICU Steroids and 100% fiO2 #Hypocalcemia Corrected Ca is 7.7 getting 1g of Calcium Gluconate this am if corrected Ca < 7.5 may need calcium gtt Grave Prognosis Raymundo Snyder DO
[2016-07-01] MEDS: DOCUSATE SODIUM 100 MG CAPSULE (FP) PO SCH (11:16)
[2016-07-01] MEDS: methylPREDNISolone NA SUCC 125 MG/2 ML VIAL IVPB SCH (11:19)
[2016-07-01] MEDS: CHLORHEXIDINE GLUCONATE 0.12% 15ML CUP MM SCH ×2 (11:19→22:39)
[2016-07-01] MEDS: INSULIN SLIDING SCALE (NOVOLOG) 1 VIAL SQ SCH ×3 (12:41→22:51)
[2016-07-01 12:57] LABS: CREATININE 5.9 mg/dL (0.55-1.02)
[2016-07-01 13:00] LABS: CALCIUM 5.5 mg/dL (8.5-10.1)
--- NOTE | 2016-07-01 13:00 | PN ---
Progress Note, Physician Chief Complaint: intubated sedated on levophed and hypotensive and oliguric DNR no HD - Current Medication List Current Medications: Active Medications Albuterol Sulfate (Ventolin 0.083% Nebulizer Soln -) 1 amp NEB Q1H PRN PRN Reason: SHORT OF BREATH/WHEEZING Last Admin: 06/22/16 22:40 Dose: 1 amp Albuterol/Ipratropium (Duoneb -) 1 amp NEB QIDR JOANNE Last Admin: 07/01/16 12:00 Dose: 1 amp Artificial Tears (Artificial Tears Ointment -) 1 applic OU Q6H PRN Last Admin: 06/30/16 09:06 Dose: 1 applic Atorvastatin Calcium (Lipitor -) 80 mg PO HS JOANNE Last Admin: 06/30/16 21:03 Dose: 80 mg Chlorhexidine Gluconate (Hibiclens For Decolonization -) 1 applic TP HS [facility] Last Admin: 06/30/16 21:03 Dose: 1 applic Chlorhexidine Gluconate (Peridex -) 15 ml MM BID [facility] Last Admin: 07/01/16 11:19 Dose: 15 ml Docusate Sodium (Colace -) 100 mg PO DAILY [facility] Last Admin: 07/01/16 11:16 Dose: Not Given Fentanyl 500 mcg/ Dextrose 100 mls @ 5 mls/hr IJ TITR JOANNE PRN Reason: 25 MCG/HR Last Admin: 07/01/16 08:38 Dose: 5 mls/hr Propofol (Diprivan -) 100 mls @ 2.817 mls/hr IVPB TITR JOANNE; 5 MCG/KG/MIN PRN Reason: Protocol Last Admin: 07/01/16 11:36 Dose: 14 mls/hr Pantoprazole Sodium (Protonix 40mg Ivpb (Pre-Docked)) 100 mls @ 200 mls/hr IVPB DAILY [facility] Last Admin: 07/01/16 09:46 Dose: 200 mls/hr Vecuronium [place] 50 mg/ (Dextrose) 250 mls @ 29.37 mls/hr IVPB TITR JOANNE; 1 MCG/KG/MIN PRN Reason: Protocol Last Admin: 07/01/16 10:49 Dose: 88.13 mls/hr Norepinephrine Bitartrate 8, (000 mcg/ Sodium Chloride) 500 mls @ 18.75 mls/hr IV ASDIR JOANNE; 5 MCG/MIN PRN Reason: Protocol Last Titration: 07/01/16 12:26 Dose: 8 mcg/min Insulin Aspart (Novolog Vial Sliding Scale -) 1 vial SQ ACHS JOANNE PRN Reason: Protocol Last Admin: 07/01/16 12:41 Dose: 10 units Insulin Detemir (Levemir Vial) 14 units SQ BID [facility] Last Admin: 07/01/16 11:22 Dose: 14 unit Methylprednisolone Sodium Succinate (Solu-Medrol -) 125 mg IVPB DAILY [facility] Last Admin: 07/01/16 11:19 Dose: 125 mg Metoclopramide HCl (Reglan Injection -) 10 mg IVPUSH Q6H PRN PRN Reason: NAUSEA AND/OR VOMITING Last Admin: 06/27/16 23:20 Dose: 10 mg Mupirocin (Bactroban 2% Ointment -) 1 applic TP BID [facility] Last Admin: 07/01/16 09:46 Dose: 1 applic Polyethylene Glycol (Miralax (For Daily Use) -) 17 gm PO DAILY [facility] Last Admin: 07/01/16 12:41 Dose: Not Given Senna (Senna -) 2 tab PO HS PRN PRN Reason: CONSTIPATION Sevelamer Carbonate (Renvela Powder Packet -) 0.8 gm NGT TID [facility] Last Admin: 07/01/16 06:00 Dose: 0.8 gm - Objective Vital Signs: Vital Signs Temperature 98.3 F 07/01/16 04:00 Pulse Rate 64 07/01/16 12:26 Respiratory Rate 36 H 07/01/16 12:00 Blood Pressure 84/41 07/01/16 12:26 O2 Sat by Pulse Oximetry (%) 90 L 07/01/16 10:34 Constitutional: Yes: Other (sedated) Cardiovascular: Yes: S1, S2 Respiratory: Yes: Mechanically Ventilated Gastrointestinal: Yes: Soft ...Rectal Exam: Yes: Other (fecal tube) Genitourinary: Yes: Soares Present Edema: Yes Labs: CBC, BMP 07/01/16 05:50 INR, PTT INR 1.12 (0.82-1.09) 06/28/16 05:35 Fibrinogen 520.0 mg/dL (238-498) H 06/26/16 05:10 Problem List - Problems (1) Acute respiratory failure with hypoxia Assessment/Plan: icu monitoring intubated DNR grave porgnosis family made DNR aware of her situation Code(s): J96.01 - ACUTE RESPIRATORY FAILURE WITH HYPOXIA (2) Bilateral pulmonary infiltrates on CXR Assessment/Plan: max vent support stop abx Code(s): R91.8 - OTHER NONSPECIFIC ABNORMAL FINDING OF LUNG FIELD (3) Afib Assessment/Plan: iv heparin stopped in sinus Code(s): I48.91 - UNSPECIFIED ATRIAL FIBRILLATION (4) CKD (chronic kidney disease) Assessment/Plan: worsening renal function no HD per family oliguiric Code(s): N18.9 - CHRONIC KIDNEY DISEASE, UNSPECIFIED (5) HTN (hypertension) Assessment/Plan: hold meds hypotensive Code(s): I10 - ESSENTIAL (PRIMARY) HYPERTENSION Assessment/Plan resp failure worsening renal function bilateral infiltrates hypotensive oliguiric DNR no HD grave prognosis
--- NOTE | 2016-07-01 15:00 | PN ---
Teaching Attending Note Name of Resident: Gino Stubbs ATTENDING PHYSICIAN STATEMENT I saw and evaluated the patient. I reviewed the resident's note and discussed the case with the resident. I agree with the resident's findings and plan as documented. SUBJECTIVE: Patient seen and examined in the ICU. Remains critically ill on AC mode of vent, 100% FiO2 and PEEP 12. Saturation in the low 90s NE for hemodynamic support. Paralyzed. CXR: ARDS pattern Intake & Output 06/28/16 06/29/16 06/30/16 07/01/16 23:59 23:59 23:59 23:59 Intake Total 3272 4373 4281.6 1863.9 Output Total 600 800 350 350 Balance 2672 3573 3931.6 1513.9 Weight 222 lb 8 oz 203 lb 4 oz 231 lb 4.238 oz 234 lb 4 oz Last Vital Signs Temp Pulse Resp BP Pulse Ox 96.8 F L 64 36 H 95/65 90 L 07/01/16 14:00 07/01/16 14:00 07/01/16 14:26 07/01/16 14:00 07/01/16 10:34 Active Medications Albuterol Sulfate (Ventolin 0.083% Nebulizer Soln -) 1 amp NEB Q1H PRN PRN Reason: SHORT OF BREATH/WHEEZING Last Admin: 06/22/16 22:40 Dose: 1 amp Albuterol/Ipratropium (Duoneb -) 1 amp NEB QIDR [facility] Last Admin: 07/01/16 12:00 Dose: 1 amp Artificial Tears (Artificial Tears Ointment -) 1 applic OU Q6H PRN Last Admin: 06/30/16 09:06 Dose: 1 applic Atorvastatin Calcium (Lipitor -) 80 mg PO HS [facility] Last Admin: 06/30/16 21:03 Dose: 80 mg Chlorhexidine Gluconate (Hibiclens For Decolonization -) 1 applic TP HS [facility] Last Admin: 06/30/16 21:03 Dose: 1 applic Chlorhexidine Gluconate (Peridex -) 15 ml MM BID [facility] Last Admin: 07/01/16 11:19 Dose: 15 ml Docusate Sodium (Colace -) 100 mg PO DAILY [facility] Last Admin: 07/01/16 11:16 Dose: Not Given Fentanyl 500 mcg/ Dextrose 100 mls @ 5 mls/hr IJ TITR JOANNE PRN Reason: 25 MCG/HR Last Admin: 07/01/16 08:38 Dose: 5 mls/hr Propofol (Diprivan -) 100 mls @ 2.817 mls/hr IVPB TITR JOANNE; 5 MCG/KG/MIN PRN Reason: Protocol Last Admin: 07/01/16 11:36 Dose: 14 mls/hr Pantoprazole Sodium (Protonix 40mg Ivpb (Pre-Docked)) 100 mls @ 200 mls/hr IVPB DAILY [facility] Last Admin: 07/01/16 09:46 Dose: 200 mls/hr Vecuronium [place] 50 mg/ (Dextrose) 250 mls @ 29.37 mls/hr IVPB TITR JOANNE; 1 MCG/KG/MIN PRN Reason: Protocol Last Admin: 07/01/16 10:49 Dose: 88.13 mls/hr Norepinephrine Bitartrate 8, (000 mcg/ Sodium Chloride) 500 mls @ 18.75 mls/hr IV ASDIR JOANNE; 5 MCG/MIN PRN Reason: Protocol Last Titration: 07/01/16 12:26 Dose: 8 mcg/min Insulin Aspart (Novolog Vial Sliding Scale -) 1 vial SQ ACHS JOANNE PRN Reason: Protocol Last Admin: 07/01/16 12:41 Dose: 10 units Insulin Detemir (Levemir Vial) 14 units SQ BID [facility] Last Admin: 07/01/16 11:22 Dose: 14 unit Methylprednisolone Sodium Succinate (Solu-Medrol -) 125 mg IVPB DAILY [facility] Last Admin: 07/01/16 11:19 Dose: 125 mg Metoclopramide HCl (Reglan Injection -) 10 mg IVPUSH Q6H PRN PRN Reason: NAUSEA AND/OR VOMITING Last Admin: 06/27/16 23:20 Dose: 10 mg Mupirocin (Bactroban 2% Ointment -) 1 applic TP BID [facility] Last Admin: 07/01/16 09:46 Dose: 1 applic Polyethylene Glycol (Miralax (For Daily Use) -) 17 gm PO DAILY [facility] Last Admin: 07/01/16 12:41 Dose: Not Given Senna (Senna -) 2 tab PO HS PRN PRN Reason: CONSTIPATION Sevelamer Carbonate (Renvela Powder Packet -) 0.8 gm NGT TID [facility] Last Admin: 07/01/16 06:00 Dose: 0.8 gm Exam: General: sedated/paralyzed on AC mode of mechanical ventilation HEENT: surgical pupils CV: NSR Pulm: bilateral rhonchi Abd: obese, soft Ext: Warm, +2 pulses, LE edema +1-2 Neuro: TOF: 4/4 Laboratory Results - last 24 hr 06/30/16 07/01/16 07/01/16 16:27 05:50 05:50 WBC 6.9 RBC 3.10 L Hgb 8.2 L Hct 25.3 L MCV 81.5 MCHC 32.3 RDW 19.8 H Plt Count 85 L D MPV 12.9 H D Neutrophils % 86.0 H Lymphocytes % 6.0 L D Band Neutrophils 8.0 D Puncture Site ABG pH ABG pCO2 at Pt Temp ABG pO2 at Pt Temp ABG HCO3 ABG O2 Sat (Measured) ABG O2 Content ABG Base Excess Sree Test O2 Delivery Device Oxygen Flow Rate Vent Mode Vent Rate Mechanical Rate PEEP Pressure Support Vent Sodium 122 L* Potassium 5.4 H Chloride 82 L Carbon Dioxide 19 L Anion Gap 21 H BUN 170 H* Creatinine 5.7 H POC Glucometer 168.26769 Random Glucose 411 H* D Lactic Acid Calcium 5.4 L* Acetone, Qual 07/01/16 07/01/16 07/01/16 06:50 07:25 07:50 WBC RBC Hgb Hct MCV MCHC RDW Plt Count MPV Neutrophils % Lymphocytes % Band Neutrophils Puncture Site Left brachial ABG pH 7.04 L* ABG pCO2 at Pt Temp 61.7 H* ABG pO2 at Pt Temp 62.0 L ABG HCO3 15.9 L ABG O2 Sat (Measured) 85.2 L ABG O2 Content 9.4 L* ABG Base Excess -13.9 L* Sree Test Positive O2 Delivery Device Vent Oxygen Flow Rate 100% Vent Mode A/c Vent Rate 36 Mechanical Rate Y PEEP 12.0 Pressure Support Vent 300 Sodium Potassium Chloride Carbon Dioxide Anion Gap BUN Creatinine POC Glucometer > 400 Random Glucose Lactic Acid 2.041 H* Calcium Acetone, Qual 07/01/16 07/01/16 07/01/16 07:50 11:45 12:26 WBC RBC Hgb Hct MCV MCHC RDW Plt Count MPV Neutrophils % Lymphocytes % Band Neutrophils Puncture Site ABG pH ABG pCO2 at Pt Temp ABG pO2 at Pt Temp ABG HCO3 ABG O2 Sat (Measured) ABG O2 Content ABG Base Excess Sree Test O2 Delivery Device Oxygen Flow Rate Vent Mode Vent Rate Mechanical Rate PEEP Pressure Support Vent Sodium 122 L* Potassium 5.2 H Chloride 83 L Carbon Dioxide 19 L Anion Gap 20 H BUN 173 H* Creatinine 5.9 H POC Glucometer > 400 Random Glucose 416 H* Lactic Acid Calcium 5.5 L* Acetone, Qual Negative L ASSESSMENT AND PLAN: Acute Hypoxic Respiratory Failure Suspect Exacerbation of underlying Interstitial Lung Disease s/p pulse steroids (last dose 08/26) ARDS Lactic Acidosis likely from respiratory effort Acute on Chronic Renal Failure Paroxysmal Atrial Fibrillation Pneumonia Do not suspect CHF HTN - titrate FiO2, PEEP to keep SpO2 >90% - low tidal volume ventilation for pPlat < 30, 6cc/kg TV - NMBA - monitor ABG - ABX per ID - monitor urine output, creatinine - DVT/GI prophylaxis - ICU monitoring - In my opinion, at this point we are only causing increased suffering without offering her additional benefit of a positive outcome - On going C discussions with the family Dr Gatica CCTime 35"
--- NOTE | 2016-07-01 15:03 | PN ---
Physical Exam: SUBJECTIVE: Patient seen and examined. patient critically ill OBJECTIVE: Vital Signs Period Temp Pulse Resp BP Sys/Hill Pulse Ox Last 24 Hr 96.8 F-98.6 F 64-82 36-36 84-117/41-65 87-90 GENERAL: sedated, paralized and on ventilator HEAD: Normal with no signs of trauma, pupil not reacting ENT: Ears normal, nares patent, moist mucous membranes. NECK: Trachea midline, LUNGS: Breath sounds equal, b/l diffuse rales. HEART: s1s2 normal ABDOMEN: Soft, nontender, nondistended, normoactive bowel sounds, no guarding. EXTREMITIES: 2+ pulses, warm, well-perfused, no edema. NEUROLOGICAL: sedated and intubated SKIN: cold to touch Laboratory Results - last 24 hr 06/30/16 07/01/16 07/01/16 16:27 05:50 05:50 WBC 6.9 RBC 3.10 L Hgb 8.2 L Hct 25.3 L MCV 81.5 MCHC 32.3 RDW 19.8 H Plt Count 85 L D MPV 12.9 H D Neutrophils % 86.0 H Lymphocytes % 6.0 L D Band Neutrophils 8.0 D Puncture Site ABG pH ABG pCO2 at Pt Temp ABG pO2 at Pt Temp ABG HCO3 ABG O2 Sat (Measured) ABG O2 Content ABG Base Excess Sree Test O2 Delivery Device Oxygen Flow Rate Vent Mode Vent Rate Mechanical Rate PEEP Pressure Support Vent Sodium 122 L* Potassium 5.4 H Chloride 82 L Carbon Dioxide 19 L Anion Gap 21 H BUN 170 H* Creatinine 5.7 H POC Glucometer 168.75080 Random Glucose 411 H* D Lactic Acid Calcium 5.4 L* Acetone, Qual 07/01/16 07/01/16 07/01/16 06:50 07:25 07:50 WBC RBC Hgb Hct MCV MCHC RDW Plt Count MPV Neutrophils % Lymphocytes % Band Neutrophils Puncture Site Left brachial ABG pH 7.04 L* ABG pCO2 at Pt Temp 61.7 H* ABG pO2 at Pt Temp 62.0 L ABG HCO3 15.9 L ABG O2 Sat (Measured) 85.2 L ABG O2 Content 9.4 L* ABG Base Excess -13.9 L* Sree Test Positive O2 Delivery Device Vent Oxygen Flow Rate 100% Vent Mode A/c Vent Rate 36 Mechanical Rate Y PEEP 12.0 Pressure Support Vent 300 Sodium Potassium Chloride Carbon Dioxide Anion Gap BUN Creatinine POC Glucometer > 400 Random Glucose Lactic Acid 2.041 H* Calcium Acetone, Qual 07/01/16 07/01/16 07/01/16 07:50 11:45 12:26 WBC RBC Hgb Hct MCV MCHC RDW Plt Count MPV Neutrophils % Lymphocytes % Band Neutrophils Puncture Site ABG pH ABG pCO2 at Pt Temp ABG pO2 at Pt Temp ABG HCO3 ABG O2 Sat (Measured) ABG O2 Content ABG Base Excess Sree Test O2 Delivery Device Oxygen Flow Rate Vent Mode Vent Rate Mechanical Rate PEEP Pressure Support Vent Sodium 122 L* Potassium 5.2 H Chloride 83 L Carbon Dioxide 19 L Anion Gap 20 H BUN 173 H* Creatinine 5.9 H POC Glucometer > 400 Random Glucose 416 H* Lactic Acid Calcium 5.5 L* Acetone, Qual Negative L Active Medications Generic Name Dose Route Start Last Admin Trade Name Freq PRN Reason Stop Dose Admin Albuterol Sulfate 1 amp 06/21/16 01:00 06/22/16 22:40 Ventolin 0.083% Nebulizer Soln - NEB 1 amp Q1H PRN Administration SHORT OF BREATH/WHEEZING Albuterol/Ipratropium 1 amp 06/21/16 06:00 07/01/16 12:00 Duoneb - NEB 1 amp QIDR JOANNE Administration Artificial Tears 1 applic 06/26/16 18:14 06/30/16 09:06 Artificial Tears Ointment - OU 1 applic Q6H PRN Administration Atorvastatin Calcium 80 mg 06/21/16 22:00 06/30/16 21:03 Lipitor - PO 80 mg HS JOANNE Administration Chlorhexidine Gluconate 1 applic 06/25/16 22:00 06/30/16 21:03 Hibiclens For Decolonization - TP 1 applic HS JOANNE Administration Chlorhexidine Gluconate 15 ml 06/26/16 22:00 07/01/16 11:19 Peridex - MM 15 ml BID JOANNE Administration Docusate Sodium 100 mg 06/28/16 10:00 07/01/16 11:16 Colace - PO Not Given DAILY JOANNE Fentanyl 500 mcg/ Dextrose 100 mls @ 5 mls/hr 06/23/16 21:15 07/01/16 08:38 IJ 5 mls/hr TITR JOANNE Administration 25 MCG/HR Propofol 100 mls @ 2.817 mls/hr 06/24/16 11:15 07/01/16 11:36 Diprivan - IVPB 14 mls/hr TITR JOANNE Administration Protocol 5 MCG/KG/MIN Pantoprazole Sodium 100 mls @ 200 mls/hr 06/25/16 10:00 07/01/16 09:46 Protonix 40mg Ivpb (Pre-Docked) IVPB 200 mls/hr DAILY JOANNE Administration Vecuronium [place] 50 mg/ 250 mls @ 29.37 mls/hr 06/26/16 13:00 07/01/16 10:49 Dextrose IVPB 88.13 mls/hr TITR JOANNE Administration Protocol 1 MCG/KG/MIN Norepinephrine Bitartrate 8, 500 mls @ 18.75 mls/hr 07/01/16 09:00 07/01/16 12: 26 000 mcg/ Sodium Chloride IV 8 mcg/min ASDIR JOANNE Titration Protocol 5 MCG/MIN Insulin Aspart 1 vial 07/01/16 11:00 07/01/16 12:41 Novolog Vial Sliding Scale - SQ 10 units ACHS [facility] Administration Protocol Insulin Detemir 14 units 07/01/16 10:00 07/01/16 11:22 Levemir Vial SQ 14 unit BID JOANNE Administration Methylprednisolone Sodium Succinate 125 mg 06/27/16 10:00 07/01/16 11:19 Solu-Medrol - IVPB 125 mg DAILY JOANNE Administration Metoclopramide HCl 10 mg 06/27/16 21:36 06/27/16 23:20 Reglan Injection - IVPUSH 10 mg Q6H PRN Administration NAUSEA AND/OR VOMITING Mupirocin 1 applic 06/25/16 22:00 07/01/16 09:46 Bactroban 2% Ointment - TP 1 applic BID JOANNE Administration Polyethylene Glycol 17 gm 06/23/16 18:00 07/01/16 12:41 Miralax (For Daily Use) - PO Not Given DAILY JOANNE Senna 2 tab 06/23/16 18:01 Senna - PO HS PRN CONSTIPATION Sevelamer Carbonate 0.8 gm 06/29/16 11:45 07/01/16 06:00 Renvela Powder Packet - NGT 0.8 gm TID JOANNE Administration ASSESSMENT/PLAN: Acute Hypoxic Respiratory Failure could be due to rapid progression of interstial lung ds,ARDS mainatian spo2 over 90, on ventilator support fio2 100%, peep 12, tv 300, rr36 intubated sedated and paralysed on solumedrol 125 mg daily antibiotic as per ID. on duneb qidr monitor intake/ output continue nor epinephrine follow abg maintain spo2>90 Hypotension on nor epi drip Paroxysmal afib recently diagnosed, Remains in NSR. off heparin, cardiology on case not on heparin due to thrombocytopenia ckd monitor cr and bun, bun and cr increasing, renal function worsen monitor urine output, 600ml on phoslo, monitor phosphorus. hyperphosphatemia due to renal failure avoid nephrotoxic drugs nephrology on case : will give lasix trial. kaxylete given for hyperkalemia high blood glucose secondary to steroid monitor bgm on insulin sliding scale microcytic anemia stool for occult blood negative h/o HTN home meds atenolol, nifedipine and clonidine. on hold dvt pro: scd b/l electrolyte: hyperphosphatemia, monitor potassium gi pro ; protonix patient DNR Dispo: admit in icu. Visit type - Emergency Visit Emergency Visit: Yes ED Registration Date: 06/20/16 Care time: The patient presented to the Emergency Department on the above date and was hospitalized for further evaluation of their emergent condition. - New Patient This patient is new to me today: No - Critical Care Critical Care patient: Yes Total Critical Care Time (in minutes): 45 Critical Care Statement: The care of this patient involved high complexity decision making to prevent further life threatening deterioration of the patient 's condition and/or to evalute & treat vital organ system(s) failure or risk of failure.
[2016-07-01] MEDS: CHLORHEXIDINE GLUCONATE 4% CLEANSER FOR DECOLONIZATION TP SCH (22:39)
[2016-07-01] MEDS: ATORVASTATIN CA 80 MG TABLET (FP) PO SCH (22:39)
[2016-07-01] MEDS ORDERED: FENTANYL INJECTION 500 MCG in DEXTROSE 5%-WATER - 90 ML IJ SCH (22:45)
[2016-07-01 23:08] VITALS: TEMP 97
[2016-07-02 01:06] VITALS: PULSE 84
[2016-07-02 02:15] VITALS: BP 86/42
--- NOTE | 2016-07-02 04:17 | HOSP ---
Subjective - Review of Symptoms Events since last encounter: I was in the ICU. Saw asystole in the monitor. On assessment, patient was on the ventilator, no palpable pulses, no gag reflex , pupils were fixed and dilated. Asystole on the monitor. pronounced at 4: 10am. Family member notified. Son said he is on his way to the hospital. RN to notify the primary doctor and organ donation network. Physical Examination Vital Signs: Vital Signs Temperature 97.0 F L 07/01/16 22:00 Pulse Rate 84 07/02/16 02:00 Respiratory Rate 36 H 07/02/16 02:29 Blood Pressure 86/42 07/02/16 02:00 O2 Sat by Pulse Oximetry (%) 73 L 07/01/16 21:00 Labs: CBC, BMP 07/01/16 05:50 07/01/16 11:45 Visit type - Emergency Visit Emergency Visit: Yes ED Registration Date: 06/20/16 Care time: The patient presented to the Emergency Department on the above date and was hospitalized for further evaluation of their emergent condition. - New Patient This patient is new to me today: Yes Date on this admission: 07/02/16 - Critical Care Critical Care patient: Yes Total Critical Care Time (in minutes): 20
[2016-07-02 10:21] LABS: B2-GLYCOPROTEIN IGA 12 SAU (.); B2-GLYCOPROTEIN IGG <10 SGU (.); B2-GLYCOPROTEIN IGM <10 SMU (.); DRVVT RATIO 1.2 ratio (.)
--- NOTE | 2016-07-02 10:52 | DS ---
Physical Examination Vital Signs: Vital Signs Temperature 97.0 F L 07/01/16 22:00 Pulse Rate 84 07/02/16 02:00 Respiratory Rate 36 H 07/02/16 02:29 Blood Pressure 86/42 07/02/16 02:00 O2 Sat by Pulse Oximetry (%) 73 L 07/01/16 21:00 Eyes: Yes: Sclera Icterus Labs: CBC, BMP 07/01/16 05:50 07/01/16 11:45 Discharge Summary Reason For Visit: SEPSIS, CHF RESPIRATORY DISTRESS Hospital Course: 75yr old woman with PMHx of COPD/Asthma, HTN, HLD, questionable hx of NM and CKD (Cr 2.5 -->3.5 since 2016), left eye glaucoma and rt eye cataract. She was admitted 06/05-06/16 for pneumonia and was discharged to [facility]. Pt presents now to the ER ith CC of SOB/respiratory distress and hypoxia. In ER found to have /WBC 16, BUN/Cr 91/3.6, K 5.4, lactic acid 2.47, BNP 55943, lipase 828 and +UA, platelets 111 (from 228 on 06/16). Chest xray with bilateral effusions and likely consolidations R>L (my read). Pt started on bipap and given lasix (per verbal report, not in MAR) with some improvement abg 7.28/43/107/19.9 on fio2 80 %. Pt initially assessed in the ER and again in the ICU. Pt continues to deny chest pain/n/v/dysuria and endorses improvement of breathing. Pt in the ICU on nitro drip and bipap with fio2 45%, o2 sat 94%. 2 rounds of iv abx ,vent support, worsening renal function family decided DNR no HD on 07/02 in icu Condition: - Instructions Disposition: - Home Medications Comprehensive Discharge Medication List: Ambulatory Orders Albuterol 2.5/Ipratropium 0.5 [Duoneb -] 1 amp NEB Q6H PRN #0 amp 06/16/16 Apixaban [Eliquis -] 5 mg PO BID tablet 06/16/16 Atenolol [Tenormin -] 50 mg PO DAILY tablet 06/16/16 Clonidine HCl [Catapres -] 0.1 mg PO BID tablet 06/16/16 Levofloxacin [Levaquin -] 500 mg PO Q2D@0600 tablet 06/16/16 Nifedipine ER [Procardia XL -] 30 mg PO BID 06/16/16 Prednisone See Taper PO DAILY #30 tablet 06/16/16 Sodium Bicarbonate - 650 mg PO DAILY tablet 06/16/16 Omeprazole 20 mg PO DAILY 06/20/16
== END 2016-07-02 07:56 | disposition expired | DRG 870 ==
LOC: JER 19:40 → JERBED 22:18 → JICU 06-21 00:33
PROVIDERS: ADMIT Family Medicine; ATTEND Family Medicine
PROC: 5A09457 Assistance with Respiratory Ventilation, 24-96 Consecutive Hours, Continuous Positive Airway Pressure (ICD-10-PCS; 2016-06-20)
PROC: 5A1955Z Respiratory Ventilation, Greater than 96 Consecutive Hours (ICD-10-PCS; principal; 2016-06-23)
PROC: 0BH17EZ Insertion of Endotracheal Airway into Trachea, Via Natural or Artificial Opening (ICD-10-PCS; 2016-06-23)
PROC: 05HM33Z Insertion of Infusion Device into Right Internal Jugular Vein, Percutaneous Approach (ICD-10-PCS; 2016-06-24)
PROC: 30233N1 Transfusion of Nonautologous Red Blood Cells into Peripheral Vein, Percutaneous Approach (ICD-10-PCS; 2016-06-25)
DX: A41.9 Sepsis, unspecified organism (principal); J18.9 Pneumonia, unspecified organism; J81.0 Acute pulmonary edema; J96.01 Acute respiratory failure with hypoxia; I50.33 Acute on chronic diastolic (congestive) heart failure; J44.1 Chronic obstructive pulmonary disease with (acute) exacerbation; E87.2 Acidosis; N18.4 Chronic kidney disease, stage 4 (severe); N17.9 Acute kidney failure, unspecified; Z87.891 Personal history of nicotine dependence; J84.10 Pulmonary fibrosis, unspecified; I12.9 Hypertensive chronic kidney disease with stage 1 through stage 4 chronic kidney disease, or unspecified chronic kidney disease; I48.0 Paroxysmal atrial fibrillation; E83.39 Other disorders of phosphorus metabolism; E87.5 Hyperkalemia; R65.10 Systemic inflammatory response syndrome (SIRS) of non-infectious origin without acute organ dysfunction; E11.9 Type 2 diabetes mellitus without complications; D50.9 Iron deficiency anemia, unspecified
CPT/HCPCS: 31500; 36415; 36430; 36600; 71010-TC; 74176-TC; 80048; 80053; 80061; 81003; 81015; 82009; 82150; 82164; 82272; 82436; 82542; 82550; 82570; 82803; 83010; 83036; 83516; 83520; 83605; 83615; 83625; 83690; 83721; 83735; 83880; 84100; 84133; 84156; 84300; 84439; 84443; 84484; 84540; 85025; 85384; 85597; 85610; 85651; 85730; 86022; 86038; 86140; 86146; 86147; 86160; 86162; 86200; 86225; 86256; 86301; 86431; 86480; 86644; 86645; 86850; 86880; 86900; 86901; 86922; 87040; 87070; 87086; 87102; 87116; 87205; 87206; 87210; 87254; 87305; 87389; 87449; 87804; 87899; 93005; 93010; 94002; 94640; 94660; 99285-25; G0480; J1644; P9038; P9058